=== PATIENT | male | born 1965 | race Caucasian/White ===

== ENCOUNTER 2021-03-17 11:00 | Inpatient (IN) ==
[~2021-03-17 11:00] MED LIST: ETOMIDATE 2 MG/ML 20 ML VIAL IV ONE; ROCURONIUM BROMIDE 10 MG/ML 5 ML VIAL IV ONE
[2021-03-17] MEDS ORDERED: ONDANSETRON INJ 2 MG/ML 2 ML VIAL IV STA (11:14)
[2021-03-17] MEDS ORDERED: SODIUM CHLORIDE 0.9% 1000ML 1,000 ML IV SCH ×3 (11:15→17:16)
--- NOTE | 2021-03-17 11:31 | Emergency Department Note ---
History of Present Illness General Chief complaint: Illness Stated complaint: FLU LIKE SX, WEAKNESS, FEVER Time Seen by Provider: 03/17/21 11:05 History of Present Illness This is a 55-year-old male the presents to the emergency department via ambulance with complaints of "flulike symptoms, weakness, fever". The ambulance was summoned by the patient's . Per report the patient has been ill since this past . He began with a cough, body aches and vomiting. There was some blood noted in the cough/vomit as of yesterday. Patient notes he feels very weak and states that last night he could not get up and laid on the ground throughout the night. Patient's then found him this morning. That was when the ambulance was summoned and he was brought here. Per EMS BSG 302, temp 100.5 on arrival to his house. They note that the patient seemed quite stiff overall. Patient does have history of COVID-19 in Jun 2020. He is not vaccinated against COVID-19. Patient notes he did not have his medications as of this morning. Patient's notes that he does not seem like himself at this time. Home Medications Medication Instructions Recorded Confirmed Type empagliflozin 25 mg tablet 25 mg PO QAM 09/14/19 03/17/21 History (Jardiance) glimepiride 2 mg tablet 2 mg PO QDD 09/14/19 03/17/21 History hydralazine 25 mg tablet 25 mg PO BID 09/14/19 03/17/21 History lisinopril 20 1 tab PO BID 09/14/19 03/17/21 History mg-hydrochlorothiazide 12.5 mg tablet metformin 500 mg tablet,extended 1,000 mg PO BID 09/14/19 03/17/21 History release 24hr atorvastatin 20 mg tablet 20 mg PO DAILY 03/17/21 03/17/21 History glimepiride 2 mg tablet 4 mg PO DAILY 03/17/21 03/17/21 History Allergies Allergy/AdvReac Type Severity Reaction Status Date / Time bee venom protein (honey bee) Allergy . Verified 03/17/21 11:45 BEES Allergy Mild Hives Uncoded 03/17/21 11:45 Past Med/Surg History Medical History Altered mental status Diabetes mellitus, type 2 Diabetic ketoacidosis Hypertension Kidney stones HX OF AND PASSED ON OWN Rhabdomyolysis Transaminitis Surgical History History of open reduction and internal fixation (ORIF) procedure RIGHT ANKLE Family History (Updated 03/17/21 @ 15:49 by ASUNCION Maldonado) Brother Stroke Social History Smoking Status: Never smoker Second Hand Exposure: No; Hx Alcohol Use: No Hx Substance Use: No Preferred Language: Lithuanian Communication Ability: Impaired Communication Ability Comment: currently imparied, not baseline, trouble breathing and communicating Criminal Defense Lawyer Required: No Beliefs That Will Affect Care: None Current Living Situation: Family Current Living Situation Comment: lives home with daughter. Feels Safe at Home: Yes Assistive Devices: Glasses Assistive Devices Comment: left glasses at home Review of Systems A total of 10 systems reviewed and were otherwise negative Physical Exam Vital Signs Vital Signs - 24 hr 03/17/21 11:04 03/17/21 11:18 03/17/21 11:52 Temperature 36.9 C Temperature Source Oral Pulse Rate 108 H 109 H Pulse Rate from SpO2 Sensor 107 H Pulse Rhythm Regular Respiratory Rate 18 18 38 H Respiratory Depth Normal Respiratory Pattern Regular Blood Pressure 119/80 119/80 135/104 H Blood Pressure Mean 93 93 114 Blood Pressure Position Lying Pulse Oximetry 95 96 Oxygen Flow Rate 3 Sepsis Recent Fever Within 48 Hours Yes Sepsis New/Unexplained Change in Mental Status No Sepsis Action Taken by Nursing Physician Notified 03/17/21 12:00 03/17/21 12:30 03/17/21 13:00 Temperature Temperature Source Pulse Rate 103 H 109 H 146 H Pulse Rate from SpO2 Sensor 180 H 108 H 111 H Pulse Rhythm Respiratory Rate Respiratory Depth Respiratory Pattern Blood Pressure 122/92 136/62 129/70 Blood Pressure Mean 102 86 89 Blood Pressure Position Pulse Oximetry 94 Oxygen Flow Rate Sepsis Recent Fever Within 48 Hours Sepsis New/Unexplained Change in Mental Status Sepsis Action Taken by Nursing VITAL SIGNS - Vital signs and nursing notes were reviewed. Mildly tachycardic, overall stable and afebrile. GENERAL - 55-year-old male appearing his stated age but is ill-appearing, has dried blood over his mouth and teeth and seems quite dry. Patient does answer questions. SKIN - Without rashes. No meningeal or petechial rash. Chronic skin change noted to the lower extremity. HEAD - NC/AT. EYES - PERRL with EOMI bilaterally. Sclera anicteric. Palpebral conjunctiva pink and moist with no injection noted. EARS - No deformities of external structures noted on gross examination bilaterally. No pain elicited with palpation of the tragus bilaterally. External auditory canals without discharge or otorrhea. Tympanic membranes pearly jade without retraction or bulging. No fluid or purulent material visualized behind the TM. Handle of malleus, umbo, cone of light, pars tensa/flaccid all easily visualized. NOSE - Midline and without cyanosis. No epistaxis or purulent drainage noted. Septum midline without deviation or septal hematoma noted. MOUTH/OROPHARYNX - Without perioral cyanosis. Buccal mucosa pink and dry and without leukoplakia. Tongue midline with equal elevation of palate bilaterally. No tonsillar hypertrophy, erythema, or exudates noted. Fair dentition noted. Dried blood noted. NECK - Neck with FROM. No nuchal rigidity. LUNGS - Chest wall symmetric without accessory muscle use, intercostals retractions, or central cyanosis. Clear to auscultation. There is no wheezing. No drooling, stridor, trismus. Patient does have a mild increase in respiratory rate but does not seem fatigued with respirations. CARDIAC -mildly tachycardic and regular rate. With S1/S2. No murmur, rubs, or gallops appreciated. ABDOMEN - Abdominal contour normal without pulsations or visible masses. BS normoactive all four quadrants. No tenderness, palpable masses, hepatosplenomegaly, or ascites noted. EXTREMITIES - No clubbing or peripheral cyanosis. +5/5 strength noted in UE/LE bilaterally. NEUROLOGIC - Cranial nerves II through XII grossly intact. PSYCH - A&O, and cooperates fully with examiner. Pt is very pleasant and interacts well with examiner. Course Administered Medications Insulin Human Regular 250 (units/ Sodium Chloride) 250 mls @ 9 mls/hr IV .Q24H [facility]; Protocol Stop: 04/16/21 14:29 Last Titration: 03/17/21 20:50 Dose: 9 units/hr, 9 mls/hr Documented by: [id number] Cosigned by: [id number] Titration: 03/17/21 17:51 Dose: 3.9 units/hr, 3.9 mls/hr Documented by: [id number] Cosigned by: [id number] Titration: 03/17/21 16:24 Dose: 4.9 units/hr, 4.9 mls/hr Documented by: [id number] Cosigned by: [id number] Admin: 03/17/21 15:16 Dose: 3.5 units/hr, 3.5 mls/hr Documented by: [id number] Cosigned by: [id number] Doxycycline Hyclate 100 mg/ (Dextrose) 110 mls @ 50 mls/hr IV Q12H [facility] Stop: 03/31/21 20:59 Last Admin: 03/17/21 21:15 Dose: 50 mls/hr Documented by: [id number] Sodium Chloride (Nss 1000ml) 1,000 mls @ 999 mls/hr IV .Q1H1M [facility] Last Infusion: 03/17/21 21:42 Dose: 0 mls/hr Documented by: [id number] Admin: 03/17/21 17:50 Dose: 999 mls/hr Documented by: [id number] Pantoprazole Sodium 40 mg/ (Dextrose) 100 mls @ 20 mls/hr IV Q5H [facility] Stop: 04/16/21 17:59 Last Admin: 03/17/21 18:27 Dose: 8 mg/hr, 20 mls/hr Documented by: [id number] Parenteral Electrolytes (Normosol-R) 1,000 mls @ 15 mls/hr IV .Q24H [facility] Stop: 04/16/21 17:59 Last Admin: 03/17/21 21:34 Dose: Not Given Documented by: [id number] Dextrose/Sodium Chloride (D5w And 1/2nss) 1,000 mls @ 200 mls/hr IV .Q5H [facility] Stop: 04/16/21 17:59 Last Infusion: 03/17/21 22:05 Dose: 200 mls/hr Documented by: [id number] Infusion: 03/17/21 20:07 Dose: 0 mls/hr Documented by: [id number] Admin: 03/17/21 18:34 Dose: 200 mls/hr Documented by: [id number] Dexamethasone 15 mg/ Dextrose 28.75 mls @ 0.833 mls/min IV Q6H [facility] Stop: 04/16/21 18:59 Last Infusion: 03/17/21 22:36 Dose: 0 mls/min Documented by: [id number] Admin: 03/17/21 21:15 Dose: 0.8 mls/min Documented by: [id number] Acyclovir Sodium 1,000 mg/ (Dextrose) 270 mls @ 250 mls/hr IV Q12H [facility]; Protocol Stop: 03/27/21 18:59 Last Infusion: 03/17/21 20:50 Dose: 0 mls/hr Documented by: [id number] Admin: 03/17/21 18:35 Dose: 250 mls/hr Documented by: [id number] Ampicillin Sodium 2,000 mg/ (Sodium Chloride) 100 mls @ 200 mls/hr IV Q6H [facility]; Protocol Stop: 03/27/21 19:29 Last Infusion: 03/17/21 20:50 Dose: 0 mls/hr Documented by: [id number] Admin: 03/17/21 20:07 Dose: 200 mls/hr Documented by: [id number] Ceftazidime 1,000 mg/ Dextrose 50 mls @ 100 mls/hr IV Q12H [facility]; Protocol Stop: 03/27/21 18:59 Last Infusion: 03/17/21 22:36 Dose: 0 mls/hr Documented by: [id number] Admin: 03/17/21 21:56 Dose: 100 mls/hr Documented by: [id number] Propofol (Diprivan) 1,000 mg in 100 mls @ 11.76 mls/hr IV .Q8H31M [facility]; Protocol Stop: 03/20/21 19:59 Last Admin: 03/17/21 20:07 Dose: 20 mcg/kg/min, 11.8 mls/hr Documented by: [id number] Cosigned by: [id number] Fentanyl Citrate (Fentanyl Drip) 1,250 mcg in 250 mls @ 5 mls/hr IV .Q50H [facility]; Protocol Stop: 03/31/21 19:59 Last Admin: 03/17/21 20:07 Dose: 25 mcg/hr, 5 mls/hr Documented by: [id number] Cosigned by: [id number] Insulin Aspart (Insulin Aspart 100 Units/Ml 3 Ml Pen) 0 units SC ACHS [facility] Stop: 04/16/21 16:29 Last Admin: 03/17/21 22:06 Dose: Not Given Documented by: [id number] Admin: 03/17/21 16:34 Dose: Not Given Documented by: [id number] Discontinued Medications Sodium Chloride (Nss 1000ml) 1,000 mls @ 999 mls/hr IV .Q1H1M [facility] Stop: 03/17/21 12:15 Last Infusion: 03/17/21 12:43 Dose: 0 mls/hr Documented by: [id number] Admin: 03/17/21 11:30 Dose: 999 mls/hr Documented by: [id number] Potassium Chloride 10 meq/ (Sodium Chloride) 1,005 mls @ 1,005 mls/hr IV .Q1H [facility] Stop: 03/17/21 13:44 Last Infusion: 03/17/21 14:53 Dose: 0 mls/hr Documented by: [id number] Admin: 03/17/21 13:29 Dose: 1,005 mls/hr Documented by: [id number] Infusion: 03/17/21 13:28 Dose: 0 mls/hr Documented by: [id number] Admin: 03/17/21 12:13 Dose: 1,005 mls/hr Documented by: [id number] Piperacillin Sod/Tazobactam Sod (Zosyn) 4.5 gm in 120 mls @ 240 mls/hr IV NOW ONE Stop: 03/17/21 13:04 Last Infusion: 03/17/21 13:23 Dose: 0 mls/hr Documented by: [id number] Admin: 03/17/21 12:49 Dose: 240 mls/hr Documented by: [id number] Vancomycin HCl 2,000 mg/ (Sodium Chloride) 540 mls @ 200 mls/hr IV NOW STA Stop: 03/17/21 15:25 Last Infusion: 03/17/21 17:08 Dose: 0 mls/hr Documented by: [id number] Admin: 03/17/21 13:23 Dose: 200 mls/hr Documented by: [id number] Doxycycline Hyclate 100 mg/ (Dextrose) 110 mls @ 55 mls/hr IV NOW STA Stop: 03/17/21 14:43 Last Infusion: 03/17/21 15:26 Dose: 0 mls/hr Documented by: [id number] Admin: 03/17/21 13:30 Dose: 55 mls/hr Documented by: [id number] Potassium Chloride 40 meq/ (Sodium Chloride) 1,020 mls @ 250 mls/hr IV .Q4H5M [facility] Stop: 04/16/21 15:14 Last Infusion: 03/17/21 18:20 Dose: 0 mls/hr Documented by: [id number] Admin: 03/17/21 15:38 Dose: 200 mls/hr Documented by: [id number] Piperacillin Sod/Tazobactam (Sod 3.375 gm/ Dextrose) 115 mls @ 28.75 mls/hr IV Q8H [facility]; Protocol Stop: 03/19/21 17:59 Last Admin: 03/17/21 18:23 Dose: Not Given Documented by: [id number] Potassium Chloride (K Corky / Wtr) 10 meq in 100 mls @ 100 mls/hr IV Q1H [facility] Stop: 03/17/21 18:59 Last Infusion: 03/17/21 22:37 Dose: 0 mls/hr Documented by: [id number] Admin: 03/17/21 20:53 Dose: 100 mls/hr Documented by: [id number] Infusion: 03/17/21 20:01 Dose: 0 mls/hr Documented by: [id number] Admin: 03/17/21 18:13 Dose: 100 mls/hr Documented by: [id number] Insulin Human Regular (Novolin-R Bolus From Bag) 3.5 units IV ONE ONE Stop: 03/17/21 14:31 Last Admin: 03/17/21 15:20 Dose: 3.5 units Documented by: [id number] Cosigned by: [id number] Miscellaneous (Rapid Sequence Induction Bag) Confirm Administered Dose 1 ea .ROUTE .STK-MED ONE Stop: 03/17/21 18:58 Last Admin: 03/17/21 21:34 Dose: Not Given Documented by: [id number] Ondansetron HCl (Ondansetron Inj 2 Mg/Ml 2 Ml Vial) 4 mg IV NOW STA Stop: 03/17/21 11:15 Last Admin: 03/17/21 11:31 Dose: 4 mg Documented by: [id number] Potassium Chloride (Potassium Chloride Crtab 20 Meq Tabcr) 40 meq PO ONE ONE Stop: 03/17/21 14:16 Last Admin: 03/17/21 18:15 Dose: Not Given Documented by: [id number] Potassium Chloride (Potassium Chloride 20 Meq/15 Ml Udc) 40 meq PO ONE ONE Stop: 03/17/21 15:04 Last Admin: 03/17/21 16:17 Dose: Not Given Documented by: [id number] Critical Care Time Critical Care Time: Yes Total Critical Care Time: 40 I have personally spent about 40 minutes of critical care time in the direct management of this patient. This includes bedside care, interpretation of diagnostic studies, and testing, discussion with consultants, patient, and family members, and other required patient management activities. This 40 minutes is in excess of all separately billable procedures. Medical Decision Making Laboratory Data Result diagrams: 03/17/21 18:11 03/17/21 18:52 Lab Results 03/17/21 03/17/21 03/17/21 Range/Units 11:24 11:24 11:24 WBC 6.81 (4.8-10.8) K/uL RBC 5.42 (4.7-6.1) M/uL Hgb 15.9 (14.0-18.0) g/dL POC Hgb (14.0-18.0) g/dl Hct 45.7 (42-52) % POC Hct (42-52) % MCV 84.3 (80-100) fL MCH 29.3 (25-34) pg MCHC 34.8 (32-36) g/dL RDW Std Deviation 39.7 (36.4-46.3) fL RDW Coeff of Js 12.9 (11.5-14.5) % Plt Count 32 L (130-400) K/uL Immature Gran % (Auto) 1.5 % Neut % (Auto) 87.1 % Lymph % (Auto) 3.1 % [place] % (Auto) 8.2 % Eos % (Auto) 0.0 % Baso % (Auto) 0.1 % Neut # (Auto) 5.93 (1.4-6.5) K/uL Lymph # (Auto) 0.21 L (1.2-3.4) K/uL [place] # (Auto) 0.56 (0.11-0.59) K/uL Eos # (Auto) 0.00 (0-0.5) K/uL Baso # (Auto) 0.01 (0-0.2) K/uL Immature Gran # (Auto) 0.10 H (0.00-0.02) K/uL Blood Smear Review Toxic Vacuolation 2+ Dohle Bodies 2+ Platelet Estimate SIGNIFIC DECREASED (Normal) PT (9.0-12.0) Seconds INR (0.9-1.1) APTT (21.0-31.0) Seconds PTT Ratio POC Sodium (135-144) mmol/L Sodium 133 L (136-145) mmol/L POC Potassium (3.3-5.0) mmol/L Potassium 3.1 L (3.5-5.1) mmol/L POC Chloride (101-112) mmol/L Chloride 95 L (98-107) mmol/L Carbon Dioxide 24 (21-32) mmol/L POC Total CO2 (24-31) mmol/L Anion Gap 14.0 H (3-11) POC Anion Gap (16-25) mmol/L POC BUN (7-18) mg/dl BUN 77 H (7-18) mg/dl Creatinine 2.72 H (0.6-1.4) mg/dl POC Creatinine (0.6-1.3) mg/dl Est Cr Clr Drug Dosing 36.1 ml/min Est GFR ( Amer) 29.6 ml/min Est GFR (Non-Af Amer) 25.5 ml/min BUN/Creatinine Ratio 28.4 H (10-20) Glucose 314 H* (70-99) mg/dl POC Glucose (other) (70-99) mg/dl Lactate (0.4-2.0) mmol/L Calcium 8.6 (8.5-10.1) mg/dl POC Ioniz Calcium Ladi (1.12-1.32) mmol/l Magnesium 2.1 (1.8-2.4) mg/dl Total Bilirubin 1.1 H (0.2-1) mg/dl AST 367 H (15-37) U/L ALT 355 H (12-78) U/L Alkaline Phosphatase 89 (45-117) U/L Total Creatine Kinase 1922 H (39-308) U/L CK-MB (CK-2) 18.8 H (0.5-3.6) ng/ml CK/CKMB % Calc 1.0 (0-3.0) Troponin I 1.770 H* (0-0.045) ng/ml Total Protein 6.8 (6.4-8.2) gm/dl Albumin 2.4 L (3.4-5.0) gm/dl Globulin 4.4 H (2.5-4.0) gm/dl Albumin/Globulin Ratio 0.5 L (0.9-2) Lipase 55 L (73-393) U/L Beta-Hydroxybutyric Acd (0.2-2.81) mg/dl Procalcitonin 188.59 H (0-0.5) ng/ml TSH 1.730 (0.300-4.500) uIu/ml Urine Color Urine Appearance (Clear) Urine pH (4.5-7.5) Ur Specific [place] (1.000-1.030) Urine Protein (Negative) Urine Glucose (UA) (Negative) Urine Ketones (Negative) Urine Blood (Negative) Urine Nitrite (Negative) Urine Bilirubin (Negative) Urine Urobilinogen (Negative) Ur Leukocyte Esterase (Negative) Urine WBC (Auto) (0-5) /hpf Urine RBC (Auto) (0-4) /hpf U Hyaline Cast (Auto) (0-5) /lpf U Epithel Cells (Auto) (0-5) /lpf Urine Bacteria (Auto) (Negative) Ur Renal Epithelial Cell Amorphous Sediment (None Prsent) Granular Casts (0) /lpf Urine Yeast Anaplasma Smear See Comment A Lyme Disease IgG Ab Negative (Negative) Lyme Disease IgM Ab Negative (Negative) COVID-19 Eval Order SARS-CoV-2 (PCR) (Negative) Bld Cult Staph aureus PCR (Negative) Blood Culture MRSA PCR (Negative) Blood Type Antibody Screen 03/17/21 03/17/21 03/17/21 Range/Units 11:24 11:24 11:24 WBC (4.8-10.8) K/uL RBC (4.7-6.1) M/uL Hgb (14.0-18.0) g/dL POC Hgb (14.0-18.0) g/dl Hct (42-52) % POC Hct (42-52) % MCV (80-100) fL MCH (25-34) pg MCHC (32-36) g/dL RDW Std Deviation (36.4-46.3) fL RDW Coeff of Js (11.5-14.5) % Plt Count (130-400) K/uL Immature Gran % (Auto) % Neut % (Auto) % Lymph % (Auto) % [place] % (Auto) % Eos % (Auto) % Baso % (Auto) % Neut # (Auto) (1.4-6.5) K/uL Lymph # (Auto) (1.2-3.4) K/uL [place] # (Auto) (0.11-0.59) K/uL Eos # (Auto) (0-0.5) K/uL Baso # (Auto) (0-0.2) K/uL Immature Gran # (Auto) (0.00-0.02) K/uL Blood Smear Review Toxic Vacuolation Dohle Bodies Platelet Estimate (Normal) PT 10.3 (9.0-12.0) Seconds INR 1.0 (0.9-1.1) APTT 28.5 (21.0-31.0) Seconds PTT Ratio 1.1 POC Sodium (135-144) mmol/L Sodium (136-145) mmol/L POC Potassium (3.3-5.0) mmol/L Potassium (3.5-5.1) mmol/L POC Chloride (101-112) mmol/L Chloride (98-107) mmol/L Carbon Dioxide (21-32) mmol/L POC Total CO2 (24-31) mmol/L Anion Gap (3-11) POC Anion Gap (16-25) mmol/L POC BUN (7-18) mg/dl BUN (7-18) mg/dl Creatinine (0.6-1.4) mg/dl POC Creatinine (0.6-1.3) mg/dl Est Cr Clr Drug Dosing ml/min Est GFR ( Amer) ml/min Est GFR (Non-Af Amer) ml/min BUN/Creatinine Ratio (10-20) Glucose (70-99) mg/dl POC Glucose (other) (70-99) mg/dl Lactate 4.7 H* (0.4-2.0) mmol/L Calcium (8.5-10.1) mg/dl POC Ioniz Calcium Ladi (1.12-1.32) mmol/l Magnesium (1.8-2.4) mg/dl Total Bilirubin (0.2-1) mg/dl AST (15-37) U/L ALT (12-78) U/L Alkaline Phosphatase (45-117) U/L Total Creatine Kinase (39-308) U/L CK-MB (CK-2) (0.5-3.6) ng/ml CK/CKMB % Calc (0-3.0) Troponin I (0-0.045) ng/ml Total Protein (6.4-8.2) gm/dl Albumin (3.4-5.0) gm/dl Globulin (2.5-4.0) gm/dl Albumin/Globulin Ratio (0.9-2) Lipase (73-393) U/L Beta-Hydroxybutyric Acd (0.2-2.81) mg/dl Procalcitonin (0-0.5) ng/ml TSH (0.300-4.500) uIu/ml Urine Color Urine Appearance (Clear) Urine pH (4.5-7.5) Ur Specific [place] (1.000-1.030) Urine Protein (Negative) Urine Glucose (UA) (Negative) Urine Ketones (Negative) Urine Blood (Negative) Urine Nitrite (Negative) Urine Bilirubin (Negative) Urine Urobilinogen (Negative) Ur Leukocyte Esterase (Negative) Urine WBC (Auto) (0-5) /hpf Urine RBC (Auto) (0-4) /hpf U Hyaline Cast (Auto) (0-5) /lpf U Epithel Cells (Auto) (0-5) /lpf Urine Bacteria (Auto) (Negative) Ur Renal Epithelial Cell Amorphous Sediment (None Prsent) Granular Casts (0) /lpf Urine Yeast Anaplasma Smear Lyme Disease IgG Ab (Negative) Lyme Disease IgM Ab (Negative) COVID-19 Eval Order SARS-CoV-2 (PCR) (Negative) Bld Cult Staph aureus PCR Positive A (Negative) Blood Culture MRSA PCR Negative (Negative) Blood Type Antibody Screen 03/17/21 03/17/21 03/17/21 Range/Units 11:25 11:57 12:25 WBC (4.8-10.8) K/uL RBC (4.7-6.1) M/uL Hgb (14.0-18.0) g/dL POC Hgb 16.7 (14.0-18.0) g/dl Hct (42-52) % POC Hct 49 (42-52) % MCV (80-100) fL MCH (25-34) pg MCHC (32-36) g/dL RDW Std Deviation (36.4-46.3) fL RDW Coeff of Js (11.5-14.5) % Plt Count (130-400) K/uL Immature Gran % (Auto) % Neut % (Auto) % Lymph % (Auto) % [place] % (Auto) % Eos % (Auto) % Baso % (Auto) % Neut # (Auto) (1.4-6.5) K/uL Lymph # (Auto) (1.2-3.4) K/uL [place] # (Auto) (0.11-0.59) K/uL Eos # (Auto) (0-0.5) K/uL Baso # (Auto) (0-0.2) K/uL Immature Gran # (Auto) (0.00-0.02) K/uL Blood Smear Review Toxic Vacuolation Dohle Bodies Platelet Estimate (Normal) PT (9.0-12.0) Seconds INR (0.9-1.1) APTT (21.0-31.0) Seconds PTT Ratio POC Sodium 134 L (135-144) mmol/L Sodium (136-145) mmol/L POC Potassium 3.1 L (3.3-5.0) mmol/L Potassium (3.5-5.1) mmol/L POC Chloride 95 L (101-112) mmol/L Chloride (98-107) mmol/L Carbon Dioxide (21-32) mmol/L POC Total CO2 19 L (24-31) mmol/L Anion Gap (3-11) POC Anion Gap 23.0 (16-25) mmol/L POC BUN 66 H (7-18) mg/dl BUN (7-18) mg/dl Creatinine (0.6-1.4) mg/dl POC Creatinine 2.8 H (0.6-1.3) mg/dl Est Cr Clr Drug Dosing ml/min Est GFR ( Amer) ml/min Est GFR (Non-Af Amer) ml/min BUN/Creatinine Ratio (10-20) Glucose (70-99) mg/dl POC Glucose (other) 331 H (70-99) mg/dl Lactate (0.4-2.0) mmol/L Calcium (8.5-10.1) mg/dl POC Ioniz Calcium Ladi 1.01 L (1.12-1.32) mmol/l Magnesium (1.8-2.4) mg/dl Total Bilirubin (0.2-1) mg/dl AST (15-37) U/L ALT (12-78) U/L Alkaline Phosphatase (45-117) U/L Total Creatine Kinase (39-308) U/L CK-MB (CK-2) (0.5-3.6) ng/ml CK/CKMB % Calc (0-3.0) Troponin I (0-0.045) ng/ml Total Protein (6.4-8.2) gm/dl Albumin (3.4-5.0) gm/dl Globulin (2.5-4.0) gm/dl Albumin/Globulin Ratio (0.9-2) Lipase (73-393) U/L Beta-Hydroxybutyric Acd (0.2-2.81) mg/dl Procalcitonin (0-0.5) ng/ml TSH (0.300-4.500) uIu/ml Urine Color Dark Yellow Urine Appearance Cloudy A (Clear) Urine pH 5.0 (4.5-7.5) Ur Specific [place] 1.023 (1.000-1.030) Urine Protein 1+ H (Negative) Urine Glucose (UA) 3+ H (Negative) Urine Ketones 1+ H (Negative) Urine Blood 1+ H (Negative) Urine Nitrite Negative (Negative) Urine Bilirubin Negative (Negative) Urine Urobilinogen Negative (Negative) Ur Leukocyte Esterase Negative (Negative) Urine WBC (Auto) 10-30 H (0-5) /hpf Urine RBC (Auto) 0-4 (0-4) /hpf U Hyaline Cast (Auto) 1-5 (0-5) /lpf U Epithel Cells (Auto) >30 H (0-5) /lpf Urine Bacteria (Auto) Negative (Negative) Ur Renal Epithelial Cell Not Reportable Amorphous Sediment Present A (None Prsent) Granular Casts 1-5 H (0) /lpf Urine Yeast Not Reportable Anaplasma Smear Lyme Disease IgG Ab (Negative) Lyme Disease IgM Ab (Negative) COVID-19 Eval Order SARS-CoV-2 (PCR) (Negative) Bld Cult Staph aureus PCR (Negative) Blood Culture MRSA PCR (Negative) Blood Type A Positive Antibody Screen NEGATIVE 03/17/21 03/17/21 Range/Units 12:25 12:25 WBC (4.8-10.8) K/uL RBC (4.7-6.1) M/uL Hgb (14.0-18.0) g/dL POC Hgb (14.0-18.0) g/dl Hct (42-52) % POC Hct (42-52) % MCV (80-100) fL MCH (25-34) pg MCHC (32-36) g/dL RDW Std Deviation (36.4-46.3) fL RDW Coeff of Js (11.5-14.5) % Plt Count (130-400) K/uL Immature Gran % (Auto) % Neut % (Auto) % Lymph % (Auto) % [place] % (Auto) % Eos % (Auto) % Baso % (Auto) % Neut # (Auto) (1.4-6.5) K/uL Lymph # (Auto) (1.2-3.4) K/uL [place] # (Auto) (0.11-0.59) K/uL Eos # (Auto) (0-0.5) K/uL Baso # (Auto) (0-0.2) K/uL Immature Gran # (Auto) (0.00-0.02) K/uL Blood Smear Review Toxic Vacuolation Dohle Bodies Platelet Estimate (Normal) PT (9.0-12.0) Seconds INR (0.9-1.1) APTT (21.0-31.0) Seconds PTT Ratio POC Sodium (135-144) mmol/L Sodium (136-145) mmol/L POC Potassium (3.3-5.0) mmol/L Potassium (3.5-5.1) mmol/L POC Chloride (101-112) mmol/L Chloride (98-107) mmol/L Carbon Dioxide (21-32) mmol/L POC Total CO2 (24-31) mmol/L Anion Gap (3-11) POC Anion Gap (16-25) mmol/L POC BUN (7-18) mg/dl BUN (7-18) mg/dl Creatinine (0.6-1.4) mg/dl POC Creatinine (0.6-1.3) mg/dl Est Cr Clr Drug Dosing ml/min Est GFR ( Amer) ml/min Est GFR (Non-Af Amer) ml/min BUN/Creatinine Ratio (10-20) Glucose (70-99) mg/dl POC Glucose (other) (70-99) mg/dl Lactate (0.4-2.0) mmol/L Calcium (8.5-10.1) mg/dl POC Ioniz Calcium Ladi (1.12-1.32) mmol/l Magnesium (1.8-2.4) mg/dl Total Bilirubin (0.2-1) mg/dl AST (15-37) U/L ALT (12-78) U/L Alkaline Phosphatase (45-117) U/L Total Creatine Kinase (39-308) U/L CK-MB (CK-2) (0.5-3.6) ng/ml CK/CKMB % Calc (0-3.0) Troponin I (0-0.045) ng/ml Total Protein (6.4-8.2) gm/dl Albumin (3.4-5.0) gm/dl Globulin (2.5-4.0) gm/dl Albumin/Globulin Ratio (0.9-2) Lipase (73-393) U/L Beta-Hydroxybutyric Acd (0.2-2.81) mg/dl Procalcitonin (0-0.5) ng/ml TSH (0.300-4.500) uIu/ml Urine Color Urine Appearance (Clear) Urine pH (4.5-7.5) Ur Specific [place] (1.000-1.030) Urine Protein (Negative) Urine Glucose (UA) (Negative) Urine Ketones (Negative) Urine Blood (Negative) Urine Nitrite (Negative) Urine Bilirubin (Negative) Urine Urobilinogen (Negative) Ur Leukocyte Esterase (Negative) Urine WBC (Auto) (0-5) /hpf Urine RBC (Auto) (0-4) /hpf U Hyaline Cast (Auto) (0-5) /lpf U Epithel Cells (Auto) (0-5) /lpf Urine Bacteria (Auto) (Negative) Ur Renal Epithelial Cell Amorphous Sediment (None Prsent) Granular Casts (0) /lpf Urine Yeast Anaplasma Smear Lyme Disease IgG Ab (Negative) Lyme Disease IgM Ab (Negative) COVID-19 Eval Order Covid19 at [facility] SARS-CoV-2 (PCR) NEGATIVE (Negative) Bld Cult Staph aureus PCR (Negative) Blood Culture MRSA PCR (Negative) Blood Type Antibody Screen Imaging Data Radiologist's Impression: Head CT 03/17/21 11:14 CT head/brain wo con CLINICAL HISTORY: illness, fall COMPARISON STUDY: No previous studies for comparison. TECHNIQUE: Axial CT of the brain is performed from the vertex to the skull base. IV contrast was not administered for this examination. A dose lowering technique was utilized adhering to the principles of ALARA. CT DOSE: FINDINGS: No intra or extra-axial mass lesions are visualized. There is no CT evidence of acute cortical infarction. There is no evidence of midline shift. There is no acute hemorrhage. No acute depressed calvarial fractures are visualized. There is no evidence of pathologic ventricular dilatation. There is no evidence of acute sinusitis IMPRESSION: No acute intracranial findings ACT 112: Negative or not required by law. The above report was generated using voice recognition software. It may contain grammatical, syntax or spelling errors. Electronically signed by: Nena Law DO 03/17/2021 12:21 PM Abdomen/Pelvis CT 03/17/21 11:36 CT SCAN OF THE ABDOMEN AND PELVIS WITHOUT CONTRAST CLINICAL HISTORY: bloody emesis, rigidity, Cr. 2.8 COMPARISON STUDY: No previous studies for comparison. TECHNIQUE: CT scan of the abdomen and pelvis was performed from the lung bases to the proximal femurs. Images are reviewed in the axial, sagittal, and coronal planes. IV contrast was not administered for this examination. A dose lowering technique was utilized adhering to the principles of ALARA. CT DOSE: 2670.92 mGy.cm FINDINGS: Lower chest: Atelectasis at dependent portions of bilateral lower lobes and trace right pleural effusion. Liver: The unenhanced liver is normal in size, contour, and attenuation. There is no intrahepatic biliary ductal dilatation. Gallbladder: Unremarkable. Spleen: Normal in size and attenuation. Pancreas: Unremarkable. Adrenal glands: Unremarkable. Kidneys: The unenhanced kidneys are normal in size without hydronephrosis. No renal calculi are identified. Multiple parapelvic cysts are seen within left kidney. There is also 1.8 cm isoattenuating lesion within left renal cortex. Minimal perinephric fat stranding is seen bilaterally and slightly more prominent on the left. 9 mm hypoattenuating lesion is seen within the right renal cortex and might represent cyst. Bowel: Small to moderate hiatal hernia is seen. Bowel loops are nondilated. Appendix shows normal morphology and gas filled. Peritoneum: There is no intraperitoneal free air or abdominal ascites. Vasculature: The abdominal aorta is normal in course and caliber. Prominent calcifications of bilateral iliac arteries are seen. Adenopathy: None. Pelvic viscera: Urinary bladder is overdistended. Prostate gland is not signi ficantly enlarged. Small bilateral fat-containing inguinal hernias are seen. Skeletal structures: Mild multilevel degenerative changes of the spine most prominent at L5-S1 level. Multiple sclerotic lesions within bilateral femoral heads which might represent enostosis. IMPRESSION: 1. Small to moderate hiatal hernia. 2. Overdistended urinary bladder. 3. Minimal perinephric fat stranding which is seen bilaterally and most prominent on the left and might represent inflammatory process/pyelonephritis however evaluation is limited due to lack of IV contrast. Please correlate above-mentioned findings with clinical presentation and laboratory markers of inflammatory process. 4. Cortical lesion within left kidney is incompletely evaluated on this nonenhanced exam. Differential diagnosis include hemorrhagic cyst or neoplasm. Further evaluation with contrast-enhanced CT of the abdomen, renal protocol on nonemergency basis is suggested. 5. Nondilated loops of bowel. 6. The rest of findings as above. ACT 112: Positive. There are findings on this exam that require communication between the performing entity and the patient following Patient Test Result Information Act ([place] Act 112) guidelines. The above report was generated using voice recognition software. It may contain grammatical, syntax or spelling errors. Electronically signed by: Nena Law DO 03/17/2021 12:[address] 03/17/21 11:36 CT chest diagnostic wo con CLINICAL HISTORY: bloody emesis, rigidity, Cr. 2.8 COMPARISON STUDY: No previous studies for comparison. CT DOSE: TECHNIQUE: CT of the thorax was performed from the thoracic inlet to the lung bases. Images are reviewed in the axial, sagittal, and coronal planes. IV contrast was not administered for this examination. A dose lowering technique was utilized adhering to the principles of ALARA. FINDINGS: There is no axillary, supra clavicle or internal mammary lymphadenopathy seen. No definite mediastinal lymphadenopathy is seen however evaluation is limited du e to mild motion artifact as well as beam hardening artifact from patient's arms. Thyroid: Right thyroid lobe is not well seen. Possible hypoattenuating nodule within left thyroid lobe. Small to moderate hiatal hernia. Proximal aspect of esophagus is slightly pr ominent and possible is fluid-filled. Thoracic aorta: Is normal in caliber. Dilatation of the main pulmonary artery which could be seen in pulmonary hypertension. Heart: The heart is normal in size and configuration, without pericardial effusion. Lungs and pleural spaces: Tracheobronchial tree is patent. Evaluation is limited due to motion artifact. This study is performed during partial expiratory phase. There is mild atelectasis and possible infiltrates at dependent portions of bilateral lower lobes. Trace right pleural effusion is seen. Upper abdomen: Please see report of the CT of the abdomen performed at the same time. Skeletal structures: Mild degenerative changes of the spine. IMPRESSION: 1. Small to moderate hiatal hernia. Proximal esophagus is slightly prominent and possibly fluid-filled, differential diagnosis might include esophagitis alberto coleman other etiology. Limited exam due to motion and beam hardening artifact. Please correlate above-mentioned findings with GI evaluation. 2. Opacities at dependent portions of bilateral lower lobes and possible trace right pleural effusion. Pneumonia is possible. Limited exam. 3. The rest of findings as above. ACT 112: Negative or not required by law. The above report was generated using voice recognition software. It may contain grammatical, syntax or spelling errors. Electronically signed by: Nena Law DO 03/17/2021 1:01 PM MDM Narrative Patient was seen and evaluated as above in room B08. Review was performed of nursing notes and vital signs. I did review pertinent previous visits and patient history. After obtaining a thorough history and physical examination the above work up was performed. Patient presents to us today via ambulance over concerns of flulike symptoms, weakness, fever. No fever on arrival here. Per EMS the patient has been ill since about of this past week and on arrival to his house BSG 302, temp 100.5. Patient was reportedly laying on the ground in his home throughout the entire night and then was found by his this morning who summoned EMS. at bedside at this time states that she has been trying to contact him and was not able to reach him today therefore notes went to check on him today. Here in the ED, on arrival the patient does appear quite dry and has dried blood on his mouth and teeth. Patient is able to answer my questions. There is a mild increased respiratory rate however the patient is not exhibiting any labored breathing or evidence of increased work of breathing. Patient's vital signs on arrival are overall stable noting a temp of 37.0 and a pressure of 119/80. He is mildly tachycardic. Respiratory rate not concerning elevated on arrival. After evaluating the patient I did discuss the case with the attending physician and he also evaluated the patient. Options of care were discussed with the patient. IV access was established. Labs were drawn. 2 large-bore IVs were placed. He was given IV fluids. Concern was for sepsis and the patient's lactic returned at 4.7 and a total of 3 L of fluids were ordered. This was 3 L of normal saline however 2 of the liters were to each include 10meq of potassium chloride noting the hypokalemia at 3.1 upon POC potassium result. Care was taken so as to run each 10meq of potassium over 1 hour. He was also given antiemetics. CT scans were ordered of the head, chest, abdomen and pelvis however the chest and abdomen were changed to noncontrast when the POC creatinine came back at 2.8. Results of the scans as above. At this time there is no acute intracranial finding. The CT scan of the abdomen and pelvis without contrast, notes minimal perinephric stranding and a cortical lesion within the left kidney. In addition there are comments on the patient's CT scan of the chest of small to moderate hiatal hernia and the proximal esophagus is slightly prominent and possibly fluid-filled. There are also some opacities at the dependent portion of the bilateral lower lobes and possible trace right pleural effusion. Empiric antibiotics were ordered. This included Zosyn and then when the patient's anaplasma smear returned doxycycline was also added in addition to vancomycin by the attending physician. Consideration was given to potential LP to evaluate for meningitis however at this time noting the patient's afebrile state in the department, normal white bl ood cell count, clinically lacking signs of meningitis, and decreased platelet count it is felt that the risk outweighs the benefit at this current time and clinically is not indicated at the present time. Laboratory studies reveal WBC of 6.1, hemoglobin 15.9, platelet count of 32, sodium of 134, potassium 3.1, creatinine of 2.72 and a BUN of 77. Lactic 4.7. LFTs are elevated with AST at 367 and ALT at 355. Although the risk, and potential pyelonephritis on CT scan the patient's urinalysis does not correlate with this. There are 10-30 WBCs noting greater than 30 epithelial cells with negative bacteria and negative for nitrites. The patient's CK is 1922. Troponin I 0.770. I will note the patient denies any chest pain at this time and denied having any chest pain in the recent past. Do not suspect ACS as the origin of presentation. Pro-Kelvin significantly elevated at 188.59. Anaplasma Smear: Intracytoplasmic neutrophilic inclusions noted, Pathology consult to follow. While here in the emergency department the patient remained stable. Patient was reevaluated several times. Patient was informed of findings throughout his stay here in the emergency department. Patient certainly will require hospitalization noting his illness at this time. Case discussed with the hospitalist. I discussed this with ASUNCION Maldonado. Please refer to further documentation regarding his stay. I will note that the patient clinically appears better than his lab value results at this time. EKG was reviewed by myself and found to be sinus tachycardia at a rate of 108 beats per minute and per my interpretation reveals right bundle branch block with a QTC of 568 QRS 168. No previous for comparison. An order was placed for continuous cardiac monitoring. The monitor shows a rate of 109 with sinus tach rhythm. I attest that I have personally reviewed the patient medication list. I attest that I have reviewed the patient's blood pressure and it was found to be appropriate on arrival. GCS: 15 In the evaluation and treatment of this patient the following differential diagnoses were entertained: HI, PE, pericarditis, costochondritis, dissection, pneumonia, pulmonary hemorrhage, GI bleed, sepsis, UTI, pyelonephritis, septic stone, COVID-19, viral illness, meningitis, encephalitis, DKA, among others Impression & Plan JOSELINE (acute kidney injury), Acute dehydration, Hematemesis, Acute hyperglycemia, Elevated troponin, Severe sepsis, Thrombocytopenia, Transaminitis Discharge Plan Visit Data Chief Complaint: Illness Stated Complaint: FLU LIKE SX, WEAKNESS, FEVER ED Provider: Calin Brown ED Midlevel Provider: Pablo Clinton Discharge Problem: JOSELINE (acute kidney injury), Acute dehydration, Hematemesis, Acute hyperglycemia, Elevated troponin, Severe sepsis, Thrombocytopenia, Transaminitis Patient Disposition: Admitted As Inpatient Condition: Serious Discharge Instructions Interventions: ED Discharge Assessment Last Done: 03/17/21 14:52
[2021-03-17 11:39] LABS: iSTAT Creatinine 2.8 mg/dl (0.6-1.3); iSTAT Hemoglobin 16.7 g/dl (14.0-18.0); iSTAT Ionized Calcium 1.01 mmol/l (1.12-1.32); iSTAT Potassium 3.1 mmol/L (3.3-5.0)
[2021-03-17 11:50] LABS: Partial Thromboplastin Ratio 1.1; Partial Thromboplastin Time 28.5 Seconds (21.0-31.0); Prothrombin Time 10.3 Seconds (9.0-12.0)
[2021-03-17] MEDS: POTASSIUM CHLORIDE 10 MEQ in SODIUM CHLORIDE 0.9% 1000ML 1,000 ML IV SCH ×2 (12:13→13:29)
[2021-03-17 12:18] LABS: Lyme Ab IgG w/WB Rflx Negative (Negative); Lyme Ab IgM w/WB Rflx Negative (Negative)
[2021-03-17 12:19] LABS: Albumin Globulin Ratio 0.5 (0.9-2); Albumin Level 2.4 gm/dl (3.4-5.0); BUN Creatinine Ratio 28.4 (10-20); Bilirubin,Total 1.1 mg/dl (0.2-1); Calcium 8.6 mg/dl (8.5-10.1); Creatine Kinase MB 18.8 ng/ml (0.5-3.6); Creatinine Clr Calc Pharmacy 36.1 ml/min; Est GFR (African American) 29.6 ml/min; Est GFR (Non-African American) 25.5 ml/min; Globulin 4.4 gm/dl (2.5-4.0); Magnesium 2.1 mg/dl (1.8-2.4); Potassium 3.1 mmol/L (3.5-5.1); Thyroid Stimulating Hormone 1.73 uIu/ml (0.300-4.500); Total Protein 6.8 gm/dl (6.4-8.2); Troponin I 1.77 ng/ml (0-0.045)
--- NOTE | 2021-03-17 12:22 | CT Scan Report ---
CT head/brain wo con CLINICAL HISTORY: illness, fall COMPARISON STUDY: No previous studies for comparison. TECHNIQUE: Axial CT of the brain is performed from the vertex to the skull base. IV contrast was not administered for this examination. A dose lowering technique was utilized adhering to the principles of ALARA. CT DOSE: FINDINGS: No intra or extra-axial mass lesions are visualized. There is no CT evidence of acute cortical infarc tion. There is no evidence of midline shift. There is no acute hemorrhage. No acute depressed calvar ial fractures are visualized. There is no evidence of pathologic ventricular dilatation. There is no evidence of acute sinusitis IMPRESSION: No acute intracranial findings ACT 112: Negative or not required by law. The above report was generated using voice recognition software. It may contain grammatical, syntax o r spelling errors. Electronically signed by: Nena Law DO 03/17/2021 12:21 PM
[2021-03-17 12:23] LABS: Procalcitonin 188.59 ng/ml (0-0.5)
[2021-03-17] MEDS ORDERED: PIPERACILLIN/TAZOBACTAM 4.5 GM/120 ML BAG IV ONE (12:35)
[2021-03-17] MEDS ORDERED: PIPERACILL/TAZOBAC CONSULT ACTIVE PRN ×2 (12:35→15:15)
--- NOTE | 2021-03-17 12:38 | CT Scan Report ---
CT SCAN OF THE ABDOMEN AND PELVIS WITHOUT CONTRAST CLINICAL HISTORY: bloody emesis, rigidity, Cr. 2.8 COMPARISON STUDY: No previous studies for comparison. TECHNIQUE: CT scan of the abdomen and pelvis was performed from the lung bases to the proximal femurs . Images are reviewed in the axial, sagittal, and coronal planes. IV contrast was not administered fo r this examination. A dose lowering technique was utilized adhering to the principles of ALARA. CT DOSE: 2670.92 mGy.cm FINDINGS: Lower chest: Atelectasis at dependent portions of bilateral lower lobes and trace right pleural effus ion. Liver: The unenhanced liver is normal in size, contour, and attenuation. There is no intrahepatic antoine iary ductal dilatation. Gallbladder: Unremarkable. Spleen: Normal in size and attenuation. Pancreas: Unremarkable. Adrenal glands: Unremarkable. Kidneys: The unenhanced kidneys are normal in size without hydronephrosis. No renal calculi are mann ntified. Multiple parapelvic cysts are seen within left kidney. There is also 1.8 cm isoattenuating lesion wit hin left renal cortex. Minimal perinephric fat stranding is seen bilaterally and slightly more promin ent on the left. 9 mm hypoattenuating lesion is seen within the right renal cortex and might represent cyst. Bowel: Small to moderate hiatal hernia is seen. Bowel loops are nondilated. Appendix shows normal mor phology and gas filled. Peritoneum: There is no intraperitoneal free air or abdominal ascites. Vasculature: The abdominal aorta is normal in course and caliber. Prominent calcifications of bilater al iliac arteries are seen. Adenopathy: None. Pelvic viscera: Urinary bladder is overdistended. Prostate gland is not significantly enlarged. Small bilateral fat-containing inguinal hernias are seen. Skeletal structures: Mild multilevel degenerative changes of the spine most prominent at L5-S1 level. Multiple sclerotic lesions within bilateral femoral heads which might represent enostosis. IMPRESSION: 1. Small to moderate hiatal hernia. 2. Overdistended urinary bladder. 3. Minimal perinephric fat stranding which is seen bilaterally and most prominent on the left and mi ght represent inflammatory process/pyelonephritis however evaluation is limited due to lack of IV con trast. Please correlate above-mentioned findings with clinical presentation and laboratory markers of inflammatory process. 4. Cortical lesion within left kidney is incompletely evaluated on this nonenhanced exam. Differenti al diagnosis include hemorrhagic cyst or neoplasm. Further evaluation with contrast-enhanced CT of th e abdomen, renal protocol on nonemergency basis is suggested. 5. Nondilated loops of bowel. 6. The rest of findings as above. ACT 112: Positive. There are findings on this exam that require communication between the performing entity and the patient following Patient Test Result Information Act ([place] Act 112) guidelines. The above report was generated using voice recognition software. It may contain grammatical, syntax o r spelling errors. Electronically signed by: Nena Law DO 03/17/2021 12:36 PM
[2021-03-17 12:42] LABS: Appearance Urine Cloudy (Clear); Bacteria Urine Automated Negative (Negative); Bilirubin Urine Negative (Negative); Blood Urine 1+ (Negative); Color Urine Dark Yellow; Epithelial Cell Urine Auto >30 /lpf (0-5); Glucose Urine UA 3+ (Negative); Ketones Urine 1+ (Negative); Leukocyte Esterase Urine Negative (Negative); Nitrite Urine Negative (Negative); Protein Urine 1+ (Negative); RBC Urine Automated 0-4 /hpf (0-4); Specific Gravity Urine 1.023 (1.000-1.030); Urobilinogen Urine Negative (Negative)
[2021-03-17] MEDS ORDERED: VANCOMYCIN HCL 2,000 MG in SODIUM CHLORIDE 0.9% 500 ML IV STA (12:44)
[2021-03-17] MEDS ORDERED: DOXYCYCLINE HYCLATE 100 MG in DEXTROSE 5% 100 ML IV STA (12:44)
[2021-03-17 12:45] LABS: Basophils # (auto) 0.01 K/uL (0-0.2); Basophils % (auto) 0.1 %; Hematocrit (blood only) 45.7 % (42-52); Hemoglobin 15.9 g/dL (14.0-18.0); Immature Granulocytes % (auto) 1.5 %; Lymphocytes # (auto) 0.21 K/uL (1.2-3.4); Lymphocytes % (auto) 3.1 %; Mean Corpuscular Hemoglobin 29.3 pg (25-34); Mean Corpuscular Hgb Conc 34.8 g/dL (32-36); Mean Corpuscular Volume 84.3 fL (80-100); Monocytes # (auto) 0.56 K/uL (0.11-0.59); Monocytes % (auto) 8.2 %; Neutrophils # (auto) 5.93 K/uL (1.4-6.5); Neutrophils % (auto) 87.1 %; Platelet Count 32 K/uL (130-400); RDW Coefficient of Variation 12.9 % (11.5-14.5); RDW Standard Deviation 39.7 fL (36.4-46.3); Red Blood Count 5.42 M/uL (4.7-6.1); White Blood Count 6.81 K/uL (4.8-10.8)
[2021-03-17 12:46] LABS: Dohle Bodies 2+; Platelet Estimate SIGNIFIC DECREASED (Normal); Toxic Vacuolation 2+
[2021-03-17 12:53] LABS: Amorphous Sediment Urine Present (None Prsent)
--- NOTE | 2021-03-17 13:02 | CT Scan Report ---
CT chest diagnostic wo con CLINICAL HISTORY: bloody emesis, rigidity, Cr. 2.8 COMPARISON STUDY: No previous studies for comparison. CT DOSE: TECHNIQUE: CT of the thorax was performed from the thoracic inlet to the lung bases. Images are revi ewed in the axial, sagittal, and coronal planes. IV contrast was not administered for this examinatio n. A dose lowering technique was utilized adhering to the principles of ALARA. FINDINGS: There is no axillary, supra clavicle or internal mammary lymphadenopathy seen. No definite mediastinal lymphadenopathy is seen however evaluation is limited due to mild motion tabitha fact as well as beam hardening artifact from patient's arms. Thyroid: Right thyroid lobe is not well seen. Possible hypoattenuating nodule within left thyroid lob e. Small to moderate hiatal hernia. Proximal aspect of esophagus is slightly prominent and possible is f luid-filled. Thoracic aorta: Is normal in caliber. Dilatation of the main pulmonary artery which could be seen in pulmonary hypertension. Heart: The heart is normal in size and configuration, without pericardial effusion. Lungs and pleural spaces: Tracheobronchial tree is patent. Evaluation is limited due to motion artifact. This study is performe d during partial expiratory phase. There is mild atelectasis and possible infiltrates at dependent portions of bilateral lower lobes. Tr ciera right pleural effusion is seen. Upper abdomen: Please see report of the CT of the abdomen performed at the same time. Skeletal structures: Mild degenerative changes of the spine. IMPRESSION: 1. Small to moderate hiatal hernia. Proximal esophagus is slightly prominent and possibly fluid-fill ed, differential diagnosis might include esophagitis versus other etiology. Limited exam due to motio n and beam hardening artifact. Please correlate above-mentioned findings with GI evaluation. 2. Opacities at dependent portions of bilateral lower lobes and possible trace right pleural effusio n. Pneumonia is possible. Limited exam. 3. The rest of findings as above. ACT 112: Negative or not required by law. The above report was generated using voice recognition software. It may contain grammatical, syntax o r spelling errors. Electronically signed by: Nena Law DO 03/17/2021 1:01 PM
[2021-03-17] MEDS ORDERED: INSULIN PROTOCOL GOAL RANGE ONE (13:55)
[2021-03-17] MEDS ORDERED: STAT IV Infusion **Titration per Protocol STA ×2 (13:55→19:50)
[2021-03-17] MEDS ORDERED: SEVERE STRESS LEVEL ONE (13:55)
[2021-03-17] MEDS ORDERED: GLUCOSE 40% GEL 15 GM TUBE PO PRN (14:15)
[2021-03-17] MEDS ORDERED: GLUCOSE 10 TABS/TUBE PO PRN (14:15)
[2021-03-17] MEDS ORDERED: CARBOHYDRATES FOR HYPOGLYCEMIA PO PRN (14:15)
[2021-03-17] MEDS ORDERED: DEXTROSE 50% 50 ML SYRINGE IV PRN (14:15)
[2021-03-17] MEDS ORDERED: POTASSIUM CHLORIDE CRTAB 20 MEQ TABCR PO ONE (14:15)
[2021-03-17] MEDS ORDERED: GLUCAGON FOR INJ 1 MG VIAL IM PRN (14:15)
[2021-03-17] MEDS ORDERED: NovoLIN-R BOLUS FROM BAG IV ONE (14:30)
[2021-03-17] MEDS ORDERED: INSULIN REGULAR 250 UNITS in SODIUM CHLORIDE 0.9% 247.5 ML IV SCH (14:30)
[2021-03-17] MEDS ORDERED: POTASSIUM CHLORIDE 20 MEQ/15 ML UDC PO ONE (15:03)
[2021-03-17] MEDS ORDERED: VANCOMYCIN CONSULT ACTIVE PRN (15:15)
[2021-03-17] MEDS ORDERED: ACETAMINOPHEN 325 MG TAB PO PRN (15:15)
[2021-03-17] MEDS ORDERED: POTASSIUM CHLORIDE 40 MEQ in SODIUM CHLORIDE 0.9% 1000ML 1,000 ML IV SCH (15:15)
--- NOTE | 2021-03-17 15:43 | History & Physical Report ---
Date of Service March 17, 2021 Assessment & Plan (1) Severe sepsis: (2) Anaplasmosis: Plan: -Admit to telemetry -Patient presenting from home with generalized weakness, vomiting, altered mental status. Found on the floor by his this morning. -In the ED, Anaplasma smear showing inclusion bodies -Afebrile, no leukocytosis. + Tachycardia, lactic acid 4.7 -> 4.5, procalcitonin 188 -CT ABD/pelvis suggesting pyelonephritis however UA does not appear infected -CT chest suggesting pneumonia. ?? Aspiration -S/p IV doxy, Vanco, Zosyn in the ED -continue with all -Await blood and urine culture results (3) JOSELINE (acute kidney injury): Plan: -Creatinine 2.7 (baseline 0.8) -Likely multifactorial due to postobstructive uropathy, sepsis, rhabdomyolysis, home meds (lisinopril, HCTZ, metformin) -Drake placed -IVF, follow renal function -Nephrology consult, input appreciated (4) Elevated troponin: (5) Acute electrocardiogram changes: Plan: -Troponin 1.7 -EKG shows new RBBB -No reports of chest pain -Troponin elevation likely secondary to demand ischemia in the setting of severe sepsis -Trend troponins, resting echo -Cardiology consult, input appreciated (6) Rhabdomyolysis: Plan: -Patient laid on the floor overnight and was unable to get up -CK 1900, continue to trend -Aggressive IVF resuscitation (7) Vomiting: Plan: -?? GI bleeding given dried blood found on mouth and lips -Hgb 15.9 however likely concentrated due to dehydration -Serial H&H -CT ABD/pelvis showing signs of possible esophagitis -IV PPI twice daily -GI consult, input appreciated (8) Elevated LFTs: (9) Thrombocytopenia: Plan: -AST 367, ALT 355 -Platelets 32K -Likely due to anaplasmosis -Trend labs (10) Urinary retention: (11) Diabetes mellitus, type 2: Plan: -Glucose > 300 on presentation -Hgb A1c 8.2 10/2020 -Start IV insulin infusion while acutely ill (12) Kidney lesion: Plan: -CT ABD/pelvis noted Cortical lesion within left kidney is incompletely evaluated on this nonenhanced exam. Differential diagnosis include hemorrhagic cyst or neoplasm. Further evaluation with contrast-enhanced CT of the abdomen, renal protocol on nonemergency basis is suggested. -Obtain contrasted study once renal functions normalize (13) Hypertension: Plan: -BP stable, hold home hydralazine, lisinopril/HCTZ (14) DVT prophylaxis: Plan: -SCDs due to thrombocytopenia Admission and Anticipated Discharge Date Admission Date: March 17, 2021 History of Present Illness Chief Complaint: Weakness, vomiting, altered mental status Primary Care Provider: Pop Solares MD 55-year-old male with PMH DM type II, HTN, and other problems to below who presents the ED for evaluation of generalized weakness, vomiting, altered mental status. Patient reports he has been feeling sick for the past 2 days. Reports cough, congestion, vomiting. Reports he got very weak yesterday. In the evening, he attempted to get up from the couch to go to the bathroom however he was too weak and slid himself to the ground. He remained on the ground until his found him this morning. EMS was called and patient was brought to the ED for further evaluation. Patient is noted to have dried blood on his lips and teeth. Reports that he was vomiting a dark brown substance that he thought was a soy sauce that he ingested a few days ago. Denies bright red bleeding per rectum or dark tarry stools. No abdominal pain or diarrhea. Per EMS, patient had a temp of 100.5. Patient denies chest pain or shortness of breath. Reports feeling lightheaded and dizzy however no loss of consciousness. Reports he has not urinated since yesterday morning. In the ED, patient is found to have several acute issues. Urinary retention with > 1L, Drake catheter placed. Anaplasma smear shows inclusion bodies. Platelet count 32K. Na+ 133, K+ 3.1. Creatinine 2.7 (baseline 0.8). Glucose 314 without signs of DKA. Lactate 4.7 - > 4.5. Elevated LFTs. Total CK 1900. Troponin 1.7. Procalcitonin 188. EKG shows new RBBB. Chest CT showing possible pneumonia. CT ABD/pelvis questioning pyelonephritis. Patient was given IV doxycycline, IV Zofran, IV Zosyn, potassium replacement, IV Vanco, IVF. Patient remained hemodynamically stable while in the ED. Allergies Allergy/AdvReac Type Severity Reaction Status Date / Time bee venom protein (honey bee) Allergy . Verified 03/17/21 11:45 BEES Allergy Mild Hives Uncoded 03/17/21 11:45 Home Medications Medication Instructions Recorded Confirmed Type empagliflozin 25 mg tablet 25 mg PO QAM 09/14/19 03/17/21 History (Jardiance) glimepiride 2 mg tablet 2 mg PO QDD 09/14/19 03/17/21 History hydralazine 25 mg tablet 25 mg PO BID 09/14/19 03/17/21 History lisinopril 20 1 tab PO BID 09/14/19 03/17/21 History mg-hydrochlorothiazide 12.5 mg tablet metformin 500 mg tablet,extended 1,000 mg PO BID 09/14/19 03/17/21 History release 24hr atorvastatin 20 mg tablet 20 mg PO DAILY 03/17/21 03/17/21 History glimepiride 2 mg tablet 4 mg PO DAILY 03/17/21 03/17/21 History Past Med/Surg History Medical History Diabetes mellitus, type 2 Hypertension Kidney stones HX OF AND PASSED ON OWN Surgical History History of open reduction and internal fixation (ORIF) procedure RIGHT ANKLE Family History (Updated 03/17/21 @ 15:49 by ASUNCION Maldonado) Brother Stroke Social History Smoking Status: Never smoker Second Hand Exposure: No; Hx Alcohol Use: No Hx Substance Use: No Preferred Language: Luxembourgish Communication Ability: Impaired Communication Ability Comment: currently imparied, not baseline, trouble breathing and communicating Tax Audit Manager Required: No Beliefs That Will Affect Care: None Current Living Situation: Family Current Living Situation Comment: lives home with daughter. Feels Safe at Home: Yes Assistive Devices: Glasses Assistive Devices Comment: left glasses at home Review of Systems Review of Systems: ROS per HPI, all other systems reviewed and negative Physical Exam Constitutional: WD/WN, vitals as above + ill appearing; no acute distress Eyes: PERRL, conjunctivae normal, anicteric sclerae ENMT: Ears: no external ear abnormality Nose: no external nose abnormality Mouth: + dry oral mucous membranes Dried blood noted on lips and teeth Respiratory: normal respiratory effort; no respiratory distress Auscultation: + diminished lung sounds Cardiovascular: Rate/Rhythm: regular rhythm and + tachycardic Vessels: normal peripheral pulses Extremities: no edema Gastrointestinal (Abdomen): normal bowel sounds, soft, nontender, no hepatosplenomegaly Musculoskeletal: Extremities: no cyanosis and no clubbing Skin: Generally weak throughout Neurologic: Speech / Cognition: + abnormal speech (Slow speech at times) Cranial Nerves: PERRL, normal accommodation, EOM intact bilaterally and normal facial strength Psychiatric: A+Ox3, euthymic affect Results & Data Results & Data ([facility]) Vital Signs (Past 12 Hours) Vital Signs Temp Pulse Resp BP Pulse Ox 03/17/21 14:32 113 H 117/70 93 03/17/21 14:00 111 H 125/75 93 03/17/21 13:31 135 H 110/72 93 03/17/21 13:00 146 H 129/70 03/17/21 12:30 109 H 136/62 94 03/17/21 12:00 103 H 122/92 03/17/21 11:52 38 H 135/104 H 96 03/17/21 11:18 36.9 C 109 H 18 119/80 95 03/17/21 11:04 108 H 18 119/80 Laboratory Results Short CBC 03/17/21 Range/Units 11:24 WBC 6.81 (4.8-10.8) K/uL Hgb 15.9 (14.0-18.0) g/dL Hct 45.7 (42-52) % Plt Count 32 L (130-400) K/uL BMP 03/17/21 11:24 Sodium 133 L Potassium 3.1 L Chloride 95 L Carbon Dioxide 24 BUN 77 H Creatinine 2.72 H Glucose 314 H* Calcium 8.6 Cardiac Enzymes 03/17/21 Range/Units 11:24 Total Creatine Kinase 1922 H (39-308) U/L CK-MB (CK-2) 18.8 H (0.5-3.6) ng/ml Troponin I 1.770 H* (0-0.045) ng/ml Liver Function 03/17/21 Range/Units 11:24 Total Bilirubin 1.1 H (0.2-1) mg/dl AST 367 H (15-37) U/L ALT 355 H (12-78) U/L Alkaline Phosphatase 89 (45-117) U/L Albumin 2.4 L (3.4-5.0) gm/dl Urine 03/17/21 Range/Units 12:25 Urine Color Dark Yellow Urine Appearance Cloudy A (Clear) Urine pH 5.0 (4.5-7.5) Ur Specific [place] 1.023 (1.000-1.030) Urine Protein 1+ H (Negative) Urine Glucose (UA) 3+ H (Negative) Diagnostic Findings Head CT 03/17/21 11:14 CT head/brain wo con CLINICAL HISTORY: illness, fall COMPARISON STUDY: No previous studies for comparison. TECHNIQUE: Axial CT of the brain is performed from the vertex to the skull base. IV contrast was not administered for this examination. A dose lowering technique was utilized adhering to the principles of ALARA. CT DOSE: FINDINGS: No intra or extra-axial mass lesions are visualized. There is no CT evidence of acute cortical infarction. There is no evidence of midline shift. There is no acute hemorrhage. No acute depressed calvarial fractures are visualized. There is no evidence of pathologic ventricular dilatation. There is no evidence of acute sinusitis IMPRESSION: No acute intracranial findings ACT 112: Negative or not required by law. The above report was generated using voice recognition software. It may contain grammatical, syntax or spelling errors. Electronically signed by: Nena Law DO 03/17/2021 12:21 PM Abdomen/Pelvis CT 03/17/21 11:36 CT SCAN OF THE ABDOMEN AND PELVIS WITHOUT CONTRAST CLINICAL HISTORY: bloody emesis, rigidity, Cr. 2.8 COMPARISON STUDY: No previous studies for comparison. TECHNIQUE: CT scan of the abdomen and pelvis was performed from the lung bases to the proximal femurs. Images are reviewed in the axial, sagittal, and coronal planes. IV contrast was not administered for this examination. A dose lowering technique was utilized adhering to the principles of ALARA. CT DOSE: 2670.92 mGy.cm FINDINGS: Lower chest: Atelectasis at dependent portions of bilateral lower lobes and trace right pleural effusion. Liver: The unenhanced liver is normal in size, contour, and attenuation. There is no intrahepatic biliary ductal dilatation. Gallbladder: Unremarkable. Spleen: Normal in size and attenuation. Pancreas: Unremarkable. Adrenal glands: Unremarkable. Kidneys: The unenhanced kidneys are normal in size without hydronephrosis. No renal calculi are identified. Multiple parapelvic cysts are seen within left kidney. There is also 1.8 cm isoattenuating lesion within left renal cortex. Minimal perinephric fat stranding is seen bilaterally and slightly more prominent on the left. 9 mm hypoattenuating lesion is seen within the right renal cortex and might represent cyst. Bowel: Small to moderate hiatal hernia is seen. Bowel loops are nondilated. Appendix shows normal morphology and gas filled. Peritoneum: There is no intraperitoneal free air or abdominal ascites. Vasculature: The abdominal aorta is normal in course and caliber. Prominent calcifications of bilateral iliac arteries are seen. Adenopathy: None. Pelvic viscera: Urinary bladder is overdistended. Prostate gland is not signifi cantly enlarged. Small bilateral fat-containing inguinal hernias are seen. Skeletal structures: Mild multilevel degenerative changes of the spine most prominent at L5-S1 level. Multiple sclerotic lesions within bilateral femoral heads which might represent enostosis. IMPRESSION: 1. Small to moderate hiatal hernia. 2. Overdistended urinary bladder. 3. Minimal perinephric fat stranding which is seen bilaterally and most prominent on the left and might represent inflammatory process/pyelonephritis however evaluation is limited due to lack of IV contrast. Please correlate above-mentioned findings with clinical presentation and laboratory markers of inflammatory process. 4. Cortical lesion within left kidney is incompletely evaluated on this nonenhanced exam. Differential diagnosis include hemorrhagic cyst or neoplasm. Further evaluation with contrast-enhanced CT of the abdomen, renal protocol on nonemergency basis is suggested. 5. Nondilated loops of bowel. 6. The rest of findings as above. ACT 112: Positive. There are findings on this exam that require communication between the performing entity and the patient following Patient Test Result Information Act ([place] Act 112) guidelines. The above report was generated using voice recognition software. It may contain grammatical, syntax or spelling errors. Electronically signed by: Nena Law DO 03/17/2021 12:[address] 03/17/21 11:36 CT chest diagnostic wo con CLINICAL HISTORY: bloody emesis, rigidity, Cr. 2.8 COMPARISON STUDY: No previous studies for comparison. CT DOSE: TECHNIQUE: CT of the thorax was performed from the thoracic inlet to the lung bases. Images are reviewed in the axial, sagittal, and coronal planes. IV contrast was not administered for this examination. A dose lowering technique was utilized adhering to the principles of ALARA. FINDINGS: There is no axillary, supra clavicle or internal mammary lymphadenopathy seen. No definite mediastinal lymphadenopathy is seen however evaluation is limited due to mild motion artifact as well as beam hardening artifact from patient's arms. Thyroid: Right thyroid lobe is not well seen. Possible hypoattenuating nodule within left thyroid lobe. Small to moderate hiatal hernia. Proximal aspect of esophagus is slightly prominent and possible is fluid-filled. Thoracic aorta: Is normal in caliber. Dilatation of the main pulmonary artery which could be seen in pulmonary hypertension. Heart: The heart is normal in size and configuration, without pericardial effusion. Lungs and pleural spaces: Tracheobronchial tree is patent. Evaluation is limited due to motion artifact. This study is performed during partial expiratory phase. There is mild atelectasis and possible infiltrates at dependent portions of bilateral lower lobes. Trace right pleural effusion is seen. Upper abdomen: Please see report of the CT of the abdomen performed at the same time. Skeletal structures: Mild degenerative changes of the spine. IMPRESSION: 1. Small to moderate hiatal hernia. Proximal esophagus is slightly prominent and possibly fluid-filled, differential diagnosis might include esophagitis versus other etiology. Limited exam due to motion and beam hardening artifact. Please correlate above-mentioned findings with GI evaluation. 2. Opacities at dependent portions of bilateral lower lobes and possible trace right pleural effusion. Pneumonia is possible. Limited exam. 3. The rest of findings as above. ACT 112: Negative or not required by law. The above report was generated using voice recognition software. It may contain grammatical, syntax or spelling errors. Electronically signed by: Nena Law DO 03/17/2021 1:01 PM Code Status & VTE Plan VTE Prophylaxis Plan VTE Prophylaxis will be ordered: Yes Supervising Physician Co-Signing Physician Notes Patient seen and examined care co-ordinated with Lucía ROLAND : 55-year-old hx of type 2 DM Found him unresponsive of floor , In the ER patient found to be in acute renal failure rhabdomyolysis with CK of around 2000, elevated LFTs, thrombocytopenia,peripheral smear positive for Anaplasma Was initially admitted to PCU later pt became hypotensive , hypoxic , transferred to ICU seen at bedside : very ill appearing , barely resposive , says " Yes " /: No" to questions dried blood noted on lips resp : tachypnea , breath sounds diminished abdomen: soft . minimally distended ext : chronic venous stasis changes noted bilat , trace pedal edema neuro ; very lethargic , unable to follow command A/S: Severe sepsis : not sure of the source COVID 19 negative wilson culture ordered pt was started on IV Vancomycin , Zosyn . IV Doxy ( for anaplasma ) as became hemodynamically unstable -required transfer to ICU per ICU attending abx coverage extended for possible meningitis as well ( temp 40C ) in ICU appreciate pharmacy input will cont On IV Vancomycin , added Ceftazidime , ampicillin , and acyclovir for meningitis LP can not be done for thrombocytopenia ID consulted anaplasmosis : inclusion body noted in peripheral smear IV Doxy anaplasma DNA and lyme titer ordered DKA /type 2 DM : due to severe sepsis IV insulin , pharmacy for glycemic management acute renal failure due to severe sepsis rhabdomyolysis IV fluid 30ml/kg per sepsis protocol BMP q4 hrs Nephrology following IV fluid bolus to correct hypotension /pressors if indicated nephrology consulted , 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 ordered for troponin trend ist troponin 1.7 , repeat 3.4 no anticoagulation for thrombocytopenia ECHO and cardiology consult requested Lactic acidosis : due to severe sepsis , ATN, hypotension cont IV fluid , trend lactic acid level per sepsis protocol Altered mental status : due to metabolic encephalopathy transferred to ICU may need intubation /mechanical ventilation of pt develops worsening of sensorium , comatose -not able to protect airway FULL CODE
--- NOTE | 2021-03-17 16:06 | Pharmacy Report ---
Pharmacy Abx Initial Consult - Date of Service March 17, 2021 - Pharmacy Dosing Scope Date of Consult: 03/17/21 Consultation requested by: ASUNCION Maldonado Pharmacy is consulted to initiate vancomycin and Zosyn IV dosing therapy, order appropriate labs and adjust drug dose/frequency. - Subjective The patient is a 55 year old M admitted on 03/17/21 13:05. - Objective Height: 5 ft 10 in Weight: 93.4 kg Vital Signs (Past 12hrs): Vital Signs Temp Pulse Resp BP Pulse Ox 03/17/21 14:32 113 H 117/70 93 03/17/21 14:00 111 H 125/75 93 03/17/21 13:31 135 H 110/72 93 03/17/21 13:00 146 H 129/70 03/17/21 12:30 109 H 136/62 94 03/17/21 12:00 103 H 122/92 03/17/21 11:52 38 H 135/104 H 96 03/17/21 11:18 36.9 C 109 H 18 119/80 95 03/17/21 11:04 108 H 18 119/80 Lab Results (24hrs): Laboratory Tests (24 Hours) 03/17/21 03/17/21 03/17/21 11:24 11:24 11:24 WBC 6.81 Neut # (Auto) 5.93 Creatinine 2.72 H Est Cr Clr Drug Dosing 36.1 Total Creatine Kinase 1922 H Procalcitonin 188.59 H Micro Results: 03/17/21 12:25 Urine Culture - Pending Urine,Straight Cath 03/17/21 11:57 Aerobic Blood Culture - Pending Blood Anaerobic Blood Culture - Pending 03/17/21 11:24 Aerobic Blood Culture - Pending Blood Anaerobic Blood Culture - Pending - Assessment & Plan Assessment * 55 year old M who presented to [facility] ED via ambulance for generalized weakness * SCr 2.72 upon admission, baseline noted to be ~0.8 * Lactate 4.7. Elevated LFTs. Procalcitonin 188. * Chest CT showing possible pneumonia. CT ABD/pelvis questioning pyelonephritis. * Urine and blood cultures obtained * Started on empiric vanc + Zosyn + doxy Plan Vancomycin IV * Estimated PK Parameters: Joseph 0.03 hr-1, t1/2 ~24 hr * Loading dose: 2000 mg (21.5 mg/kg) * Will obtain a random level with AM labs since renal function is so poor at this time * Maintenance dosing will be determined once random level is obtained and renal function stabilizes Piperacillin/tazobactam * 4.5 g bolus administered over 30 minutes, then 3.375 g IV extended infusion every 8 hours for CrCl greater than 20 mL/min * Aggressive dosing selected due to critically ill status/BMI 35 or more/history of cystic fibrosis. Doxycycline * 100mg IV q12h appropriate for indication Pharmacy will continue to follow and will adjust dose/frequency as necessary. Thank you.
[2021-03-17 16:25] LABS: BUN Creatinine Ratio 28.2 (10-20); Calcium 7.6 mg/dl (8.5-10.1); Creatinine Clr Calc Pharmacy 34.5 ml/min; Est GFR (African American) 27.3 ml/min; Est GFR (Non-African American) 23.5 ml/min; Potassium 3.1 mmol/L (3.5-5.1)
[2021-03-17] MEDS: INSULIN ASPART 100 UNITS/ML 3 ML PEN SC SCH ×2 (16:34→22:06)
[2021-03-17 17:22] LABS: Hemoglobin 14.9 g/dL (14.0-18.0)
[2021-03-17 17:25] LABS: Base Excess ABG -3.6 mEq/L (-9-1.8); HCO3 ABG 18 mmol/L (19-24); Oxygen Saturation ABG 96.6 % (90-95); PCO2 ABG 25 mmHg (35-46); PO2 ABG 79 mmHg (80-95); pH ABG 7.48 (7.35-7.45)
[2021-03-17 17:26] LABS: Allen Test Pos (Pos)
[2021-03-17] MEDS ORDERED: AMPICILLIN/SULBACTAM SOD 3,000 MG in 0.9 % SODIUM CHLORIDE 100 ML IV SCH (17:45)
[2021-03-17 17:58] LABS: Troponin I 3.47 ng/ml (0-0.045)
[2021-03-17] MEDS ORDERED: ICU PROTOCOL FOR HYPERGLYCEMIA PRN (17:58)
[2021-03-17] MEDS ORDERED: NORMOSOL-R 1,000 ML IV SCH (18:00)
[2021-03-17] MEDS: PIPERACILLIN/TAZOBACTAM 3.375 GM in DEXTROSE 5% 100 ML IV SCH ×2 (18:13→18:23)
[2021-03-17] MEDS: POTASSIUM CHLORIDE / WTR 10 MEQ/100 ML PLCT IV SCH ×2 (18:13→20:53)
[2021-03-17] MEDS ORDERED: PHARMACY GLYCEMIC MGMT CONSULT PRN (18:15)
[2021-03-17] MEDS: PANTOprazole 40 MG in DEXTROSE 5% 100 ML IV SCH ×2 (18:27→22:53)
--- NOTE | 2021-03-17 18:33 | Critical Care Consultation ---
Date of Consultation March 17, 2021 Assessment & Plan (1) Severe sepsis: 55-year-old male with history of diabetes mellitus type 2 and obesity who presented to the hospital due to altered mental status and nausea. There is concern of DKA likely due to sepsis. There is also concern of possible tickborne illness given his transaminitis and thrombocytopenia. The patient's brothers have raised the concern of possible poisoning. Neurologic: Altered mental status likely secondary to severe sepsis. Bacterial meningitis remains a possibility. Platelet count ideally should be greater than 50,000 in order to perform a lumbar puncture. Will empirically treat with vancomycin, amp icillin, acyclovir and, ceftazidime. CT head negative for acute findings. Patient is currently protecting his airway, may need intubation if mentation worsens. Will need to consider EEG. If signs of worsening seizure activity, will treat with benzodiazepines. Will initiate Decadron at 0.15 mg/kg due to concern of bacterial meningitis. This may also help with his fever curve. And Pulmonary: No significant oxygen demands this time. Does have atelectasis and small effusions noted bilaterally. Cardiovascular: Tachycardia likely secondary to sepsis. Maintain mean arterial blood pressures above 65 mmHg. Gastrointestinal: Transaminitis is present. Check HIV, hepatitis B and C studies. Transaminitis may be related to toxins, ischemia and/or atypical infection. Renal: Monitor urine output closely. Replacing potassium. Patient currently has evidence of diabetic ketoacidosis and lactic acidosis. He also has rhabdomyolysis. Trend CK levels. Check BMPs every 4 hours. Continue D5 half- normal saline. Treating sepsis with crystalloids 30 cc/kg Infectious disease: Concern for possible atypical infection such as tickborne illness. Peripheral smear pending. Inclusion bodies noted. There is also concern for bacterial viral meningitis. Treatment as noted per neuro section. Lumbar puncture will need to be considered. No obvious infectious etiology noted on CT chest and ab domen. Perinephric stranding was described. Flagyl was added to the antibiotics noted above. Blood cultures pending. Procalcitonin severely elevated. Hematologic: Monitor for signs of bleeding. Will check fibrinogen level to evaluate for DIC. Platelet count is low and may be related to consumptive coagulopathy given sepsis state. This could also be related to tickborne illness. Marroquin 13 level need to be considered to evaluate for TTP/atypical HUS. We will need to consider transfer to tertiary center for possible plasmapheresis. Endocrine: DKA admitting. Continue IV fluids as noted above. Lines and tubes: [address] VTE prophylaxis: SCDs CODE STATUS: Full code Family at bedside: Brothers and mother updated at bedside Disposition: Remain in the ICU I have personally spent 50 minutes of critical care time in the direct management of this patient. This is a life/limb threatening event. This includes time spent evaluating patient, direct bedside care, chart review, placing orders, interpretation of diagnostic studies, discussion with consultants, patient, and family members, as well as other required patient management activities. This time is exclusive of all separately billable procedures, and teaching time and separate from and in addition to any other critical care service time. Thank you for allowing us to participate in the care of this patient. (2) Altered mental status: (3) Transaminitis: (4) Thrombocytopenia: (5) Elevated troponin: (6) Rhabdomyolysis: (7) Hematemesis: (8) Diabetic ketoacidosis: History of Present Illness Reason for Consultation: Severe sepsis and altered mental status Attending Physician: Tamia Centeno MD History of Present Illness 55-year-old male with a history of obesity and diabetes mellitus type 2 presenting to the hospital today due to weakness and vomiting. Patient has reportedly been sick for 2 days. I am unable to get any history from the patient. His brothers are at bedside are able to give collateral history. Normally he is a very healthy individual per their account aside for diabetes. One of his brothers noted that he saw him in person last time approximately 1 week ago. He was complaining of some fatigue but otherwise was in his usual self. He was apparently found by his estranged in his house. There is report of dried blood around his lips and teeth. He was noted that he was vomi ting of brown substance. Peripheral smear was completed today which demonstrated inclusion bodies. Tickborne illness work-up is pending. He was also found to be in DKA and is currently on insulin drip. His lactate was elevated. He appears to be in mild rhabdomyolysis level. His troponin is also elevated. The patient's sons noted that there was a concern of possible poisoning and Munchhausen syndrome by proxy. They feel that the patient's is mentally unstable. They have been for several years. She currently lives with her boyfriend in [place]. The patient's is not physically present at the moment for interview. He underwent a CT head, chest and abdomen/pelvis. A fluid-filled esophagus was noted. Dependent opacities noted in the lower lobes bilaterally with small pleural effusions. CT abdomen pelvis demonstrated over distended urinary bladder and perinephric fat stranding bilaterally. Cortical lesion within the left kidney was also incompletely assessed. There was mention of a hemorrhagic cyst or neoplasm. CT head was negative for acute intracranial findings. Allergies Allergy/AdvReac Type Severity Reaction Status Date / Time bee venom protein (honey bee) Allergy . Verified 03/17/21 11:45 BEES Allergy Mild Hives Uncoded 03/17/21 11:45 Home Medications Medication Instructions Recorded Confirmed Type empagliflozin 25 mg tablet 25 mg PO QAM 09/14/19 03/17/21 History (Jardiance) glimepiride 2 mg tablet 2 mg PO QDD 09/14/19 03/17/21 History hydralazine 25 mg tablet 25 mg PO BID 09/14/19 03/17/21 History lisinopril 20 1 tab PO BID 09/14/19 03/17/21 History mg-hydrochlorothiazide 12.5 mg tablet metformin 500 mg tablet,extended 1,000 mg PO BID 09/14/19 03/17/21 History release 24hr atorvastatin 20 mg tablet 20 mg PO DAILY 03/17/21 03/17/21 History glimepiride 2 mg tablet 4 mg PO DAILY 03/17/21 03/17/21 History Patient History Medical History (Updated 03/17/21 @ 18:25 by Brendon Ryan MD) Altered mental status Diabetes mellitus, type 2 Diabetic ketoacidosis Hypertension Kidney stones HX OF AND PASSED ON OWN Rhabdomyolysis Transaminitis Surgical History History of open reduction and internal fixation (ORIF) procedure RIGHT ANKLE Family History (Updated 03/17/21 @ 15:49 by ASUNCION Maldonado) Brother Stroke Social History Smoking Status: Never smoker Second Hand Exposure: No; Hx Alcohol Use: No Hx Substance Use: No Preferred Language: Yakut Communication Ability: Impaired Communication Ability Comment: currently imparied, not baseline, trouble breathing and communicating Glass Cleaner Required: No Beliefs That Will Affect Care: None Current Living Situation: Family Current Living Situation Comment: lives home with daughter. Feels Safe at Home: Yes Assistive Devices: Glasses Assistive Devices Comment: left glasses at home Review of Systems Review of Systems: Unobtainable due to patient's altered mental status. He does mumble words. He denies chest pain. Physical Exam Physical Exam: Constitutional: Patient appears to be in severe distress. He appears erythematous diffusely. He has roving eye movements. Eyes: Pupils are equal round and reactive to light. Conjunctivae are normal. Anicteric sclera. Ears nose, mouth and throat: Mallampati class []. Normal posterior oropharynx. Uvula is midline. Neck: Trachea is midline. Visual inspection is normal. Respiratory: Mild rhonchi noted bilaterally. Significant tachypnea present. Cardiovascular: Regular rate and rhythm. No murmurs. No edema. Gastrointestinal: Normal bowel sounds, soft, nontender and nondistended. No hepatosplenomegaly noted. Musculoskeletal: No cyanosis. Patient is able to move all extremities. Strength is 5 out of 5 in the upper and lower extremities. Skin: No rashes, warm dry and intact. Neurologic: Roving eye movements. Mild rigidity. Psychiatric: Alert and oriented x3 with a euthymic affect. Results & Data Results & Data ([facility]) Vital Signs (Past 12 Hours) Vital Signs Temp Pulse Pulse Resp BP BP Pulse Ox 03/17/21 18:03 110 H 03/17/21 17:26 112 H 42 H 98/51 L 94 03/17/21 15:42 99.3 F 110 H 40 H 125/53 L 94 03/17/21 14:32 113 H 117/70 93 03/17/21 14:00 111 H 125/75 93 03/17/21 13:31 135 H 110/72 93 03/17/21 13:00 146 H 129/70 03/17/21 12:30 109 H 136/62 94 03/17/21 12:00 103 H 122/92 03/17/21 11:52 38 H 135/104 H 96 03/17/21 11:18 98.4 F 109 H 18 119/80 95 03/17/21 11:04 108 H 18 119/80 vital signs, labs and imaging personally reviewed Coding Level of Care Code Critical Care 1st 30-74 mins Diagnoses Severe sepsis A41.9; R65.20 Altered mental status R41.82 Transaminitis R74.01 Thrombocytopenia D69.6 Elevated troponin R77.8 Rhabdomyolysis M62.82 Hematemesis K92.0 Diabetic ketoacidosis E11.10 Time Spent (min) 50
[2021-03-17] MEDS: D5W AND 1/2NSS 1,000 ML IV SCH ×2 (18:34→23:47)
[2021-03-17] MEDS ORDERED: RAPID SEQUENCE INDUCTION BAG ONE (18:57)
[2021-03-17] MEDS ORDERED: ACYCLOVIR SOD 1,000 MG in DEXTROSE 5% 250 ML IV SCH (19:00)
[2021-03-17 19:26] LABS: Albumin Level 1.8 gm/dl (3.4-5.0); BUN Creatinine Ratio 26.6 (10-20); Calcium 7.6 mg/dl (8.5-10.1); Est GFR (African American) 23.9 ml/min; Est GFR (Non-African American) 20.7 ml/min; Potassium 3.4 mmol/L (3.5-5.1)
[2021-03-17 19:33] LABS: ALC (manual) 0.11 K/uL (1.2-3.4); Dohle Bodies 1+; Echinocytes 3+; Giant Platelets 1+; Hematocrit (blood only) 42.1 % (42-52); Hemoglobin 14.6 g/dL (14.0-18.0); Lymphocytes # (manual) 0.11 K/uL (1.2-3.4); Lymphocytes % (manual) 1.8 %; Mean Corpuscular Hemoglobin 29.1 pg (25-34); Mean Corpuscular Hgb Conc 34.7 g/dL (32-36); Metamyelocytes # (manual) 0.33 K/uL (0-0); Metamyelocytes % (manual) 5.3 %; Monocytes % (manual) 9.6 %; Neutrophils % (manual) 83.3 %; Platelet Count 23 K/uL (130-400); Platelet Estimate SIGNIFIC DECREASED (Normal); RDW Standard Deviation 39.2 fL (36.4-46.3); Red Blood Count 5.01 M/uL (4.7-6.1); Toxic Vacuolation 1+; White Blood Count 6.24 K/uL (4.8-10.8)
--- NOTE | 2021-03-17 19:39 | Procedure Note ---
Procedure Note Date of Service March 17, 2021 Note INTUBATION PROCEDURE NOTE: Dr. Brendon Ryan A time-out was completed verifying correct patient, procedure, site, positioning. Patient was evaluated and required intubation for airway protection. Sedative agent used: 20 mg etomidate Paralysis agent used: 50 mg rocuronium Emergent consent was implied given patients rapidly declining clinical status and need for airway protection. Number of attempts: 1 The patient was prepared in the appropriate fashion. Sedation was achieved utilizing 20 mg etomidate and 50 mg rocuronium. The patient was easily ventilated using [id number] to achieve adequate oxygenation. A 8 Latvian endotracheal tube was placed under video laryngoscope guidance to 22 cm at the lip. The stylette was removed and balloon was inflated with 10mL of air. Appropriate Colorimetric change was appreciated. Bilateral breath sounds were heard without air sounds in the abdomen. Post Intubation Chest X-ray ordered Patient tolerated the procedure well and there were no immediate complications. Coding CPT Codes Resuscitation - Resuscitation: 93645 Endotracheal Intubation, emergency ([id number]) [facility] Procedure Codes (Charges) Resuscitation Resuscitation: 29920 Endotracheal Intubation, emergency
[2021-03-17 19:41] LABS: Albumin Globulin Ratio 0.5 (0.9-2); Bilirubin,Total 0.8 mg/dl (0.2-1); Globulin 3.5 gm/dl (2.5-4.0); Total Protein 5.3 gm/dl (6.4-8.2)
[2021-03-17 19:50] LABS: Lyme Ab IgG w/WB Rflx Negative (Negative); Lyme Ab IgM w/WB Rflx Negative (Negative)
[2021-03-17] MEDS ORDERED: PROPOFOL BOLUS FROM BAG IV PRN (19:50)
[2021-03-17] MEDS ORDERED: fentaNYL DRIP 1,250 MCG/250 ML BAG IV SCH (20:00)
[2021-03-17] MEDS: propofoL 1,000 MG/100 ML VIAL IV SCH ×2 (20:07→22:54)
[2021-03-17] MEDS: AMPICILLIN 2,000 MG in SODIUM CHLOR 0.9% AD-VAN 100 ML IV SCH (20:07)
[2021-03-17 20:25] LABS: Procalcitonin 198.19 ng/ml (0-0.5)
[2021-03-17] MEDS ORDERED: DOXYCYCLINE HYCLATE 100 MG in DEXTROSE 5% 100 ML IV SCH (21:00)
[2021-03-17] MEDS ORDERED: PANTOprazole 40 MG in SYRINGE 0 ML IV SCH (21:00)
[2021-03-17] MEDS: dexAMETHasone 15 MG in DEXTROSE 5% 25 ML IV SCH (21:15)
--- NOTE | 2021-03-17 21:26 | XRay Report ---
XR chest 1V portable CLINICAL HISTORY: s/p intubation COMPARISON STUDY: No previous studies for comparison. FINDINGS: No definite pneumothorax seen however right lung is partially obscured by overlying wires which limit s evaluation.. No pleural effusion. No large infiltrates or consolidative lesions are seen. Lung volumes are decreased with crowded lung markings. Cardiomediastinal silhouette is within normal limits in size. Pulmonary vasculature is obscured. Osseous structures: unremarkable Tip of endotracheal tube is seen projecting 4.0 cm above gregory. Gastric tube is seen with fenestrated side-port below level of hemidiaphragm and tip outside of field -of-view. IMPRESSION: 1. Tip of endotracheal tube are seen 4.0 cm above gregory. 2. Low lung volumes with crowded lung markings. 3. The rest of findings as above. ACT 112: Negative or not required by law. The above report was generated using voice recognition software. It may contain grammatical, syntax o r spelling errors. Electronically signed by: Nena Law DO 03/17/2021 9:25 PM
[2021-03-17 21:55] LABS: Amphetamines+Metham, Urine Neg (Neg); Barbiturates, Urine Neg (Neg); Benzodiazepine, Urine Neg (Neg); Cocaine, Urine Neg (Neg); MDMA (Ecstacy), Urine Neg (Neg); Methadone, Urine Neg (Neg); Opiate, Urine Neg (Neg); Phencyclidine, Urine Neg (Neg)
[2021-03-17 22:47] LABS: Hematocrit (blood only) 39.4 % (42-52); Hemoglobin 13.5 g/dL (14.0-18.0)
[2021-03-17 22:49] LABS: Base Excess VBG -5.4 mEq/L; HCO3 VBG 22 mmol/L; PCO2 VBG 47 mmHg (38-50); PO2 VBG 51 mmHg; pH VBG 7.28 (7.36-7.41)
[2021-03-17 23:01] LABS: Platelet Count 32 K/uL (130-400)
[2021-03-17 23:04] LABS: BUN Creatinine Ratio 23.2 (10-20); Calcium 7.5 mg/dl (8.5-10.1); Creatinine Clr Calc Pharmacy 26.3 ml/min; Est GFR (African American) 19.6 ml/min; Est GFR (Non-African American) 16.9 ml/min; Potassium 3.5 mmol/L (3.5-5.1)
[2021-03-17 23:33] LABS: Phosphorus 2.4 mg/dl (2.5-4.9); Troponin I 4.51 ng/ml (0-0.045)
[2021-03-18] MEDS: AMPICILLIN 2,000 MG in SODIUM CHLOR 0.9% AD-VAN 100 ML IV SCH (00:53)
[2021-03-18 01:07] LABS: Prothrombin Time 10.3 Seconds (9.0-12.0)
[2021-03-18 01:10] LABS: Albumin Level 1.7 gm/dl (3.4-5.0); BUN Creatinine Ratio 22.1 (10-20); Bilirubin Direct 0.6 mg/dl (0-0.2); Calcium 7.1 mg/dl (8.5-10.1); Creatinine Clr Calc Pharmacy 24.3 ml/min; Est GFR (African American) 17.9 ml/min; Est GFR (Non-African American) 15.4 ml/min; Potassium 3.6 mmol/L (3.5-5.1)
[2021-03-18] MEDS ORDERED: SODIUM CHLORIDE 0.9% 1000ML 500 ML IV ONE ×2 (01:15→01:30)
[2021-03-18] MEDS: dexAMETHasone 15 MG in DEXTROSE 5% 25 ML IV SCH (01:16)
[2021-03-18 01:17] LABS: Hematocrit (blood only) 39.2 % (42-52); Hemoglobin 13.2 g/dL (14.0-18.0); Mean Corpuscular Hemoglobin 29.3 pg (25-34); Mean Corpuscular Hgb Conc 33.7 g/dL (32-36); Mean Corpuscular Volume 86.9 fL (80-100); Mean Platelet Volume 12.2 fL (7.4-10.4); Platelet Count 30 K/uL (130-400); RDW Coefficient of Variation 13.3 % (11.5-14.5); RDW Standard Deviation 42.6 fL (36.4-46.3); Red Blood Count 4.51 M/uL (4.7-6.1); White Blood Count 7.13 K/uL (4.8-10.8)
[2021-03-18 01:18] LABS: ALC (manual) 0.73 K/uL (1.2-3.4); ANC (manual) 5.35 K/uL (1.4-6.5); Lymphocytes # (manual) 0.73 K/uL (1.2-3.4); Lymphocytes % (manual) 10.3 %; Metamyelocytes # (manual) 0.61 K/uL (0-0); Metamyelocytes % (manual) 8.6 %; Monocytes # (manual) 0.12 K/uL (0.11-0.59); Monocytes % (manual) 1.7 %; Myelocytes # (manual) 0.31 K/uL (0-0); Myelocytes % (manual) 4.3 %; Neutrophils # (manual) 5.35 K/uL (1.4-6.5); Neutrophils % (manual) 75.1 %; Platelet Estimate SIGNIFIC DECREASED (Normal)
[2021-03-18] MEDS ORDERED: STAT IV Infusion **Titration per Protocol STA ×2 (01:26→04:13)
[2021-03-18] MEDS ORDERED: NOREPINEPHRINE/D5W 8 MG/508 ML BAG IV SCH (01:30)
[2021-03-18 01:39] LABS: Bilirubin,Total 0.9 mg/dl (0.2-1); Phosphorus 3.2 mg/dl (2.5-4.9); Total Protein 5.3 gm/dl (6.4-8.2); Troponin I 4.59 ng/ml (0-0.045)
[2021-03-18] MEDS ORDERED: SODIUM BICARB 8.4% INJ 50 MEQ/50 ML SYR IV STA (01:42)
[2021-03-18] MEDS ORDERED: SODIUM BICARB 8.4% INJ 50 MEQ/50 ML SYR IV ONE (01:43)
--- NOTE | 2021-03-18 01:47 | Communication Note ---
Date of Service: March 18, 2021 0130: I did present at bedside as it was noted that patient was having declining blood pressures. Recent repeat labs were obtained. Patient had a stable H&H. Unfortunately, renal function continues to decline and the patient was noted to be essentially an uric from 10:30 PM until 2 AM. Orders placed for ABG to assess status given rapid decline in blood pressure. Patient was noted to be significantly acidotic. At that point, orders placed for 2 A of bicarb. This provided brief improvement in blood pressure. Orders placed for Levophed as well as NSS bolus x2. 0146: I did speak with Dr. Garrett, [facility] nephrology. In discussion with the patient, concerns are progressive metabolic acidosis in a patient who is now vasopressor dependent and with rhabdomyolysis likely requiring hemodialysis. He agrees that the patient would likely benefit from CRRT versus spot hemodialysis provided at this institution. He agrees with transfer to higher level care for further evaluation. 0153: Spoke with [facility]. Specifically, communicated with Dr. Alberts of the critical care unit. I expressed my concerns in this patient as he is showing worsening signs/symptoms of sepsis despite aggressive management at this time. Of concern, the patient is having progressively worsening metabolic acidosis and is now an uric. His creatinine continues to rise. In addition, the patient has significant rhabdomyolysis which is likely contributing to this as well. Unfortunately, as the patient is now vasopressor dependent, he is not a candidate for spot hemodialysis this institution. Additionally, the patient has required platelets given his significant thrombocytopenia. Concern at this institution is that the patient has received 1 unit of platelets at this point and second unit of platelets has been ordered as he continues to ooze and required additional volumes. Dr. Alberts agrees with need for transfer and will await bed placement. After acceptance, a repeat ABG was performed after the initial 2 A of sodium bicarbonate. Repeat ABG initially demonstrated improvement in blood gas, however we are now trending back into a metabolic acidosis. Patient remains hypotensive on Levophed. Unfortunately, computer downtime was not effective. Written orders were given for vasopressin. Orders written for 3 g of calcium gluconate. Additionally, patient placed on D5W with 3 A of sodium bicarbonate at 150 mL's per hour. Eventually, the combination of medications as well as the infusion of platelets did improve the patient's blood pressure. We are able to wean back the vasopressors just prior to transfer to [facility]. 0442: Mother (Sierra) [phone]. Provided update on son's condition and transport to [facility] for ongoing care. She acknowledged her understanding and appreciated the update. She requests that I reach out to her son, Rishabh ([phone]). 0449: Ex (Sharon) [phone]. Attempted to contact. No answer and no answering machine. 0451: Brother (Rishabh) [phone]. Provided Rishabh with update and change in status. All questions answered. He was provided room number and contact for [facility]. I have personally spent 75 minutes of critical care time in the direct management of this patient. This is a life/limb threatening event. This includes time spent evaluating patient, direct bedside care, chart review, placing orders, interpretation of diagnostic studies, discussion with consultants, patient, and family members, as well as other required patient management act ivities. This time is exclusive of all separately billable procedures, and teaching time and separate from and in addition to any other critical care service time. Coding Level of Care Code Critical Care 1st 30-74 mins Time Spent (min) 75
[2021-03-18] MEDS ORDERED: VASOPRESSIN 20 UNITS in 0.9 % SODIUM CHLORIDE 100 ML IV SCH (02:20)
[2021-03-18] MEDS ORDERED: SODIUM CHLORIDE 0.9% IV ONE (03:10)
[2021-03-18] MEDS ORDERED: SODIUM BICARBONATE 8.4% 150 MEQ in DEXTROSE 5% 1,000 ML IV SCH (03:10)
[2021-03-18] MEDS ORDERED: CALCIUM GLUCONATE IV ONE (03:10)
[2021-03-18 03:19] LABS: iSTAT Art Bld Gas pCO2 Correct 38 mmHg (35-46); iSTAT Arterial Blood Gas HCO3 18 meg/L (19-24); iSTAT Arterial Blood Gas pCO2 36 mmHg (35-46); iSTAT Arterial Blood Gas pH 7.31 (7.35-7.45); iSTAT Arterial Blood Gas pO2 105 mmHg (80-95); iSTAT Arterial Blood Gas pO2 C 116; iSTAT Carbon Dioxide 19 mmol/L (24-31); iSTAT FiO2 50 %; iSTAT Hematocrit 35 % (42-52); iSTAT Hemoglobin 11.9 g/dl (14.0-18.0); iSTAT Potassium 4.1 mmol/L (3.3-5.0); iSTAT Site Art Line; iSTAT Sodium 136 mmol/L (135-144)
[2021-03-18] MEDS ORDERED: STAT IV STA (04:15)
[2021-03-18 04:24] VITALS: TEMP 101.5; O2SAT 100
[2021-03-18 05:00] VITALS: BP 98/51; PULSE 112
--- NOTE | 2021-03-18 05:10 | Procedure Note ---
Procedure Note Date of Service March 18, 2021 Note Procedure: Arterial Line Placement Attending: Dr. Ryan APC: Kike Brown PA-C Indication: Monitoring on Pressors Anesthesia: None Emergent consent implied in the setting of patient in active extremitas requiring close hemodynamic monitoring and frequent ABGs and labs. A time-out was completed verifying correct patient, procedure, site, positioning, and implant(s) or special equipment if applicable. Allens test was performed to ensure adequate perfusion. Patients RIGHT wrist was prepped and draped in the usual sterile fashion. Ultrasound guidance was used to aid needle placement. A 20g Arrow arterial line was introduced into the RIGHT Radial artery. Catheter was threaded, and the needle was removed with appropriate blood return. Good waveform was observed. The patient tolerated the procedure well. Confirmation of placement with ultrasound. Blood Loss: Minimal Complications: None Procedural Ultrasound Guidance: Procedure Date: 03/18/2021 Indication: Pressors, ABGs, Frequent labs Attending: Dr. Ryan APC: Kike Brown PA-C Artery Identified: YES Line confirmed in Artery with ultrasound: YES Complications: NONE Patient tolerated procedure: WELL Coding CPT Codes Tubes, Drains, and Vasc Access - Tubes, Drains, and Vasc Access: [id number] Place Catheter In Artery ([id number]) [facility] [place] Codes (Charges) Tubes, Drains, and Vasc Access Procedure 1: Tubes, Drains, and Vasc Access: [id number] Place Catheter In Artery
--- NOTE | 2021-03-18 07:31 | Discharge Summary ---
Date of Service March 18, 2021 Admission HPI Per Admitting Provider 55-year-old male with PMH DM type II, HTN, and other problems to below who presents the ED for evaluation of generalized weakness, vomiting, altered mental status. Patient reports he has been feeling sick for the past 2 days. Reports cough, congestion, vomiting. Reports he got very weak yesterday. In the evening, he attempted to get up from the couch to go to the bathroom however he was too weak and slid himself to the ground. He remained on the ground until his found him this morning. EMS was called and patient was brought to the ED for further evaluation. Patient is noted to have dried blood on his lips and teeth. Reports that he was vomiting a dark brown substance that he thought was a soy sauce that he ingested a few days ago. Denies bright red bleeding per rectum or dark tarry stools. No abdominal pain or diarrhea. Per EMS, patient had a temp of 100.5. Patient denies chest pain or shortness of breath. Reports feeling lightheaded and dizzy however no loss of consciousness. Reports he has not urinated since yesterday morning. In the ED, patient is found to have several acute issues. Urinary retention with > 1L, Drake catheter placed. Anaplasma smear shows inclusion bodies. Platelet count 32K. Na+ 133, K+ 3.1. Creatinine 2.7 (baseline 0.8). Glucose 314 without signs of DKA. Lactate 4.7 - > 4.5. Elevated LFTs. Total CK 1900. Troponin 1.7. Procalcitonin 188. EKG shows new RBBB. Chest CT showing possible pneumonia. CT ABD/pelvis questioning pyelonephritis. Patient was given IV doxycycline, IV Zofran, IV Zosyn, potassium replacement, IV Vanco, IVF. Patient remained hemodynamically stable while in the ED. Admission Exam Per Admitting Provider Physical Exam Constitutional: WD/WN, vitals as above + ill appearing; no acute distress Eyes: PERRL, conjunctivae normal, anicteric sclerae ENMT: Ears: no external ear abnormality Nose: no external nose abnormality Mouth: + dry oral mucous membranes Dried blood noted on lips and teeth Respiratory: normal respiratory effort; no respiratory distress Auscultation: + diminished lung sounds Cardiovascular: Rate/Rhythm: regular rhythm and + tachycardic Vessels: normal peripheral pulses Extremities: no edema Gastrointestinal (Abdomen): normal bowel sounds, soft, nontender, no hepatosplenomegaly Musculoskeletal: Extremities: no cyanosis and no clubbing Skin: Generally weak throughout Neurologic: Speech / Cognition: + abnormal speech (Slow speech at times) Cranial Nerves: PERRL, normal accommodation, EOM intact bilaterally and normal facial strength Psychiatric: A+Ox3, euthymic affect Principal Diagnosis Severe sepsis with septic shock possible Anaplasmosis Acute renal failure with metabolic acidosis patient is transferred to [facility] Discharge Exam pt was transferred to [facility] after midnight , please see ICU note admission physical exam as per H&P Discharge Data Allergies Allergy/AdvReac Type Severity Reaction Status Date / Time bee venom protein (honey bee) Allergy . Verified 03/17/21 11:45 BEES Allergy Mild Hives Uncoded 03/17/21 11:45 Consultations 03/17/21 12:51 ED Decision to Admit Stat 03/17/21 15:15 Consult Cardiology Routine Consult Gastroenterology Routine Consult Nephrology Routine 03/17/21 16:53 Consult Infectious Diseases Routine 03/17/21 17:20 Consult Slide Attendant Routine Procedures Performed intubation /mechanical ventilation -by ICU team Arterial line placement -by ICU team Ordered Studies 03/17/21 11:14 CT head/brain wo con Stat 03/17/21 11:36 CT abd pelvis wo con Stat CT chest diagnostic wo con Stat 03/17/21 19:17 US point of care ultrasound Urgent Hospital Course (1) Severe sepsis: 55-year-old hx of type 2 DM Found him unresponsive of floor , In the ER patient found to be in acute renal failure rhabdomyolysis with CK of around 2000, elevated LFTs, thrombocytopenia,peripheral smear positive for Anaplasma Was initially admitted to PCU later pt became hypotensive , hypoxic , transferred to ICU seen at bedside : very ill appearing , barely resposive , says " Yes " /: No" to questions dried blood noted on lips resp : tachypnea , breath sounds diminished abdomen: soft . minimally distended ext : chronic venous stasis changes noted bilat , trace pedal edema neuro ; very lethargic , unable to follow command A/S: Severe sepsis : not sure of the source COVID 19 negative wilson culture ordered pt was started on IV Vancomycin , Zosyn . IV Doxy ( for anaplasma ) as became hemodynamically unstable -required transfer to ICU per ICU attending abx coverage extended for possible meningitis as well ( temp 40C ) in ICU appreciate pharmacy input will cont On IV Vancomycin , added Ceftazidime , ampicillin , and acyclovir for meningitis LP can not be done for thrombocytopenia ID consulted anaplasmosis : inclusion body noted in peripheral smear IV Doxy anaplasma DNA and lyme titer ordered DKA /type 2 DM : due to severe sepsis IV insulin , pharmacy for glycemic management acute renal failure due to severe sepsis rhabdomyolysis IV fluid 30ml/kg per sepsis protocol BMP q4 hrs Nephrology following IV fluid bolus to correct hypotension /pressors if indicated nephrology consulted , case D/w director of content marketing social human services assistants Rhabdomyolysis : due to fall ?vs severe sepsis was on floor overnight IV fluid , follow labs urine tox screen ordered per family : pt does not drink alcohol , non smoker no hx of substance abuse Elevated troponin ; possible due to severe sepsis /rhabdomyolysis//Acute renal failure possibly ATN? ordered for troponin trend ist troponin 1.7 , repeat 3.4 no anticoagulation for thrombocytopenia ECHO and cardiology consult requested Lactic acidosis : due to severe sepsis , ATN, hypotension cont IV fluid , trend lactic acid level per sepsis protocol Altered mental status : due to metabolic encephalopathy transferred to ICU may need intubation /mechanical ventilation of pt develops worsening of sensorium , comatose -not able to protect airway ICU documentation on 03/18/21: Date of Service: March 18, 2021 0130: I did present at bedside as it was noted that patient was having declining blood pressures. Recent repeat labs were obtained. Patient had a stable H&H. Unfortunately, renal function continues to decline and the patient was noted to be essentially an uric from 10:30 PM until 2 AM. Orders placed for ABG to assess status given rapid decline in blood pressure. Patient was noted to be significantly acidotic. At that point, orders placed for 2 A of bicarb. This provided brief improvement in blood pressure. Orders placed for Levophed as well as NSS bolus x2. 0146: I did speak with Dr. Garrett, [facility] nephrology. In discussion with the patient, concerns are progressive metabolic acidosis in a patient who is now vasopressor dependent and with rhabdomyolysis likely requiring hemodialysis. He agrees that the patient would likely benefit from CRRT versus spot hemodialysis provided at this institution. He agrees with transfer to higher level care for further evaluation. 0153: Spoke with [facility]. Specifically, communicated with Dr. Alberts of the critical care unit. I expressed my concerns in this patient as he is showing worsening signs/symptoms of sepsis despite aggressive management at this time. Of concern, the patient is having progressively worsening metabolic acidosis and is now an uric. His creatinine continues to rise. In addition, the patient has significant rhabdomyolysis which is likely contributing to this as well. Unfortunately, as the patient is now vasopressor dependent, he is not a candidate for spot hemodialysis this institution. Additionally, the patient has required platelets given his significant thrombocytopenia. Concern at this institution is that the patient has received 1 unit of platelets at this point and second unit of platelets has been ordered as he continues to ooze and required additional volumes. Dr. Alberts agrees with need for transfer and will await bed placement. After acceptance, a repeat ABG was performed after the initial 2 A of sodium bicarbonate. Repeat ABG initially demonstrated improvement in blood gas, however we are now trending back into a metabolic acidosis. Patient remains hypotensive on Levophed. Unfortunately, computer downtime was not effective. Written orders were given for vasopressin. Orders written for 3 g of calcium gluconate. Additionally, patient placed on D5W with 3 A of sodium bicarbonate at 150 mL's per hour. Eventually, the combination of medications as well as the infusion of platelets did improve the patient's blood pressure. We are able to wean back the vasopressors just prior to transfer to [facility]. 0442: Mother (Sierra) [phone]. Provided update on son's condition and transport to [facility] for ongoing care. She acknowledged her understanding and appreciated the update. She requests that I reach out to her son, Rishabh ([phone]). 0449: Ex (Sharon) [phone]. Attempted to contact. No answer and no answering machine. 0451: Brother (Rishabh) [phone]. Provided Rishabh with update and change in status. All questions answered. He was provided room number and contact for [facility]. Kike Brown PA-C ( ICU ) (2) Anaplasmosis: (3) JOSELINE (acute kidney injury): (4) Elevated troponin: (5) Acute electrocardiogram changes: (6) Rhabdomyolysis: (7) Vomiting: - (8) Elevated LFTs: (9) Thrombocytopenia: (10) Urinary retention: (11) Diabetes mellitus, type 2: (12) Kidney lesion: (13) Hypertension: (14) DVT prophylaxis: Total Time Total Time Spent Total Time Spent (In Minutes): 15 mins Total Time Includes: Other (patient transferred to [place] by ICU team overnight , Dc summary done based on ICU documentation ) Discharge Plan Discharge Items Patient Disposition: Transfer Acute Care Hospital Reason For Visit: SEPSIS Discharge Diagnosis: Severe sepsis with septic shock possible Anaplasmosis Acute renal failure with metabolic acidosis patient is transferred to [facility] for futher care Condition on Discharge: Serious Activity: As commented below Non-emergency contact: Primary Care Provider and Specialist Call non-emergency contact if: your symptoms worsen Follow-up/Referrals: Pop Solares MD [Primary Care Provider] - Diet: Nothing by Mouth Addtl Attending Provider Instructions: Patient is transferred to [facility] Pending Studies at Discharge: No Stand-Alone Forms: [facility] Skilled Items Patient informed of condition?: Yes DNR: No Discharge Level of Care: Other Communicable Disease: No Discharge Prognosis: Other Lines: Peripheral IV Urinary Catheter: Yes Medications and DC Order Prescriptions: Discontinued lisinopril-hydrochlorothiazide 20-12.5 mg Tablet 1 tab PO BID RF: 0 hydralazine 25 mg Tablet 25 mg PO BID RF: 0 glimepiride 2 mg Tablet 2 mg PO QDD RF: 0 metformin 500 mg Tablet Extended Release 24hr 1,000 mg PO BID RF: 0 Jardiance 25 mg Tablet 25 mg PO QAM RF: 0 atorvastatin 20 mg tablet 20 mg PO DAILY RF: 0 glimepiride 2 mg tablet 4 mg PO DAILY RF: 0 Discharge Orders: Discharge Order (Routine); Ordered 03/18/21 Ordered By: Kike Brown Admission Data Admit Date/Time: 03/17/21 13:05 Attending Provider: Tamia Centeno Admit Provider: Tamia Centeno Primary Care Provider: Pop Solares Other Providers: Tamia Centeno ; Collins Burk Marten ; Puma Garrett ; Eddie Flowers ; Melani Maya ; Sebastián Rosales I. ; Jack Luu II ; Sindhu Stevenson ; Cholo Howard ; Brendon Ryan Other Interventions: Discharge Summary Assessment (RN) Last Done: 03/18/21 04:57 Supervising Physician Co-Signing Physician Notes Patient seen and examined care co-ordinated with Lucía ROLAND : FULL CODE
--- NOTE | 2021-03-18 08:18 | Electrocardiogram Report ---
Test Reason : Blood Pressure : / mmHG Vent. Rate : 108 BPM Atrial Rate : 108 BPM P-R Int : 136 ms QRS Dur : 168 ms QT Int : 418 ms P-R-T Axes : 037 099 020 degrees QTc Int : 560 ms Sinus tachycardia Left atrial enlargement Right bundle branch block ST depression in Anterior , consider ischemia Abnormal ECG No previous ECGs available Confirmed by Ok Marsh ([id number]) on 03/18/2021 8:18:17 AM Referred By: REFERRED SELF Confirmed By:Ok Marsh
--- NOTE | 2021-03-18 08:31 | Electrocardiogram Report ---
Test Reason : Blood Pressure : / mmHG Vent. Rate : 108 BPM Atrial Rate : 108 BPM P-R Int : 150 ms QRS Dur : 162 ms QT Int : 412 ms P-R-T Axes : 042 092 019 degrees QTc Int : 552 ms Sinus tachycardia Right bundle branch block ST depression in Anterior leads , consider ischemia Abnormal ECG When compared with ECG of 17-MAR-2021 11:08, No significant change was found Confirmed by Ok Marsh ([id number]) on 03/18/2021 8:30:27 AM Referred By: REFERRED SELF Confirmed By:Ok Marsh
--- NOTE | 2021-03-18 08:50 | Electrocardiogram Report ---
Test Reason : Blood Pressure : / mmHG Vent. Rate : 112 BPM Atrial Rate : 112 BPM P-R Int : 144 ms QRS Dur : 166 ms QT Int : 384 ms P-R-T Axes : 043 101 015 degrees QTc Int : 524 ms Sinus tachycardia Right bundle branch block ST depression in Indeterminate axis , consider ischemia Abnormal ECG When compared with ECG of 17-MAR-2021 12:34, No significant change was found Confirmed by Ok Marsh ([id number]) on 03/18/2021 8:49:54 AM Referred By: REFERRED SELF Confirmed By:Ok Marsh
--- NOTE | 2021-03-18 09:05 | Electrocardiogram Report ---
Test Reason : Blood Pressure : / mmHG Vent. Rate : 109 BPM Atrial Rate : 110 BPM P-R Int : 152 ms QRS Dur : 160 ms QT Int : 380 ms P-R-T Axes : 057 109 030 degrees QTc Int : 511 ms Sinus tachycardia Right bundle branch block ST depression in Anteroseptal leads Abnormal ECG When compared with ECG of 17-MAR-2021 14:32, ST depression in Anteroseptal leads less pronounced Confirmed by Ok Marsh ([id number]) on 03/18/2021 9:05:15 AM Referred By: REFERRED SELF Confirmed By:Ok Marsh
--- NOTE | 2021-03-18 09:22 | Electrocardiogram Report ---
Test Reason : Blood Pressure : / mmHG Vent. Rate : 099 BPM Atrial Rate : 099 BPM P-R Int : 170 ms QRS Dur : 172 ms QT Int : 412 ms P-R-T Axes : 052 089 031 degrees QTc Int : 528 ms Normal sinus rhythm Right bundle branch block Abnormal ECG When compared with ECG of 17-MAR-2021 18:21, ST depression in Anteroseptal leads no longer present Confirmed by Ok Marsh ([id number]) on 03/18/2021 9:22:35 AM Referred By: REFERRED SELF Confirmed By:Ok Marsh
[2021-03-18 09:50] LABS: Hepatitis B Surf Ag Rflx Conf Neg (Neg)
[2021-03-18 10:19] LABS: Hepatitis C IgG 13Yrs+Old_Rflx Neg (Neg)
[2021-03-18 14:06] LABS: iSTAT Art Bld Gas pCO2 Correct 40 mmHg (35-46); iSTAT Art Bld Gas pH Corrected 7.315 (7.35-7.45); iSTAT Arterial Blood Gas HCO3 20 meg/L (19-24); iSTAT Arterial Blood Gas pCO2 37 mmHg (35-46); iSTAT Arterial Blood Gas pH 7.34 (7.35-7.45); iSTAT Arterial Blood Gas pO2 115 mmHg (80-95); iSTAT Arterial Blood Gas pO2 C 126; iSTAT Carbon Dioxide 21 mmol/L (24-31); iSTAT FiO2 50 %; iSTAT Hematocrit 34 % (42-52); iSTAT Hemoglobin 11.6 g/dl (14.0-18.0); iSTAT Potassium 3.7 mmol/L (3.3-5.0); iSTAT Site Art Line; iSTAT Sodium 137 mmol/L (135-144)
[2021-03-19 10:06] LABS: HIV 1 RNA PCR Copies/ML <20 NOT DETECTED copies/mL (NOT DETECTED); HIV-1 RNA Log Copies/mL <1.30 NOT DETECTED (NOT DETECTED); Hepatitis A Antibody IgM NON-REACTIVE (NON-REACTIVE); Hepatitis B Core Antibody IgM NON-REACTIVE (NON-REACTIVE)
== END 2021-03-18 04:15 | disposition short-term general hospital (02) | DRG 871 ==
LOC: ED 11:00 → 2S 13:05 → 1E 17:18

== ENCOUNTER 2021-10-31 09:44 | Inpatient (IN) ==
--- NOTE | 2021-10-31 10:41 | Emergency Department Note ---
History of Present Illness General Chief complaint: Wound Stated complaint: WOUND Time Seen by Provider: 10/31/21 10:12 Source: patient Mode of arrival: ambulatory Limitations: no limitations History of Present Illness Provider complaint: sacral wound This is a 56-year-old male brought in by EMS from a local facility due to concern for possible worsening sacral decubitus ulcer and evolving osteomyelitis. Patient with a complicated past medical history over the last year. Patient admitted last summer with severe sepsis. Patient relays he has had evolving issues with skin breakdown and ulcerative wounds since that time. Patient does still have an indwelling feeding tube, his trach site has been decannulated and he feels he is improving with swallowing and has an improving voice. She denies any recent fevers, chills, trouble breathing, abdominal pain. Patient does have ongoing weakness and is still actively participating in physical therapy. He does have an indwelling Drake catheter. Patient states he has had worsening pain over the last several weeks in the area of the sacral decubitus, and staff at the facility has been cleaning and applying a dressing. He states he was not yet referred to wound care. He states he does not have a significant amount of drainage from the wound. Paperwork accompanying the patient show he had an outpatient x-ray of his sacrum which was suggestive of osteomyelitis. Pt seen during a time of high acuity and national emergency pandemic while wearing PPE. Home Medications Medication Instructions Recorded Confirmed Type Saccharomyces boulardii 250 mg 250 mg PO BID 10/31/21 10/31/21 History capsule (Florastor) acetaminophen 325 mg tablet 650 mg PO QID PRN 10/31/21 10/31/21 History albuterol sulfate 2.5 mg INHALATION Q4H PRN 10/31/21 10/31/21 History arginine 7 gram-glutamine 7 1 ea PO BID 10/31/21 10/31/21 History gram-calcium HMB 1.5 gram oral powder pack (Peter) ascorbic acid (vitamin C) 500 mg 500 mg PO Q2D 10/31/21 10/31/21 History tablet aspirin 81 mg tablet,delayed 81 mg PO DAILY 10/31/21 10/31/21 History release atorvastatin 40 mg tablet 40 mg PO DAILY 10/31/21 10/31/21 History baclofen 5 mg tablet 5 mg PO Q12H 10/31/21 10/31/21 History cholecalciferol (vitamin D3) 125 125 mcg PO DAILY 10/31/21 10/31/21 History mcg (5,000 unit) tablet (Vitamin D3) doxazosin 1 mg tablet 1 mg PO DAILY 10/31/21 10/31/21 History ferrous sulfate 325 mg (65 mg 325 mg PO DAILY 10/31/21 10/31/21 History iron) tablet glycopyrrolate 1 mg tablet 1 mg PO BID 10/31/21 10/31/21 History guaifenesin 100 mg/5 mL oral liquid 200 mg FEEDING TUBE Q6H PRN 10/31/21 10/31/21 History insulin glargine 100 unit/mL (3 8 unit SUBCUT HS 10/31/21 10/31/21 History mL) subcutaneous pen (Basaglar KwikPen U-100 Insulin) insulin lispro 100 unit/mL 1 sliding scale dose SUBCUT 10/31/21 10/31/21 History subcutaneous pen (Humalog KwikPen USEASDIRECTD (U-100) Insulin) melatonin 3 mg tablet 6 mg PO HS PRN 10/31/21 10/31/21 History omeprazole 40 mg capsule,delayed 40 mg PO BID 10/31/21 10/31/21 History release ondansetron 4 mg disintegrating 4 mg PO Q6H PRN 10/31/21 10/31/21 History tablet polyethylene glycol 3350 17 17 g PO DAILY PRN 10/31/21 10/31/21 History gram/dose oral powder vits no.28-ferrous 1 tab PO DAILY 10/31/21 10/31/21 History fumarate 27 mg iron-folic acid 1 mg tablet sennosides 8.6 mg tablet (Senna 8.6 mg PO DAILY PRN 10/31/21 10/31/21 History Lax) Allergies Allergy/AdvReac Type Severity Reaction Status Date / Time bee venom protein (honey bee) Allergy Hives Verified 10/31/21 12:47 Past Med/Surg History Medical History Anaplasmosis BPH (benign prostatic hyperplasia) Carotid artery stenosis CVA (cerebral vascular accident) Diabetes mellitus, type 2 Diabetic ketoacidosis Gastrostomy tube in place History of endocarditis History of pneumonia Hypertension Insomnia Kidney stones HX OF AND PASSED ON OWN Paroxysmal atrial fibrillation Peripheral vascular disease Rhabdomyolysis Severe sepsis Tracheocutaneous fistula following tracheostomy Transaminitis Surgical History History of aortic valve replacement History of open reduction and internal fixation (ORIF) procedure RIGHT ANKLE History of tracheostomy Family History Brother Stroke Social History Smoking Status: Never smoker Second Hand Exposure: No; Hx Alcohol Use: No Hx Substance Use: No Preferred Language: Australian Communication Ability: Effective Timber Buyer Required: No Beliefs That Will Affect Care: None Current Living Situation: Retirement Current Living Situation Comment: lives home with daughter. Feels Safe at Home: Yes Assistive Devices: None Assistive Devices Comment: mami justice Review of Systems A total of 10 systems reviewed and were otherwise negative All systems reviewed & are unremarkable except as noted in HPI & below Physical Exam Vital Signs Vital Signs - 24 hr 10/31/21 09:47 10/31/21 11:25 10/31/21 11:34 Temperature 36.4 C L Temperature Source Temporal Artery Scan Pulse Rate 67 56 L Pulse Rate [Apical] 65 Pulse Rate from SpO2 Sensor 57 L Respiratory Rate 18 18 13 Respiratory Effort / Characteristics Non-Labored Respiratory Depth Normal Blood Pressure 129/71 Blood Pressure [Right Arm] 136/71 Blood Pressure Mean 90 Blood Pressure Mean [Right Arm] 92 Pulse Oximetry 97 97 97 Oxygen Delivery Method Room Air Room Air Sepsis Recent Fever Within 48 Hours No Sepsis New/Unexplained Change in Mental Status No Sepsis Action Taken by Nursing No Action Required 10/31/21 11:40 10/31/21 11:50 10/31/21 12:11 Temperature Temperature Source Pulse Rate 66 60 62 Pulse Rate [Apical] Pulse Rate from SpO2 Sensor 61 59 L Respiratory Rate 17 14 15 Respiratory Effort / Characteristics Respiratory Depth Blood Pressure 140/72 Blood Pressure [Right Arm] Blood Pressure Mean 94 Blood Pressure Mean [Right Arm] Pulse Oximetry 98 93 Oxygen Delivery Method Sepsis Recent Fever Within 48 Hours Sepsis New/Unexplained Change in Mental Status Sepsis Action Taken by Nursing 10/31/21 12:20 10/31/21 12:30 10/31/21 12:40 Temperature Temperature Source Pulse Rate 51 L 59 L 64 Pulse Rate [Apical] Pulse Rate from SpO2 Sensor 51 L 56 L 58 L Respiratory Rate 8 L 12 20 Respiratory Effort / Characteristics Respiratory Depth Blood Pressure 142/74 H Blood Pressure [Right Arm] Blood Pressure Mean 96 Blood Pressure Mean [Right Arm] Pulse Oximetry 99 93 100 Oxygen Delivery Method Sepsis Recent Fever Within 48 Hours Sepsis New/Unexplained Change in Mental Status Sepsis Action Taken by Nursing 10/31/21 12:50 10/31/21 13:00 10/31/21 13:10 Temperature Temperature Source Pulse Rate 58 L 62 61 Pulse Rate [Apical] Pulse Rate from SpO2 Sensor 57 L 62 59 L Respiratory Rate 13 10 L 11 L Respiratory Effort / Characteristics Respiratory Depth Blood Pressure 141/78 H Blood Pressure [Right Arm] Blood Pressure Mean 99 Blood Pressure Mean [Right Arm] Pulse Oximetry 98 99 96 Oxygen Delivery Method Sepsis Recent Fever Within 48 Hours Sepsis New/Unexplained Change in Mental Status Sepsis Action Taken by Nursing 10/31/21 13:20 10/31/21 13:30 Temperature Temperature Source Pulse Rate 69 67 Pulse Rate [Apical] Pulse Rate from SpO2 Sensor 68 66 Respiratory Rate 14 19 Respiratory Effort / Characteristics Respiratory Depth Blood Pressure 142/80 H Blood Pressure [Right Arm] Blood Pressure Mean 100 Blood Pressure Mean [Right Arm] Pulse Oximetry 99 98 Oxygen Delivery Method Sepsis Recent Fever Within 48 Hours Sepsis New/Unexplained Change in Mental Status Sepsis Action Taken by Nursing GENERAL: alert, unwell appearing, cachetic, no distress, non-toxic EYE EXAM: normal conjunctiva, PERRL and EOM's grossly intact OROPHARYNX: no exudate, no erythema, lips, buccal mucosa, and tongue normal and mucous membranes are moist NECK: supple, no nuchal rigidity, no adenopathy, non-tender, stoma site covered with a Band-Aid, no active bleeding or drainage LUNGS: Clear to auscultation. Normal chest wall mechanics, no w/r/r HEART: no murmurs, S1 normal and S2 normal ABDOMEN: abdomen soft, non-tender, normo-active bowel sounds, no masses, no rebound or guarding. BACK: Back is symmetrical on inspection and there is no deformity, no midline tenderness, no CVA tenderness. SACRUM: Large sacral decubitus ulcer, no active drainage or bleeding, sacrum visualized, attempted wound culture performed with assistance from nursing staff SKIN: no rashes and no bruising UPPER EXTREMITIES: upper extremities are grossly normal. FROM, nml pulses b/l. Significant muscular atrophy and deconditioning noted. LOWER EXTREMITIES: No pitting edema. FROM, nml pulses b/l. Significant mu scular atrophy and deconditioning noted, cushioned boots on bilateral lower extremities to prevent additional wound evolution NEURO EXAM: Normal sensorium, cranial nerves II-XII grossly intact, normal speech, patient does move arms and legs although is globally weak, no focal deficits. Gross sensation intact. Course Administered Medications Ascorbic Acid (Ascorbic Acid 500 Mg Tab) 500 mg PO Q2D@0900 BRIDGET Stop: 12/01/21 08:59 Last Admin: 11/01/21 07:10 Dose: 500 mg Documented by: [id number] Aspirin (Aspirin 81 Mg Ectab) 81 mg PO DAILY BRIDGET Stop: 12/01/21 08:59 Last Admin: 11/01/21 07:10 Dose: 81 mg Documented by: [id number] Baclofen (Baclofen 10 Mg Tab) 5 mg PO Q12H BRIDGET Stop: 11/30/21 18:59 Last Admin: 11/01/21 19:25 Dose: 5 mg Documented by: [id number] Admin: 11/01/21 07:10 Dose: 5 mg Documented by: [id number] Admin: 10/31/21 20:21 Dose: 5 mg Documented by: [id number] Doxazosin Mesylate (Doxazosin Mesylate 1 Mg Tab) 1 mg PO DAILY BRIDGET Stop: 12/01/21 08:59 Last Admin: 11/01/21 07:10 Dose: 1 mg Documented by: [id number] Enoxaparin Sodium (Enoxaparin Inj 40 Mg/0.4 Ml Syr) 40 mg SQ QAM BRIDGET Stop: 12/01/21 08:59 Last Admin: 11/01/21 07:09 Dose: 40 mg Documented by: [id number] Ferrous Sulfate (Ferrous Sulfate 325 Mg Tab) 325 mg PO DAILY BRIDGET Stop: 12/01/21 08:59 Last Admin: 11/01/21 07:10 Dose: 325 mg Documented by: [id number] Glycopyrrolate (Glycopyrrolate 1 Mg Tab) 1 mg PO BID BRIDGET Stop: 11/30/21 20:59 Last Admin: 11/01/21 19:26 Dose: 1 mg Documented by: [id number] Admin: 11/01/21 07:10 Dose: 1 mg Documented by: [id number] Admin: 03/10/22 20:22 Dose: 1 mg Documented by: [id number] Sodium Chloride (Nss 1000ml) 1,000 mls @ 125 mls/hr IV .Q8H BRIDGET Stop: 11/30/21 10:44 Last Admin: 11/01/21 19:25 Dose: 125 mls/hr Documented by: [id number] Infusion: 11/01/21 19:03 Dose: 125 mls/hr Documented by: [id number] Admin: 11/01/21 11:03 Dose: 125 mls/hr Documented by: [id number] Infusion: 11/01/21 11:03 Dose: 0 mls/hr Documented by: [id number] Infusion: 11/01/21 05:07 Dose: 125 mls/hr Documented by: [id number] Admin: 11/01/21 02:58 Dose: 125 mls/hr Documented by: [id number] Infusion: 11/01/21 02:45 Dose: 125 mls/hr Documented by: [id number] Admin: 10/31/21 18:45 Dose: 125 mls/hr Documented by: [id number] Infusion: 10/31/21 18:07 Dose: 0 mls/hr Documented by: [id number] Admin: 10/31/21 11:15 Dose: 125 mls/hr Documented by: [id number] Piperacillin Sod/Tazobactam (Sod 3.375 gm/ Dextrose) 115 mls @ 28.75 mls/hr IV Q8H BRIDGET; Protocol Stop: 11/03/21 00:00 Last Admin: 11/01/21 16:08 Dose: 28.8 mls/hr Documented by: [id number] Infusion: 11/01/21 11:12 Dose: 0 mls/hr Documented by: [id number] Admin: 11/01/21 07:12 Dose: 28.8 mls/hr Documented by: [id number] Infusion: 11/01/21 04:50 Dose: 0 mls/hr Documented by: [id number] Admin: 11/01/21 00:45 Dose: 28.8 mls/hr Documented by: [id number] Daptomycin 450 mg/ Syringe 9 mls @ 4.5 mls/min IV Q24H BRIDGET; Protocol Stop: 12/13/21 10:59 Last Admin: 11/01/21 11:21 Dose: 4.5 mls/min Documented by: [id number] Insulin Aspart (Insulin Aspart Per Unit) 0 units SC ACHS BRIDGET Stop: 11/30/21 18:59 Last Admin: 11/01/21 17:55 Dose: Not Given Documented by: [id number] Admin: 11/01/21 12:55 Dose: 4 units Documented by: [id number] Cosigned by: [id number] Admin: 11/01/21 08:24 Dose: Not Given Documented by: [id number] Admin: 10/31/21 20:43 Dose: Not Given Documented by: [id number] Cosigned by: [id number] Admin: 10/31/21 20:43 Dose: Not Given Documented by: [id number] Cosigned by: [id number] Melatonin (Melatonin 3 Mg Tab) 6 mg PO HS PRN PRN Reason: Insomnia Stop: 11/30/21 18:33 Last Admin: 11/01/21 19:30 Dose: 6 mg Documented by: [id number] Pantoprazole Sodium (Pantoprazole 40 Mg Tab) 40 mg PO BID BRIDGET Stop: 11/30/21 20:59 Last Admin: 11/01/21 19:26 Dose: 40 mg Documented by: [id number] Admin: 11/01/21 07:10 Dose: 40 mg Documented by: [id number] Admin: 10/31/21 20:22 Dose: 40 mg Documented by: [id number] Saccharomyces Boulardii (Saccharomyces Boulardii 250 Mg Cap) 250 mg PO BID BRIDGET Stop: 11/30/21 20:59 Last Admin: 11/01/21 19:26 Dose: 250 mg Documented by: [id number] Admin: 11/01/21 07:10 Dose: 250 mg Documented by: [id number] Admin: 10/31/21 20:22 Dose: 250 mg Documented by: [id number] Vitamin D (Cholecalciferol 5,000 Units 125 Mcg Tab) 5,000 units PO DAILY BRIDGET Stop: 12/01/21 08:59 Last Admin: 11/01/21 07:10 Dose: 5,000 units Documented by: [id number] Discontinued Medications Piperacillin Sod/Tazobactam Sod (Zosyn) 4.5 gm in 120 mls @ 240 mls/hr IV NOW ONE Stop: 10/31/21 11:14 Last Infusion: 10/31/21 11:35 Dose: 0 mls/hr Documented by: [id number] Admin: 10/31/21 11:15 Dose: 240 mls/hr Documented by: [id number] Daptomycin 450 mg/ Syringe 9 mls @ 4.5 mls/min IV NOW ONE; Protocol Stop: 10/31/21 10:46 Last Admin: 10/31/21 11:35 Dose: 4.5 mls/min Documented by: [id number] Magnesium Sulfate/Dextrose (Magnesium Sulfate / D5w) 1 gm in 100 mls @ 100 mls/hr IV NOW STA Stop: 10/31/21 13:20 Last Infusion: 10/31/21 13:22 Dose: 0 mls/hr Documented by: [id number] Admin: 10/31/21 12:29 Dose: 200 mls/hr Documented by: [id number] Piperacillin Sod/Tazobactam (Sod 3.375 gm/ Dextrose) 115 mls @ 230 mls/hr IV 1 900 ONE; Protocol Stop: 10/31/21 19:29 Last Infusion: 10/31/21 19:32 Dose: 0 mls/hr Documented by: [id number] Admin: 10/31/21 19:00 Dose: 230 mls/hr Documented by: [id number] Ioversol (Optiray 320 100ml) 94 ml IV ONCE ONE Stop: 10/31/21 12:12 Last Admin: 10/31/21 12:03 Dose: 94 ml Documented by: [id number] Miscellaneous Information (Consult Pharmacy) 1 ea N/A NOW STA Stop: 10/31/21 16:04 Last Admin: 10/31/21 17:06 Dose: 1 ea Documented by: [id number] Medical Decision Making Differential Diagnosis Foreign body, fracture, dislocation, joint compromise, infection, soft tissue injury, tendon injury, vascular compromise, compartment syndrome, as well as other pathologies. Medical Records Attestation: I reviewed the patient's medical records. Home Medications Current Medication List: was personally reviewed by me Laboratory Data Attestation: I reviewed the patient's lab results. Result diagrams: 11/01/21 05:19 11/01/21 05:19 Lab Results 10/31/21 10/31/21 10/31/21 Range/Units 10:52 10:52 10:52 WBC 8.42 (4.8-10.8) K/uL RBC 3.66 L (4.7-6.1) M/uL Hgb 9.1 L (14.0-18.0) g/dL Hct 31.1 L (42-52) % MCV 85.0 (80-100) fL MCH 24.9 L (25-34) pg MCHC 29.3 L (32-36) g/dL RDW Std Deviation 54.1 H (36.4-46.3) fL RDW Coeff of Js 17.2 H (11.5-14.5) % Plt Count 532 H (130-400) K/uL MPV 8.3 (7.4-10.4) fL Immature Gran % (Auto) 0.2 % Neut % (Auto) 76.3 % Lymph % (Auto) 11.0 % [place] % (Auto) 7.8 % Eos % (Auto) 4.3 % Baso % (Auto) 0.4 % Neut # (Auto) 6.42 (1.4-6.5) K/uL Lymph # (Auto) 0.93 L (1.2-3.4) K/uL [place] # (Auto) 0.66 H (0.11-0.59) K/uL Eos # (Auto) 0.36 (0-0.5) K/uL Baso # (Auto) 0.03 (0-0.2) K/uL Immature Gran # (Auto) 0.02 (0.00-0.02) K/uL Sodium 140 (136-145) mmol/L Potassium 4.0 (3.5-5.1) mmol/L Chloride 104 (98-107) mmol/L Carbon Dioxide 31 (21-32) mmol/L Anion Gap 5 (3-11) BUN 16 (6-23) mg/dl Creatinine 0.60 (0.6-1.4) mg/dl Est Cr Clr Drug Dosing 149.9 ml/min Est GFR ( Amer) 132.1 ml/min Est GFR (Non-Af Amer) 114.0 ml/min BUN/Creatinine Ratio 26.7 H (10-20) Glucose 98 (70-99(Fasting)) mg/dl Lactate (0.4-2.0) mmol/L Calcium 9.4 (8.5-10.1) mg/dl Magnesium 1.6 L (1.7-2.4) mg/dl Total Bilirubin 0.3 (0.2-1.0) mg/dl AST 9 L (13-39) U/L ALT 5 L (7-52) U/L Alkaline Phosphatase 90 (34-104) U/L Total Creatine Kinase 18 L (30-223) U/L Total Protein 6.9 (6.0-8.3) gm/dl Albumin 3.0 L (3.4-5.0) gm/dl Globulin 3.9 (2.5-4.0) gm/dl Albumin/Globulin Ratio 0.8 L (0.9-2) Procalcitonin < 0.05 (0-0.5) ng/ml SARS-CoV-2, RNA, NAAT (NEGATIVE) 10/31/21 10/31/21 Range/Units 11:19 14:15 WBC (4.8-10.8) K/uL RBC (4.7-6.1) M/uL Hgb (14.0-18.0) g/dL Hct (42-52) % MCV (80-100) fL MCH (25-34) pg MCHC (32-36) g/dL RDW Std Deviation (36.4-46.3) fL RDW Coeff of Js (11.5-14.5) % Plt Count (130-400) K/uL MPV (7.4-10.4) fL Immature Gran % (Auto) % Neut % (Auto) % Lymph % (Auto) % [place] % (Auto) % Eos % (Auto) % Baso % (Auto) % Neut # (Auto) (1.4-6.5) K/uL Lymph # (Auto) (1.2-3.4) K/uL [place] # (Auto) (0.11-0.59) K/uL Eos # (Auto) (0-0.5) K/uL Baso # (Auto) (0-0.2) K/uL Immature Gran # (Auto) (0.00-0.02) K/uL Sodium (136-145) mmol/L Potassium (3.5-5.1) mmol/L Chloride (98-107) mmol/L Carbon Dioxide (21-32) mmol/L Anion Gap (3-11) BUN (6-23) mg/dl Creatinine (0.6-1.4) mg/dl Est Cr Clr Drug Dosing ml/min Est GFR ( Amer) ml/min Est GFR (Non-Af Amer) ml/min BUN/Creatinine Ratio (10-20) Glucose (70-99(Fasting)) mg/dl Lactate 0.5 (0.4-2.0) mmol/L Calcium (8.5-10.1) mg/dl Magnesium (1.7-2.4) mg/dl Total Bilirubin (0.2-1.0) mg/dl AST (13-39) U/L ALT (7-52) U/L Alkaline Phosphatase (34-104) U/L Total Creatine Kinase (30-223) U/L Total Protein (6.0-8.3) gm/dl Albumin (3.4-5.0) gm/dl Globulin (2.5-4.0) gm/dl Albumin/Globulin Ratio (0.9-2) Procalcitonin (0-0.5) ng/ml SARS-CoV-2, RNA, NAAT NEGATIVE (NEGATIVE) Imaging Data Radiologist's Impression: Pelvis CT 10/31/21 10:33 CT pelvis w/IV con only HISTORY: 56 years-old Male abn outpt xray, ?sacral osteo acute pelvic pain with sacral decubitus ulcer COMPARISON: CT abdomen pelvis 03/17/2021 TECHNIQUE: Multiple axial CT images of the pelvis were obtained following the intravenous administration of Optiray. A dose lowering technique was used consistent with the principals of MARY. FINDINGS: Atherosclerosis of the abdominal aorta without aneurysm. Mild fusiform dilation of the bilateral common iliac arteries measuring 1.9 cm on the left and 1.8 cm on the right. 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 Suggested mural thrombus results in 50% luminal narrowing as seen on image 129. Dilation of the right internal iliac artery measures up to 1.9 cm. There are a few scattered subcentimeter perirectal and iliac chain lymph nodes. Circumferential wall thickening of the urinary bladder with mucosal hyperemia and perivesicular stranding. Prostamegaly. A Drake catheter is in place. There is moderate fecal retention. Circumferential wall thickening of the rectum with perirectal inflammation. Trace free fluid within the pelvis. Noninflamed appendix. Large sacral decubitus ulcer is new from prior measuring approximately 4.6 x 7.3 cm. There is associated cellulitis with subcutaneous emphysema tracking along the right gluteal tissues and into the superior gluteal cleft. There is acute osteomyelitis involving the distal sacrum, sacrococcygeal junction and coccyx measuring up to approximately 5 cm in cranial caudal dimension. There are suggested myositis changes of the right piriform sinus and gluteal musculature and also possibly within the lower right paraspinal musculature. Heterogeneity of the pelvic bony structures, notably the left hemipelvis are new from prior. IMPRESSION: 1. Large sacral decubitus ulcer results in a large area of osteomyelitis involving the sacrum, sacrococcygeal junction and coccyx. 2. Cellulitis with myositis of the soft tissues surrounding the sacral ulcer. 3. Disuse osteopenia. 4. Circumferential wall thickening of the rectum with perirectal inflammation may be reactive secondary to the aforementioned sacral findings. Correlate clinically to exclude concomitant proctitis. 5. Suggested cystitis. 6. Additional findings as above. ACT 112: Negative or not required by law. The above report was generated using voice recognition software. It may contain grammatical, syntax or spelling errors. Electronically signed by: Miguel Sue M.D. 10/31/2021 12:38 PM MDM Narrative This is a 56-year-old male with a complicated recent course of hospitalization and intubation and now patient in rehab. Patient presents due to facilities concern for worsening sacral ulcer and outpatient x-ray suggestive of osteomyelitis. Labs drawn and sent were reassuring, cultures taken as a precaution. Patient sent for CT imaging which did confirm sacral osteomyelitis. Patient was started on IV antibiotics and case discussed with hospitalist team for additional evaluation and management. Patient remained afebrile and hemodynamically stable. He and mother who came to bedside were made aware of all results and plan, verbalized understanding and were in agreement. An order was placed for continuous cardiac monitoring. The monitor shows a rate of _52_ with _sinus bradycardia_ rhythm. Impression & Plan Decubitus ulcer of sacral area, Osteomyelitis Discharge Plan Visit Data Chief Complaint: Wound Stated Complaint: WOUND ED Provider: Haley Gerard Discharge Problem: Decubitus ulcer of sacral area, Osteomyelitis Patient Disposition: Admitted As Inpatient Condition: Good Discharge Instructions Interventions: ED Discharge Assessment Last Done: 10/31/21 17:53 Discharge Problem: Decubitus ulcer of sacral area Qualifiers: Pressure injury stage: pressure injury of deep tissue Qualified Code(s): L89.156 - Pressure-induced deep tissue damage of sacral region Osteomyelitis Qualifiers: Osteomyelitis type: unspecified type Osteomyelitis location: other site Qualified Code(s): M86.9 - Osteomyelitis, unspecified
[2021-10-31] MEDS ORDERED: DAPTOmycin 450 MG in SYRINGE 0 ML IV ONE (10:45)
[2021-10-31] MEDS ORDERED: PIPERACILLIN/TAZOBACTAM 4.5 GM/120 ML BAG IV ONE (10:45)
[2021-10-31 11:02] LABS: Basophils # (auto) 0.03 K/uL (0-0.2); Basophils % (auto) 0.4 %; Eosinophils # (auto) 0.36 K/uL (0-0.5); Eosinophils % (auto) 4.3 %; Hematocrit (blood only) 31.1 % (42-52); Hemoglobin 9.1 g/dL (14.0-18.0); Immature Granulocytes # (auto) 0.02 K/uL (0.00-0.02); Immature Granulocytes % (auto) 0.2 %; Lymphocytes # (auto) 0.93 K/uL (1.2-3.4); Mean Corpuscular Hemoglobin 24.9 pg (25-34); Mean Corpuscular Hgb Conc 29.3 g/dL (32-36); Mean Platelet Volume 8.3 fL (7.4-10.4); Monocytes # (auto) 0.66 K/uL (0.11-0.59); Monocytes % (auto) 7.8 %; Neutrophils # (auto) 6.42 K/uL (1.4-6.5); Neutrophils % (auto) 76.3 %; Platelet Count 532 K/uL (130-400); RDW Coefficient of Variation 17.2 % (11.5-14.5); RDW Standard Deviation 54.1 fL (36.4-46.3); Red Blood Count 3.66 M/uL (4.7-6.1); White Blood Count 8.42 K/uL (4.8-10.8)
[2021-10-31] MEDS: SODIUM CHLORIDE 0.9% 1000ML 1,000 ML IV SCH ×2 (11:15→18:45)
[2021-10-31 11:27] LABS: Albumin Globulin Ratio 0.8 (0.9-2); BUN Creatinine Ratio 26.7 (10-20); Bilirubin,Total 0.3 mg/dl (0.2-1.0); Calcium 9.4 mg/dl (8.5-10.1); Creatinine Clr Calc Pharmacy 149.9 ml/min; Est GFR (African American) 132.1 ml/min; Globulin 3.9 gm/dl (2.5-4.0); Magnesium 1.6 mg/dl (1.7-2.4); Total Protein 6.9 gm/dl (6.0-8.3)
[2021-10-31] MEDS ORDERED: OPTIRAY 320 100ml IV ONE (12:11)
[2021-10-31] MEDS ORDERED: MAGNESIUM SULFATE / D5W 1 GM/100 ML BAG IV STA (12:21)
--- NOTE | 2021-10-31 12:39 | CT Scan Report ---
CT pelvis w/IV con only HISTORY: 56 years-old Male abn outpt xray, ?sacral osteo acute pelvic pain with sacral decubitus [facility] er COMPARISON: CT abdomen pelvis 03/17/2021 TECHNIQUE: Multiple axial CT images of the pelvis were obtained following the intravenous administrat ion of Optiray. A dose lowering technique was used consistent with the principals of MARY. FINDINGS: Atherosclerosis of the abdominal aorta without aneurysm. Mild fusiform dilation of the bilateral comm on iliac arteries measuring 1.9 cm on the left and 1.8 cm on the right. 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 Suggested mural thrombus results in 50% luminal narrowing as seen on image 129. Dilation of the right internal iliac artery measures up t o 1.9 cm. There are a few scattered subcentimeter perirectal and iliac chain lymph nodes. Circumferential wall thickening of the urinary bladder with mucosal hyperemia and perivesicular stran ding. Prostamegaly. A Drake catheter is in place. There is moderate fecal retention. Circumferential wall thickening of the rectum with perirectal inflammation. Trace free fluid within the pelvis. Nonin flamed appendix. Large sacral decubitus ulcer is new from prior measuring approximately 4.6 x 7.3 cm. There is associa ryan cellulitis with subcutaneous emphysema tracking along the right gluteal tissues and into the supe rior gluteal cleft. There is acute osteomyelitis involving the distal sacrum, sacrococcygeal junction and coccyx measuring up to approximately 5 cm in cranial caudal dimension. There are suggested myosi tis changes of the right piriform sinus and gluteal musculature and also possibly within the lower ri ght paraspinal musculature. Heterogeneity of the pelvic bony structures, notably the left hemipelvis are new from prior. IMPRESSION: 1. Large sacral decubitus ulcer results in a large area of osteomyelitis involving the sacrum, sacroc occygeal junction and coccyx. 2. Cellulitis with myositis of the soft tissues surrounding the sacral ulcer. 3. Disuse osteopenia. 4. Circumferential wall thickening of the rectum with perirectal inflammation may be reactive seconda ry to the aforementioned sacral findings. Correlate clinically to exclude concomitant proctitis. 5. Suggested cystitis. 6. Additional findings as above. ACT 112: Negative or not required by law. The above report was generated using voice recognition software. It may contain grammatical, syntax o r spelling errors. Electronically signed by: Miguel Sue M.D. 10/31/2021 12:38 PM
--- NOTE | 2021-10-31 14:32 | History & Physical Report ---
Date of Service October 31, 2021 Assessment & Plan (1) Sacral osteomyelitis: (2) Sacral ulcer: (3) Hypertension: (4) Diabetes mellitus, type 2: (5) Tracheocutaneous fistula following tracheostomy: (6) Gastrostomy tube in place: (7) Protein-calorie malnutrition: (8) Peripheral vascular disease: (9) BPH (benign prostatic hyperplasia): Plan: Pt with large sacral ulcer and underlying osteomyelitis. Currently, it is not clear if there is a need for debridement so will hold off on consulting surgery until pt is evaluated by wound care. Consult wound care for additional recommendations. Will continue empiric Zosyn and daptomycin as started in the ED. Consult infectious disease for antibiotic recommendations as pt will need longer course of antibiotic therapy due to the osteomyelitis. Wound culture collected by ED provider. Blood and urine cultures pending. - Insulin sliding scale, diabetic diet, A1c for DM - Continue other home medications as appropriate - Follow labs - Consult ski edge painter for recommendations due to PCM Pt seen and reviewed with collaborating physician, Dr. Morgan. Plan of care discussed and as outlined above. DVT Prophylaxis: Lovenox Code Status: Full code Michela Valencia PA-C History of Present Illness Chief Complaint: Sacral pain and wound Primary Care Provider: Pop Solares MD This is a 56 y/o male with a complicated PMH including DM2, anaplasmosis w/ severe septic shock, endocarditis with subsequent septic emboli and right MCA CVA, tracheostomy tube, PAF, HTN, and GJ tube placement. In February of 2021, pt presented to [facility] with flu-like symptoms and subsequently went into severe septic shock with multisystem organ failure. He was transferred to [facility] and ultimately tested positive for anaplamosis. On TTE, he was noted to have severe AI with flail right coronary cusp. RUSSELL confirmed vegetation on the AV. MRI brain showed septic emboli that resulted in multifocal strokes and right-sided PICA mycotic aneurysm. CTA confirmed aneurysm and showed a new right-sided MCA infarct. Underwent AVR on 03/27 but chest closure had to be delayed until 03/28. Developed transient SA brent dysfunction post-operatively and required temporary pacing. Also developed worsening renal function with oliguria that required CRRT 03/29-04/03. HD was started on 04/06. He was able to be taken on HD by the end of March. 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 He underwent PEG placement on 04/08 but had recurrent issues with aspiration so PEG was converted to a GJ tube on 04/22. He subsequently developed Alyse esophagitis and was treated with micafungin. Hospitalization was also complicated by hypernatremia that responded to aggressive hydration with NSS, D5 water, and tube feeds. He was discharged to [facility] on 05/31/22. Subsequently admitted to [facility] on 07/05/21, where has been since. The tracheostomy was decannulated on 09/16/21 but pt has a small persistent tracheocutaneous fistula for which he continues to follow with ENT. If this persists, he may require a procedure to close the trach site. Today, he was sent to the ED from [facility] due to worsening sacral pain related to a known sacral ulcer. Pt reports this has been present since his [place] [facility] and has been slowly worsening. He denies having seen wound care for this to his knowledge. The facility has been applying a dressing, but the dressing changes have become progressively more painful. Yesterday, he had an X-ray of his sacrum/coccyx that showed early osteomyelitis with hyperlucency of the ischial tuberosity on left side and cortical erosion along the posterior margin of the sacrococcygeal segments on the lateral view. He was referred to for additional evaluation. His main complaint is pain at the area. He denies fevers, chills, loss of appetite. He does not use the GJ tube but takes food and medications by mouth as his swallowing has gradually improved. Allergies Allergy/AdvReac Type Severity Reaction Status Date / Time bee venom protein (honey bee) Allergy Hives Verified 10/31/21 12:47 Home Medications Medication Instructions Recorded Confirmed Type Saccharomyces boulardii 250 mg 250 mg PO BID 10/31/21 10/31/21 History capsule (Florastor) acetaminophen 325 mg tablet 650 mg PO QID PRN 10/31/21 10/31/21 History albuterol sulfate 2.5 mg INHALATION Q4H PRN 10/31/21 10/31/21 History arginine 7 gram-glutamine 7 1 ea PO BID 10/31/21 10/31/21 History gram-calcium HMB 1.5 gram oral powder pack (Peter) ascorbic acid (vitamin C) 500 mg 500 mg PO Q2D 10/31/21 10/31/21 History tablet aspirin 81 mg tablet,delayed 81 mg PO DAILY 10/31/21 10/31/21 History release atorvastatin 40 mg tablet 40 mg PO DAILY 10/31/21 10/31/21 History baclofen 5 mg tablet 5 mg PO Q12H 10/31/21 10/31/21 History cholecalciferol (vitamin D3) 125 125 mcg PO DAILY 10/31/21 10/31/21 History mcg (5,000 unit) tablet (Vitamin D3) doxazosin 1 mg tablet 1 mg PO DAILY 10/31/21 10/31/21 History ferrous sulfate 325 mg (65 mg 325 mg PO DAILY 10/31/21 10/31/21 History iron) tablet glycopyrrolate 1 mg tablet 1 mg PO BID 10/31/21 10/31/21 History guaifenesin 100 mg/5 mL oral liquid 200 mg FEEDING TUBE Q6H PRN 10/31/21 10/31/21 History insulin glargine 100 unit/mL (3 8 unit SUBCUT HS 10/31/21 10/31/21 History mL) subcutaneous pen (Basaglar KwikPen U-100 Insulin) insulin lispro 100 unit/mL 1 sliding scale dose SUBCUT 10/31/21 10/31/21 History subcutaneous pen (Humalog KwikPen USEASDIRECTD (U-100) Insulin) melatonin 3 mg tablet 6 mg PO HS PRN 10/31/21 10/31/21 History omeprazole 40 mg capsule,delayed 40 mg PO BID 10/31/21 10/31/21 History release ondansetron 4 mg disintegrating 4 mg PO Q6H PRN 10/31/21 10/31/21 History tablet polyethylene glycol 3350 17 17 g PO DAILY PRN 10/31/21 10/31/21 History gram/dose oral powder vits no.28-ferrous 1 tab PO DAILY 10/31/21 10/31/21 History fumarate 27 mg iron-folic acid 1 mg tablet sennosides 8.6 mg tablet (Senna 8.6 mg PO DAILY PRN 10/31/21 10/31/21 History Lax) Past Med/Surg History Medical History (Updated 10/31/21 @ 16:32 by Siomara Valencia PA-C) Anaplasmosis BPH (benign prostatic hyperplasia) Carotid artery stenosis CVA (cerebral vascular accident) Diabetes mellitus, type 2 Diabetic ketoacidosis Gastrostomy tube in place History of endocarditis History of pneumonia Hypertension Insomnia Kidney stones HX OF AND PASSED ON OWN Paroxysmal atrial fibrillation Peripheral vascular disease Rhabdomyolysis Severe sepsis Tracheocutaneous fistula following tracheostomy Transaminitis Surgical History (Updated 10/31/21 @ 16:32 by Siomara Valencia PA-C) History of aortic valve replacement History of open reduction and internal fixation (ORIF) procedure RIGHT ANKLE History of tracheostomy Family History Brother Stroke Social History Smoking Status: Never smoker Second Hand Exposure: No; Hx Alcohol Use: No Hx Substance Use: No Preferred Language: Wolof Communication Ability: Impaired Human Resource Consultant Required: No Beliefs That Will Affect Care: None Current Living Situation: Family Current Living Situation Comment: lives home with daughter. Feels Safe at Home: Yes Assistive Devices: Glasses Review of Systems Review of Systems: All systems reviewed & are unremarkable except as noted in HPI & below Physical Exam Constitutional: + thin and + frail appearing; no acute distress Eyes: + anicteric sclerae Neck: Band-aid over tracheocutaneous fistula Respiratory: no respiratory distress and no labored breathing Auscultation: lungs clear to auscultation bilaterally; no rales, no rhonchi and no wheezes Cardiovascular: Rate/Rhythm: regular rate and regular rhythm Vessels: radial pulses present Extremities: no pedal edema Gastrointestinal (Abdomen): Inspection/Auscultation: normal bowel sounds; abdomen not distended Percussion/Palpation: abdomen soft; abdomen nontender GJ tube in place in upper abdomen - area clean, dry, intact with no surrounding erythema Musculoskeletal: significant muscular atrophy, cushioned boots bilateral LE Skin: large sacral ulcer with scant drainage but overall dry appearing Neurologic: moves all extremities Results & Data Results & Data ([facility]) Vital Signs (Past 12 Hours) Vital Signs Temp Pulse Pulse Resp BP BP Pulse Ox 10/31/21 13:30 67 19 142/80 H 98 10/31/21 13:20 69 14 99 10/31/21 13:10 61 11 L 96 10/31/21 13:00 62 10 L 141/78 H 99 10/31/21 12:50 58 L 13 98 10/31/21 12:40 64 20 100 10/31/21 12:30 59 L 12 142/74 H 93 10/31/21 12:20 51 L 8 L 99 10/31/21 12:11 62 15 140/72 10/31/21 11:50 60 14 93 10/31/21 11:40 66 17 98 10/31/21 11:34 56 L 13 97 10/31/21 11:25 65 18 136/71 97 10/31/21 09:47 36.4 C L 67 18 129/71 97 Laboratory Results Laboratory Results - last 24 hr 10/31/21 10/31/21 10/31/21 10:52 10:52 10:52 WBC 8.42 RBC 3.66 L Hgb 9.1 L Hct 31.1 L MCV 85.0 MCH 24.9 L MCHC 29.3 L RDW Std Deviation 54.1 H RDW Coeff of Js 17.2 H Plt Count 532 H MPV 8.3 Immature Gran % (Auto) 0.2 Neut % (Auto) 76.3 Lymph % (Auto) 11.0 [place] % (Auto) 7.8 Eos % (Auto) 4.3 Baso % (Auto) 0.4 Neut # (Auto) 6.42 Lymph # (Auto) 0.93 L [place] # (Auto) 0.66 H Eos # (Auto) 0.36 Baso # (Auto) 0.03 Immature Gran # (Auto) 0.02 Sodium 140 Potassium 4.0 Chloride 104 Carbon Dioxide 31 Anion Gap 5 BUN 16 Creatinine 0.60 Est Cr Clr Drug Dosing 149.9 Est GFR ( Amer) 132.1 Est GFR (Non-Af Amer) 114.0 BUN/Creatinine Ratio 26.7 H Glucose 98 Lactate Calcium 9.4 Magnesium 1.6 L Total Bilirubin 0.3 AST 9 L ALT 5 L Alkaline Phosphatase 90 Total Creatine Kinase 18 L Total Protein 6.9 Albumin 3.0 L Globulin 3.9 Albumin/Globulin Ratio 0.8 L Procalcitonin < 0.05 SARS-CoV-2, RNA, NAAT 10/31/21 10/31/21 11:19 14:15 WBC RBC Hgb Hct MCV MCH MCHC RDW Std Deviation RDW Coeff of Js Plt Count MPV Immature Gran % (Auto) Neut % (Auto) Lymph % (Auto) [place] % (Auto) Eos % (Auto) Baso % (Auto) Neut # (Auto) Lymph # (Auto) [place] # (Auto) Eos # (Auto) Baso # (Auto) Immature Gran # (Auto) Sodium Potassium Chloride Carbon Dioxide Anion Gap BUN Creatinine Est Cr Clr Drug Dosing Est GFR ( Amer) Est GFR (Non-Af Amer) BUN/Creatinine Ratio Glucose Lactate 0.5 Calcium Magnesium Total Bilirubin AST ALT Alkaline Phosphatase Total Creatine Kinase Total Protein Albumin Globulin Albumin/Globulin Ratio Procalcitonin SARS-CoV-2, RNA, NAAT Pending Diagnostic Findings CT Pelvis 10/31/21 - IMPRESSION: 1. Large sacral decubitus ulcer results in a large area of osteomyelitis involving the sacrum, sacrococcygeal junction and coccyx. 2. Cellulitis with myositis of the soft tissues surrounding the sacral ulcer. 3. Disuse osteopenia. 4. Circumferential wall thickening of the rectum with perirectal inflammation may be reactive secondary to the aforementioned sacral findings. Correlate clinically to exclude concomitant proctitis. 5. Suggested cystitis. 6. Additional findings as above. Medications Administered Sodium Chloride (Nss 1000ml) 1,000 mls @ 125 mls/hr IV .Q8H BRIDGET Stop: 11/30/21 10:44 Last Admin: 10/31/21 11:15 Dose: 125 mls/hr Documented by: [id number] Discontinued Medications Piperacillin Sod/Tazobactam Sod (Zosyn) 4.5 gm in 120 mls @ 240 mls/hr IV NOW ONE Stop: 10/31/21 11:14 Last Infusion: 10/31/21 11:35 Dose: 0 mls/hr Documented by: [id number] Admin: 10/31/21 11:15 Dose: 240 mls/hr Documented by: [id number] Daptomycin 450 mg/ Syringe 9 mls @ 4.5 mls/min IV NOW ONE; Protocol Stop: 10/31/21 10:46 Last Admin: 10/31/21 11:35 Dose: 4.5 mls/min Documented by: [id number] Magnesium Sulfate/Dextrose (Magnesium Sulfate / D5w) 1 gm in 100 mls @ 100 mls/hr IV NOW STA Stop: 10/31/21 13:20 Last Infusion: 10/31/21 13:22 Dose: 0 mls/hr Documented by: [id number] Admin: 10/31/21 12:29 Dose: 200 mls/hr Documented by: [id number] Ioversol (Optiray 320 100ml) 94 ml IV ONCE ONE Stop: 10/31/21 12:12 Last Admin: 10/31/21 12:03 Dose: 94 ml Documented by: [id number] Code Status & VTE Plan VTE Prophylaxis Plan VTE Prophylaxis will be ordered: Yes Supervising Physician Co-Signing Physician Notes Attending addendum: The patient was seen and examined in the emergency room in presence of the mother He is a 56-year-old male with significant past medical history including severe anaplasmosis and subsequent stroke and cardiac surgery with aortic valve replacement apparently has been more or less bedbound in a rehab facility. He was noted to have a sacral decubiti since around April of last year and he has been complaining of more pain during dressing of the wounds and thus the reason he was sent to emergency room for further evaluation. Denies any fever and no chills, no abdominal pain nausea no vomiting and no history of increasing symptoms secondary to stroke with left-sided hemiplegia. CAT scan of the septum did show sacral osteomyelitis with surrounding cellulitis. On examination Lying in bed comfortably Thin built without any acute distress Hemodynamically stable with blood pressure at 142/80 Chestdecreased breath sounds bilaterally without any crackles HeartS1, S2 with a 2/6 ESM over precordium Abdomenbenign and has a J-tube in place Extremities1+ edema on the left side CNSalert, awake and oriented x3. He has dense left hemiplegia from prior stroke Examination of the sacral area did show a deep wound over sacrum that has been bandaged without any evidence of surrounding cellulitis. His admission labs, EKG and imaging studies reviewed Has sacral decubiti with cellulitis and sacral osteomyelitis Cultures were taken and he was started with intravenous Zosyn and daptomycin ID will be consulted We will continue with PT and OT evaluation Agree with assessment and plan as outlined above by SHERRY Thacker Dr
[2021-10-31] MEDS ORDERED: CONSULT PHARMACY STA (16:03)
--- NOTE | 2021-10-31 16:25 | History & Physical Report ---
Date of Service October 31, 2021 History of Present Illness Primary Care Provider: Pop Solares MD This is a 56 y/o male with a complicated PMH including DM2, anaplasmosis w/ severe septic shock, endocarditis with subsequent septic emboli and right MCA CVA, tracheostomy tube, PAF, HTN, and GJ tube placement. In February of 2021, pt presented to [facility] with flu-like symptoms and subsequently went into severe septic shock with multisystem organ failure. He was transferred to [place] and ultimately tested positive for anaplamosis. On TTE, he was noted to have severe AI with flail right coronary cusp. RUSSELL confirmed vegetation on the AV. MRI brain showed septic emboli that resulted in multifocal strokes and right-sided PICA mycotic aneurysm. CTA confirmed aneurysm and showed a new right-sided MCA infarct. Underwent AVR on 03/27 but chest closure had to be delayed until 03/28. Developed transient SA brent dysfunction post-operatively and required temporary pacing. Also developed worsening renal function with oliguria that required CRRT 03/29-04/03. HD was started on 04/06. He was able to be taken on HD by the end of March. 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 He underwent PEG placement on 04/08 but had recurrent issues with aspiration so PEG was converted to a GJ tube on 04/22. He subsequently developed Alyse esophagitis and was treated with micafungin. Hospitalization was also complicated by hypernatremia that responded to aggressive hydration with NSS, D5 water, and tube feeds. He was discharged to [facility] on 05/31/22. Subsequently admitted to [facility] on 07/05/21, where has been since. The tracheostomy was decannulated on 09/16/21 but pt has a small persistent tracheocutaneous fistula for which he continues to follow with ENT. If this persists, he may require a procedure to close the trach site. Today, he was sent to the ED from [facility] due to worsening sacral pain related to a known sacral ulcer. Pt reports this has been present since his discharge from [facility] and has been slowly worsening. He denies having seen wound care for this to his knowledge. The facility has been applying a dressing, but the dressing changes have become progressively more painful. Yesterday, he had an X-ray of his sacrum/coccyx that showed early osteomyelitis with hyperlucency of the ischial tuberosity on left side and cortical erosion along the posterior margin of the sacrococcygeal segments on the lateral view. He was referred to for additional evaluation. His main complaint is pain at the area. He denies fevers, chills, loss of appetite. He does not use the GJ tube but takes food and medications by mouth as his swallowing has gradually improved. Allergies Allergy/AdvReac Type Severity Reaction Status Date / Time bee venom protein (honey bee) Allergy Hives Verified 10/31/21 12:47 Home Medications Medication Instructions Recorded Confirmed Type Saccharomyces boulardii 250 mg 250 mg PO BID 10/31/21 10/31/21 History capsule (Florastor) acetaminophen 325 mg tablet 650 mg PO QID PRN 10/31/21 10/31/21 History albuterol sulfate 2.5 mg INHALATION Q4H PRN 10/31/21 10/31/21 History arginine 7 gram-glutamine 7 1 ea PO BID 10/31/21 10/31/21 History gram-calcium HMB 1.5 gram oral powder pack (Peter) ascorbic acid (vitamin C) 500 mg 500 mg PO Q2D 10/31/21 10/31/21 History tablet aspirin 81 mg tablet,delayed 81 mg PO DAILY 10/31/21 10/31/21 History release atorvastatin 40 mg tablet 40 mg PO DAILY 10/31/21 10/31/21 History baclofen 5 mg tablet 5 mg PO Q12H 10/31/21 10/31/21 History cholecalciferol (vitamin D3) 125 125 mcg PO DAILY 10/31/21 10/31/21 History mcg (5,000 unit) tablet (Vitamin D3) doxazosin 1 mg tablet 1 mg PO DAILY 10/31/21 10/31/21 History ferrous sulfate 325 mg (65 mg 325 mg PO DAILY 10/31/21 10/31/21 History iron) tablet glycopyrrolate 1 mg tablet 1 mg PO BID 10/31/21 10/31/21 History guaifenesin 100 mg/5 mL oral liquid 200 mg FEEDING TUBE Q6H PRN 10/31/2106/14 History insulin glargine 100 unit/mL (3 8 unit SUBCUT HS 10/31/21 10/31/21 History mL) subcutaneous pen (Basaglar KwikPen U-100 Insulin) insulin lispro 100 unit/mL 1 sliding scale dose SUBCUT 10/31/21 10/31/21 History subcutaneous pen (Humalog KwikPen USEASDIRECTD (U-100) Insulin) melatonin 3 mg tablet 6 mg PO HS PRN 10/31/21 10/31/21 History omeprazole 40 mg capsule,delayed 40 mg PO BID 10/31/21 10/31/21 History release ondansetron 4 mg disintegrating 4 mg PO Q6H PRN 10/31/21 10/31/21 History tablet polyethylene glycol 3350 17 17 g PO DAILY PRN 10/31/21 10/31/21 History gram/dose oral powder vits no.28-ferrous 1 tab PO DAILY 10/31/21 10/31/21 History fumarate 27 mg iron-folic acid 1 mg tablet sennosides 8.6 mg tablet (Senna 8.6 mg PO DAILY PRN 10/31/21 10/31/21 History Lax) Past Med/Surg History Medical History Altered mental status Diabetes mellitus, type 2 Diabetic ketoacidosis Hypertension Kidney stones HX OF AND PASSED ON OWN Rhabdomyolysis Transaminitis Surgical History History of open reduction and internal fixation (ORIF) procedure RIGHT ANKLE Family History Brother Stroke Social History Smoking Status: Never smoker Second Hand Exposure: No; Hx Alcohol Use: No Hx Substance Use: No Preferred Language: Belarusian Communication Ability: Impaired [id number] Operator Required: No Beliefs That Will Affect Care: None Current Living Situation: Family Current Living Situation Comment: lives home with daughter. Feels Safe at Home: Yes Assistive Devices: Glasses Physical Exam Constitutional: + thin and + frail appearing; no acute distress Eyes: + anicteric sclerae Respiratory: no respiratory distress and no labored breathing Auscultation: lungs clear to auscultation bilaterally; no rales, no rhonchi and no wheezes Cardiovascular: Rate/Rhythm: regular rate and regular rhythm Vessels: radial pulses present Extremities: no pedal edema Gastrointestinal (Abdomen): Inspection/Auscultation: normal bowel sounds; abdomen not distended Percussion/Palpation: abdomen soft; abdomen nontender Neurologic: moves all extremities Results & Data Results & Data ([facility]) Vital Signs (Past 12 Hours) Vital Signs Temp Pulse Pulse Resp BP BP Pulse Ox 10/31/21 13:30 67 19 142/80 H 98 10/31/21 13:20 69 14 99 10/31/21 13:10 61 11 L 96 10/31/21 13:00 62 10 L 141/78 H 99 10/31/21 12:50 58 L 13 98 10/31/21 12:40 64 20 100 10/31/21 12:30 59 L 12 142/74 H 93 10/31/21 12:20 51 L 8 L 99 10/31/21 12:11 62 15 140/72 10/31/21 11:50 60 14 93 10/31/21 11:40 66 17 98 10/31/21 11:34 56 L 13 97 10/31/21 11:25 65 18 136/71 97 10/31/21 09:47 36.4 C L 67 18 129/71 97 Code Status & VTE Plan VTE Prophylaxis Plan VTE Prophylaxis will be ordered: Yes
[2021-10-31] MEDS ORDERED: GLUCOSE 10 TABS/TUBE PO PRN (18:34)
[2021-10-31] MEDS ORDERED: DEXTROSE 50% 50 ML SYRINGE IV PRN (18:34)
[2021-10-31] MEDS ORDERED: ONDANSETRON 4 MG OD TAB PO PRN (18:34)
[2021-10-31] MEDS ORDERED: MELATONIN 3 MG TAB PO PRN (18:34)
[2021-10-31] MEDS ORDERED: GLUCAGON FOR INJ 1 MG VIAL SQ PRN (18:34)
[2021-10-31] MEDS ORDERED: CARBOHYDRATES FOR HYPOGLYCEMIA PO PRN (18:34)
[2021-10-31] MEDS ORDERED: SENNA 8.6 MG TAB PO PRN (18:34)
[2021-10-31] MEDS ORDERED: POLYETHYLENE (MIRALAX) 17 GM PACK PO PRN (18:34)
[2021-10-31] MEDS ORDERED: GLUCOSE 40% GEL 15 GM TUBE PO PRN (18:34)
[2021-10-31] MEDS ORDERED: PIPERACILL/TAZOBAC CONSULT ACTIVE PRN (18:39)
[2021-10-31] MEDS ORDERED: PIPERACILLIN/TAZOBACTAM 3.375 GM in DEXTROSE 5% 100 ML IV ONE (19:00)
[2021-10-31] MEDS: INSULIN ASPART PER UNIT SC SCH ×2 (20:20→20:43)
[2021-10-31] MEDS: BACLOFEN 10 MG TAB PO SCH (20:21)
[2021-10-31] MEDS: PANTOprazole 40 MG TAB PO SCH (20:22)
[2021-10-31] MEDS: SACCHAROMYCES BOULARDII 250 MG CAP PO SCH (20:22)
[2021-10-31] MEDS: GLYCOPYRROLATE 1 MG TAB PO SCH (20:22)
[2021-11-01] MEDS: PIPERACILLIN/TAZOBACTAM 3.375 GM in DEXTROSE 5% 100 ML IV SCH ×3 (00:45→16:08)
[2021-11-01] MEDS: SODIUM CHLORIDE 0.9% 1000ML 1,000 ML IV SCH ×3 (02:58→19:25)
[2021-11-01 06:12] LABS: Basophils # (auto) 0.03 K/uL (0-0.2); Basophils % (auto) 0.4 %; Eosinophils # (auto) 0.47 K/uL (0-0.5); Eosinophils % (auto) 6.7 %; Hematocrit (blood only) 31.7 % (42-52); Hemoglobin 9.3 g/dL (14.0-18.0); Immature Granulocytes # (auto) 0.03 K/uL (0.00-0.02); Immature Granulocytes % (auto) 0.4 %; Lymphocytes # (auto) 0.87 K/uL (1.2-3.4); Lymphocytes % (auto) 12.4 %; Mean Corpuscular Hemoglobin 25.1 pg (25-34); Mean Corpuscular Hgb Conc 29.3 g/dL (32-36); Mean Corpuscular Volume 85.4 fL (80-100); Mean Platelet Volume 8.5 fL (7.4-10.4); Monocytes # (auto) 0.74 K/uL (0.11-0.59); Monocytes % (auto) 10.5 %; Neutrophils % (auto) 69.6 %; Platelet Count 510 K/uL (130-400); RDW Coefficient of Variation 17.3 % (11.5-14.5); RDW Standard Deviation 54.6 fL (36.4-46.3); Red Blood Count 3.71 M/uL (4.7-6.1); White Blood Count 7.04 K/uL (4.8-10.8)
[2021-11-01] MEDS: ENOXAPARIN INJ 40 MG/0.4 ML SYR SQ SCH (07:09)
[2021-11-01] MEDS: BACLOFEN 10 MG TAB PO SCH ×2 (07:10→19:25)
[2021-11-01] MEDS: DOXAZOSIN MESYLATE 1 MG TAB PO SCH (07:10)
[2021-11-01] MEDS: ASPIRIN 81 MG ECTAB PO SCH (07:10)
[2021-11-01] MEDS: ASCORBIC ACID 500 MG TAB PO SCH (07:10)
[2021-11-01] MEDS: GLYCOPYRROLATE 1 MG TAB PO SCH ×2 (07:10→19:26)
[2021-11-01] MEDS: CHOLECALCIFEROL 5,000 UNITS 125 MCG TAB PO SCH (07:10)
[2021-11-01] MEDS: FERROUS SULFATE 325 MG TAB PO SCH (07:10)
[2021-11-01] MEDS: SACCHAROMYCES BOULARDII 250 MG CAP PO SCH ×2 (07:10→19:26)
[2021-11-01] MEDS: PANTOprazole 40 MG TAB PO SCH ×2 (07:10→19:26)
[2021-11-01 07:16] LABS: Calcium 8.9 mg/dl (8.5-10.1); Creatinine Clr Calc Pharmacy 132.9 ml/min; Est GFR (African American) 130.3 ml/min; Est GFR (Non-African American) 112.5 ml/min; Potassium 3.5 mmol/L (3.5-5.1)
[2021-11-01 07:34] LABS: BUN Creatinine Ratio 24.2 (10-20)
[2021-11-01 07:36] LABS: Estimated Average Glucose 114 mg/dl; Hemoglobin A1C 5.6 % (4.5-5.6)
[2021-11-01] MEDS: INSULIN ASPART PER UNIT SC SCH ×4 (08:24→21:14)
[2021-11-01] MEDS: DAPTOmycin 450 MG in SYRINGE 0 ML IV SCH (11:21)
--- NOTE | 2021-11-01 14:49 | Hospitalist Progress Note ---
Date of Service November 01, 2021 Assessment & Plan (1) Sacral osteomyelitis: Plan: 56 y/o male with a complicated PMH including DM2, anaplasmosis w/ severe septic shock, endocarditis with subsequent septic emboli and right MCA CVA, status post aortic valve replacement, tracheostomy tube [removed few months ago w/ persistent small tracheocutaneous fistula], Alyse esophagitis, PAF, HTN, and GJ tube placement. He presents from [facility] 10/31 to our ED with complaint of worsening sacral pain related to known sacral ulcer. He is being managed for the following: #. Sacral osteomyelitis #. Sacral ulcer, stage IV Known history of sacral ulcer after protracted events leading up to MCA CVA [see above] Admitting CT pelvis: Large sacral decubitus ulcer with osteomyelitis involving the sacrum, sacrococcygeal junction and coccyx. Cellulitis with myositis of the soft tissue surrounding the sacral ulcer. On exam reveals no necrosis, stage IV for ulcer present POA. Wound care on board, discussed with wound care, wound VAC with irrigation to help clean the wound. Follow-up with admitting wound culture and blood culture. Continue with daptomycin 10/31 and Zosyn 10/31 #. Severe protein calorie malnutrition: Significant weight loss since the last 8 months on the background of disabling medical conditions [see above] including chronic inflammation secondary to decubitus ulcer/osteomyelitis, and left-sided paralysis. Nutrition consult, appreciate recommendation. #. Other chronic medical conditions: HTN, DM type II, tracheocutaneous fistula following tracheostomy, GJ tube in place, peripheral vascular disease, BPH Continue with/resume home medication as and when appropriate. DVT Px: Enoxaparin Full code Admission and Anticipated Discharge Date Admission Date: October 31, 2021 Subjective Patient seen and examined at bedside as a follow-up of sacral ulcer, stage IV present on admission and sacral osteomyelitis. Left side of the body is paralyzed. Patient lying in bed, on room air, NAD, no new acute events overnight. Patient denies any fever/headache/chills/chest pain/palpitations/belly pain/any pain anywhere in the body/other review of symptoms. Patient reports eating okay. Physical Exam Physical Exam: GENERAL: Alert and oriented x3. NAD, on RA. HEENT: No pallor, no icterus. Pupils equal, round and reactive to light. Oral mucosa moist. NECK: No JVD, no neck masses. HEART: S1 and S2 heard. Regular rate and rhythm. No murmur, no gallop. RESPIRATORY SYSTEM: Normal AP diameter. No accessory muscle use. No wheezing, no crackles. ABDOMEN: Soft, bowel sounds present, nontender, no distention. CENTRAL NERVOUS SYSTEM: No facial droop. Speech is clear. Obeys simple commands. Left-sided paralysis. EXTREMITIES: No edema, no erythema seen. Left-sided extremity paralysis noted. Lower back: Left buttock with 5 x 5 cm stage IV decubitus ulcer. Results & Data Results & Data ([facility]) Vital Signs (Past 12 Hours) Vital Signs Temp Pulse Resp BP Pulse Ox 11/01/21 07:06 36.6 C 61 16 158/76 H 99
--- NOTE | 2021-11-01 16:44 | Surgery Consultation ---
Date of Consultation November 01, 2021 Assessment & Plan (1) Sacral osteomyelitis: no indication for soft tissue debridement at this time the most we could offer would be bone culture, but would recommend tertiary referral for additional debridement or plastic services (2) Sacral ulcer: History of Present Illness Attending Physician: Daja Romero MD History of Present Illness 56 y/o male hospital/rehab confined since February 2021 following septic event with endocarditis, CVA and left hemiparesis now admitted for further eval of sacral ulcer and new radiographic findings of osteomyelitis. He had some discomfort during probing of the wound recently but no other complaints as was planning to return home soon from [facility] with the help of his brother. Allergies Allergy/AdvReac Type Severity Reaction Status Date / Time bee venom protein (honey bee) Allergy Hives Verified 10/31/21 12:47 Home Medications Medication Instructions Recorded Confirmed Type Saccharomyces boulardii 250 mg 250 mg PO BID 10/31/21 10/31/21 History capsule (Florastor) acetaminophen 325 mg tablet 650 mg PO QID PRN 10/31/21 10/31/21 History albuterol sulfate 2.5 mg INHALATION Q4H PRN 10/31/21 10/31/21 History arginine 7 gram-glutamine 7 1 ea PO BID 10/31/21 10/31/21 History gram-calcium HMB 1.5 gram oral powder pack (Peter) ascorbic acid (vitamin C) 500 mg 500 mg PO Q2D 10/31/21 10/31/21 History tablet aspirin 81 mg tablet,delayed 81 mg PO DAILY 10/31/21 10/31/21 History release atorvastatin 40 mg tablet 40 mg PO DAILY 10/31/21 10/31/21 History baclofen 5 mg tablet 5 mg PO Q12H 10/31/21 10/31/21 History cholecalciferol (vitamin D3) 125 125 mcg PO DAILY 10/31/21 10/31/21 History mcg (5,000 unit) tablet (Vitamin D3) doxazosin 1 mg tablet 1 mg PO DAILY 10/31/21 10/31/21 History ferrous sulfate 325 mg (65 mg 325 mg PO DAILY 10/31/21 10/31/21 History iron) tablet glycopyrrolate 1 mg tablet 1 mg PO BID 10/31/21 10/31/21 History guaifenesin 100 mg/5 mL oral liquid 200 mg FEEDING TUBE Q6H PRN 10/31/21 10/31/21 History insulin glargine 100 unit/mL (3 8 unit SUBCUT HS 10/31/21 10/31/21 History mL) subcutaneous pen (Basaglar KwikPen U-100 Insulin) insulin lispro 100 unit/mL 1 sliding scale dose SUBCUT 10/31/21 10/31/21 History subcutaneous pen (Humalog KwikPen USEASDIRECTD (U-100) Insulin) melatonin 3 mg tablet 6 mg PO HS PRN 10/31/21 10/31/21 History omeprazole 40 mg capsule,delayed 40 mg PO BID 10/31/21 10/31/21 History release ondansetron 4 mg disintegrating 4 mg PO Q6H PRN 10/31/21 10/31/21 History tablet polyethylene glycol 3350 17 17 g PO DAILY PRN 10/31/21 10/31/21 History gram/dose oral powder vits no.28-ferrous 1 tab PO DAILY 10/31/21 10/31/21 History fumarate 27 mg iron-folic acid 1 mg tablet sennosides 8.6 mg tablet (Senna 8.6 mg PO DAILY PRN 10/31/21 10/31/21 History Lax) Patient History Medical History Anaplasmosis BPH (benign prostatic hyperplasia) Carotid artery stenosis CVA (cerebral vascular accident) Diabetes mellitus, type 2 Diabetic ketoacidosis Gastrostomy tube in place History of endocarditis History of pneumonia Hypertension Insomnia Kidney stones HX OF AND PASSED ON OWN Paroxysmal atrial fibrillation Peripheral vascular disease Rhabdomyolysis Severe sepsis Tracheocutaneous fistula following tracheostomy Transaminitis Surgical History History of aortic valve replacement History of open reduction and internal fixation (ORIF) procedure RIGHT ANKLE History of tracheostomy Family History Brother Stroke Social History Smoking Status: Never smoker Second Hand Exposure: No; Hx Alcohol Use: No Hx Substance Use: No Preferred Language: Canadian Communication Ability: Effective Outplacement Consultant Required: No Beliefs That Will Affect Care: None Current Living Situation: Long Term Current Living Situation Comment: lives home with daughter. Feels Safe at Home: Yes Assistive Devices: None Assistive Devices Comment: mami justice Review of Systems Constitutional: no fever, no chills and no anorexia Gastrointestinal: no abdominal pain Physical Exam Constitutional: comfortable and + underweight Skin: wound vac in place wound image from today reviewed Results & Data ([facility]) Vital Signs (Past 12 Hours) Vital Signs Temp Pulse Resp BP Pulse Ox 11/01/21 15:58 36.5 C 44 L 16 136/68 99 11/01/21 07:06 36.6 C 61 16 158/76 H 99 PG Care Time/CCT Total # of Minutes Spent Total Time Spent with Patient: Total time spent is greater than 50% in coordination of care (as documented) at patient's floor/unit and/or counseling patient: Coding Level of Care Code 08556 Inpt Consult Level 2 Diagnoses Sacral osteomyelitis M46.28 Sacral ulcer L98.429
[2021-11-01] MEDS ORDERED: POTASSIUM CHLORIDE CRTAB 20 MEQ TABCR PO STA (23:03)
[2021-11-01] MEDS ORDERED: MAGNESIUM SULFATE / D5W 1 GM/100 ML BAG IV ONE (23:15)
[2021-11-02] MEDS: PIPERACILLIN/TAZOBACTAM 3.375 GM in DEXTROSE 5% 100 ML IV SCH ×3 (00:18→15:41)
[2021-11-02] MEDS: POTASSIUM CHLORIDE / WTR 10 MEQ/100 ML PLCT IV SCH ×4 (02:15→05:16)
[2021-11-02] MEDS: SODIUM CHLORIDE 0.9% 1000ML 1,000 ML IV SCH (03:37)
[2021-11-02 06:08] LABS: Basophils # (auto) 0.04 K/uL (0-0.2); Basophils % (auto) 0.5 %; Hematocrit (blood only) 28.4 % (42-52); Hemoglobin 8.3 g/dL (14.0-18.0); Immature Granulocytes # (auto) 0.01 K/uL (0.00-0.02); Immature Granulocytes % (auto) 0.1 %; Lymphocytes # (auto) 0.89 K/uL (1.2-3.4); Mean Corpuscular Hemoglobin 24.8 pg (25-34); Mean Corpuscular Hgb Conc 29.2 g/dL (32-36); Mean Corpuscular Volume 84.8 fL (80-100); Mean Platelet Volume 8.5 fL (7.4-10.4); Monocytes # (auto) 0.63 K/uL (0.11-0.59); Monocytes % (auto) 8.5 %; Neutrophils # (auto) 5.56 K/uL (1.4-6.5); Neutrophils % (auto) 74.9 %; Platelet Count 466 K/uL (130-400); RDW Coefficient of Variation 17.2 % (11.5-14.5); RDW Standard Deviation 53.7 fL (36.4-46.3); Red Blood Count 3.35 M/uL (4.7-6.1); White Blood Count 7.43 K/uL (4.8-10.8)
[2021-11-02 06:25] LABS: BUN Creatinine Ratio 19.6 (10-20); Calcium 8.5 mg/dl (8.5-10.1); Creatinine Clr Calc Pharmacy 147.2 ml/min; Est GFR (African American) 135.9 ml/min; Est GFR (Non-African American) 117.3 ml/min; Magnesium 1.8 mg/dl (1.7-2.4); Phosphorus 2.6 mg/dl (2.5-4.9); Potassium 3.5 mmol/L (3.5-5.1)
[2021-11-02] MEDS: CHOLECALCIFEROL 5,000 UNITS 125 MCG TAB PO SCH (08:12)
[2021-11-02] MEDS: BACLOFEN 10 MG TAB PO SCH ×2 (08:12→18:39)
[2021-11-02] MEDS: PANTOprazole 40 MG TAB PO SCH (08:12)
[2021-11-02] MEDS: GLYCOPYRROLATE 1 MG TAB PO SCH ×2 (08:12→20:37)
[2021-11-02] MEDS: SACCHAROMYCES BOULARDII 250 MG CAP PO SCH ×2 (08:12→20:38)
[2021-11-02] MEDS: FERROUS SULFATE 325 MG TAB PO SCH (08:12)
[2021-11-02] MEDS: DOXAZOSIN MESYLATE 1 MG TAB PO SCH (08:13)
[2021-11-02] MEDS: ENOXAPARIN INJ 40 MG/0.4 ML SYR SQ SCH (08:13)
[2021-11-02] MEDS: ASPIRIN 81 MG ECTAB PO SCH (08:13)
[2021-11-02] MEDS: INSULIN ASPART PER UNIT SC SCH ×4 (08:45→20:39)
--- NOTE | 2021-11-02 10:31 | Cardiology Consultation ---
Date of Consultation November 02, 2021 Assessment & Plan (1) Decubitus ulcer of sacral area: (2) Tracheocutaneous fistula following tracheostomy: (3) S/P AVR (aortic valve replacement): (4) Sinus bradycardia: (5) RBBB: The patient has sinus bradycardia which is currently asymptomatic. The right bundle branch block is old. There was consideration for a pacemaker following his events and surgery 8 months ago however, the patient eventually recovered and the EP physicians at the time felt he did not require pacemaker. I think it would be reasonable to transfer him to the telemetry unit and monitor his heart rate and vital signs. The patient is currently clinically stable. History of Present Illness Attending Physician: Daja Romero MD History of Present Illness This is a 56-year-old male patient with an extensive past cardiac history as outlined below from the H&P. I would also recommend reviewing the discharge summary from [facility] March 2021. He was admitted with a sacral ulcer from [facility]. No current symptoms or cardiac complaints. He was noted to have bradycardia with heart rates in the 40s after admission. He has sinus bradycardia with a right bundle branch block on his EKG. The right bundle branch block is old. This is a 56 y/o male with a complicated PMH including DM2, anaplasmosis w/ severe septic shock, endocarditis with subsequent septic emboli and right MCA CVA, tracheostomy tube, PAF, HTN, and GJ tube placement. In February of 2021, pt presented to [facility] with flu-like symptoms and subsequently went into severe septic shock with multisystem organ failure. He was transferred to [place] and ultimately tested positive for anaplamosis. On TTE, he was noted to have severe AI with flail right coronary cusp. RUSSELL confirmed vegetation on the AV. MRI brain showed septic emboli that resulted in multifocal strokes and right-sided PICA mycotic aneurysm. CTA confirmed aneurysm and showed a new right-sided MCA infarct. Underwent AVR on 03/27 but chest closure had to be delayed until 03/28. Developed transient SA brent dysfunction post-operatively and required temporary pacing. Also developed worsening renal function with oliguria that required CRRT 03/29-04/03. HD was started on 04/06. He was able to be taken on HD by the end of March. 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 He underwent PEG placement on 04/08 but had recurrent issues with aspiration so PEG was converted to a GJ tube on 04/22. He subsequently developed Alyse esophagitis and was treated with micafungin. Hospitalization was also complicated by hypernatremia that responded to aggressive hydration with NSS, D5 water, and tube feeds. He was discharged to [facility] on 05/31/22. Subsequently admitted to [facility] on 07/05/21, where has been since. The tracheostomy was decannulated on 09/16/21 but pt has a small persistent tracheocu taneous fistula for which he continues to follow with ENT. If this persists, he may require a procedure to close the trach site. Allergies Allergy/AdvReac Type Severity Reaction Status Date / Time bee venom protein (honey bee) Allergy Hives Verified 10/31/21 12:47 Home Medications Medication Instructions Recorded Confirmed Type Saccharomyces boulardii 250 mg 250 mg PO BID 10/31/21 10/31/21 History capsule (Florastor) acetaminophen 325 mg tablet 650 mg PO QID PRN 10/31/21 10/31/21 History albuterol sulfate 2.5 mg INHALATION Q4H PRN 10/31/21 10/31/21 History arginine 7 gram-glutamine 7 1 ea PO BID 10/31/21 10/31/21 History gram-calcium HMB 1.5 gram oral powder pack (Peter) ascorbic acid (vitamin C) 500 mg 500 mg PO Q2D 10/31/21 10/31/21 History tablet aspirin 81 mg tablet,delayed 81 mg PO DAILY 10/31/21 10/31/21 History release atorvastatin 40 mg tablet 40 mg PO DAILY 10/31/21 10/31/21 History baclofen 5 mg tablet 5 mg PO Q12H 10/31/21 10/31/21 History cholecalciferol (vitamin D3) 125 125 mcg PO DAILY 10/31/21 10/31/21 History mcg (5,000 unit) tablet (Vitamin D3) doxazosin 1 mg tablet 1 mg PO DAILY 10/31/21 10/31/21 History ferrous sulfate 325 mg (65 mg 325 mg PO DAILY 10/31/21 10/31/21 History iron) tablet glycopyrrolate 1 mg tablet 1 mg PO BID 10/31/21 10/31/21 History guaifenesin 100 mg/5 mL oral liquid 200 mg FEEDING TUBE Q6H PRN 10/31/21 10/31/21 History insulin glargine 100 unit/mL (3 8 unit SUBCUT HS 10/31/21 10/31/21 History mL) subcutaneous pen (Basaglar KwikPen U-100 Insulin) insulin lispro 100 unit/mL 1 sliding scale dose SUBCUT 10/31/21 10/31/21 History subcutaneous pen (Humalog KwikPen USEASDIRECTD (U-100) Insulin) melatonin 3 mg tablet 6 mg PO HS PRN 10/31/21 10/31/21 History omeprazole 40 mg capsule,delayed 40 mg PO BID 10/31/21 10/31/21 History release ondansetron 4 mg disintegrating 4 mg PO Q6H PRN 10/31/21 10/31/21 History tablet polyethylene glycol 3350 17 17 g PO DAILY PRN 10/31/21 10/31/21 History gram/dose oral powder vits no.28-ferrous 1 tab PO DAILY 10/31/21 10/31/21 History fumarate 27 mg iron-folic acid 1 mg tablet sennosides 8.6 mg tablet (Senna 8.6 mg PO DAILY PRN 10/31/21 10/31/21 History Lax) Patient History Medical History Anaplasmosis BPH (benign prostatic hyperplasia) Carotid artery stenosis CVA (cerebral vascular accident) Diabetes mellitus, type 2 Diabetic ketoacidosis Gastrostomy tube in place History of endocarditis History of pneumonia Hypertension Insomnia Kidney stones HX OF AND PASSED ON OWN Paroxysmal atrial fibrillation Peripheral vascular disease Rhabdomyolysis Severe sepsis Tracheocutaneous fistula following tracheostomy Transaminitis Surgical History History of aortic valve replacement History of open reduction and internal fixation (ORIF) procedure RIGHT ANKLE History of tracheostomy Family History Brother Stroke Social History Smoking Status: Never smoker Second Hand Exposure: No; Hx Alcohol Use: No Hx Substance Use: No Preferred Language: Upper Sorbian Communication Ability: Effective Steam And Power Supervisor Required: No Beliefs That Will Affect Care: None Current Living Situation: [facility] Current Living Situation Comment: lives home with daughter. Feels Safe at Home: Yes Assistive Devices: None Review of Systems Review of Systems: Review of Systems: See HPI for pertinent positives. All other 10 point review of systems are negative. Physical Exam Physical Exam: Current Inpatient Medications General: no acute distress and stated age Head: normocephalic, no masses, lesions, tenderness or abnormalities Eyes: conjunctiva are pink and non-injected, sclera clear Neck: Patient is status post tracheostomy Chest: normal shape and normal respiratory effort Lungs: clear to auscultation and percussion Cardiac Exam: - regular rate & rhythm, no murmurs gallops or rubs - normal S1, normal S2 Pulses: 2(+) throughout Abdomen: abdomen soft, non-tender, no abnormal masses and no hepatosplenomegaly Musculoskeletal: no gait disturbance, no joint inflammation, no deforming arthritis Extremities: no edema and no cyanosis Neuro: grossly normal exam Results & Data ([facility]) Vital Signs (Past 12 Hours) Vital Signs Temp Pulse Resp BP Pulse Ox 11/02/21 08:05 36.5 C 41 L 18 153/60 H 98 Laboratory Results Laboratory Results - last 24 hr 11/01/21 11/01/21 11/01/21 05:19 05:19 11:42 WBC RBC Hgb Hct MCV MCH MCHC RDW Std Deviation RDW Coeff of Js Plt Count MPV Immature Gran % (Auto) Neut % (Auto) Lymph % (Auto) [place] % (Auto) Eos % (Auto) Baso % (Auto) Neut # (Auto) Lymph # (Auto) [place] # (Auto) Eos # (Auto) Baso # (Auto) Immature Gran # (Auto) Sodium Potassium Chloride Carbon Dioxide Anion Gap BUN Creatinine Est Cr Clr Drug Dosing Est GFR ( Amer) Est GFR (Non-Af Amer) BUN/Creatinine Ratio Glucose POC Glucose 132 H Calcium Phosphorus Magnesium 1.8 TSH 2.039 Lyme Disease IgG Ab Lyme Disease IgM Ab 11/01/21 11/01/21 11/02/21 16:27 20:38 05:33 WBC 7.43 RBC 3.35 L Hgb 8.3 L Hct 28.4 L MCV 84.8 MCH 24.8 L MCHC 29.2 L RDW Std Deviation 53.7 H RDW Coeff of Js 17.2 H Plt Count 466 H MPV 8.5 Immature Gran % (Auto) 0.1 Neut % (Auto) 74.9 Lymph % (Auto) 12.0 [place] % (Auto) 8.5 Eos % (Auto) 4.0 Baso % (Auto) 0.5 Neut # (Auto) 5.56 Lymph # (Auto) 0.89 L [place] # (Auto) 0.63 H Eos # (Auto) 0.30 Baso # (Auto) 0.04 Immature Gran # (Auto) 0.01 Sodium Potassium Chloride Carbon Dioxide Anion Gap BUN Creatinine Est Cr Clr Drug Dosing Est GFR ( Amer) Est GFR (Non-Af Amer) BUN/Creatinine Ratio Glucose POC Glucose 99 109 H Calcium Phosphorus Magnesium TSH Lyme Disease IgG Ab Lyme Disease IgM Ab 11/02/21 11/02/21 11/02/21 05:33 08:15 09:56 WBC RBC Hgb Hct MCV MCH MCHC RDW Std Deviation RDW Coeff of Js Plt Count MPV Immature Gran % (Auto) Neut % (Auto) Lymph % (Auto) Fre[place] % (Auto) Eos % (Auto) Baso % (Auto) Neut # (Auto) Lymph # (Auto) [place] # (Auto) Eos # (Auto) Baso # (Auto) Immature Gran # (Auto) Sodium 139 Potassium 3.5 Chloride 110 H Carbon Dioxide 25 Anion Gap 4 BUN 11 Creatinine 0.56 L Est Cr Clr Drug Dosing 147.2 Est GFR ( Amer) 135.9 Est GFR (Non-Af Amer) 117.3 BUN/Creatinine Ratio 19.6 Glucose 80 POC Glucose 81 Calcium 8.5 Phosphorus 2.6 Magnesium 1.8 TSH Lyme Disease IgG Ab Negative Lyme Disease IgM Ab Negative Medications Administered Current Inpatient Medications Acetaminophen (Acetaminophen 325 Mg Tab) 650 mg PO Q4H PRN PRN Reason: pain/fever Stop: 11/30/21 18:33 Ascorbic Acid (Ascorbic Acid 500 Mg Tab) 500 mg PO Q2D@0900 [facility] Stop: 12/01/21 08:59 Last Admin: 11/01/21 07:10 Dose: 500 mg Documented by: Aspirin (Aspirin 81 Mg Ectab) 81 mg PO DAILY [facility] Stop: 12/01/21 08:59 Last Admin: 11/02/21 08:13 Dose: 81 mg Documented by: Atorvastatin Calcium (Atorvastatin 40 Mg Tab) 40 mg PO DAILY [facility] Stop: 12/01/21 08:59 Baclofen (Baclofen 10 Mg Tab) 5 mg PO Q12H [facility] Stop: 11/30/21 18:59 Last Admin: 11/02/21 08:12 Dose: 5 mg Documented by: Dextrose (Dextrose 50% 50 Ml Syringe) 25 - 50 ml IV UD PRN; Protocol PRN Reason: Hypoglycemia Protocol Stop: 11/30/21 18:33 Doxazosin Mesylate (Doxazosin Mesylate 1 Mg Tab) 1 mg PO DAILY [facility] Stop: 12/01/21 08:59 Last Admin: 11/02/21 08:13 Dose: 1 mg Documented by: Enoxaparin Sodium (Enoxaparin Inj 40 Mg/0.4 Ml Syr) 40 mg SQ QAM [facility] Stop: 12/01/21 08:59 Last Admin: 11/02/21 08:13 Dose: 40 mg Documented by: Ferrous Sulfate (Ferrous Sulfate 325 Mg Tab) 325 mg PO DAILY [facility] Stop: 12/01/21 08:59 Last Admin: 11/02/21 08:12 Dose: 325 mg Documented by: Glucagon (Glucagon For Inj 1 Mg Vial) 1 mg SQ UD PRN; Protocol PRN Reason: Hypoglycemia Protocol Stop: 11/30/21 18:33 Glucose (Glucose 10 Tabs/Tube) 4 - 8 tabs PO UD PRN; Protocol PRN Reason: Hypoglycemia Protocol Stop: 11/30/21 18:33 Glucose (Glucose 40% Gel 15 Gm Tube) 15 - 30 gm PO UD PRN; Protocol PRN Reason: Hypoglycemia Protocol Stop: 11/30/21 18:33 Glycopyrrolate (Glycopyrrolate 1 Mg Tab) 1 mg PO BID [facility] Stop: 11/30/21 20:59 Last Admin: 11/02/21 08:12 Dose: 1 mg Documented by: Piperacillin Sod/Tazobactam (Sod 3.375 gm/ Dextrose) 115 mls @ 28.75 mls/hr IV Q8H [facility]; Protocol Stop: 11/03/21 00:00 Last Admin: 11/02/21 08:11 Dose: 28.8 mls/hr Documented by: Daptomycin 450 mg/ Syringe 9 mls @ 4.5 mls/min IV Q24H [facility]; Protocol Stop: 12/13/21 10:59 Last Admin: 11/02/21 10:48 Dose: 4.5 mls/min Documented by: Insulin Aspart (Insulin Aspart Per Unit) 0 units SC ACHS [facility] Stop: 11/30/21 18:59 Last Admin: 11/02/21 08:45 Dose: Not Given Documented by: Melatonin (Melatonin 3 Mg Tab) 6 mg PO HS PRN PRN Reason: Insomnia Stop: 11/30/21 18:33 Last Admin: 11/01/21 19:30 Dose: 6 mg Documented by: Miscellaneous (Carbohydrates For Hypoglycemia ) 15 - 30 gm PO UD PRN PRN Reason: Hypoglycemia Protocol Stop: 11/30/21 18:33 Miscellaneous Information (Piperacill/Tazobac Consult Active) 1 ea N/A UD PRN PRN Reason: Consult Stop: 11/30/21 18:38 Miscellaneous Information (Daptomycin Consult Active) 1 ea N/A UD PRN PRN Reason: Consult Stop: 11/30/21 18:44 Ondansetron HCl (Ondansetron 4 Mg Od Tab) 4 mg PO Q6H PRN PRN Reason: Nausea Stop: 11/30/21 18:33 Pantoprazole Sodium (Pantoprazole 40 Mg Tab) 40 mg PO BID [facility] Stop: 11/30/21 20:59 Last Admin: 11/02/21 08:12 Dose: 40 mg Documented by: Polyethylene Glycol (Polyethylene (Miralax) 17 Gm Pack) 17 gm PO DAILY PRN PRN Reason: Constipation Stop: 11/30/21 18:33 Saccharomyces Boulardii (Saccharomyces Boulardii 250 Mg Cap) 250 mg PO BID [facility] Stop: 11/30/21 20:59 Last Admin: 11/02/21 08:12 Dose: 250 mg Documented by: Sennosides (Senna 8.6 Mg Tab) 8.6 mg PO DAILY PRN PRN Reason: Constipation Stop: 11/30/21 18:33 Vitamin D (Cholecalciferol 5,000 Units 125 Mcg Tab) 5,000 units PO DAILY [facility] Stop: 12/01/21 08:59 Last Admin: 11/02/21 08:12 Dose: 5,000 units Documented by: (1) Decubitus ulcer of sacral area Pressure injury stage: pressure injury of deep tissue Qualified Code(s): L89.156 - Pressure-induced deep tissue damage of sacral region
[2021-11-02] MEDS: DAPTOmycin 450 MG in SYRINGE 0 ML IV SCH (10:48)
[2021-11-02 10:52] LABS: Lyme Ab IgG w/WB Rflx Negative (Negative); Lyme Ab IgM w/WB Rflx Negative (Negative)
--- NOTE | 2021-11-02 11:11 | Electrocardiogram Report ---
Test Reason : Blood Pressure : / mmHG Vent. Rate : 038 BPM Atrial Rate : 038 BPM P-R Int : 150 ms QRS Dur : 184 ms QT Int : 580 ms P-R-T Axes : 069 068 053 degrees QTc Int : 461 ms Marked sinus bradycardia Right bundle branch block Abnormal ECG When compared with ECG of 18-MAR-2021 00:23, Vent. rate has decreased BY 61 BPM Confirmed by Ok Marsh ([id number]) on 11/02/2021 11:11:23 AM Referred By: REFERRED SELF Confirmed By:Ok Marsh
--- NOTE | 2021-11-02 11:12 | Electrocardiogram Report ---
Test Reason : Blood Pressure : / mmHG Vent. Rate : 044 BPM Atrial Rate : 044 BPM P-R Int : 150 ms QRS Dur : 172 ms QT Int : 556 ms P-R-T Axes : 065 059 042 degrees QTc Int : 475 ms Marked sinus bradycardia Right bundle branch block Abnormal ECG When compared with ECG of 01-NOV-2021 23:20, HR has increased by 6 bpm Otherwise no significant change Confirmed by Ok Marsh ([id number]) on 11/02/2021 11:12:35 AM Referred By: REFERRED SELF Confirmed By:Ok Marsh
[2021-11-02] MEDS ORDERED: VANCOMYCIN CONSULT ACTIVE PRN (17:56)
--- NOTE | 2021-11-02 17:56 | Hospitalist Progress Note ---
Date of Service November 02, 2021 Assessment & Plan (1) Sacral osteomyelitis: Plan: 56 y/o male with a complicated PMH including DM2, anaplasmosis w/ severe septic shock, endocarditis with subsequent septic emboli and right MCA CVA, status post aortic valve replacement, tracheostomy tube [removed few months ago w/ persistent small tracheocutaneous fistula], Alyse esophagitis, PAF, HTN, and GJ tube placement. He presents from [facility] 10/31 to our ED with complaint of worsening sacral pain related to known sacral ulcer. He is being managed for the following: #. Sacral osteomyelitis #. Sacral ulcer, stage IV Known history of sacral ulcer after protracted events leading up to MCA CVA [see above] Admitting CT pelvis: Large sacral decubitus ulcer with osteomyelitis involving the sacrum, sacrococcygeal junction and coccyx. Cellulitis with myositis of the soft tissue surrounding the sacral ulcer. On exam reveals no necrosis, stage IV for ulcer present POA. Wound care on board, discussed with wound care, wound VAC with irrigation to help clean the wound. Follow-up with admitting wound culture and blood culture. Surgery consulted for assessment and deep wound/bone culture, appreciate recs. Continue with daptomycin 10/31 and Zosyn 10/31 --> 11/02 vanco, cefepime and metron ID evaluated 11/01: recommends bone culture/deep tissue culture, Change dapto to vanco, change zosyn to cefepime and metron #. Acute anemia Baseline Hb around 13 Admitting Hb 9.1, dropped to 8.3 today 11/02 FOBT positive c/w iron supplement NPO, IV PPI, GI consult Hold lovenox Monitor Hb daily and as needed, transfuse for Hb <7 #. Bradycardia HR went to high 30s to low 40s on 11/01 and 11/02 H/o anaplasmosis (see above). 11/01 TSH WNL lyme screen negative Pt doesn't have any chest symptoms Tele monitoring, cardio consult, appreciate recs. #. Severe protein calorie malnutrition: Significant weight loss since the last 8 months on the background of disabling medical conditions [see above] including chronic inflammation secondary to decubitus ulcer/osteomyelitis, and left-sided paralysis. Nutrition consult, appreciate recommendation. #. Other chronic medical conditions: HTN, DM type II, tracheocutaneous fistula following tracheostomy, GJ tube in place, peripheral vascular disease, BPH Continue with/resume home medication as and when appropriate. DVT Px: Enoxaparin held, re - gi bleed. Full code Admission and Anticipated Discharge Date Admission Date: October 31, 2021 Subjective Patient seen and examined at bedside as a follow-up of sacral ulcer, stage IV present on admission and sacral osteomyelitis. Left side of the body is paralyzed. Patient lying in bed, on room air, NAD, no new acute events overnight. Patient denies any fever/headache/chills/chest pain/palpitations/belly pain/any pain anywhere in the body/other review of symptoms. Patient reports eating okay. Physical Exam Physical Exam: GENERAL: Alert and oriented x3. NAD, on RA. HEENT: No pallor, no icterus. Pupils equal, round and reactive to light. Oral mucosa moist. NECK: No JVD, no neck masses. HEART: S1 and S2 heard. Regular rate and rhythm. No murmur, no gallop. RESPIRATORY SYSTEM: Normal AP diameter. No accessory muscle use. No wheezing, no crackles. ABDOMEN: Soft, bowel sounds present, nontender, no distention. CENTRAL NERVOUS SYSTEM: No facial droop. Speech is clear. Obeys simple commands. Left-sided paralysis. EXTREMITIES: No edema, no erythema seen. Left-sided extremity paralysis noted. Lower back: Left buttock with 5 x 5 cm stage IV decubitus ulcer. Results & Data Results & Data ([facility]) Vital Signs (Past 12 Hours) Vital Signs Temp Pulse Pulse Resp BP Pulse Ox 11/02/21 16:06 37.1 C 53 L 18 127/58 L 96 11/02/21 15:33 61 11/02/21 13:20 43 L 11/02/21 11:51 36.7 C 42 L 18 131/62 97 11/02/21 08:05 36.5 C 41 L 18 153/60 H 98
[2021-11-02] MEDS ORDERED: VANCOMYCIN HCL 1,000 MG in SODIUM CHLORIDE 0.9% 500 ML IV SCH (18:00)
[2021-11-02] MEDS ORDERED: VANCOMYCIN HCL 1,750 MG in SODIUM CHLORIDE 0.9% 500 ML IV STA (18:25)
[2021-11-02] MEDS: CEFEPIME 2,000 MG in SYRINGE 0 ML IV SCH (18:57)
[2021-11-02 20:02] LABS: Hematocrit (blood only) 27.6 % (42-52); Hemoglobin 8.3 g/dL (14.0-18.0)
[2021-11-02] MEDS: metroNIDAZOLE 500 MG TAB PO SCH (20:36)
[2021-11-02] MEDS: PANTOprazole 40 MG in SYRINGE 0 ML IV SCH (20:38)
[2021-11-03] MEDS: VANCOMYCIN HCL 1,000 MG in SODIUM CHLORIDE 0.9% 250 ML IV SCH ×3 (04:06→18:08)
[2021-11-03] MEDS: CEFEPIME 2,000 MG in SYRINGE 0 ML IV SCH ×3 (04:06→18:08)
[2021-11-03 06:44] LABS: Basophils # (auto) 0.04 K/uL (0-0.2); Basophils % (auto) 0.3 %; Eosinophils # (auto) 0.27 K/uL (0-0.5); Eosinophils % (auto) 2.2 %; Hematocrit (blood only) 30.2 % (42-52); Hemoglobin 8.9 g/dL (14.0-18.0); Immature Granulocytes # (auto) 0.02 K/uL (0.00-0.02); Immature Granulocytes % (auto) 0.2 %; Lymphocytes # (auto) 0.92 K/uL (1.2-3.4); Lymphocytes % (auto) 7.5 %; Mean Corpuscular Hemoglobin 24.9 pg (25-34); Mean Corpuscular Hgb Conc 29.5 g/dL (32-36); Mean Corpuscular Volume 84.4 fL (80-100); Mean Platelet Volume 8.4 fL (7.4-10.4); Monocytes # (auto) 0.71 K/uL (0.11-0.59); Monocytes % (auto) 5.8 %; Neutrophils # (auto) 10.23 K/uL (1.4-6.5); Platelet Count 493 K/uL (130-400); RDW Coefficient of Variation 17.2 % (11.5-14.5); RDW Standard Deviation 52.9 fL (36.4-46.3); Red Blood Count 3.58 M/uL (4.7-6.1); White Blood Count 12.19 K/uL (4.8-10.8)
[2021-11-03 06:46] LABS: BUN Creatinine Ratio 22.9 (10-20); Calcium 8.6 mg/dl (8.5-10.1); Creatinine Clr Calc Pharmacy 171.7 ml/min; Est GFR (African American) 144.8 ml/min; Est GFR (Non-African American) 124.9 ml/min; Magnesium 1.6 mg/dl (1.7-2.4); Phosphorus 2.2 mg/dl (2.5-4.9); Potassium 3.1 mmol/L (3.5-5.1)
[2021-11-03 08:06] LABS: Folate (Folic Acid) > 22.30 ng/ml (>5.38)
[2021-11-03 08:07] LABS: Vitamin B12 609 pg/ml (180-914)
[2021-11-03] MEDS: INSULIN ASPART PER UNIT SC SCH ×4 (08:15→20:37)
[2021-11-03] MEDS: BACLOFEN 10 MG TAB PO SCH ×2 (08:38→19:36)
[2021-11-03] MEDS: DOXAZOSIN MESYLATE 1 MG TAB PO SCH (08:47)
[2021-11-03] MEDS: GLYCOPYRROLATE 1 MG TAB PO SCH ×2 (08:49→20:40)
[2021-11-03] MEDS: PANTOprazole 40 MG in SYRINGE 0 ML IV SCH (09:24)
[2021-11-03] MEDS: SACCHAROMYCES BOULARDII 250 MG CAP PO SCH ×2 (12:20→20:40)
[2021-11-03] MEDS: metroNIDAZOLE 500 MG TAB PO SCH ×3 (12:20→20:40)
[2021-11-03] MEDS: FERROUS SULFATE 325 MG TAB PO SCH (12:20)
[2021-11-03] MEDS: CHOLECALCIFEROL 5,000 UNITS 125 MCG TAB PO SCH (12:20)
[2021-11-03] MEDS: ASCORBIC ACID 500 MG TAB PO SCH (12:21)
--- NOTE | 2021-11-03 12:28 | Cardiology Progress Note ---
Date of Service November 03, 2021 Assessment & Plan (1) Decubitus ulcer of sacral area: (2) Tracheocutaneous fistula following tracheostomy: (3) S/P AVR (aortic valve replacement): (4) Sinus bradycardia: (5) RBBB: Plan: The patient's heart rate has been stable. He normally runs a heart rate in the 50s and 60s. He is on a telemetry unit and should be on telemetry. Admission and Anticipated Discharge Date Admission Date: October 31, 2021 Subjective The patient is status quo. No new cardiac complaints Review of Systems Review of Systems: Review of Systems: See HPI for pertinent positives. All other 10 point review of systems are negative. Physical Exam Physical Exam: Current Inpatient Medications General: no acute distress and stated age Head: normocephalic, no masses, lesions, tenderness or abnormalities Eyes: conjunctiva are pink and non-injected, sclera clear Neck: Patient is status post tracheostomy Chest: normal shape and normal respiratory effort Lungs: clear to auscultation and percussion Cardiac Exam: - regular rate & rhythm, no murmurs gallops or rubs - normal S1, normal S2 Pulses: 2(+) throughout Abdomen: abdomen soft, non-tender, no abnormal masses and no hepatosplenomegaly Musculoskeletal: no gait disturbance, no joint inflammation, no deforming arthritis Extremities: no edema and no cyanosis Neuro: grossly normal exam Results & Data ([facility]) Vital Signs (Past 12 Hours) Vital Signs Temp Pulse Pulse Pulse Resp BP Pulse Ox 11/03/21 12:00 36.4 C L 64 20 118/71 97 11/03/21 10:31 58 L 11/03/21 06:44 36.5 C 59 L 18 143/72 H 97 11/03/21 03:56 36.4 C L 58 L 18 136/78 97 Laboratory Results Laboratory Results - last 24 hr 11/02/21 11/02/21 11/02/21 11:45 16:49 17:01 WBC RBC Hgb Hct MCV MCH MCHC RDW Std Deviation RDW Coeff of Js Plt Count MPV Immature Gran % (Auto) Neut % (Auto) Lymph % (Auto) [place] % (Auto) Eos % (Auto) Baso % (Auto) Neut # (Auto) Lymph # (Auto) [place] # (Auto) Eos # (Auto) Baso # (Auto) Immature Gran # (Auto) Sodium Potassium Chloride Carbon Dioxide Anion Gap BUN Creatinine Est Cr Clr Drug Dosing Est GFR ( Amer) Est GFR (Non-Af Amer) BUN/Creatinine Ratio Glucose POC Glucose 110 H 104 H Calcium Phosphorus Magnesium Vitamin B12 Folate Stool Occult Bld Scrn Positive A 11/02/21 11/02/21 11/03/21 19:54 20:02 06:09 WBC RBC Hgb 8.3 L Hct 27.6 L MCV MCH MCHC RDW Std Deviation RDW Coeff of Js Plt Count MPV Immature Gran % (Auto) Neut % (Auto) Lymph % (Auto) [place] % (Auto) Eos % (Auto) Baso % (Auto) Neut # (Auto) Lymph # (Auto) [place] # (Auto) Eos # (Auto) Baso # (Auto) Immature Gran # (Auto) Sodium 143 Potassium 3.1 L Chloride 113 H Carbon Dioxide 24 Anion Gap 6 BUN 11 Creatinine 0.48 L Est Cr Clr Drug Dosing 171.7 Est GFR ( Amer) 144.8 Est GFR (Non-Af Amer) 124.9 BUN/Creatinine Ratio 22.9 H Glucose 97 POC Glucose 117 H Calcium 8.6 Phosphorus 2.2 L Magnesium 1.6 L Vitamin B12 Folate Stool Occult Bld Scrn 11/03/21 11/03/21 11/03/21 06:09 06:09 07:31 WBC 12.19 H RBC 3.58 L Hgb 8.9 L Hct 30.2 L MCV 84.4 MCH 24.9 L MCHC 29.5 L RDW Std Deviation 52.9 H RDW Coeff of Js 17.2 H Plt Count 493 H MPV 8.4 Immature Gran % (Auto) 0.2 Neut % (Auto) 84.0 Lymph % (Auto) 7.5 [place] % (Auto) 5.8 Eos % (Auto) 2.2 Baso % (Auto) 0.3 Neut # (Auto) 10.23 H Lymph # (Auto) 0.92 L [place] # (Auto) 0.71 H Eos # (Auto) 0.27 Baso # (Auto) 0.04 Immature Gran # (Auto) 0.02 Sodium Potassium Chloride Carbon Dioxide Anion Gap BUN Creatinine Est Cr Clr Drug Dosing Est GFR ( Amer) Est GFR (Non-Af Amer) BUN/Creatinine Ratio Glucose POC Glucose 124 H Calcium Phosphorus Magnesium Vitamin B12 609 Folate > 22.30 Stool Occult Bld Scrn 11/03/21 11:57 WBC RBC Hgb Hct MCV MCH MCHC RDW Std Deviation RDW Coeff of Js Plt Count MPV Immature Gran % (Auto) Neut % (Auto) Lymph % (Auto) [place] % (Auto) Eos % (Auto) Baso % (Auto) Neut # (Auto) Lymph # (Auto) [place] # (Auto) Eos # (Auto) Baso # (Auto) Immature Gran # (Auto) Sodium Potassium Chloride Carbon Dioxide Anion Gap BUN Creatinine Est Cr Clr Drug Dosing Est GFR ( Amer) Est GFR (Non-Af Amer) BUN/Creatinine Ratio Glucose POC Glucose 97 Calcium Phosphorus Magnesium Vitamin B12 Folate Stool Occult Bld Scrn Medications Administered Current Inpatient Medications Acetaminophen (Acetaminophen 325 Mg Tab) 650 mg PO Q4H PRN PRN Reason: pain/fever Stop: 11/30/21 18:33 Ascorbic Acid (Ascorbic Acid 500 Mg Tab) 500 mg PO Q2D@0900 [facility] Stop: 12/01/21 08:59 Last Admin: 11/03/21 12:21 Dose: 500 mg Documented by: Aspirin (Aspirin 81 Mg Ectab) 81 mg PO DAILY [facility] Stop: 12/01/21 08:59 Last Admin: 11/02/21 08:13 Dose: 81 mg Documented by: Atorvastatin Calcium (Atorvastatin 40 Mg Tab) 40 mg PO DAILY [facility] Stop: 12/01/21 08:59 Baclofen (Baclofen 10 Mg Tab) 5 mg PO Q12H [facility] Stop: 11/30/21 18:59 Last Admin: 11/03/21 08:38 Dose: 5 mg Documented by: Dextrose (Dextrose 50% 50 Ml Syringe) 25 - 50 ml IV UD PRN; Protocol PRN Reason: Hypoglycemia Protocol Stop: 11/30/21 18:33 Doxazosin Mesylate (Doxazosin Mesylate 1 Mg Tab) 1 mg PO DAILY [facility] Stop: 12/01/21 08:59 Last Admin: 11/03/21 08:47 Dose: 1 mg Documented by: Enoxaparin Sodium (Enoxaparin Inj 40 Mg/0.4 Ml Syr) 40 mg SQ QAM [facility] Stop: 12/01/21 08:59 Last Admin: 11/02/21 08:13 Dose: 40 mg Documented by: Ferrous Sulfate (Ferrous Sulfate 325 Mg Tab) 325 mg PO DAILY [facility] Stop: 12/01/21 08:59 Last Admin: 11/03/21 12:20 Dose: 325 mg Documented by: Glucagon (Glucagon For Inj 1 Mg Vial) 1 mg SQ UD PRN; Protocol PRN Reason: Hypoglycemia Protocol Stop: 11/30/21 18:33 Glucose (Glucose 10 Tabs/Tube) 4 - 8 tabs PO UD PRN; Protocol PRN Reason: Hypoglycemia Protocol Stop: 11/30/21 18:33 Glucose (Glucose 40% Gel 15 Gm Tube) 15 - 30 gm PO UD PRN; Protocol PRN Reason: Hypoglycemia Protocol Stop: 11/30/21 18:33 Glycopyrrolate (Glycopyrrolate 1 Mg Tab) 1 mg PO BID [facility] Stop: 11/30/21 20:59 Last Admin: 11/03/21 08:49 Dose: 1 mg Documented by: Pantoprazole Sodium 40 mg/ (Syringe) 10 mls @ 5 mls/min IV BID [facility] Stop: 12/02/21 20:59 Last Admin: 11/03/21 09:24 Dose: 5 mls/min Documented by: Cefepime HCl 2,000 mg/ Syringe 20 mls @ 5 mls/min IV Q8H [facility]; Protocol Stop: 12/14/21 17:59 Last Admin: 11/03/21 11:30 Dose: 5 mls/min Documented by: Vancomycin HCl 1,000 mg/ (Sodium Chloride) 270 mls @ 200 mls/hr IV Q8H [facility] Stop: 12/15/21 01:59 Last Admin: 11/03/21 11:30 Dose: 200 mls/hr Documented by: Insulin Aspart (Insulin Aspart Per Unit) 0 units SC ACHS [facility] Stop: 11/30/21 18:59 Last Admin: 11/03/21 12:10 Dose: Not Given Documented by: Melatonin (Melatonin 3 Mg Tab) 6 mg PO HS PRN PRN Reason: Insomnia Stop: 11/30/21 18:33 Last Admin: 11/01/21 19:30 Dose: 6 mg Documented by: Metronidazole (Metronidazole 500 Mg Tab) 500 mg PO TID [facility] Stop: 12/14/21 20:59 Last Admin: 11/03/21 12:20 Dose: 500 mg Documented by: Miscellaneous (Carbohydrates For Hypoglycemia ) 15 - 30 gm PO UD PRN PRN Reason: Hypoglycemia Protocol Stop: 11/30/21 18:33 Miscellaneous Information (Vancomycin Consult Active) 1 ea N/A UD PRN PRN Reason: Consult Stop: 12/02/21 17:55 Ondansetron HCl (Ondansetron 4 Mg Od Tab) 4 mg PO Q6H PRN PRN Reason: Nausea Stop: 11/30/21 18:33 Pantoprazole Sodium (Pantoprazole 40 Mg Tab) 40 mg PO BID [facility] Stop: 11/30/21 20:59 Last Admin: 11/02/21 08:12 Dose: 40 mg Documented by: Polyethylene Glycol (Polyethylene (Miralax) 17 Gm Pack) 17 gm PO DAILY PRN PRN Reason: Constipation Stop: 11/30/21 18:33 Saccharomyces Boulardii (Saccharomyces Boulardii 250 Mg Cap) 250 mg PO BID [facility] Stop: 11/30/21 20:59 Last Admin: 11/03/21 12:20 Dose: 250 mg Documented by: Sennosides (Senna 8.6 Mg Tab) 8.6 mg PO DAILY PRN PRN Reason: Constipation Stop: 11/30/21 18:33 Vitamin D (Cholecalciferol 5,000 Units 125 Mcg Tab) 5,000 units PO DAILY [facility] Stop: 12/01/21 08:59 Last Admin: 11/03/21 12:20 Dose: 5,000 units Documented by: (1) Decubitus ulcer of sacral area Pressure injury stage: pressure injury of deep tissue Qualified Code(s): L89.156 - Pressure-induced deep tissue damage of sacral region
--- NOTE | 2021-11-03 12:56 | Gastrointestinal Consultation ---
Date of Consultation November 03, 2021 Supervising Physician Co-Signing Physician Notes No overt gi bleeding. Would recommend BID PPI. No plans for endoscopy as patient is not having an overt gi bleed. History of Present Illness Reason for Consultation: Drop in hgb Requesting Physician: Dr. Romero Attending Physician: Daja Romero MD History of Present Illness 56 yo male with prior endocarditis, stroke, admitted 3 days ago wtih back pain found to have a sacral ulcer and concerns for osteomyelitis. Dr. Romero has consulted for a drop in hgb. Today's hgb is higher than yesterday. There has been no overt gi bleeding. The patient has no complaints today in terms of belly pain, hematemesis, hematochezia. Pmhx: Endocarditis Stroke Medications as per [facility] All:bee venom Soc hx: No tobacco No ethanol Allergies Allergy/AdvReac Type Severity Reaction Status Date / Time bee venom protein (honey bee) Allergy Hives Verified 10/31/21 12:47 Home Medications Medication Instructions Recorded Confirmed Type Saccharomyces boulardii 250 mg 250 mg PO BID 10/31/21 10/31/21 History capsule (Florastor) acetaminophen 325 mg tablet 650 mg PO QID PRN 10/31/21 10/31/21 History albuterol sulfate 2.5 mg INHALATION Q4H PRN 10/31/21 10/31/21 History arginine 7 gram-glutamine 7 1 ea PO BID 10/31/21 10/31/21 History gram-calcium HMB 1.5 gram oral powder pack (Peter) ascorbic acid (vitamin C) 500 mg 500 mg PO Q2D 10/31/21 10/31/21 History tablet aspirin 81 mg tablet,delayed 81 mg PO DAILY 10/31/21 10/31/21 History release atorvastatin 40 mg tablet 40 mg PO DAILY 10/31/21 10/31/21 History baclofen 5 mg tablet 5 mg PO Q12H 10/31/21 10/31/21 History cholecalciferol (vitamin D3) 125 125 mcg PO DAILY 10/31/21 10/31/21 History mcg (5,000 unit) tablet (Vitamin D3) doxazosin 1 mg tablet 1 mg PO DAILY 10/31/21 10/31/21 History ferrous sulfate 325 mg (65 mg 325 mg PO DAILY 10/31/21 10/31/21 History iron) tablet glycopyrrolate 1 mg tablet 1 mg PO BID 10/31/21 10/31/21 History guaifenesin 100 mg/5 mL oral liquid 200 mg FEEDING TUBE Q6H PRN 10/31/21 10/31/21 History insulin glargine 100 unit/mL (3 8 unit SUBCUT HS 10/31/21 10/31/21 History mL) subcutaneous pen (Basaglar KwikPen U-100 Insulin) insulin lispro 100 unit/mL 1 sliding scale dose SUBCUT 10/31/21 10/31/21 History subcutaneous pen (Humalog KwikPen USEASDIRECTD (U-100) Insulin) melatonin 3 mg tablet 6 mg PO HS PRN 10/31/21 10/31/21 History omeprazole 40 mg capsule,delayed 40 mg PO BID 10/31/21 10/31/21 History release ondansetron 4 mg disintegrating 4 mg PO Q6H PRN 10/31/21 10/31/21 History tablet polyethylene glycol 3350 17 17 g PO DAILY PRN 10/31/21 10/31/21 History gram/dose oral powder vits no.28-ferrous 1 tab PO DAILY 10/31/21 10/31/21 History fumarate 27 mg iron-folic acid 1 mg tablet sennosides 8.6 mg tablet (Senna 8.6 mg PO DAILY PRN 10/31/21 10/31/21 History Lax) Patient History Medical History Anaplasmosis BPH (benign prostatic hyperplasia) Carotid artery stenosis CVA (cerebral vascular accident) Diabetes mellitus, type 2 Diabetic ketoacidosis Gastrostomy tube in place History of endocarditis History of pneumonia Hypertension Insomnia Kidney stones HX OF AND PASSED ON OWN Paroxysmal atrial fibrillation Peripheral vascular disease Rhabdomyolysis Severe sepsis Tracheocutaneous fistula following tracheostomy Transaminitis Surgical History History of aortic valve replacement History of open reduction and internal fixation (ORIF) procedure RIGHT ANKLE History of tracheostomy Family History Brother Stroke Social History Smoking Status: Never smoker Second Hand Exposure: No; Hx Alcohol Use: No Hx Substance Use: No Preferred Language: [place] Communication Ability: Effective 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 Feels Safe at Home: Yes Assistive Devices: None Review of Systems Review of Systems: All systems reviewed & are unremarkable except as noted in HPI & below Physical Exam Physical Exam: Lying in bed in nad Constitutional: WD/WN, vitals as above Gastrointestinal (Abdomen): normal bowel sounds, soft, nontender, no hepatosplenomegaly Results & Data ([facility]) Vital Signs (Past 12 Hours) Vital Signs Temp Pulse Pulse Pulse Resp BP Pulse Ox 11/03/21 12:00 36.4 C L 64 20 118/71 97 11/03/21 10:31 58 L 11/03/21 06:44 36.5 C 59 L 18 143/72 H 97 11/03/21 03:56 36.4 C L 58 L 18 136/78 97 Laboratory Results hgb is near 9 today.
[2021-11-03] MEDS ORDERED: PANTOprazole 40 MG TAB PO SCH (16:30)
--- NOTE | 2021-11-03 16:32 | Hospitalist Progress Note ---
Date of Service November 03, 2021 Assessment & Plan (1) Sacral osteomyelitis: Plan: 56 y/o male with a complicated PMH including DM2, anaplasmosis w/ severe septic shock, endocarditis with subsequent septic emboli and right MCA CVA, status post aortic valve replacement, tracheostomy tube [removed few months ago w/ persistent small tracheocutaneous fistula], Alyse esophagitis, PAF, HTN, and GJ tube placement. He presents from [facility] to our ED with complaint of worsening sacral pain related to known sacral ulcer. He is being managed for the following: #. Sacral osteomyelitis #. Sacral ulcer, stage IV Known history of sacral ulcer after protracted events leading up to MCA CVA [see above] Admitting CT pelvis: Large sacral decubitus ulcer with osteomyelitis involving the sacrum, sacrococcygeal junction and coccyx. Cellulitis with myositis of the soft tissue surrounding the sacral ulcer. On exam reveals no necrosis, stage IV for ulcer present POA. Wound care on board, discussed with wound care, wound VAC with irrigation to help clean the wound. Follow-up with admitting blood culture -[id number] Admitting wound culture: MRSA and group B beta strep Surgery consulted for assessment and deep wound/bone culture, appreciate recs. Continue with daptomycin 10/31 and Zosyn 10/31 --> 11/02 vanco, cefepime and metron per ID ID evaluated 11/01: recommends bone culture/deep tissue culture, Change dapto to vanco, change zosyn to cefepime and metron Likely will reach out to ID emily, now that cultures are out. #. Acute anemia Baseline Hb around 13 Admitting Hb 9.1, dropped to 8.3 today 11/02 FOBT positive, Vit B12 and Folate wnl c/w iron supplement Discussed with GI, resume diet, no plan for scope, PPI twice daily Change IV PPI to oral If hemoglobin continues to be stable, resume Lovenox tomorrow. Monitor Hb daily and as needed, transfuse for Hb <7 #. Bradycardia HR went to high 30s to low 40s on 11/01 and 11/02 H/o anaplasmosis (see above). 11/01 TSH WNL lyme screen negative Pt doesn't have any chest symptoms Cardiology evaluated, patient's heart rate improved, no further recommendation at this time. #. Severe protein calorie malnutrition: Significant weight loss since the last 8 months on the background of disabling medical conditions [see above] including chronic inflammation secondary to decubitus ulcer/osteomyelitis, and left-sided paralysis. Nutrition consult, appreciate recommendation. #. Other chronic medical conditions: HTN, DM type II, tracheocutaneous fistula following tracheostomy, GJ tube in place, peripheral vascular disease, BPH Continue with/resume home medication as and when appropriate. DVT Px: Enoxaparin held, likely resume emily (see above). Full code Med/surg, likely DC in 1-2 days, PT/OT, CM to assist with DC planning. Admission and Anticipated Discharge Date Admission Date: October 31, 2021 Subjective Patient seen and examined at bedside as a follow-up of sacral ulcer, stage IV present on admission and sacral osteomyelitis. Left side of the body is paralyzed. Patient lying in bed, on room air, NAD, no new acute events overnight. Patient denies any fever/headache/chills/chest pain/palpitations/belly pain/any pain anywhere in the body/other review of symptoms. Discussed with GI, no plan for scope, will resume his diet. Closely monitor H&H. Physical Exam Physical Exam: GENERAL: Alert and oriented x3. NAD, on RA. HEENT: No pallor, no icterus. Pupils equal, round and reactive to light. Oral mucosa moist. NECK: No JVD, no neck masses. HEART: S1 and S2 heard. Regular rate and rhythm. No murmur, no gallop. RESPIRATORY SYSTEM: Normal AP diameter. No accessory muscle use. No wheezing, no crackles. ABDOMEN: Soft, bowel sounds present, nontender, no distention. CENTRAL NERVOUS SYSTEM: No facial droop. Speech is clear. Obeys simple commands. Left-sided paralysis. EXTREMITIES: No edema, no erythema seen. Left-sided extremity paralysis noted. Lower back: Left buttock with 5 x 5 cm stage IV decubitus ulcer. Results & Data Results & Data ([facility]) Vital Signs (Past 12 Hours) Vital Signs Temp Pulse Pulse Pulse Resp BP Pulse Ox 11/03/21 15:14 71 11/03/21 15:08 36.7 C 72 20 134/78 97 11/03/21 12:00 36.4 C L 64 20 118/71 97 11/03/21 10:31 58 L 11/03/21 08:05 54 L 11/03/21 06:44 36.5 C 59 L 18 143/72 H 97
[2021-11-03] MEDS: POT PHOSPHATE MONOBASIC W/ SOD TAB PO SCH ×2 (16:57→20:40)
[2021-11-03] MEDS: MAGNESIUM OXIDE 400 MG TAB PO SCH ×2 (16:58→20:40)
[2021-11-03] MEDS ORDERED: VANCOMYCIN TROUGH ONE (17:30)
--- NOTE | 2021-11-03 19:50 | Pharmacy Report ---
Pharmacy Vanc AUC Short Note - Date of Service November 03, 2021 - Assessment & Plan Assessment 56 year old M receiving vancomycin, cefepime and metronidazole for treatment of sacral osteomyelitis. Pertinent microbiologic data includes: sacral decubitus deep wound culture growing MRSA and wilson-sensitive group B beta strep. * Vanco LY resulted as 2 mcg/mL. Contacted lab to have turbidity test run to confirm LY. Day # 4 of antimicrobial therapy (previously on dapto + zosyn). Plan Vancomycin * Current dose of 1000 mg IV q8 hours produced a slightly supratherapeutic trough level, 21.5 mcg/mL. Of note, due to vanco administration times being significantly off, there was only 6 hours between the time of last dose and time of level obtainment, therefore true trough level is < 20 mcg/mL. * AUC/LY is > 600, therefore I will reduce dose to 1250 mg IV every 12 hours * regimen predicted to achieve AUC/LY of 531 at steady state * goal AUC/LY 400 - 600 (if vanc LY is confirmed to be = 2 mcg/mL, aim for higher end of goal range) * Repeat trough level in the next 48 hours Pharmacy will continue to follow and will adjust dose/frequency as necessary. Thank you.
[2021-11-03] MEDS: PANTOprazole 40 MG TAB PO SCH (20:40)
[2021-11-04] MEDS: CEFEPIME 2,000 MG in SYRINGE 0 ML IV SCH (01:15)
[2021-11-04] MEDS ORDERED: VANCOMYCIN HCL 750 MG in SODIUM CHLORIDE 0.9% 250 ML IV SCH (04:00)
[2021-11-04] MEDS: VANCOMYCIN HCL 1,250 MG in SODIUM CHLORIDE 0.9% 250 ML IV SCH ×2 (04:11→17:37)
[2021-11-04 07:42] LABS: Hematocrit (blood only) 28.7 % (42-52); Hemoglobin 8.4 g/dL (14.0-18.0); Mean Corpuscular Hemoglobin 24.7 pg (25-34); Mean Corpuscular Hgb Conc 29.3 g/dL (32-36); Mean Corpuscular Volume 84.4 fL (80-100); Mean Platelet Volume 8.2 fL (7.4-10.4); Platelet Count 418 K/uL (130-400); RDW Coefficient of Variation 17.6 % (11.5-14.5); RDW Standard Deviation 53.7 fL (36.4-46.3); White Blood Count 8.84 K/uL (4.8-10.8)
[2021-11-04] MEDS: INSULIN ASPART PER UNIT SC SCH ×4 (08:04→21:23)
[2021-11-04 08:13] LABS: Calcium 7.6 mg/dl (8.5-10.1); Creatinine Clr Calc Pharmacy 158.5 ml/min; Est GFR (African American) 140.1 ml/min; Est GFR (Non-African American) 120.9 ml/min; Magnesium 1.6 mg/dl (1.7-2.4); Phosphorus 2.5 mg/dl (2.5-4.9); Potassium 2.8 mmol/L (3.5-5.1)
[2021-11-04] MEDS ORDERED: PROMETHAZINE HCL 6.25 MG in SODIUM CHLORIDE 0.9% 50 ML IV PRN (08:51)
[2021-11-04] MEDS ORDERED: POTASSIUM CHLORIDE CRTAB 20 MEQ TABCR PO ONE ×2 (09:30→13:00)
[2021-11-04] MEDS: MAGNESIUM SULFATE / D5W 1 GM/100 ML BAG IV SCH ×2 (10:43→13:12)
--- NOTE | 2021-11-04 11:26 | Surgery Progress Note ---
Date of Service November 04, 2021 Assessment & Plan (1) Osteomyelitis: Plan: Pt here with sacral wound, +osteo seen on CT scan ID requesting bone biopsy to help guide abx management Will tentatively place on the OR schedule for Plastic surgery also on consult for evaluation Pt seen/examined with Dr. Franklin (2) Decubitus ulcer of sacral area: Admission and Anticipated Discharge Date Admission Date: October 31, 2021 Subjective Pt resting in bed. Physical Exam Skin: + sacral wound; some ooziness Results & Data ([facility]) Vital Signs (Past 12 Hours) Vital Signs Temp Pulse Resp BP Pulse Ox 11/04/21 07:19 36.7 C 74 20 154/82 H 96 PG Care Time/CCT Total # of Minutes Spent Total Time Spent with Patient: Total time spent is greater than 50% in coordination of care (as documented) at patient's floor/unit and/or counseling patient: Coding Level of Care Code 06483 Subseq Hosp Care Lvl 1 Diagnoses Osteomyelitis M86.9 Osteomyelitis location: other site Osteomyelitis type: unspecified type Decubitus ulcer of sacral area L89.156 Pressure injury stage: pressure injury of deep tissue (1) Decubitus ulcer of sacral area Pressure injury stage: pressure injury of deep tissue Qualified Code(s): L89.156 - Pressure-induced deep tissue damage of sacral region (2) Osteomyelitis Osteomyelitis location: other site Osteomyelitis type: unspecified type Qualified Code(s): M86.9 - Osteomyelitis, unspecified
--- NOTE | 2021-11-04 11:28 | Cardiology Progress Note ---
Date of Service November 04, 2021 Assessment & Plan (1) Decubitus ulcer of sacral area: (2) Tracheocutaneous fistula following tracheostomy: (3) S/P AVR (aortic valve replacement): (4) Sinus bradycardia: (5) RBBB: Plan: The patient was moved to the telemetry floor and is still not on telemetry. I have asked the nurses to place him on telemetry. Admission and Anticipated Discharge Date Admission Date: October 31, 2021 Subjective The patient is nauseated today. No abdominal pain. Review of Systems Review of Systems: Review of Systems: See HPI for pertinent positives. All other 10 point review of systems are negative. Physical Exam Physical Exam: Current Inpatient Medications General: no acute distress and stated age Head: normocephalic, no masses, lesions, tenderness or abnormalities Eyes: conjunctiva are pink and non-injected, sclera clear Neck: Patient is status post tracheostomy Chest: normal shape and normal respiratory effort Lungs: clear to auscultation and percussion Cardiac Exam: - regular rate & rhythm, no murmurs gallops or rubs - normal S1, normal S2 Pulses: 2(+) throughout Abdomen: abdomen soft, non-tender, no abnormal masses and no hepatosplenomegaly Musculoskeletal: no gait disturbance, no joint inflammation, no deforming arthritis Extremities: no edema and no cyanosis Neuro: grossly normal exam Results & Data ([facility]) Vital Signs (Past 12 Hours) Vital Signs Temp Pulse Resp BP Pulse Ox 11/04/21 07:19 36.7 C 74 20 154/82 H 96 Laboratory Results Laboratory Results - last 24 hr 11/03/21 11/03/21 11/03/21 11:57 16:21 17:23 WBC RBC Hgb Hct MCV MCH MCHC RDW Std Deviation RDW Coeff of Js Plt Count MPV Sodium Potassium Chloride Carbon Dioxide Anion Gap BUN Creatinine Est Cr Clr Drug Dosing Est GFR ( Amer) Est GFR (Non-Af Amer) BUN/Creatinine Ratio Glucose POC Glucose 97 104 H Calcium Phosphorus Magnesium Vancomycin Trough 21.5 H 11/03/21 11/04/21 11/04/21 19:31 07:29 07:29 WBC 8.84 RBC 3.40 L Hgb 8.4 L Hct 28.7 L MCV 84.4 MCH 24.7 L MCHC 29.3 L RDW Std Deviation 53.7 H RDW Coeff of Js 17.6 H Plt Count 418 H MPV 8.2 Sodium 144 Potassium 2.8 L Chloride 114 H Carbon Dioxide 24 Anion Gap 6 BUN 13 Creatinine 0.52 L Est Cr Clr Drug Dosing 158.5 Est GFR ( Amer) 140.1 Est GFR (Non-Af Amer) 120.9 BUN/Creatinine Ratio 25.0 H Glucose 97 POC Glucose 124 H Calcium 7.6 L Phosphorus 2.5 Magnesium 1.6 L Vancomycin Trough 11/04/21 07:40 WBC RBC Hgb Hct MCV MCH MCHC RDW Std Deviation RDW Coeff of Js Plt Count MPV Sodium Potassium Chloride Carbon Dioxide Anion Gap BUN Creatinine Est Cr Clr Drug Dosing Est GFR ( Amer) Est GFR (Non-Af Amer) BUN/Creatinine Ratio Glucose POC Glucose 101 H Calcium Phosphorus Magnesium Vancomycin Trough Medications Administered Current Inpatient Medications Acetaminophen (Acetaminophen 325 Mg Tab) 650 mg PO Q4H PRN PRN Reason: pain/fever Stop: 11/30/21 18:33 Ascorbic Acid (Ascorbic Acid 500 Mg Tab) 500 mg PO Q2D@0900 [facility] Stop: 12/01/21 08:59 Last Admin: 11/03/21 12:21 Dose: 500 mg Documented by: Aspirin (Aspirin 81 Mg Ectab) 81 mg PO DAILY [facility] Stop: 12/01/21 08:59 Last Admin: 11/02/21 08:13 Dose: 81 mg Documented by: Atorvastatin Calcium (Atorvastatin 40 Mg Tab) 40 mg PO DAILY [facility] Stop: 12/01/21 08:59 Baclofen (Baclofen 10 Mg Tab) 5 mg PO Q12H [facility] Stop: 11/30/21 18:59 Last Admin: 11/03/21 19:36 Dose: 5 mg Documented by: Dextrose (Dextrose 50% 50 Ml Syringe) 25 - 50 ml IV UD PRN; Protocol PRN Reason: Hypoglycemia Protocol Stop: 11/30/21 18:33 Doxazosin Mesylate (Doxazosin Mesylate 1 Mg Tab) 1 mg PO DAILY [facility] Stop: 12/01/21 08:59 Last Admin: 11/03/21 08:47 Dose: 1 mg Documented by: Enoxaparin Sodium (Enoxaparin Inj 40 Mg/0.4 Ml Syr) 40 mg SQ QAM [facility] Stop: 12/01/21 08:59 Last Admin: 11/02/21 08:13 Dose: 40 mg Documented by: Ferrous Sulfate (Ferrous Sulfate 325 Mg Tab) 325 mg PO DAILY [facility] Stop: 12/01/21 08:59 Last Admin: 11/03/21 12:20 Dose: 325 mg Documented by: Glucagon (Glucagon For Inj 1 Mg Vial) 1 mg SQ UD PRN; Protocol PRN Reason: Hypoglycemia Protocol Stop: 11/30/21 18:33 Glucose (Glucose 10 Tabs/Tube) 4 - 8 tabs PO UD PRN; Protocol PRN Reason: Hypoglycemia Protocol Stop: 11/30/21 18:33 Glucose (Glucose 40% Gel 15 Gm Tube) 15 - 30 gm PO UD PRN; Protocol PRN Reason: Hypoglycemia Protocol Stop: 11/30/21 18:33 Glycopyrrolate (Glycopyrrolate 1 Mg Tab) 1 mg PO BID [facility]GET Stop: 11/30/21 20:59 Last Admin: 11/03/21 20:40 Dose: 1 mg Documented by: Vancomycin HCl 1,250 mg/ (Sodium Chloride) 275 mls @ 200 mls/hr IV Q12H [facility] Stop: 12/15/21 01:59 Last Infusion: 11/04/21 05:37 Dose: Infused Documented by: Promethazine HCl 6.25 mg/ (Sodium Chloride) 50.25 mls @ 201 mls/hr IV Q6H PRN PRN Reason: Nausea And Vomiting Stop: 12/04/21 08:50 Last Admin: 11/04/21 10:42 Dose: 201 mls/hr Documented by: Magnesium Sulfate/Dextrose (Magnesium Sulfate / D5w) 1 gm in 100 mls @ 50 mls/hr IV Q2H [facility] Stop: 11/04/21 13:29 Last Admin: 11/04/21 10:43 Dose: 50 mls/hr Documented by: Insulin Aspart (Insulin Aspart Per Unit) 0 units SC ACHS [facility] Stop: 11/30/21 18:59 Last Admin: 11/04/21 08:04 Dose: Not Given Documented by: Lactobacillus Acidophilus (Advanced Probiotic 1250 Mg Capsule) 2 cap PO DAILY [facility] Stop: 12/04/21 09:29 Magnesium Oxide (Magnesium Oxide 400 Mg Tab) 400 mg PO BID [facility] Stop: 12/03/21 16:29 Last Admin: 11/03/21 20:40 Dose: 400 mg Documented by: Melatonin (Melatonin 3 Mg Tab) 6 mg PO HS PRN PRN Reason: Insomnia Stop: 11/30/21 18:33 Last Admin: 11/01/21 19:30 Dose: 6 mg Documented by: Miscellaneous (Carbohydrates For Hypoglycemia ) 15 - 30 gm PO UD PRN PRN Reason: Hypoglycemia Protocol Stop: 11/30/21 18:33 Miscellaneous Information (Vancomycin Consult Active) 1 ea N/A UD PRN PRN Reason: Consult Stop: 12/02/21 17:55 Ondansetron HCl (Ondansetron 4 Mg Od Tab) 4 mg PO Q6H PRN PRN Reason: Nausea Stop: 11/30/21 18:33 Last Admin: 11/04/21 08:04 Dose: 4 mg Documented by: Pantoprazole Sodium (Pantoprazole 40 Mg Tab) 40 mg PO BID [facility] Stop: 11/30/21 20:59 Last Admin: 11/03/21 20:40 Dose: 40 mg Documented by: Polyethylene Glycol (Polyethylene (Miralax) 17 Gm Pack) 17 gm PO DAILY PRN PRN Reason: Constipation Stop: 11/30/21 18:33 Potassium Chloride (Potassium Chloride Crtab 20 Meq Tabcr) 40 meq PO QAM [facility] Stop: 12/05/21 08:59 Potassium Chloride (Potassium Chloride Crtab 20 Meq Tabcr) 40 meq PO ONE ONE Stop: 11/04/21 13:01 Potassium Phosphate (Pot Phosphate Monobasic W/ Sod Tab) 2 tab PO QID [facility] Stop: 11/04/21 21:01 Last Admin: 11/03/21 20:40 Dose: 2 tab Documented by: Saccharomyces Boulardii (Saccharomyces Boulardii 250 Mg Cap) 250 mg PO BID [facility] Stop: 11/30/21 20:59 Last Admin: 11/03/21 20:40 Dose: 250 mg Documented by: Sennosides (Senna 8.6 Mg Tab) 8.6 mg PO DAILY PRN PRN Reason: Constipation Stop: 11/30/21 18:33 Vitamin D (Cholecalciferol 5,000 Units 125 Mcg Tab) 5,000 units PO DAILY [facility] Stop: 12/01/21 08:59 Last Admin: 11/03/21 12:20 Dose: 5,000 units Documented by: (1) Decubitus ulcer of sacral area Pressure injury stage: pressure injury of deep tissue Qualified Code(s): L89.156 - Pressure-induced deep tissue damage of sacral region
[2021-11-04] MEDS: BACLOFEN 10 MG TAB PO SCH ×2 (12:50→21:15)
[2021-11-04] MEDS: POT PHOSPHATE MONOBASIC W/ SOD TAB PO SCH ×4 (12:51→21:17)
[2021-11-04] MEDS: SACCHAROMYCES BOULARDII 250 MG CAP PO SCH ×2 (12:52→21:17)
[2021-11-04] MEDS: ADVANCED PROBIOTIC 1250 MG CAPSULE PO SCH (12:52)
[2021-11-04] MEDS: CHOLECALCIFEROL 5,000 UNITS 125 MCG TAB PO SCH (12:56)
[2021-11-04] MEDS: DOXAZOSIN MESYLATE 1 MG TAB PO SCH (12:56)
[2021-11-04] MEDS: FERROUS SULFATE 325 MG TAB PO SCH (12:56)
[2021-11-04] MEDS: ASPIRIN 81 MG ECTAB PO SCH ×2 (12:56→17:36)
[2021-11-04] MEDS: GLYCOPYRROLATE 1 MG TAB PO SCH ×2 (12:57→21:16)
[2021-11-04] MEDS: PANTOprazole 40 MG TAB PO SCH ×2 (12:57→21:16)
[2021-11-04] MEDS: MAGNESIUM OXIDE 400 MG TAB PO SCH ×2 (12:57→21:16)
[2021-11-04] MEDS: metroNIDAZOLE 500 MG TAB PO SCH (12:58)
[2021-11-04] MEDS ORDERED: ONDANSETRON INJ 2 MG/ML 2 ML VIAL IV ONE ×2 (12:59→13:00)
[2021-11-04] MEDS: POTASSIUM CHLORIDE / WTR 10 MEQ/100 ML PLCT IV SCH ×4 (14:30→17:44)
--- NOTE | 2021-11-04 14:31 | Surgery Consultation ---
Date of Consultation Cholo weeks seen in consultation for treatment of sacral ulcer. The patient has a complicated PMH as noted below: In February of 2021, pt presented to [facility] with flu-like symptoms and subsequently went into severe septic shock with multisystem organ failure. He was transferred to [facility] and ultimately tested positive for anaplamosis. On TTE, he was noted to have severe AI with flail right coronary cusp. RUSSELL confirmed vegetation on the AV. MRI brain showed septic emboli that resulted in multifocal strokes and right-sided PICA mycotic aneurysm. CTA confirmed aneurysm and showed a new right-sided MCA infarct. Underwent AVR on 03/27 but chest closure had to be delayed until 03/28. Developed transient SA brent dysfunction post-operatively and required temporary pacing. Also developed worsening renal function with oliguria that required CRRT 03/29-04/03. HD was started on 04/06. He was able to be taken on HD by the end of March. 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 He underwent PEG placement on 04/08 but had recurrent issues with aspiration so PEG was converted to a GJ tube on 04/22. He subsequently developed Alyse esophagitis and was treated with micafungin. Hospitalization was also complicated by hypernatremia that responded to aggressive hydration with NSS, D5 water, and tube feeds. He was discharged to [facility] on 05/31/22. Subsequently admitted to [facility] on 07/05/21, where has been since. The tracheostomy was decannulated on 09/16/21 but pt has a small persistent tracheocutaneous fistula for which he continues to follow with ENT. If this persists, he may require a procedure to close the tr ach site. Sacral ulcer was present upon discharge from [facility]. It was being treated with dressings changes, being performed by [facility] where he resides. His complaint upon arrival to ED was due to progressively worsening pain of the sacral ulcer. CT performed 10/31/21 as noted: Large sacral decubitus ulcer is new from prior measuring approximately 4.6 x 7.3 cm. There is associated cellulitis with subcutaneous emphysema tracking along the right gluteal tissues and into the superior gluteal cleft. There is acute osteomyelitis involving the distal sacrum, sacrococcygeal junction and coccyx measuring up to approximately 5 cm in cranial caudal dimension. There are suggested myositis changes of the right piriform sinus and gluteal musculature and also possibly within the lower right paraspinal musculature. Wound cultures collected by ED revealed Staph A MRSA and Grp B Beta Strep. ID has been consulted and patient currently receiving vancomycin, cefepime and metronidazole. Wound currently being dressing with an irrigating wound vac. He is in an offloading bed. Assessment & Plan (1) Sacral ulcer: Wound was debrided today as noted above. Surgicel used for hemostasis, plan to replace irrigating wound vac tomorrow. Patient reports he will be returning to [facility]. Anticipate he will be discharged with a wound vac, and continue his care plan with [facility] upon discharge. He would be a good Puraply candidate under wound vac. We discussed proper offloading as well for wound healing. Will discuss with Dr. Fernandes. Supervising Physician Co-Signing Physician Notes Will plan to assess wound tomorrow. Need to identify who has been following this patient for wound since admission/discharge at [facility] and arrange post discharge followup. History of Present Illness Attending Physician: Daja Romero MD Allergies Allergy/AdvReac Type Severity Reaction Status Date / Time bee venom protein (honey bee) Allergy Hives Verified 10/31/21 12:47 Patient History Medical History Anaplasmosis BPH (benign prostatic hyperplasia) Carotid artery stenosis CVA (cerebral vascular accident) Diabetes mellitus, type 2 Diabetic ketoacidosis Gastrostomy tube in place History of endocarditis History of pneumonia Hypertension Insomnia Kidney stones HX OF AND PASSED ON OWN Paroxysmal atrial fibrillation Peripheral vascular disease Rhabdomyolysis Severe sepsis Tracheocutaneous fistula following tracheostomy Transaminitis Surgical History History of aortic valve replacement History of open reduction and internal fixation (ORIF) procedure RIGHT ANKLE History of tracheostomy Family History Brother Stroke Social History Smoking Status: Never smoker Second Hand Exposure: No; Hx Alcohol Use: No Hx Substance Use: No Preferred Language: Mohawk Communication Ability: Effective Singing Messenger Required: No Beliefs That Will Affect Care: None Current Living Situation: Alf Current Living Situation Comment: lives home with daughter. Feels Safe at Home: Yes Assistive Devices: None Physical Exam Physical Exam: large sacral ulcer with retained Allevyn dressing retained in wound bed, with granulation tissue incorporated into the dressing. topical lido jennyfer applied, and dressing was debrided using scissor, forceps, hemostat and curette. bleeding occurred, was controlled with silver nitrate and Surgicel. Optifoam dressing used for overnight dressing. products of debridement sent for wound culture. periwound without erythema. foul odor noted. Results & Data ([facility]) Vital Signs (Past 12 Hours) Vital Signs Temp Pulse Pulse Resp BP Pulse Ox 11/04/21 11:13 49 L 11/04/21 07:19 36.7 C 74 20 154/82 H 96 PG Care Time/CCT Total # of Minutes Spent Total Time Spent with Patient: Total time spent is greater than 50% in coordination of care (as documented) at patient's floor/unit and/or counseling patient: Coding Level of Care Code 70669 Office/OBS Consult Lvl 3 Diagnoses Sacral ulcer L98.429
[2021-11-04] MEDS ORDERED: HYDROmorphone INJ 0.5 MG/0.5 ML SYR IV STA (15:40)
--- NOTE | 2021-11-04 16:43 | Hospitalist Progress Note ---
Date of Service November 04, 2021 Assessment & Plan (1) Sacral osteomyelitis: Plan: 56 y/o male with a complicated PMH including DM2, anaplasmosis w/ severe septic shock, endocarditis with subsequent septic emboli and right MCA CVA, status post aortic valve replacement, tracheostomy tube [removed few months ago w/ persistent small tracheocutaneous fistula], Alyse esophagitis, PAF, HTN, and GJ tube placement. He presents from [facility] 10/31 to our ED with complaint of worsening sacral pain related to known sacral ulcer. He is being managed for the following: #. Sacral osteomyelitis #. Sacral ulcer, stage IV Known history of sacral ulcer after protracted events leading up to MCA CVA [see above] Admitting CT pelvis: Large sacral decubitus ulcer with osteomyelitis involving the sacrum, sacrococcygeal junction and coccyx. Cellulitis with myositis of the soft tissue surrounding the sacral ulcer. On exam reveals no necrosis, stage IV for ulcer present POA. Wound care on board, discussed with wound care, wound VAC with irrigation to help clean the wound. Follow-up with admitting blood culture -[id number] Admitting wound culture: MRSA and group B beta strep Surgery consulted for assessment and deep wound/bone culture, appreciate recs. Continue with daptomycin 10/31 and Zosyn 10/31 --> 11/02 vanco, cefepime and metron ----> 11/04 vancomycin based on C/S, continue to follow-up culture results. ID evaluated 11/01: recommends bone culture/deep tissue culture, plastic surgery evaluation. Reached out to plastic surgery, wound debrided 11/04, plan to replace irrigating wound VAC tomorrow, patient will likely need wound VAC upon discharge. Patient will need to follow-up with [facility] upon discharge #. Acute anemia Baseline Hb around 13 Admitting Hb 9.1, dropped to 8.3 today 11/02 FOBT positive, Vit B12 and Folate wnl c/w iron supplement Discussed with GI 11/03, resume diet, no plan for scope, PPI twice daily Monitor Hb daily and as needed, transfuse for Hb <7 #. Bradycardia HR went to high 30s to low 40s on 11/01 and 11/02 H/o anaplasmosis (see above). 11/01 TSH WNL lyme screen negative Pt doesn't have any chest symptoms Cardiology evaluated, on telemetry. Await further cardiology recommendations. #. Severe protein calorie malnutrition: Significant weight loss since the last 8 months on the background of disabling medical conditions [see above] including chronic inflammation secondary to decubitus ulcer/osteomyelitis, and left-sided paralysis. Nutrition consult, appreciate recommendation. #. Other chronic medical conditions: HTN, DM type II, tracheocutaneous fistula following tracheostomy, GJ tube in place, peripheral vascular disease, BPH Continue with/resume home medication as and when appropriate. MOnitor and replete electrolytes. DVT Px: Hep SC Full code Med/surg, DC uncertain pending plastic/id/cardio recs, PT/OT, CM to assist with DC planning. Admission and Anticipated Discharge Date Admission Date: October 31, 2021 Subjective Patient seen and examined at bedside as a follow-up of sacral ulcer, stage IV present on admission and sacral osteomyelitis. Left side of the body is paralyzed. Patient lying in bed, on room air, NAD, no new acute events overnight. Patient has been nauseous in the morning and had one episode of vomiting, likely secondary to metronidazole which has already been stopped based on culture and sensitivity. Nausea medications as needed on board. Patient denies any fever/headache/chills/chest pain/palpitations/belly pain/any pain anywhere in the body/other review of symptoms. Physical Exam Physical Exam: GENERAL: Alert and oriented x3. NAD, on RA. HEENT: No pallor, no icterus. Pupils equal, round and reactive to light. Oral mucosa moist. NECK: No JVD, no neck masses. HEART: S1 and S2 heard. Regular rate and rhythm. No murmur, no gallop. RESPIRATORY SYSTEM: Normal AP diameter. No accessory muscle use. No wheezing, no crackles. ABDOMEN: Soft, bowel sounds present, nontender, no distention. CENTRAL NERVOUS SYSTEM: No facial droop. Speech is clear. Obeys simple commands. Left-sided paralysis. EXTREMITIES: No edema, no erythema seen. Left-sided extremity paralysis noted. Lower back: Left buttock with approx 5 x 5 cm stage IV decubitus ulcer. Results & Data Results & Data ([facility]) Vital Signs (Past 12 Hours) Vital Signs Temp Pulse Pulse Resp BP Pulse Ox 11/04/21 16:07 36.5 C 49 L 20 146/70 H 96 11/04/21 11:13 49 L 11/04/21 07:19 36.7 C 74 20 154/82 H 96
[2021-11-04] MEDS: HEPARIN SOD 5,000 UNIT/0.5 ML VIAL SQ SCH (21:16)
[2021-11-05] MEDS: VANCOMYCIN HCL 1,250 MG in SODIUM CHLORIDE 0.9% 250 ML IV SCH ×2 (03:33→17:12)
[2021-11-05 03:56] LABS: Hematocrit (blood only) 28.3 % (42-52); Hemoglobin 8.4 g/dL (14.0-18.0)
[2021-11-05 04:22] LABS: BUN Creatinine Ratio 23.5 (10-20); Calcium 8.3 mg/dl (8.5-10.1); Creatinine Clr Calc Pharmacy 161.6 ml/min; Est GFR (African American) 141.2 ml/min; Est GFR (Non-African American) 121.9 ml/min; Phosphorus 2.4 mg/dl (2.5-4.9); Potassium 3.3 mmol/L (3.5-5.1)
[2021-11-05] MEDS: BACLOFEN 10 MG TAB PO SCH ×2 (06:15→19:29)
[2021-11-05] MEDS: CHOLECALCIFEROL 5,000 UNITS 125 MCG TAB PO SCH (07:38)
[2021-11-05] MEDS: FERROUS SULFATE 325 MG TAB PO SCH (07:39)
[2021-11-05] MEDS: HEPARIN SOD 5,000 UNIT/0.5 ML VIAL SQ SCH ×2 (07:39→21:06)
[2021-11-05] MEDS: ADVANCED PROBIOTIC 1250 MG CAPSULE PO SCH (07:39)
[2021-11-05] MEDS: DOXAZOSIN MESYLATE 1 MG TAB PO SCH (07:39)
[2021-11-05] MEDS: INSULIN ASPART PER UNIT SC SCH ×4 (07:40→21:24)
[2021-11-05] MEDS: ASCORBIC ACID 500 MG TAB PO SCH (07:51)
[2021-11-05] MEDS: GLYCOPYRROLATE 1 MG TAB PO SCH ×2 (07:52→20:45)
[2021-11-05] MEDS: PANTOprazole 40 MG TAB PO SCH ×2 (07:52→20:45)
[2021-11-05] MEDS: ASPIRIN 81 MG ECTAB PO SCH (07:53)
[2021-11-05] MEDS: MAGNESIUM OXIDE 400 MG TAB PO SCH ×2 (07:53→20:46)
[2021-11-05] MEDS: SACCHAROMYCES BOULARDII 250 MG CAP PO SCH ×2 (07:55→20:47)
[2021-11-05] MEDS ORDERED: POTASSIUM CHLORIDE CRTAB 20 MEQ TABCR PO STA (08:17)
[2021-11-05] MEDS ORDERED: POTASSIUM CHLORIDE CRTAB 20 MEQ TABCR PO SCH (09:00)
--- NOTE | 2021-11-05 09:01 | Pharmacy Report ---
Pharmacy Vanc AUC Short Note - Date of Service November 05, 2021 - Assessment & Plan Assessment 56 year old M receiving IV vancomycin for treatment of sacral osteomyelitis. Pertinent microbiologic data includes: sacrum culture growing MRSA and group B strep and urine culture growing E coli. Day # 5 of antimicrobial therapy. Plan Vancomycin * Current regimen is 1250 mg IV q12h * False trough of 29.9 is due to level was drawn while medication was infusing * Next trough is scheduled to be drawn prior to the 1600 dose at 1530 * Goal AUC/LY is 400 - 600 and this regimen is predicated to achieve target AUC/LY ratio of 531 at steady state Pharmacy will continue to follow and will adjust dose/frequency as necessary. Thank you.
[2021-11-05] MEDS: POT PHOSPHATE MONOBASIC W/ SOD TAB PO SCH ×4 (10:12→20:44)
--- NOTE | 2021-11-05 10:24 | Surgery Progress Note ---
Date of Service November 05, 2021 Assessment & Plan (1) Decubitus ulcer of sacral area: Plan: Plan to place irrigating vac back on wound today, with OR debridement and bone biopsy planned for by General Surgery. He would benefit from shaving of bone in OR to reduce pressure point. He is not an ideal flap candidate at this point due to aspiration risk while laying flat to heal. Would recommend continued conservative measures at this point. Case was discussed with Case Management- patient should be established with a wound Care center close to his future home in [facility] for vac therapy/wound care. Admission and Anticipated Discharge Date Admission Date: October 31, 2021 Supervising Physician Co-Signing Physician Notes I personally saw and examined this patient and agree with the assessment and plan. Patient is scheduled for debridement and bone biopsy with general surgery on November 07. He states he had been planning to be discharged soon from [facility] until his wound deteriorated and that the discharge plan was for him to move to [place] with a relative. He is currently not a very good candidate for flap closure due to aspiration risk and general medical condition. I would recommend continued management with a wound VAC until discharge; follow- up with wound care center/plastics in [place]. Subjective Patient seen today with Dr. Fernandes. He offers no concerns, reports pain is controlled. Wound culture from debridement came back as gram negative bacilli and gram positive cocci- consistent with previous cultures. He is on schedule with Dr. Franklin for OR debridement an bone biopsy . He reports m[facility] plan is it move to [facility] upon discharge from [facility]. Physical Exam Physical Exam: dressing removed. no residual retained dressing in wound. wound bed is granular, red, beefy. moderate serous drainage, minimal slough. wound measures 7.3 x 6 x 3 cm with 2.5 cm of tunneling at the 12 o'clock position. undermining at 1-5 o'clock position. sharp bone noted in mid wound. periwound is not inflamed. irrigating vac re-placed by wound nurse Results & Data ([facility]) Vital Signs (Past 12 Hours) Vital Signs Temp Pulse Pulse Resp BP Pulse Ox 11/05/21 08:00 36.4 C L 54 L 18 127/51 L 95 11/05/21 01:56 36.5 C 52 L 18 121/64 97 PG Care Time/CCT Total # of Minutes Spent Total Time Spent with Patient: Total time spent is greater than 50% in coordination of care (as documented) at patient's floor/unit and/or counseling patient: Coding Level of Care Code 99550 Subseq Hosp Care Lvl 2 Diagnoses Decubitus ulcer of sacral area L89.156 Pressure injury stage: pressure injury of deep tissue (1) Decubitus ulcer of sacral area Pressure injury stage: pressure injury of deep tissue Qualified Code(s): L89.156 - Pressure-induced deep tissue damage of sacral region
--- NOTE | 2021-11-05 14:27 | Hospitalist Progress Note ---
Date of Service November 05, 2021 Assessment & Plan (1) Sacral osteomyelitis: Plan: 56 y/o male with a complicated PMH including DM2, anaplasmosis w/ severe septic shock, endocarditis with subsequent septic emboli and right MCA CVA, status post aortic valve replacement, tracheostomy tube [removed few months ago w/ persistent small tracheocutaneous fistula], Alyse esophagitis, PAF, HTN, and GJ tube placement. He presents from [facility] 10/31 to our ED with complaint of worsening sacral pain related to known sacral ulcer. He is being managed for the following: #. Sacral osteomyelitis #. Sacral ulcer, stage IV Known history of sacral ulcer after protracted events leading up to MCA CVA [see above] Admitting CT pelvis: Large sacral decubitus ulcer with osteomyelitis involving the sacrum, sacrococcygeal junction and coccyx. Cellulitis with myositis of the soft tissue surrounding the sacral ulcer. On exam reveals no necrosis, stage IV for ulcer present POA. Wound care on board, discussed with wound care, wound VAC with irrigation to help clean the wound. Follow-up with admitting blood culture -NG 5 days Admitting wound culture: MRSA and group B beta strep 11/04 sacral culture: Gram-negative bacilli Surgery plan for OR debridement and bone biopsy Daptomycin 10/31 and Zosyn 10/31 --> 11/02 vanco, cefepime and metron ----> 11/04 vancomycin based on C/S --> 11/05 will add cefepime again to cover GNB on 11/04 sacral culture. ID evaluated 11/01: recommends bone culture/deep tissue culture, plastic surgery evaluation. Reached out to plastic surgery 11/04, wound debrided 11/04, patient will likely need wound VAC upon discharge. NOt a flap candidate, conservative measures. Patient [place] [facility] Patient will likely need PICC line at the time of discharge. #. Acute anemia Baseline Hb around 13 Admitting Hb 9.1, dropped to 8.3 today 11/02 FOBT positive, Vit B12 and Folate wnl c/w iron supplement Discussed with GI 11/03, resume diet, no plan for scope, PPI twice daily Monitor Hb daily and as needed, transfuse for Hb <7 #. Bradycardia HR went to high 30s to low 40s on 11/01 and 3/12 H/o anaplasmosis (see above). 11/01 TSH WNL lyme screen negative Pt doesn't have any chest symptoms Cardiology evaluated, on telemetry. Await further cardiology recommendations. #. Severe protein calorie malnutrition: Significant weight loss since the last 8 months on the background of disabling medical conditions [see above] including chronic inflammation secondary to decubitus ulcer/osteomyelitis, and left-sided paralysis. Nutrition consult, appreciate recommendation. #. Other chronic medical conditions: HTN, DM type II, tracheocutaneous fistula following tracheostomy, GJ tube in place, peripheral vascular disease, BPH Continue with/resume home medication as and when appropriate. MOnitor and replete electrolytes. DVT Px: Hep SC Full code Med/surg, DC uncertain pending plastic/id/cardio recs, PT/OT, CM to assist with DC planning. Admission and Anticipated Discharge Date Admission Date: October 31, 2021 Subjective Patient seen and examined at bedside as a follow-up of sacral ulcer, stage IV present on admission and sacral osteomyelitis. Left side of the body is paralyzed. Patient lying in bed, on room air, NAD, no new acute events overnight. Patient reports improvement in his nausea and vomiting. Patient reports eating okay. Patient denies any fever/headache/chills/chest pain/palpitations/belly pain/any pain anywhere in the body/other review of symptoms. Physical Exam Physical Exam: GENERAL: Alert and oriented x3. NAD, on RA. HEENT: No pallor, no icterus. Pupils equal, round and reactive to light. Oral mucosa moist. NECK: No JVD, no neck masses. HEART: S1 and S2 heard. Regular rate and rhythm. No murmur, no gallop. RESPIRATORY SYSTEM: Normal AP diameter. No accessory muscle use. No wheezing, no crackles. ABDOMEN: Soft, bowel sounds present, nontender, no distention. CENTRAL NERVOUS SYSTEM: No facial droop. Speech is clear. Obeys simple commands. Left-sided paralysis. EXTREMITIES: No edema, no erythema seen. Left-sided extremity paralysis noted. Lower back: Left buttock with approx 5 x 5 cm stage IV decubitus ulcer. Results & Data Results & Data ([facility]) Vital Signs (Past 12 Hours) Vital Signs Temp Pulse Pulse Resp BP Pulse Ox 11/05/21 11:53 36.5 C 51 L 18 145/61 H 97 11/05/21 08:00 36.4 C L 54 L 18 127/51 L 95 11/05/21 07:00 49 L
[2021-11-05] MEDS: CEFEPIME 2,000 MG in SYRINGE 0 ML IV SCH ×2 (15:19→22:58)
[2021-11-05] MEDS ORDERED: VANCOMYCIN TROUGH ONE (15:30)
[2021-11-05] MEDS: VANCOMYCIN HCL 1,000 MG in SODIUM CHLORIDE 0.9% 250 ML IV SCH (19:28)
[2021-11-06] MEDS: CEFEPIME 2,000 MG in SYRINGE 0 ML IV SCH ×3 (06:09→22:22)
[2021-11-06] MEDS: BACLOFEN 10 MG TAB PO SCH ×2 (06:19→17:24)
[2021-11-06] MEDS: ACETAMINOPHEN 325 MG TAB PO PRN (06:19)
[2021-11-06 07:55] LABS: Hematocrit (blood only) 28.1 % (42-52); Hemoglobin 8.5 g/dL (14.0-18.0)
[2021-11-06 08:12] LABS: Creatinine Clr Calc Pharmacy 149.8 ml/min; Est GFR (African American) 136.9 ml/min; Est GFR (Non-African American) 118.1 ml/min; Phosphorus 2.4 mg/dl (2.5-4.9); Potassium 3.4 mmol/L (3.5-5.1)
--- NOTE | 2021-11-06 08:24 | Pharmacy Report ---
Pharmacy Vanc AUC Short Note - Date of Service November 06, 2021 - Assessment & Plan Assessment 56 year old M receiving IV vancomycin for treatment of sacral osteomyelitis. Pertinent microbiologic data includes: sacrum culture growing MRSA, group B strep and E coli and urine culture growing E coli. Day # 5 of antimicrobial therapy. Plan Vancomycin * Repeated trough level on 11/05 was 21.9 * SCr is slowly trending up, which may indicate accumulation of the drug * To avoid potential nephrotoxicity, dose was adjusted to 1000 mg IV q12h * Goal AUC/LY is 400-600 and this new regimen is predicated to achieve target AUC/LY ratio of 486 and may be associated with a 10% risk of nephrotoxicity, with a predicated trough level of 15.1 mcg/mL * Trough level is ordered for 11/07/21 Pharmacy will continue to follow and will adjust dose/frequency as necessary. Thank you.
[2021-11-06] MEDS ORDERED: POTASSIUM CHLORIDE CRTAB 20 MEQ TABCR PO STA (08:40)
[2021-11-06] MEDS: FERROUS SULFATE 325 MG TAB PO SCH (09:25)
[2021-11-06] MEDS: POT PHOSPHATE MONOBASIC W/ SOD TAB PO SCH ×4 (09:25→21:51)
[2021-11-06] MEDS: CHOLECALCIFEROL 5,000 UNITS 125 MCG TAB PO SCH (09:25)
[2021-11-06] MEDS: ADVANCED PROBIOTIC 1250 MG CAPSULE PO SCH (09:25)
[2021-11-06] MEDS: DOXAZOSIN MESYLATE 1 MG TAB PO SCH (09:25)
[2021-11-06] MEDS: ASPIRIN 81 MG ECTAB PO SCH (09:26)
[2021-11-06] MEDS: SACCHAROMYCES BOULARDII 250 MG CAP PO SCH ×2 (09:26→21:50)
[2021-11-06] MEDS: HEPARIN SOD 5,000 UNIT/0.5 ML VIAL SQ SCH (09:26)
[2021-11-06] MEDS: PANTOprazole 40 MG TAB PO SCH ×2 (09:27→21:50)
[2021-11-06] MEDS: GLYCOPYRROLATE 1 MG TAB PO SCH ×2 (09:27→21:49)
[2021-11-06] MEDS: MAGNESIUM OXIDE 400 MG TAB PO SCH ×2 (09:28→21:50)
[2021-11-06] MEDS: INSULIN ASPART PER UNIT SC SCH ×4 (09:41→21:50)
[2021-11-06] MEDS: VANCOMYCIN HCL 1,000 MG in SODIUM CHLORIDE 0.9% 250 ML IV SCH ×2 (09:48→19:38)
--- NOTE | 2021-11-06 10:04 | Surgery Progress Note ---
Date of Service November 06, 2021 Assessment & Plan (1) Osteomyelitis: Plan: Pt here with sacral wound, +osteo seen on CT scan ID requesting bone biopsy to help guide abx management We will perform this tomorrow in OR, made NPO at midnight Admission and Anticipated Discharge Date Admission Date: October 31, 2021 Subjective Patient offers no complaints. Not much pain at sacrum. Physical Exam Gastrointestinal (Abdomen): + sacral ulcer with + wound vac in place Results & Data ([facility]) Vital Signs (Past 12 Hours) Vital Signs Temp Pulse Pulse Resp BP Pulse Ox 11/06/21 06:44 36.7 C 46 L 18 152/72 H 96 11/06/21 02:33 36.8 C 50 L 18 142/69 H 97 11/05/21 22:35 36.7 C 50 L 18 148/70 H 96 11/05/21 22:15 50 L PG Care Time/CCT Total # of Minutes Spent Total Time Spent with Patient: Total time spent is greater than 50% in coordination of care (as documented) at patient's floor/unit and/or counseling patient: Coding Level of Care Code 57787 Subseq Hosp Care Lvl 1 Diagnoses Osteomyelitis M86.9 Osteomyelitis location: other site Osteomyelitis type: unspecified type (1) Osteomyelitis Osteomyelitis location: other site Osteomyelitis type: unspecified type Qualified Code(s): M86.9 - Osteomyelitis, unspecified
--- NOTE | 2021-11-06 15:44 | Hospitalist Progress Note ---
Date of Service November 06, 2021 Assessment & Plan (1) Sacral osteomyelitis: Plan: 56 y/o male with a complicated PMH including DM2, anaplasmosis w/ severe septic shock, endocarditis with subsequent septic emboli and right MCA CVA, status post aortic valve replacement, tracheostomy tube [removed few months ago w/ persistent small tracheocutaneous fistula], Alyse esophagitis, PAF, HTN, and GJ tube placement. He presents from [facility] 10/[facility] to our ED with complaint of worsening sacral pain related to known sacral ulcer. He is being managed for the following: #. Sacral osteomyelitis #. Sacral ulcer, stage IV Known history of sacral ulcer after protracted events leading up to MCA CVA [see above] Admitting CT pelvis: Large sacral decubitus ulcer with osteomyelitis involving the sacrum, sacrococcygeal junction and coccyx. Cellulitis with myositis of the soft tissue surrounding the sacral ulcer. On exam reveals no necrosis, stage IV for ulcer present POA. Wound care on board, discussed with wound care, wound VAC with irrigation to help clean the wound. Follow-up with admitting blood culture -NG 5 days Admitting wound culture: MRSA and group B beta strep 11/04 sacral culture: Gram-negative bacilli Surgery plan for OR debridement and bone biopsy . N.p.o. midnight. Hold heparin. Daptomycin 10/31 and Zosyn 10/31 --> 11/02 vanco, cefepime and metron ----> 11/04 vancomycin based on C/S --> 11/05 will add cefepime again to cover GNB on 11/04 sacral culture. ID evaluated 11/01: recommends bone culture/deep tissue culture, plastic surgery evaluation. Reached out to plastic surgery 11/04, wound debrided 11/04, patient will likely need wound VAC upon discharge. NOt a flap candidate, conservative measures. Patient will need to follow-up with [facility] upon discharge Patient will likely need PICC line at the time of discharge. #. Acute anemia Baseline Hb around 13 Admitting Hb 9.1 11/02 FOBT positive, Vit B12 and Folate wnl c/w iron supplement Discussed with GI 11/03, resume diet, no plan for scope, PPI twice daily Monitor Hb daily and as needed, transfuse for Hb <7 Hemoglobin stable around 8-9. #. Bradycardia HR went to high 30s to low 40s on 11/01 and 11/02 H/o anaplasmosis (see above). 11/01 TSH WNL lyme screen negative Pt doesn't have any chest symptoms Cardiology evaluated, on telemetry. Await further cardiology recommendations. #. Severe protein calorie malnutrition: Significant weight loss since the last 8 months on the background of disabling medical conditions [see above] including chronic inflammation secondary to decubitus ulcer/osteomyelitis, and left-sided paralysis. Nutrition consult, appreciate recommendation. #. Other chronic medical conditions: HTN, DM type II, tracheocutaneous fistula following tracheostomy, GJ tube in place, peripheral vascular disease, BPH Continue with/resume home medication as and when appropriate. MOnitor and replete electrolytes. DVT Px: Hep SC Full code Med/surg, DC uncertain pending plastic/id/cardio recs, PT/OT, CM to assist with DC planning. PICC line prior to DC after Antibiotics finalized. Admission and Anticipated Discharge Date Admission Date: October 31, 2021 Subjective Patient seen and examined at bedside as a follow-up of sacral ulcer, stage IV present on admission and sacral osteomyelitis. Left side of the body is paralyzed. Patient lying in bed, on room air, NAD, no new acute events overnight. Patient reports no further nausea and vomiting. Patient reports eating okay. Patient denies any fever/headache/chills/chest pain/palpitations/belly pain/any pain anywhere in the body/other review of symptoms. Physical Exam Physical Exam: GENERAL: Alert and oriented x3. NAD, on RA. HEENT: No pallor, no icterus. Pupils equal, round and reactive to light. Oral mucosa moist. NECK: No JVD, no neck masses. HEART: S1 and S2 heard. Regular rate and rhythm. No murmur, no gallop. RESPIRATORY SYSTEM: Normal AP diameter. No accessory muscle use. No wheezing, no crackles. ABDOMEN: Soft, bowel sounds present, nontender, no distention. CENTRAL NERVOUS SYSTEM: No facial droop. Speech is clear. Obeys simple commands. Left-sided paralysis. EXTREMITIES: No edema, no erythema seen. Left-sided extremity paralysis noted. Lower back: Left buttock with approx 5 x 5 cm stage IV decubitus ulcer. Results & Data Results & Data ([facility]) Vital Signs (Past 12 Hours) Vital Signs Temp Pulse Pulse Pulse Resp BP Pulse Ox 11/06/21 15:00 36.8 C 55 L 18 144/70 H 97 11/06/21 10:46 36.8 C 57 L 18 142/74 H 96 11/06/21 07:00 47 L 11/06/21 06:44 36.7 C 46 L 18 152/72 H 96
--- NOTE | 2021-11-06 17:17 | Anesthesiology Consultation ---
Date of Service November 06, 2021 The patient has significant medical problems including stroke in February 2021 after severe sepsis. He had a recent tracheostomy that was removed on 09/16/21. Assessment & Plan (1) Encounter for pre-operative examination: Chart Review Chart Review: Acceptable Risk for Surgery (elevated risk but necessary surgery) and Patient NOT seen in Pre Admission Testing Consults Requested none medicine and cardiology are following the patient History Surgery Operation Date: 11/07/21 09:40 Proposed Procedures p Sacral Decubitus Debridement and Biopsy - Luis Felipe Franklin MD, FACS Height/Weight Height: 5 ft 11 in Weight: 69 kg Allergies Allergy/AdvReac Type Severity Reaction Status Date / Time bee venom protein (honey bee) Allergy Hives Verified 10/31/21 12:47 Medications Home Medications Medication Instructions Recorded Confirmed Last Taken Saccharomyces boulardii 250 mg 250 mg PO BID 10/31/21 10/31/21 Unknown capsule (Florastor) acetaminophen 325 mg tablet 650 mg PO QID PRN 10/31/21 10/31/21 Unknown albuterol sulfate 2.5 mg INHALATION Q4H PRN 10/31/21 10/31/21 Unknown arginine 7 gram-glutamine 7 1 ea PO BID 10/31/21 10/31/21 Unknown gram-calcium HMB 1.5 gram oral powder pack (Peter) ascorbic acid (vitamin C) 500 mg 500 mg PO Q2D 10/31/21 10/31/21 Unknown tablet aspirin 81 mg tablet,delayed 81 mg PO DAILY 10/31/21 10/31/21 Unknown release atorvastatin 40 mg tablet 40 mg PO DAILY 10/31/21 10/31/21 Unknown baclofen 5 mg tablet 5 mg PO Q12H 10/31/21 10/31/21 Unknown cholecalciferol (vitamin D3) 125 125 mcg PO DAILY 10/31/21 10/31/21 Unknown mcg (5,000 unit) tablet (Vitamin D3) doxazosin 1 mg tablet 1 mg PO DAILY 10/31/21 10/31/21 Unknown ferrous sulfate 325 mg (65 mg 325 mg PO DAILY 10/31/21 10/31/21 Unknown iron) tablet glycopyrrolate 1 mg tablet 1 mg PO BID 10/31/21 10/31/21 Unknown guaifenesin 100 mg/5 mL oral liquid 200 mg FEEDING TUBE Q6H PRN 10/31/21 10/31/21 Unknown insulin glargine 100 unit/mL (3 8 unit SUBCUT HS 10/31/21 10/31/21 Unknown mL) subcutaneous pen (Basaglar KwikPen U-100 Insulin) insulin lispro 100 unit/mL 1 sliding scale dose SUBCUT 10/31/21 10/31/21 Unknown subcutaneous pen (Humalog KwikPen USEASDIRECTD (U-100) Insulin) melatonin 3 mg tablet 6 mg PO HS PRN 10/31/21 10/31/21 Unknown omeprazole 40 mg capsule,delayed 40 mg PO BID 10/31/21 10/31/21 Unknown release ondansetron 4 mg disintegrating 4 mg PO Q6H PRN 10/31/21 10/31/21 Unknown tablet polyethylene glycol 3350 17 17 g PO DAILY PRN 10/31/21 10/31/21 Unknown gram/dose oral powder vits no.28-ferrous 1 tab PO DAILY 10/31/21 10/31/21 Unknown fumarate 27 mg iron-folic acid 1 mg tablet sennosides 8.6 mg tablet (Senna 8.6 mg PO DAILY PRN 10/31/21 10/31/21 Unknown Lax) Active Medications Generic Name Dose Route Start Last Admin Trade Name Freq PRN Reason Stop Dose Admin Acetaminophen 650 mg 10/31/21 18:34 11/06/21 06:19 Acetaminophen 325 Mg Tab PO 11/30/21 18:33 650 mg Q4H PRN Administration pain/fever Ascorbic Acid 500 mg 11/01/21 09:00 11/05/21 07:51 Ascorbic Acid 500 Mg Tab PO 12/01/21 08:59 500 mg Q2D@0900 BRIDGET Administration Aspirin 81 mg 11/01/21 09:00 11/06/21 09:26 Aspirin 81 Mg Ectab PO 12/01/21 08:59 81 mg DAILY BRIDGET Administration Baclofen 5 mg 10/31/21 19:00 11/06/21 06:19 Baclofen 10 Mg Tab PO 11/30/21 18:59 5 mg Q12H BRIDGET Administration Doxazosin Mesylate 1 mg 11/01/21 09:00 11/06/21 09:25 Doxazosin Mesylate 1 Mg Tab PO 12/01/21 08:59 1 mg DAILY BRIDGET Administration Ferrous Sulfate 325 mg 11/01/21 09:00 11/06/21 09:25 Ferrous Sulfate 325 Mg Tab PO 12/01/21 08:59 325 mg DAILY BRIDGET Administration Glycopyrrolate 1 mg 10/31/21 21:00 11/06/21 09:27 Glycopyrrolate 1 Mg Tab PO 11/30/21 20:59 1 mg BID BRIDGET Administration Heparin Sodium (Porcine) 5,000 units 11/04/21 21:00 11/06/21 09:26 Heparin Sod 5,000 Unit/0.5 Ml Vial SQ 12/04/21 20:59 5,000 units Q12 BRIDGET Administration Promethazine HCl 6.25 mg/ 50.25 mls @ 201 mls/hr 11/04/21 08:51 11/04/21 10: 55 Sodium Chloride IV 12/04/21 08:50 Infused Q6H PRN Infusion Nausea And Vomiting Cefepime HCl 2,000 mg/ Syringe 20 mls @ 5 mls/min 11/05/21 15:00 11/06/21 15:29 IV 12/17/21 14:59 5 mls/min Q8H BRIDGET Administration Protocol Vancomycin HCl 1,000 mg/ 270 mls @ 200 mls/hr 11/05/21 20:00 11/06/21 11:33 Sodium Chloride IV 12/17/21 19:59 Infused Q12H BRIDGET Infusion Insulin Aspart 0 units 10/31/21 19:00 11/06/21 12:15 Insulin Aspart Per Unit SC 11/30/21 18:59 10 units ACHS BRIDGET Administration Lactobacillus Acidophilus 2 cap 11/04/21 09:30 11/06/21 09:25 Advanced Probiotic 1250 Mg Capsule PO 12/04/21 09:29 2 cap DAILY BRIDGET Administration Magnesium Oxide 400 mg 11/03/21 16:30 11/06/21 09:28 Magnesium Oxide 400 Mg Tab PO 12/03/21 16:29 400 mg BID BRIDGET Administration Melatonin 6 mg 10/31/21 18:34 11/01/21 19:30 Melatonin 3 Mg Tab PO 11/30/21 18:33 6 mg HS PRN Administration Insomnia Ondansetron HCl 4 mg 10/31/21 18:34 11/04/21 08:04 Ondansetron 4 Mg Od Tab PO 11/30/21 18:33 4 mg Q6H PRN Administration Nausea Pantoprazole Sodium 40 mg 10/31/21 21:00 11/06/21 09:27 Pantoprazole 40 Mg Tab PO 11/30/21 20:59 40 mg BID BRIDGET Administration Potassium Phosphate 2 tab 11/06/21 09:00 11/06/21 12:17 Pot Phosphate Monobasic W/ Sod Tab PO 11/06/21 21:01 2 tab QID BRIDGET Administration Saccharomyces Boulardii 250 mg 10/31/21 21:00 11/06/21 09:26 Saccharomyces Boulardii 250 Mg Cap PO 11/30/21 20:59 250 mg BID BRIDGET Administration Vitamin D 5,000 units 11/01/21 09:00 11/06/21 09:25 Cholecalciferol 5,000 Units 125 Mcg Tab PO 12/01/21 08:59 5,000 units DAILY BRIDGET Administration Past Medical History Medical History Anaplasmosis Anemia BPH (benign prostatic hyperplasia) Carotid artery stenosis CVA (cerebral vascular accident) February 2021 Diabetes mellitus, type 2 Diabetic ketoacidosis Gastrostomy tube in place History of endocarditis History of pneumonia Hypertension Insomnia Kidney stones HX OF AND PASSED ON OWN Paroxysmal atrial fibrillation Peripheral vascular disease Rhabdomyolysis Severe sepsis February 2021 Tracheocutaneous fistula following tracheostomy decannulated on 09/16/21 Transaminitis Past Family History Family History Brother Stroke Past Surgical History Surgical History History of aortic valve replacement History of open reduction and internal fixation (ORIF) procedure RIGHT ANKLE History of tracheostomy Social History Smoking Status: Never smoker Hx Alcohol Use: No Hx Substance Use: No substance use type: does not use Physical Exam Vital Signs Last Vital Signs Temp 36.8 C 11/06/21 15:00 Pulse 55 L 11/06/21 15:00 Resp 18 11/06/21 15:00 BP 144/70 H 11/06/21 15:00 Pulse Ox 97 11/06/21 15:00 Testing Laboratory Results 11/06/21 07:34 11/06/21 07:34 Hemoglobin A1c 5.6 % (4.5-5.6) 11/01/21 05:19 11/04/21 15:30 Gram Stain - Final Sacrum Aerobic and Anaerobic Culture - Preliminary Escherichia coli 10/31/21 10:43 Aerobic Blood Culture - Final Blood No growth in Aerobic bottle after 5 days. Anaerobic Blood Culture - Final No growth in Anaerobic bottle after 5 days. 10/31/21 10:52 Aerobic Blood Culture - Final Blood No growth in Aerobic bottle after 5 days. Anaerobic Blood Culture - Final No growth in Anaerobic bottle after 5 days. 10/31/21 10:25 Gram Stain - Final Sacrum Decubitus Deep Wound Culture - Final Staph aureus MRSA Group B Beta Strep 10/31/21 11:34 Urine Culture - Final Urine,Indwelling Cath Escherichia coli 11/06/21 11/06/21 11/06/21 16:31 11:23 07:20 POC Glucose 83 214 H 109 H Electrocardiogram Date: 11/02/21 Test Reason : Blood Pressure : / mmHG Vent. Rate : 044 BPM Atrial Rate : 044 BPM P-R Int : 150 ms QRS Dur : 172 ms QT Int : 556 ms P-R-T Axes : 065 059 042 degrees QTc Int : 475 ms Marked sinus bradycardia Right bundle branch block Abnormal ECG When compared with ECG of 01-NOV-2021 23:20, HR has increased by 6 bpm Otherwise no significant change Confirmed by Ok Marsh ([id number]) on 11/02/2021 11:12:35 AM Referred By: REFERRED SELF Confirmed By:Ok Marsh Signed By:
[2021-11-07 05:36] LABS: Hematocrit (blood only) 28.5 % (42-52); Hemoglobin 8.7 g/dL (14.0-18.0)
[2021-11-07 06:07] LABS: Magnesium 1.6 mg/dl (1.7-2.4); Potassium 3.2 mmol/L (3.5-5.1)
[2021-11-07] MEDS: CEFEPIME 2,000 MG in SYRINGE 0 ML IV SCH ×3 (06:08→22:40)
[2021-11-07 07:01] LABS: Calcium 8.3 mg/dl (8.5-10.1); Creatinine Clr Calc Pharmacy 164.8 ml/min; Est GFR (African American) 142.4 ml/min; Est GFR (Non-African American) 122.9 ml/min; Potassium 3.2 mmol/L (3.5-5.1)
[2021-11-07 07:02] LABS: Basophils # (auto) 0.04 K/uL (0-0.2); Basophils % (auto) 0.6 %; Eosinophils # (auto) 0.43 K/uL (0-0.5); Eosinophils % (auto) 6.3 %; Immature Granulocytes # (auto) 0.01 K/uL (0.00-0.02); Immature Granulocytes % (auto) 0.1 %; Lymphocytes # (auto) 1.05 K/uL (1.2-3.4); Lymphocytes % (auto) 15.4 %; Mean Corpuscular Hemoglobin 24.9 pg (25-34); Mean Corpuscular Hgb Conc 30.5 g/dL (32-36); Mean Corpuscular Volume 82.6 fL (80-100); Mean Platelet Volume 8.9 fL (7.4-10.4); Monocytes # (auto) 0.66 K/uL (0.11-0.59); Monocytes % (auto) 9.7 %; Neutrophils # (auto) 4.62 K/uL (1.4-6.5); Neutrophils % (auto) 67.9 %; Platelet Count 437 K/uL (130-400); RDW Coefficient of Variation 17.8 % (11.5-14.5); RDW Standard Deviation 53.6 fL (36.4-46.3); Red Blood Count 3.46 M/uL (4.7-6.1); White Blood Count 6.81 K/uL (4.8-10.8)
[2021-11-07] MEDS ORDERED: VANCOMYCIN TROUGH ONE (07:30)
[2021-11-07] MEDS: VANCOMYCIN HCL 1,000 MG in SODIUM CHLORIDE 0.9% 250 ML IV SCH ×2 (08:01→20:10)
[2021-11-07] MEDS: BACLOFEN 10 MG TAB PO SCH ×2 (08:02→18:32)
[2021-11-07] MEDS ORDERED: fentaNYL citrate 100 MCG/2 ML VIAL ONE (08:34)
[2021-11-07] MEDS ORDERED: MIDAZOLAM HCL 1 MG/ML 2ML VIAL ONE (08:34)
--- NOTE | 2021-11-07 08:39 | Pharmacy Report ---
Pharmacy Vanc AUC Short Note - Date of Service November 07, 2021 - Assessment & Plan Assessment 56 year old M receiving vancomycin/cefepime for treatment of sacral osteomyelitis. Pertinent microbiologic data includes: sacrum culture growing MRSA. Day # 8 of antimicrobial therapy. Plan Vancomycin * AUC/LY is the preferred PK/PD target for vancomycin * AUC guided dosing is effective and associated with decreased risk of nephrotoxicity compared to traditional trough targets * Trough level of 19.4 mcg/mL is predicted to achieve target AUC/LY of 400-600 mg/L.hr and may be associated with a 12 % risk of nephrotoxicity * Continue dose of 1000 mg IV every 12 hours * Trough to be ordered based upon clinical picture Pharmacy will continue to follow and will adjust dose/frequency as necessary. Thank you.
[2021-11-07] MEDS ORDERED: SUGAMMADEX SODIUM 200 MG/2 ML VIAL IV ONE (08:49)
[2021-11-07] MEDS ORDERED: ePHEDrine sulfate 50 MG/ML AMP IV PRN (08:55)
[2021-11-07] MEDS ORDERED: fentaNYL citrate 100 MCG/2 ML VIAL IV PRN (08:55)
[2021-11-07] MEDS ORDERED: ONDANSETRON INJ 2 MG/ML 2 ML VIAL IV PRN (08:55)
[2021-11-07] MEDS ORDERED: ATROPINE SULFATE 0.1 MG/ML 10ML SYR IV PRN (08:55)
[2021-11-07] MEDS ORDERED: HYDROmorphone INJ 2 MG/ML SYR/VIAL IV PRN (08:55)
--- NOTE | 2021-11-07 08:57 | History & Physical Bridge Note ---
Date of Service November 07, 2021 History & Physical Bridge Note I have examined the patient, reviewed the History & Physical and in the interval since the performance of the History & Physical I have noted the following changes of clinical significance: no changes noted will proceed with sacral biopsy abd debriedenment permit signed
[2021-11-07] MEDS: INSULIN ASPART PER UNIT SC SCH ×4 (09:08→21:02)
[2021-11-07] MEDS ORDERED: DEXAMETHASONE SOD INJ 4 MG/ML VIAL ONE (09:26)
[2021-11-07] MEDS ORDERED: ROCURONIUM BROMIDE 10 MG/ML 5 ML VIAL IV ONE (09:26)
[2021-11-07] MEDS ORDERED: PROPOFOL IV EMULSION 10 MG/ML 20 ML VIAL IV ONE ×2 (09:26→09:32)
[2021-11-07] MEDS ORDERED: ONDANSETRON INJ 2 MG/ML 2 ML VIAL ONE (09:26)
--- NOTE | 2021-11-07 09:40 | Post Operative Brief Note ---
PG Immediate Post Op with CF Date of Surgery November 07, 2021 Pre & Post Diagnosis Operation Date: 11/07/21 09:40 <No data on this case meets the specified criteria> I identified the patient and participated in the time-out.: Yes Procedure Operation Date: 11/07/21 09:40 <No data on this case meets the specified criteria> Surgeon Luis Felipe Franklin MD, FACS Brush Washer maria t chen Estimated Blood Loss 10 Findings Consistent with Post-Op Diagnosis
--- NOTE | 2021-11-07 09:47 | Operative Report ---
Post Operative Report Pre & Post Diagnosis Operation Date: 11/07/21 09:40 <No data on this case meets the specified criteria> I identified the patient and participated in the time-out.: Yes Procedure Operation Date: 11/07/21 09:40 <No data on this case meets the specified criteria> Surgeon Luis Felipe Franklin MD, FACS Junior Project Manager maria t chen Estimated Blood Loss 10 Findings Consistent with Post-Op Diagnosis Specimens Sacral biopsy for cultures Description of Procedure merda I attest to the content of the Intraoperative Record and any orders documented therein. Any exceptions are noted below. Supervising Physician Co-Signing Physician Notes I personally saw and examined this patient and agree with the assessment and plan. Patient is scheduled for debridement and bone biopsy with general surgery on November 07. He states he had been planning to be discharged soon from [facility] until his wound deteriorated and that the discharge plan was for him to move to [place] with a relative. He is currently not a very good candidate for flap closure due to aspiration risk and general medical condition. I would recommend continued management with a wound VAC until discharge; follow- up with wound care center/plastics in [place].
--- NOTE | 2021-11-07 09:55 | Operative Report ---
Post Operative Report Pre & Post Diagnosis Operation Date: 11/07/21 09:40 <ndata on this case meets the specified criteria> Sacral ulcer grade 4 I identified the patient and participated in the time-out.: Yes Procedure Operation Date: 11/07/21 09:40 <No data on this case meets the specified criteria> Debridement and sacral biopsy cultures and pathology The patient was brought into the operating theater general endotracheal anesthesia in the prone position the right arm properly padded to the left arm flaccid similarly padded the lower back and sacral area was prepped once the VAC system was removed patient identified a timeout was had Looking at the sacral ulceration we measured at 6 cm in diameter it circumferentially overall had good granular base few areas at the fascia exposed but very minimally on the right side of the ulceration in the buttock that was tunneling that we measured approximately 6 cm in the tunnel itself it was beginning to granulate there was no evidence of any significant purulent material and overall the the bed of the ulceration looks relatively healthy there was no skin maceration or erythema at this point we debrided some of the fascia and a few areas of fatty tissue very limited and done expose the upper aspect underneath one of the fascia into the sacral area and we took 2 biopsies of the sacrum 1 for cultures 1 pathology we had some bleeding at the biopsy site and we placed some Surgicel in the area and electrocautery and appeared to be satisfactorily controlled I elected not to place the VAC system back at this time due to the bleeding that we may had therefore we packed the area with 4 inch Kerlix and a dressing was applied procedure was tolerated well by the patient estimate blood loss 10 cc Addendum Maria T chen was present the whole time and help with retraction exposure and wound closure Addendum talked to his mother at [phone] Surgeon Luis Felipe Franklin MD, FACS Pt Escort maria t chen Estimated Blood Loss 10 Findings Consistent with Post-Op Diagnosis Overall relatively clean bed with granulation tissue some presacral fascia exposed that we debrided Specimens Bone biopsy (sacrum) Drains Wound was packed open with 2 inch Kerlix Indications Sacral decubiti Description of Procedure merda I attest to the content of the Intraoperative Record and any orders documented therein. Any exceptions are noted below.
[2021-11-07] MEDS ORDERED: MoRPHine SULFATE 2 MG/ML CARP IV PRN (10:59)
[2021-11-07] MEDS ORDERED: oxyCODONE HCL IR 5 MG TAB (IMMEDIATE RELEASE) PO PRN (10:59)
[2021-11-07] MEDS: MAGNESIUM SULFATE / D5W 1 GM/100 ML BAG IV SCH ×2 (11:26→13:38)
[2021-11-07] MEDS: POTASSIUM CHLORIDE CRTAB 20 MEQ TABCR PO SCH ×2 (11:27→11:28)
[2021-11-07] MEDS: ADVANCED PROBIOTIC 1250 MG CAPSULE PO SCH (11:34)
[2021-11-07] MEDS: ASCORBIC ACID 500 MG TAB PO SCH (11:34)
[2021-11-07] MEDS: DOXAZOSIN MESYLATE 1 MG TAB PO SCH (11:35)
[2021-11-07] MEDS: FERROUS SULFATE 325 MG TAB PO SCH (11:35)
[2021-11-07] MEDS: MAGNESIUM OXIDE 400 MG TAB PO SCH ×2 (11:35→20:22)
[2021-11-07] MEDS: ASPIRIN 81 MG ECTAB PO SCH (11:35)
[2021-11-07] MEDS: PANTOprazole 40 MG TAB PO SCH ×2 (11:36→20:22)
[2021-11-07] MEDS: GLYCOPYRROLATE 1 MG TAB PO SCH ×2 (11:36→20:22)
[2021-11-07] MEDS: SACCHAROMYCES BOULARDII 250 MG CAP PO SCH ×2 (11:37→20:22)
[2021-11-07] MEDS: CHOLECALCIFEROL 5,000 UNITS 125 MCG TAB PO SCH (11:37)
--- NOTE | 2021-11-07 12:30 | Anesthesiology Progress Note ---
Date of Service November 07, 2021 Anesthesia Post Procedure Vital Signs Vital Signs: Temp Pulse Pulse Pulse Resp BP Pulse Ox 11/07/21 10:35 36.1 C L 57 L 14 109/55 L 99 11/07/21 10:25 58 L 16 114/68 100 11/07/21 10:14 55 L 14 122/68 100 11/07/21 10:05 56 L 12 109/66 99 11/07/21 09:57 36.0 C L 58 L 14 112/63 100 11/07/21 08:37 37.1 C 54 L 20 149/69 H 96 11/07/21 07:00 36.9 C 51 L 20 159/72 H 96 11/07/21 06:27 54 L 11/07/21 04:01 36.5 C 49 L 18 163/73 H 97 11/06/21 22:20 53 L 11/06/21 22:00 36.9 C 52 L 18 144/69 H 97 11/06/21 18:48 36.8 C 53 L 18 127/69 97 11/06/21 15:00 36.8 C 61 55 L 18 144/70 H 97 Pain Intensity Posterior Sacrum: Pain Intensity: 0 Transfer of Care Handoff Completed per policy Notes Mental Status: alert / awake / arousable and participated in evaluation Patient Amnestic to Procedure: Yes Nausea / Vomiting: adequately controlled Pain: adequately controlled Airway Patency, RR, SpO2: stable & adequate BP & HR: stable & adequate Hydration State: stable & adequate Anesthetic Complications: no major complications apparent and Pt Satisfied with anesthetic care
--- NOTE | 2021-11-07 16:36 | Hospitalist Progress Note ---
Date of Service November 07, 2021 Assessment & Plan (1) Sacral osteomyelitis: Plan: 56 y/o male with a complicated PMH including DM2, anaplasmosis w/ severe septic shock, endocarditis with subsequent septic emboli and right MCA CVA, status post aortic valve replacement, tracheostomy tube [removed few months ago w/ persistent small tracheocutaneous fistula], Alyse esophagitis, PAF, HTN, and GJ tube placement. He presents from [facility] 10/31 to our ED with complaint of worsening sacral pain related to known sacral ulcer. He is being managed for the following: #. Sacral osteomyelitis #. Sacral ulcer, stage IV Known history of sacral ulcer after protracted events leading up to MCA CVA [see above] Admitting CT pelvis: Large sacral decubitus ulcer with osteomyelitis involving the sacrum, sacrococcygeal junction and coccyx. Cellulitis with myositis of the soft tissue surrounding the sacral ulcer. On exam reveals no necrosis, stage IV for ulcer present POA. Wound care on board, discussed with wound care, wound VAC with irrigation to help clean the wound. Follow-up with admitting blood culture -NG 5 days Admitting wound culture: MRSA and group B beta strep 11/04 sacral culture: Gram-negative bacilli 11/07 sacral biopsy for culture: await results. Daptomycin 10/31 and Zosyn 10/31 --> 11/02 vanco, cefepime and metron ----> 11/04 vancomycin based on C/S --> 11/05 will add cefepime again to cover GNB on 11/04 sacral culture. ID evaluated 11/01: recommends bone culture/deep tissue culture, plastic surgery evaluation. Reached out to plastic surgery 11/04, wound debrided 11/04, patient will likely need wound VAC upon discharge. NOt a flap candidate, conservative measures. Patient will need to follow-up with [facility] upon discharge Patient will likely need PICC line at the time of discharge. #. Acute anemia Baseline Hb around 13 Admitting Hb 9.1 11/02 FOBT positive, Vit B12 and Folate wnl c/w iron supplement Discussed with GI 11/03, resume diet, no plan for scope, PPI twice daily Monitor Hb daily and as needed, transfuse for Hb <7 Hemoglobin stable around 8-9. #. Bradycardia HR went to high 30s to low 40s on 11/01 and 11/02 H/o anaplasmosis (see above). 11/01 TSH WNL lyme screen negative Pt doesn't have any chest symptoms Cardiology evaluated, on telemetry. Await further cardiology recommendations. #. Severe protein calorie malnutrition: Significant weight loss since the last 8 months on the background of disabling medical conditions [see above] including chronic inflammation secondary to decubitus ulcer/osteomyelitis, and left-sided paralysis. Nutrition consult, appreciate recommendation. #. Other chronic medical conditions: HTN, DM type II, tracheocutaneous fistula following tracheostomy, GJ tube in place, peripheral vascular disease, BPH Continue with/resume home medication as and when appropriate. MOnitor and replete electrolytes. DVT Px: Hep SC Full code Med/surg, when sacral cultures out and w/ plastic/id/cardio recs, PT/OT, CM to assist with DC planning. PICC line prior to DC after Antibiotics finalized. Admission and Anticipated Discharge Date Admission Date: October 31, 2021 Subjective Patient seen and examined at bedside as a follow-up of sacral ulcer, stage IV present on admission and sacral osteomyelitis. Left side of the body is paralyzed. Patient lying in bed, on room air, NAD, no new acute events overnight. Pt is s/p sacral biopsy today. Patient reports eating okay. Patient denies any fever/headache/chills/chest pain/palpitations/belly pain/any pain anywhere in the body/other review of symptoms. Physical Exam Physical Exam: GENERAL: Alert and oriented x3. NAD, on RA. HEENT: No pallor, no icterus. Pupils equal, round and reactive to light. Oral mucosa moist. NECK: No JVD, no neck masses. HEART: S1 and S2 heard. Regular rate and rhythm. No murmur, no gallop. RESPIRATORY SYSTEM: Normal AP diameter. No accessory muscle use. No wheezing, no crackles. ABDOMEN: Soft, bowel sounds present, nontender, no distention. CENTRAL NERVOUS SYSTEM: No facial droop. Speech is clear. Obeys simple commands. Left-sided paralysis. EXTREMITIES: No edema, no erythema seen. Left-sided extremity paralysis noted. Lower back: Left buttock with approx 5 x 5 cm stage IV decubitus ulcer. UC w/ light yellow urine collection noted. Results & Data Results & Data ([facility]) Vital Signs (Past 12 Hours) Vital Signs Temp Pulse Pulse Pulse Resp BP Pulse Ox 11/07/21 15:16 36.6 C 54 L 18 120/62 98 11/07/21 14:17 65 11/07/21 12:30 36.6 C 56 L 16 117/56 L 96 11/07/21 11:33 50 L 11/07/21 11:30 36.7 C 49 L 18 109/62 95 11/07/21 11:00 36.7 C 49 L 20 115/53 L 97 11/07/21 10:35 36.1 C L 57 L 14 109/55 L 99 11/07/21 10:25 58 L 16 114/68 100 11/07/21 10:14 55 L 14 122/68 100 11/07/21 10:05 56 L 12 109/66 99 11/07/21 09:57 36.0 C L 58 L 14 112/63 100 11/07/21 08:37 37.1 C 54 L 20 149/69 H 96 11/07/21 07:00 36.9 C 51 L 20 159/72 H 96 11/07/21 06:27 54 L
[2021-11-07] MEDS ORDERED: METOCLOPRAMIDE HCL INJ 5 MG/ML 2 ML VIAL IV STA (19:29)
[2021-11-07] MEDS: HEPARIN SOD 5,000 UNIT/0.5 ML VIAL SQ SCH (20:22)
[2021-11-07] MEDS: ACETAMINOPHEN 325 MG TAB PO PRN (20:57)
[2021-11-08] MEDS: CEFEPIME 2,000 MG in SYRINGE 0 ML IV SCH ×3 (06:09→22:06)
[2021-11-08] MEDS: BACLOFEN 10 MG TAB PO SCH ×2 (06:18→18:20)
[2021-11-08 06:21] LABS: Hematocrit (blood only) 31.6 % (42-52); Hemoglobin 9.5 g/dL (14.0-18.0)
[2021-11-08 06:46] LABS: Potassium 3.7 mmol/L (3.5-5.1)
[2021-11-08] MEDS: VANCOMYCIN HCL 1,000 MG in SODIUM CHLORIDE 0.9% 250 ML IV SCH ×2 (08:02→20:35)
[2021-11-08] MEDS: ASPIRIN 81 MG ECTAB PO SCH (08:08)
[2021-11-08] MEDS: CHOLECALCIFEROL 5,000 UNITS 125 MCG TAB PO SCH (08:08)
[2021-11-08] MEDS: HEPARIN SOD 5,000 UNIT/0.5 ML VIAL SQ SCH ×2 (08:08→20:36)
[2021-11-08] MEDS: MAGNESIUM OXIDE 400 MG TAB PO SCH ×2 (08:08→20:36)
[2021-11-08] MEDS: GLYCOPYRROLATE 1 MG TAB PO SCH ×2 (08:08→20:35)
[2021-11-08] MEDS: DOXAZOSIN MESYLATE 1 MG TAB PO SCH (08:08)
[2021-11-08] MEDS: PANTOprazole 40 MG TAB PO SCH ×2 (08:08→20:36)
[2021-11-08] MEDS: ATORVASTATIN 40 MG TAB PO SCH (08:09)
[2021-11-08] MEDS: ADVANCED PROBIOTIC 1250 MG CAPSULE PO SCH (08:09)
[2021-11-08] MEDS: FERROUS SULFATE 325 MG TAB PO SCH (08:09)
[2021-11-08] MEDS: SACCHAROMYCES BOULARDII 250 MG CAP PO SCH ×2 (08:09→20:36)
--- NOTE | 2021-11-08 08:17 | Surgery Progress Note ---
Date of Service November 08, 2021 Assessment & Plan (1) Osteomyelitis: Plan: POD#1 status post debridement and sacral biopsy The operative findings were discussed with the patient At this time I did not change the dressing will have the wound nurse see the patient and can reestablish the VAC system All question answered Pt here with sacral wound, +osteo seen on CT scan ID requesting bone biopsy to help guide abx management We will perform this tomorrow in OR, made NPO at midnight Admission and Anticipated Discharge Date Admission Date: October 31, 2021 Subjective Alert coherent voicing no concerns at this time Results & Data ([facility]) Vital Signs (Past 12 Hours) Vital Signs Temp Pulse Pulse Resp BP Pulse Ox 11/08/21 07:51 36.5 C 49 L 20 145/70 H 97 11/08/21 06:17 52 L 11/08/21 05:00 50 L 11/08/21 03:35 36.3 C L 47 L 20 118/66 95 11/07/21 22:36 36.5 C 48 L 18 128/65 98 PG Care Time/CCT Total # of Minutes Spent Total Time Spent with Patient: Total time spent is greater than 50% in coordination of care (as documented) at patient's floor/unit and/or counseling patient: Coding Level of Care Code None Diagnoses Osteomyelitis M86.9 Osteomyelitis location: other site Osteomyelitis type: unspecified type (1) Osteomyelitis Osteomyelitis location: other site Osteomyelitis type: unspecified type Qualified Code(s): M86.9 - Osteomyelitis, unspecified
[2021-11-08] MEDS: INSULIN ASPART PER UNIT SC SCH ×4 (08:59→21:59)
--- NOTE | 2021-11-08 18:10 | Hospitalist Progress Note ---
Date of Service November 08, 2021 Assessment & Plan (1) Sacral osteomyelitis: Plan: 56 y/o male with a complicated PMH including DM2, anaplasmosis w/ severe septic shock, endocarditis with subsequent septic emboli and right MCA CVA, status post aortic valve replacement, tracheostomy tube [removed few months ago w/ persistent small tracheocutaneous fistula], Alyse esophagitis, PAF, HTN, and GJ tube placement. He presents from [facility] 10/31 to our ED with complaint of worsening sacral pain related to known sacral ulcer. He is being managed for the following: #. Sacral osteomyelitis #. Sacral ulcer, stage IV Known history of sacral ulcer after protracted events leading up to MCA CVA [see above] Admitting CT pelvis: Large sacral decubitus ulcer with osteomyelitis involving the sacrum, sacrococcygeal junction and coccyx. Cellulitis with myositis of the soft tissue surrounding the sacral ulcer. On exam reveals no necrosis, stage IV for ulcer present POA. Wound care on board, discussed with wound care, wound VAC with irrigation to help clean the wound. Follow-up with admitting blood culture -NG 5 days Admitting wound culture: MRSA and group B beta strep 11/04 sacral culture: Gram-negative bacilli 11/07 sacral biopsy for culture: await results. Daptomycin 10/31 and Zosyn 10/31 --> 11/02 vanco, cefepime and metron ----> 11/04 vancomycin based on C/S --> 11/05 will add cefepime again to cover GNB on 11/04 sacral culture. ID evaluated 11/01: recommends bone culture/deep tissue culture, plastic surgery evaluation. Reached out to plastic surgery 11/04, wound debrided 11/04, patient will likely need wound VAC upon discharge. NOt a flap candidate, conservative measures. Patient will need to follow-up with [facility] upon discharge Patient will likely need PICC line at the time of discharge. #. Acute anemia Baseline Hb around 13 Admitting Hb 9.1 11/02 FOBT positive, Vit B12 and Folate wnl c/w iron supplement Discussed with GI 11/03, resume diet, no plan for scope, PPI twice daily Monitor Hb daily and as needed, transfuse for Hb <7 Hemoglobin stable around 8-9. #. Bradycardia HR went to high 30s to low 40s on 11/01 and 3/12 H/o anaplasmosis (see above). 11/01 TSH WNL lyme screen negative Pt doesn't have any chest symptoms Cardiology evaluated, on telemetry. Await further cardiology recommendations. #. Severe protein calorie malnutrition: Significant weight loss since the last 8 months on the background of disabling medical conditions [see above] including chronic inflammation secondary to decubitus ulcer/osteomyelitis, and left-sided paralysis. Nutrition consult, appreciate recommendation. #. Other chronic medical conditions: HTN, DM type II, tracheocutaneous fistula following tracheostomy, GJ tube in place, peripheral vascular disease, BPH Continue with/resume home medication as and when appropriate. MOnitor and replete electrolytes. DVT Px: Hep SC Full code Disposition: Med/surg, when sacral cultures out and w/ plastic/id/cardio recs, PT/OT, CM to assist with DC planning. PICC line prior to DC after Antibiotics finalized. Admission and Anticipated Discharge Date Admission Date: October 31, 2021 Subjective Patient seen and examined at bedside as a follow-up of sacral ulcer, stage IV present on admission and sacral osteomyelitis. Left side of the body is paralyzed. Patient lying in bed, on room air, NAD, no new acute events overnight. Pt is s/p sacral biopsy 11/07 for Culture. Patient reports eating okay. Pt had an episode of vomiting yesterday night, but reports no nausea preceding it, continue to watch. Pt tolerating diet otherwise. Patient denies any fever/headache/chills/chest pain/palpitations/belly pain/any pain anywhere in the body/other review of symptoms. Physical Exam Physical Exam: GENERAL: Alert and oriented x3. NAD, on RA. HEENT: No pallor, no icterus. Pupils equal, round and reactive to light. Oral mucosa moist. NECK: No JVD, no neck masses. HEART: S1 and S2 heard. Regular rate and rhythm. No murmur, no gallop. RESPIRATORY SYSTEM: Normal AP diameter. No accessory muscle use. No wheezing, no crackles. ABDOMEN: Soft, bowel sounds present, nontender, no distention. CENTRAL NERVOUS SYSTEM: No facial droop. Speech is clear. Obeys simple commands. Left-sided paralysis. EXTREMITIES: No edema, no erythema seen. Left-sided extremity paralysis noted. Lower back: Left buttock with approx 5 x 5 cm stage IV decubitus ulcer. UC w/ light yellow urine collection noted. Results & Data Results & Data ([facility]) Vital Signs (Past 12 Hours) Vital Signs Temp Pulse Pulse Resp BP Pulse Ox 11/08/21 14:14 62 11/08/21 11:06 36.7 C 61 21 128/67 97 11/08/21 07:51 36.5 C 49 L 20 145/70 H 97 11/08/21 06:17 52 L
[2021-11-09] MEDS: CEFEPIME 2,000 MG in SYRINGE 0 ML IV SCH ×3 (06:07→23:27)
[2021-11-09] MEDS: BACLOFEN 10 MG TAB PO SCH ×2 (06:08→18:22)
[2021-11-09 06:36] LABS: Hemoglobin 8.8 g/dL (14.0-18.0)
[2021-11-09 06:56] LABS: Creatinine Clr Calc Pharmacy 131.2 ml/min; Est GFR (African American) 130.3 ml/min; Est GFR (Non-African American) 112.5 ml/min; Magnesium 1.9 mg/dl (1.7-2.4); Potassium 3.4 mmol/L (3.5-5.1)
[2021-11-09] MEDS: VANCOMYCIN HCL 1,000 MG in SODIUM CHLORIDE 0.9% 250 ML IV SCH ×2 (07:40→20:12)
[2021-11-09] MEDS: MAGNESIUM OXIDE 400 MG TAB PO SCH ×2 (08:44→20:13)
[2021-11-09] MEDS: CHOLECALCIFEROL 5,000 UNITS 125 MCG TAB PO SCH (08:44)
[2021-11-09] MEDS: INSULIN ASPART PER UNIT SC SCH ×4 (08:44→21:38)
[2021-11-09] MEDS: SACCHAROMYCES BOULARDII 250 MG CAP PO SCH ×2 (08:44→20:13)
[2021-11-09] MEDS: ASPIRIN 81 MG ECTAB PO SCH (08:44)
[2021-11-09] MEDS: ADVANCED PROBIOTIC 1250 MG CAPSULE PO SCH (08:44)
[2021-11-09] MEDS: DOXAZOSIN MESYLATE 1 MG TAB PO SCH (08:44)
[2021-11-09] MEDS: GLYCOPYRROLATE 1 MG TAB PO SCH ×2 (08:44→20:12)
[2021-11-09] MEDS: PANTOprazole 40 MG TAB PO SCH ×2 (08:44→20:13)
[2021-11-09] MEDS: ATORVASTATIN 40 MG TAB PO SCH (08:44)
[2021-11-09] MEDS: ASCORBIC ACID 500 MG TAB PO SCH (08:44)
[2021-11-09] MEDS: FERROUS SULFATE 325 MG TAB PO SCH (08:45)
[2021-11-09] MEDS: HEPARIN SOD 5,000 UNIT/0.5 ML VIAL SQ SCH ×2 (08:45→20:13)
[2021-11-09] MEDS ORDERED: POTASSIUM CHLORIDE CRTAB 20 MEQ TABCR PO STA (16:08)
--- NOTE | 2021-11-09 16:08 | Hospitalist Progress Note ---
Date of Service November 09, 2021 Assessment & Plan (1) Sacral osteomyelitis: Plan: 56 y/o male with a complicated PMH including DM2, anaplasmosis w/ severe septic shock, endocarditis with subsequent septic emboli and right MCA CVA, status post aortic valve replacement, tracheostomy tube [removed few months ago w/ persistent small tracheocutaneous fistula], Alyse esophagitis, PAF, HTN, and GJ tube placement. He presents from [facility] [place] 10/31 to our ED with complaint of worsening sacral pain related to known sacral ulcer. He is being managed for the following: Sacral osteomyelitis Sacral ulcer, stage IV Known history of sacral ulcer after protracted events leading up to MCA CVA [see above] Admitting CT pelvis: Large sacral decubitus ulcer with osteomyelitis involving the sacrum, sacrococcygeal junction and coccyx. Cellulitis with myositis of the soft tissue surrounding the sacral ulcer. On exam reveals no necrosis, stage IV for ulcer present POA. Wound care on board, discussed with wound care, wound VAC with irrigation to help clean the wound. Follow-up with admitting blood culture - 5 days Admitting wound culture: MRSA and group B beta strep 11/04 sacral culture: E. coli, staph aureus MRSA and Enterococcus for CM VRE-11/04 vancomycin based on C/S --> 11/05 will add cefepime again to cover GNB on 11/04 sacral culture 11/07 sacral biopsy for culture: await results. Daptomycin 10/31 and Zosyn 10/31 --> 11/02 vanco, cefepime and metron ----> 11/04 vancomycin based on C/S --> 11/05 will add cefepime again to cover GNB on 11/04 s acral culture. ID evaluated 11/01: recommends bone culture/deep tissue culture, plastic surgery evaluation. Reached out to plastic surgery 11/04, wound debrided 11/04, patient will likely need wound VAC upon discharge. NOt a flap candidate, conservative measures. Patient will need to follow-up with [facility] upon discharge Patient will likely need PICC line at the time of discharge. Acute anemia Baseline Hb around 13 Admitting Hb 9.1 11/02 FOBT positive, Vit B12 and Folate wnl c/w iron supplement Discussed with GI 11/03, resume diet, no plan for scope, PPI twice daily Monitor Hb daily and as needed, transfuse for Hb <7 Hemoglobin stable around 8-9. Bradycardia HR went to high 30s to low 40s on 11/01 and 11/02 H/o anaplasmosis (see above). 11/01 TSH WNL lyme screen negative Pt doesn't have any chest symptoms Cardiology evaluated, on telemetry. Await further cardiology recommendations. Severe protein calorie malnutrition: Significant weight loss since the last 8 months on the background of disabling medical conditions [see above] including chronic inflammation secondary to decubitus ulcer/osteomyelitis, and left-sided paralysis. Nutrition consult, appreciate recommendation. Other chronic medical conditions: HTN, DM type II, tracheocutaneous fistula following tracheostomy, GJ tube in place, peripheral vascular disease, BPH Continue with/resume home medication as and when appropriate. MOnitor and replete electrolytes. DVT Px: Hep SC Full code Disposition: Med/surg, when sacral cultures out and w/ plastic/id/cardio recs, PT/OT, CM to assist with DC planning. PICC line prior to DC after Antibiotics finalized. Admission and Anticipated Discharge Date Admission Date: October 31, 2021 Subjective 11/10/2011 The patient was seen and examined in medical telemetry unit He remains stable and denies any significant symptoms Remains bedbound Review of Systems Review of Systems: All systems reviewed and are unremarkable except as noted below Physical Exam Physical Exam: Lying in bed comfortably Constitutional: + ill appearing and average body habitus Eyes: PERRL, conjunctivae normal, anicteric sclerae ENMT: external ear and nose normal, oropharynx normal Neck: trachea midline, no thyromegaly Respiratory: no respiratory distress Auscultation: + diminished lung sounds; no crackles Cardiovascular: Rate/Rhythm: regular rate and regular rhythm; not tachycardic Heart Sounds: normal S1 and normal S2; no murmur Extremities: + edema (Trace edema bilaterally) Gastrointestinal (Abdomen): Inspection/Auscultation: normal bowel sounds; abdomen not distended Percussion/Palpation: abdomen soft; abdomen nontender Musculoskeletal: No acute arthritis in any joint Neurologic: Alert, awake. Has left-sided hemiparesis Results & Data Results & Data ([facility]) Vital Signs (Past 12 Hours) Vital Signs Temp Pulse Pulse Resp BP Pulse Ox 11/09/21 15:05 37 C 65 19 133/76 98 11/09/21 11:38 36.7 C 55 L 20 135/70 97 11/09/21 07:45 36.6 C 51 L 20 164/73 H 97 11/09/21 06:15 55 L Laboratory Results Short CBC 11/09/21 Range/Units 05:46 Hgb 8.8 L (14.0-18.0) g/dL Hct 29.0 L (42-52) % BMP 11/09/21 05:46 Potassium 3.4 L Creatinine 0.62 Medications Administered Current Inpatient Medications Acetaminophen (Acetaminophen 325 Mg Tab) 650 mg PO Q4H PRN PRN Reason: pain/fever Stop: 11/30/21 18:33 Last Admin: 11/07/21 20:57 Dose: 650 mg Documented by: Ascorbic Acid (Ascorbic Acid 500 Mg Tab) 500 mg PO Q2D@0900 [facility] Stop: 12/01/21 08:59 Last Admin: 11/09/21 08:44 Dose: 500 mg Documented by: Aspirin (Aspirin 81 Mg Ectab) 81 mg PO DAILY [facility]GET Stop: 12/01/21 08:59 Last Admin: 11/09/21 08:44 Dose: 81 mg Documented by: Atorvastatin Calcium (Atorvastatin 40 Mg Tab) 40 mg PO DAILY [facility]GET Stop: 12/01/21 08:59 Last Admin: 11/09/21 08:44 Dose: 40 mg Documented by: Baclofen (Baclofen 10 Mg Tab) 5 mg PO Q12H [facility] Stop: 11/30/21 18:59 Last Admin: 11/09/21 06:08 Dose: 5 mg Documented by: Dextrose (Dextrose 50% 50 Ml Syringe) 25 - 50 ml IV UD PRN; Protocol PRN Reason: Hypoglycemia Protocol Stop: 11/30/21 18:33 Doxazosin Mesylate (Doxazosin Mesylate 1 Mg Tab) 1 mg PO DAILY [facility]GET Stop: 12/01/21 08:59 Last Admin: 11/09/21 08:44 Dose: 1 mg Documented by: Ferrous Sulfate (Ferrous Sulfate 325 Mg Tab) 325 mg PO DAILY [facility]GET Stop: 12/01/21 08:59 Last Admin: 11/09/21 08:45 Dose: 325 mg Documented by: Glucagon (Glucagon For Inj 1 Mg Vial) 1 mg SQ UD PRN; Protocol PRN Reason: Hypoglycemia Protocol Stop: 11/30/21 18:33 Glucose (Glucose 10 Tabs/Tube) 4 - 8 tabs PO UD PRN; Protocol PRN Reason: Hypoglycemia Protocol Stop: 11/30/21 18:33 Glucose (Glucose 40% Gel 15 Gm Tube) 15 - 30 gm PO UD PRN; Protocol PRN Reason: Hypoglycemia Protocol Stop: 11/30/21 18:33 Glycopyrrolate (Glycopyrrolate 1 Mg Tab) 1 mg PO BID [facility]GET Stop: 11/30/21 20:59 Last Admin: 11/09/21 08:44 Dose: 1 mg Documented by: Heparin Sodium (Porcine) (Heparin Sod 5,000 Unit/0.5 Ml Vial) 5,000 units SQ Q12 [facility] Stop: 12/04/21 20:59 Last Admin: 11/09/21 08:45 Dose: 5,000 units Documented by: Promethazine HCl 6.25 mg/ (Sodium Chloride) 50.25 mls @ 201 mls/hr IV Q6H PRN PRN Reason: Nausea And Vomiting Stop: 12/04/21 08:50 Last Infusion: 11/04/21 10:55 Dose: Infused Documented by: Cefepime HCl 2,000 mg/ Syringe 20 mls @ 5 mls/min IV Q8H [facility]; Protocol Stop: 12/17/21 14:59 Last Admin: 11/09/21 14:58 Dose: 5 mls/min Documented by: Vancomycin HCl 1,000 mg/ (Sodium Chloride) 270 mls @ 200 mls/hr IV Q12H [facility] Stop: 12/17/21 19:59 Last Infusion: 11/09/21 09:07 Dose: Infused Documented by: Insulin Aspart (Insulin Aspart Per Unit) 0 units SC ACHS [facility] Stop: 11/30/21 18:59 Last Admin: 11/09/21 12:19 Dose: 6 units Documented by: Lactobacillus Acidophilus (Advanced Probiotic 1250 Mg Capsule) 2 cap PO DAILY [facility]GET Stop: 12/04/21 09:29 Last Admin: 11/09/21 08:44 Dose: 2 cap Documented by: Magnesium Oxide (Magnesium Oxide 400 Mg Tab) 400 mg PO BID [facility] Stop: 12/03/21 16:29 Last Admin: 11/09/21 08:44 Dose: 400 mg Documented by: Melatonin (Melatonin 3 Mg Tab) 6 mg PO HS PRN PRN Reason: Insomnia Stop: 11/30/21 18:33 Last Admin: 11/01/21 19:30 Dose: 6 mg Documented by: Miscellaneous (Carbohydrates For Hypoglycemia ) 15 - 30 gm PO UD PRN PRN Reason: Hypoglycemia Protocol Stop: 11/30/21 18:33 Miscellaneous Information (Vancomycin Consult Active) 1 ea N/A UD PRN PRN Reason: Consult Stop: 12/02/21 17:55 Morphine Sulfate (Morphine Sulfate 2 Mg/Ml Carp) 2 mg IV Q1H PRN PRN Reason: Pain Stop: 11/21/21 10:58 Ondansetron HCl (Ondansetron 4 Mg Od Tab) 4 mg PO Q6H PRN PRN Reason: Nausea Stop: 11/30/21 18:33 Last Admin: 11/04/21 08:04 Dose: 4 mg Documented by: Oxycodone HCl (Oxycodone Hcl Ir 5 Mg Tab (Immediate Release)) 5 mg PO Q4H PRN PRN Reason: Pain Stop: 11/21/21 10:58 Pantoprazole Sodium (Pantoprazole 40 Mg Tab) 40 mg PO BID [facility]GET Stop: 11/30/21 20:59 Last Admin: 11/09/21 08:44 Dose: 40 mg Documented by: Polyethylene Glycol (Polyethylene (Miralax) 17 Gm Pack) 17 gm PO DAILY PRN PRN Reason: Constipation Stop: 11/30/21 18:33 Last Admin: 11/07/21 20:57 Dose: 17 gm Documented by: Saccharomyces Boulardii (Saccharomyces Boulardii 250 Mg Cap) 250 mg PO BID [facility]GET Stop: 11/30/21 20:59 Last Admin: 11/09/21 08:44 Dose: 250 mg Documented by: Sennosides (Senna 8.6 Mg Tab) 8.6 mg PO DAILY PRN PRN Reason: Constipation Stop: 11/30/21 18:33 Last Admin: 11/08/21 08:04 Dose: 8.6 mg Documented by: Vitamin D (Cholecalciferol 5,000 Units 125 Mcg Tab) 5,000 units PO DAILY [facility]GET Stop: 12/01/21 08:59 Last Admin: 11/09/21 08:44 Dose: 5,000 units Documented by:
[2021-11-10] MEDS: CEFEPIME 2,000 MG in SYRINGE 0 ML IV SCH ×3 (06:14→22:08)
[2021-11-10] MEDS: BACLOFEN 10 MG TAB PO SCH ×2 (06:14→22:10)
[2021-11-10] MEDS ORDERED: VANCOMYCIN TROUGH ONE ×2 (07:30→19:30)
[2021-11-10] MEDS: ASPIRIN 81 MG ECTAB PO SCH (08:33)
[2021-11-10] MEDS: ATORVASTATIN 40 MG TAB PO SCH (08:33)
[2021-11-10] MEDS: FERROUS SULFATE 325 MG TAB PO SCH (08:33)
[2021-11-10] MEDS: GLYCOPYRROLATE 1 MG TAB PO SCH ×2 (08:33→22:10)
[2021-11-10] MEDS: CHOLECALCIFEROL 5,000 UNITS 125 MCG TAB PO SCH (08:33)
[2021-11-10] MEDS: DOXAZOSIN MESYLATE 1 MG TAB PO SCH (08:33)
[2021-11-10] MEDS: MAGNESIUM OXIDE 400 MG TAB PO SCH ×2 (08:34→22:10)
[2021-11-10] MEDS: PANTOprazole 40 MG TAB PO SCH ×2 (08:34→22:09)
[2021-11-10] MEDS: SACCHAROMYCES BOULARDII 250 MG CAP PO SCH ×2 (08:34→22:09)
[2021-11-10] MEDS: HEPARIN SOD 5,000 UNIT/0.5 ML VIAL SQ SCH ×2 (08:34→22:09)
[2021-11-10] MEDS: ADVANCED PROBIOTIC 1250 MG CAPSULE PO SCH (08:34)
[2021-11-10] MEDS: INSULIN ASPART PER UNIT SC SCH ×4 (08:36→22:11)
[2021-11-10] MEDS: VANCOMYCIN HCL 1,000 MG in SODIUM CHLORIDE 0.9% 250 ML IV SCH ×2 (08:46→22:09)
--- NOTE | 2021-11-10 14:40 | Pharmacy Report ---
Pharmacy Vanc AUC Short Note - Date of Service November 10, 2021 - Assessment & Plan Assessment 56 year old M receiving vancomycin/cefepime for treatment of sacral osteomyelitis. Pertinent microbiologic data includes: sacrum culture growing MRSA. Day # 11 of antimicrobial therapy. Plan Laboratory Tests 11/10/21 07:33 Vancomycin Trough 18.2 Vancomycin * AUC/LY is the preferred PK/PD target for vancomycin * AUC guided dosing is effective and associated with decreased risk of nephrotoxicity compared to traditional trough targets * Trough level of 18.2 mcg/mL is predicted to achieve target AUC/LY of 400-600 mg/L.hr and may be associated with a 14 % risk of nephrotoxicity * Continue dose of 1000 mg IV every 12 hours * Trough to be ordered based upon clinical picture Pharmacy will continue to follow and will adjust dose/frequency as necessary. Thank you.
[2021-11-11] MEDS: CEFEPIME 2,000 MG in SYRINGE 0 ML IV SCH ×3 (06:43→22:08)
[2021-11-11] MEDS: BACLOFEN 10 MG TAB PO SCH ×2 (06:44→18:36)
[2021-11-11] MEDS: CHOLECALCIFEROL 5,000 UNITS 125 MCG TAB PO SCH (08:14)
[2021-11-11] MEDS: ASCORBIC ACID 500 MG TAB PO SCH (08:14)
[2021-11-11] MEDS: VANCOMYCIN HCL 1,000 MG in SODIUM CHLORIDE 0.9% 250 ML IV SCH ×2 (08:14→22:08)
[2021-11-11] MEDS: ASPIRIN 81 MG ECTAB PO SCH (08:14)
[2021-11-11] MEDS: ATORVASTATIN 40 MG TAB PO SCH (08:14)
[2021-11-11] MEDS: MAGNESIUM OXIDE 400 MG TAB PO SCH ×2 (08:15→22:09)
[2021-11-11] MEDS: HEPARIN SOD 5,000 UNIT/0.5 ML VIAL SQ SCH ×2 (08:15→22:09)
[2021-11-11] MEDS: PANTOprazole 40 MG TAB PO SCH ×2 (08:15→22:10)
[2021-11-11] MEDS: SACCHAROMYCES BOULARDII 250 MG CAP PO SCH ×2 (08:15→22:11)
[2021-11-11] MEDS: GLYCOPYRROLATE 1 MG TAB PO SCH ×2 (08:15→22:09)
[2021-11-11] MEDS: FERROUS SULFATE 325 MG TAB PO SCH (08:15)
[2021-11-11] MEDS: DOXAZOSIN MESYLATE 1 MG TAB PO SCH (08:15)
[2021-11-11] MEDS: ADVANCED PROBIOTIC 1250 MG CAPSULE PO SCH (08:16)
[2021-11-11] MEDS: INSULIN ASPART PER UNIT SC SCH ×4 (08:37→22:08)
--- NOTE | 2021-11-11 14:19 | Hospitalist Progress Note ---
Date of Service November 10, 2021 DC antibiotic for pain transiently Assessment & Plan (1) Sacral osteomyelitis: Plan: 56 y/o male with a complicated PMH including DM2, anaplasmosis w/ severe septic shock, endocarditis with subsequent septic emboli and right MCA CVA, status post aortic valve replacement, tracheostomy tube [removed few months ago w/ persistent small tracheocutaneous fistula], Alyse esophagitis, PAF, HTN, and GJ tube placement. He presents from [facility] 10/31 to our ED with complaint of worsening sacral pain related to known sacral ulcer. He is being managed for the following: Sacral osteomyelitis Sacral ulcer, stage IV Known history of sacral ulcer after protracted events leading up to MCA CVA [see above] Admitting CT pelvis: Large sacral decubitus ulcer with osteomyelitis involving the sacrum, sacrococcygeal junction and coccyx. Cellulitis with myositis of the soft tissue surrounding the sacral ulcer. On exam reveals no necrosis, stage IV for ulcer present POA. Wound care on board, discussed with wound care, wound VAC with irrigation to help clean the wound. Follow-up with admitting blood culture -NG 5 days Admitting wound culture: MRSA and group B beta strep 11/04 sacral culture: E. coli, staph aureus MRSA and Enterococcus for CM VRE-11/04 vancomycin based on C/S --> 11/05 will add cefepime again to cover GNB on 11/04 sacral culture 11/07 sacral biopsy for culture: await results. Daptomycin 10/31 and Zosyn 10/31 --> 11/02 vanco, cefepime and metron ----> 11/04 vancomycin based on C/S --> 11/05 will add cefepime again to cover GNB on 11/04 sacral culture. ID evaluated 11/01: recommends bone culture/deep tissue culture, plastic surgery evaluation. Reached out to plastic surgery 11/04, wound debrided 11/04, patient will likely need wound VAC upon discharge. NOt a flap candidate, conservative measures. Patient will need to follow-up with [facility] upon discharge Patient will likely need PICC line at the time of discharge. Awaiting pathology report Acute anemia Baseline Hb around 13 Admitting Hb 9.1 11/02 FOBT positive, Vit B12 and Folate wnl c/w iron supplement Discussed with GI 11/03, resume diet, no plan for scope, PPI twice daily Monitor Hb daily and as needed, transfuse for Hb <7 Hemoglobin stable around 8-9. Bradycardia HR went to high 30s to low 40s on 11/01 and 11/02 H/o anaplasmosis (see above). 11/01 TSH WNL lyme screen negative Pt doesn't have any chest symptoms Cardiology evaluated, on telemetry. Await further cardiology recommendations No more bradycardia noted. Severe protein calorie malnutrition: Significant weight loss since the last 8 months on the background of disabling medical conditions [see above] including chronic inflammation secondary to decubitus ulcer/osteomyelitis, and left-sided paralysis. Nutrition consult, appreciate recommendation. Other chronic medical conditions: HTN, DM type II, tracheocutaneous fistula following tracheostomy, GJ tube in place, peripheral vascular disease, BPH Continue with/resume home medication as and when appropriate. MOnitor and replete electrolytes. DVT Px: Hep SC Full code Disposition: Med/surg, when sacral cultures out and w/ plastic/id/cardio recs, PT/OT, CM to assist with DC planning. PICC line prior to DC after Antibiotics finalized. Admission and Anticipated Discharge Date Admission Date: October 31, 2021 Subjective 11/09/2021 The patient was seen and examined in medical telemetry unit He remains stable and denies any significant symptoms Remains bedbound 11/10/2021 Patient was seen and examined Medically stable and denies any symptoms Review of Systems Review of Systems: All systems reviewed and are unremarkable except as noted below Physical Exam Physical Exam: Lying in bed comfortably Constitutional: + ill appearing and average body habitus Eyes: PERRL, conjunctivae normal, anicteric sclerae ENMT: external ear and nose normal, oropharynx normal Neck: trachea midline, no thyromegaly Respiratory: no respiratory distress Auscultation: + diminished lung sounds; no crackles Cardiovascular: Rate/Rhythm: regular rate and regular rhythm; not tachycardic Heart Sounds: normal S1 and normal S2; no murmur Extremities: + edema (Trace edema bilaterally) Gastrointestinal (Abdomen): Inspection/Auscultation: normal bowel sounds; abdomen not distended Percussion/Palpation: abdomen soft; abdomen nontender Results & Data Results & Data ([facility]) Vital Signs (Past 12 Hours) Vital Signs Temp Pulse Pulse Pulse Resp BP Pulse Ox 11/11/21 10:58 36.8 C 66 14 136/74 97 11/11/21 07:59 36.4 C L 54 L 14 151/78 H 97 11/11/21 06:16 53 L 11/11/21 04:00 36.4 C L 51 L 18 154/51 H 98
--- NOTE | 2021-11-11 14:22 | Hospitalist Progress Note ---
Date of Service November 11, 2021 Assessment & Plan (1) Sacral osteomyelitis: Plan: Awaiting pathology report Plan: 56 y/o male with a complicated PMH including DM2, anaplasmosis w/ severe septic shock, endocarditis with subsequent septic emboli and right MCA CVA, status post aortic valve replacement, tracheostomy tube [removed few months ago w/ persistent small tracheocutaneous fistula], Alyse esophagitis, PAF, HTN, and GJ tube placement. He presents from [facility] 10/31 to our ED with complaint of worsening sacral pain related to known sacral ulcer. He is being managed for the following: Sacral osteomyelitis Sacral ulcer, stage IV Known history of sacral ulcer after protracted events leading up to MCA CVA [see above] Admitting CT pelvis: Large sacral decubitus ulcer with osteomyelitis involving the sacrum, sacrococcygeal junction and coccyx. Cellulitis with myositis of the soft tissue surrounding the sacral ulcer. On exam reveals no necrosis, stage IV for ulcer present POA. Wound care on board, discussed with wound care, wound VAC with irrigation to help clean the wound. Follow-up with admitting blood culture -NG 5 days Admitting wound culture: MRSA and group B beta strep 11/04 sacral culture: E. coli, staph aureus MRSA and Enterococcus for CM VRE-11/04 vancomycin based on C/S --> 11/05 will add cefepime again to cover GNB on 11/04 sacral culture 11/07 sacral biopsy for culture: await results. Daptomycin 10/31 and Zosyn 10/31 --> 11/02 vanco, cefepime and metron ----> 11/04 vancomycin based on C/S --> 11/05 will add cefepime again to cover GNB on 11/04 sacral culture. ID evaluated 11/01: recommends bone culture/deep tissue culture, plastic surgery evaluation. Reached out to plastic surgery 11/04, wound debrided 11/04, patient will likely need wound VAC upon discharge. NOt a flap candidate, conservative measures. Patient will need to follow-up with C upon discharge Patient will likely need PICC line at the time of discharge. Awaiting pathology report Remains stable without any fever or chills Mental status He has been cognitively normal since admission He will need assistance to use a Phone and a keyboard Acute anemia Baseline Hb around 13 Admitting Hb 9.1 11/02 FOBT positive, Vit B12 and Folate wnl c/w iron supplement Discussed with GI 11/03, resume diet, no plan for scope, PPI twice daily Monitor Hb daily and as needed, transfuse for Hb <7 Hemoglobin stable around 8-9. Bradycardia HR went to high 30s to low 40s on 11/01 and 11/02 H/o anaplasmosis (see above). 11/01 TSH WNL lyme screen negative Pt doesn't have any chest symptoms Cardiology evaluated, on telemetry. Await further cardiology recommendations No more bradycardia noted. Severe protein calorie malnutrition: Significant weight loss since the last 8 months on the background of disabling medical conditions [see above] including chronic inflammation secondary to decubitus ulcer/osteomyelitis, and left-sided paralysis. Nutrition consult, appreciate recommendation. Other chronic medical conditions: HTN, DM type II, tracheocutaneous fistula following tracheostomy, GJ tube in place, peripheral vascular disease, BPH Continue with/resume home medication as and when appropriate. MOnitor and replete electrolytes. DVT Px: Hep SC Full code Disposition: Med/surg, when sacral cultures out and w/ plastic/id/cardio recs, PT/OT, CM to assist with DC planning. PICC line prior to DC after Antibiotics finalized. Admission and Anticipated Discharge Date Admission Date: October 31, 2021 Subjective 11/09/2021 The patient was seen and examined in medical telemetry unit He remains stable and denies any significant symptoms Remains bedbound 11/10/2021 Patient was seen and examined Medically stable and denies any symptoms 11/12/2011 Seen and examined in the emergency room medical telemetry unit He has been stable and denies any symptoms Remains bedbound without any fever and no chills, no nausea and or vomiting Review of Systems Review of Systems: All systems reviewed and are unremarkable except as noted below Physical Exam Physical Exam: Lying in bed comfortably Constitutional: + ill appearing and average body habitus Eyes: PERRL, conjunctivae normal, anicteric sclerae ENMT: external ear and nose normal, oropharynx normal Neck: trachea midline, no thyromegaly Respiratory: no respiratory distress Auscultation: + diminished lung sounds; no crackles Cardiovascular: Rate/Rhythm: regular rate and regular rhythm; not tachycardic Heart Sounds: normal S1 and normal S2; no murmur Extremities: + edema (Trace edema bilaterally) Gastrointestinal (Abdomen): Inspection/Auscultation: normal bowel sounds; abdomen not distended Percussion/Palpation: abdomen soft; abdomen nontender Musculoskeletal: Has left hemiplegia and without any evidence of acute arthritis involving any joint Results & Data Results & Data ([facility]) Vital Signs (Past 12 Hours) Vital Signs Temp Pulse Pulse Pulse Resp BP Pulse Ox 11/11/21 10:58 36.8 C 66 14 136/74 97 11/11/21 07:59 36.4 C L 54 L 14 151/78 H 97 11/11/21 06:16 53 L 11/11/21 04:00 36.4 C L 51 L 18 154/51 H 98 Medications Administered Current Inpatient Medications Acetaminophen (Acetaminophen 325 Mg Tab) 650 mg PO Q4H PRN PRN Reason: pain/fever Stop: 11/30/21 18:33 Last Admin: 11/07/21 20:57 Dose: 650 mg Documented by: Ascorbic Acid (Ascorbic Acid 500 Mg Tab) 500 mg PO Q2D@0900 [facility] Stop: 12/01/21 08:59 Last Admin: 11/11/21 08:14 Dose: 500 mg Documented by: Aspirin (Aspirin 81 Mg Ectab) 81 mg PO DAILY [facility] Stop: 12/01/21 08:59 Last Admin: 11/11/21 08:14 Dose: 81 mg Documented by: Atorvastatin Calcium (Atorvastatin 40 Mg Tab) 40 mg PO DAILY [facility] Stop: 12/01/21 08:59 Last Admin: 11/11/21 08:14 Dose: 40 mg Documented by: Baclofen (Baclofen 10 Mg Tab) 5 mg PO Q12H [facility] Stop: 11/30/21 18:59 Last Admin: 11/11/21 06:44 Dose: 5 mg Documented by: Dextrose (Dextrose 50% 50 Ml Syringe) 25 - 50 ml IV UD PRN; Protocol PRN Reason: Hypoglycemia Protocol Stop: 11/30/21 18:33 Doxazosin Mesylate (Doxazosin Mesylate 1 Mg Tab) 1 mg PO DAILY [facility] Stop: 12/01/21 08:59 Last Admin: 11/11/21 08:15 Dose: 1 mg Documented by: Ferrous Sulfate (Ferrous Sulfate 325 Mg Tab) 325 mg PO DAILY [facility] Stop: 12/01/21 08:59 Last Admin: 11/11/21 08:15 Dose: 325 mg Documented by: Glucagon (Glucagon For Inj 1 Mg Vial) 1 mg SQ UD PRN; Protocol PRN Reason: Hypoglycemia Protocol Stop: 11/30/21 18:33 Glucose (Glucose 10 Tabs/Tube) 4 - 8 tabs PO UD PRN; Protocol PRN Reason: Hypoglycemia Protocol Stop: 11/30/21 18:33 Glucose (Glucose 40% Gel 15 Gm Tube) 15 - 30 gm PO UD PRN; Protocol PRN Reason: Hypoglycemia Protocol Stop: 11/30/21 18:33 Glycopyrrolate (Glycopyrrolate 1 Mg Tab) 1 mg PO BID [facility] Stop: 11/30/21 20:59 Last Admin: 11/11/21 08:15 Dose: 1 mg Documented by: Heparin Sodium (Porcine) (Heparin Sod 5,000 Unit/0.5 Ml Vial) 5,000 units SQ Q12 [facility] Stop: 12/04/21 20:59 Last Admin: 11/11/21 08:15 Dose: 5,000 units Documented by: Promethazine HCl 6.25 mg/ (Sodium Chloride) 50.25 mls @ 201 mls/hr IV Q6H PRN PRN Reason: Nausea And Vomiting Stop: 12/04/21 08:50 Last Infusion: 11/04/21 10:55 Dose: Infused Documented by: Cefepime HCl 2,000 mg/ Syringe 20 mls @ 5 mls/min IV Q8H [facility]; Protocol Stop: 12/17/21 14:59 Last Admin: 11/11/21 06:43 Dose: 5 mls/min Documented by: Vancomycin HCl 1,000 mg/ (Sodium Chloride) 270 mls @ 200 mls/hr IV Q12H [facility] Stop: 12/17/21 19:59 Last Infusion: 11/11/21 09:35 Dose: Infused Documented by: Insulin Aspart (Insulin Aspart Per Unit) 0 units SC ACHS [facility] Stop: 11/30/21 18:59 Last Admin: 11/11/21 13:54 Dose: Not Given Documented by: Lactobacillus Acidophilus (Advanced Probiotic 1250 Mg Capsule) 2 cap PO DAILY [facility] Stop: 12/04/21 09:29 Last Admin: 11/11/21 08:16 Dose: 2 cap Documented by: Magnesium Oxide (Magnesium Oxide 400 Mg Tab) 400 mg PO BID [facility] Stop: 12/03/21 16:29 Last Admin: 11/11/21 08:15 Dose: 400 mg Documented by: Melatonin (Melatonin 3 Mg Tab) 6 mg PO HS PRN PRN Reason: Insomnia Stop: 11/30/21 18:33 Last Admin: 11/01/21 19:30 Dose: 6 mg Documented by: Miscellaneous (Carbohydrates For Hypoglycemia ) 15 - 30 gm PO UD PRN PRN Reason: Hypoglycemia Protocol Stop: 11/30/21 18:33 Miscellaneous Information (Vancomycin Consult Active) 1 ea N/A UD PRN PRN Reason: Consult Stop: 12/02/21 17:55 Morphine Sulfate (Morphine Sulfate 2 Mg/Ml Carp) 2 mg IV Q1H PRN PRN Reason: Pain Stop: 11/21/21 10:58 Ondansetron HCl (Ondansetron 4 Mg Od Tab) 4 mg PO Q6H PRN PRN Reason: Nausea Stop: 11/30/21 18:33 Last Admin: 11/04/21 08:04 Dose: 4 mg Documented by: Oxycodone HCl (Oxycodone Hcl Ir 5 Mg Tab (Immediate Release)) 5 mg PO Q4H PRN PRN Reason: Pain Stop: 11/21/21 10:58 Pantoprazole Sodium (Pantoprazole 40 Mg Tab) 40 mg PO BID [facility] Stop: 11/30/21 20:59 Last Admin: 11/11/21 08:15 Dose: 40 mg Documented by: Polyethylene Glycol (Polyethylene (Miralax) 17 Gm Pack) 17 gm PO DAILY PRN PRN Reason: Constipation Stop: 11/30/21 18:33 Last Admin: 11/07/21 20:57 Dose: 17 gm Documented by: Saccharomyces Boulardii (Saccharomyces Boulardii 250 Mg Cap) 250 mg PO BID [facility] Stop: 11/30/21 20:59 Last Admin: 11/11/21 08:15 Dose: 250 mg Documented by: Sennosides (Senna 8.6 Mg Tab) 8.6 mg PO DAILY PRN PRN Reason: Constipation Stop: 11/30/21 18:33 Last Admin: 11/08/21 08:04 Dose: 8.6 mg Documented by: Vitamin D (Cholecalciferol 5,000 Units 125 Mcg Tab) 5,000 units PO DAILY [facility] Stop: 12/01/21 08:59 Last Admin: 11/11/21 08:14 Dose: 5,000 units Documented by:
[2021-11-12] MEDS: CEFEPIME 2,000 MG in SYRINGE 0 ML IV SCH ×2 (06:00→14:49)
[2021-11-12] MEDS: BACLOFEN 10 MG TAB PO SCH ×2 (06:01→17:46)
[2021-11-12 07:24] LABS: Albumin Globulin Ratio 0.9 (0.9-2); Albumin Level 3.1 gm/dl (3.4-5.0); BUN Creatinine Ratio 37.7 (10-20); Bilirubin,Total 0.3 mg/dl (0.2-1.0); Calcium 8.9 mg/dl (8.5-10.1); Globulin 3.3 gm/dl (2.5-4.0); Potassium 3.3 mmol/L (3.5-5.1); Total Protein 6.4 gm/dl (6.0-8.3)
[2021-11-12 07:27] LABS: Basophils # (auto) 0.04 K/uL (0-0.2); Basophils % (auto) 0.5 %; Eosinophils # (auto) 0.36 K/uL (0-0.5); Eosinophils % (auto) 4.6 %; Hematocrit (blood only) 33.1 % (42-52); Hemoglobin 9.8 g/dL (14.0-18.0); Immature Granulocytes # (auto) 0.03 K/uL (0.00-0.02); Immature Granulocytes % (auto) 0.4 %; Lymphocytes # (auto) 0.91 K/uL (1.2-3.4); Lymphocytes % (auto) 11.7 %; Mean Corpuscular Hemoglobin 25.5 pg (25-34); Mean Corpuscular Hgb Conc 29.6 g/dL (32-36); Mean Corpuscular Volume 86.2 fL (80-100); Mean Platelet Volume 8.9 fL (7.4-10.4); Monocytes # (auto) 0.88 K/uL (0.11-0.59); Monocytes % (auto) 11.3 %; Neutrophils # (auto) 5.56 K/uL (1.4-6.5); Neutrophils % (auto) 71.5 %; Platelet Count 394 K/uL (130-400); RDW Coefficient of Variation 19.4 % (11.5-14.5); RDW Standard Deviation 60.9 fL (36.4-46.3); Red Blood Count 3.84 M/uL (4.7-6.1); White Blood Count 7.78 K/uL (4.8-10.8)
[2021-11-12] MEDS: VANCOMYCIN HCL 1,000 MG in SODIUM CHLORIDE 0.9% 250 ML IV SCH (08:05)
[2021-11-12] MEDS: DOXAZOSIN MESYLATE 1 MG TAB PO SCH (08:06)
[2021-11-12] MEDS: CHOLECALCIFEROL 5,000 UNITS 125 MCG TAB PO SCH (08:06)
[2021-11-12] MEDS: FERROUS SULFATE 325 MG TAB PO SCH (08:06)
[2021-11-12] MEDS: ATORVASTATIN 40 MG TAB PO SCH (08:06)
[2021-11-12] MEDS: GLYCOPYRROLATE 1 MG TAB PO SCH ×2 (08:06→21:35)
[2021-11-12] MEDS: ASPIRIN 81 MG ECTAB PO SCH (08:06)
[2021-11-12] MEDS: ADVANCED PROBIOTIC 1250 MG CAPSULE PO SCH (08:07)
[2021-11-12] MEDS: MAGNESIUM OXIDE 400 MG TAB PO SCH ×2 (08:07→21:34)
[2021-11-12] MEDS: SACCHAROMYCES BOULARDII 250 MG CAP PO SCH ×2 (08:07→21:35)
[2021-11-12] MEDS: PANTOprazole 40 MG TAB PO SCH ×2 (08:07→21:34)
[2021-11-12] MEDS: HEPARIN SOD 5,000 UNIT/0.5 ML VIAL SQ SCH ×2 (08:07→21:35)
[2021-11-12] MEDS: INSULIN ASPART PER UNIT SC SCH ×4 (08:25→21:00)
[2021-11-12] MEDS ORDERED: POTASSIUM CHLORIDE CRTAB 20 MEQ TABCR PO STA (08:32)
[2021-11-12] MEDS ORDERED: NSS + 20MEQ KCL 20 MEQ/1,000 ML BAG IV SCH (17:00)
[2021-11-12] MEDS: DAPTOmycin 400 MG in SYRINGE 0 ML IV SCH (17:45)
[2021-11-12] MEDS: cefTRIAXone SODIUM 2,000 MG in DEXTROSE 5% 50 ML IV SCH (17:46)
--- NOTE | 2021-11-12 18:05 | Hospitalist Progress Note ---
Date of Service November 12, 2021 Assessment & Plan (1) Sacral osteomyelitis: Plan: Awaiting pathology report Plan: 56 y/o male with a complicated PMH including DM2, anaplasmosis w/ severe septic shock, endocarditis with subsequent septic emboli and right MCA CVA, status post aortic valve replacement, tracheostomy tube [removed few months ago w/ persistent small tracheocutaneous fistula], Alyse esophagitis, PAF, HTN, and GJ tube placement. He presents from [facility] 10/31 to our ED with complaint of worsening sacral pain related to known sacral ulcer. He is being managed for the following: Sacral osteomyelitis Sacral ulcer, stage IV Known history of sacral ulcer after protracted events leading up to MCA CVA [see above] Admitting CT pelvis: Large sacral decubitus ulcer with osteomyelitis involving the sacrum, sacrococcygeal junction and coccyx. Cellulitis with myositis of the soft tissue surrounding the sacral ulcer. On exam reveals no necrosis, stage IV for ulcer present POA. Wound care on board, discussed with wound care, wound VAC with irrigation to help clean the wound. Follow-up with admitting blood culture -NG 5 days Admitting wound culture: MRSA and group B beta strep 11/04 sacral culture: E. coli, staph aureus MRSA and Enterococcus for CM VRE-11/04 vancomycin based on C/S --> 11/05 will add cefepime again to cover GNB on 11/04 sacral culture 11/07 sacral biopsy for culture: await results. Daptomycin 10/31 and Zosyn 10/31 --> 11/02 vanco, cefepime and metron ----> 11/04 vancomycin based on C/S --> 11/05 will add cefepime again to cover GNB on 11/04 sacral culture. ID evaluated 11/01: recommends bone culture/deep tissue culture, plastic surgery evaluation. Reached out to plastic surgery 11/04, wound debrided 11/04, patient will likely need wound VAC upon discharge. NOt a flap candidate, conservative measures. Patient will need to follow-up with C upon discharge PICC line placement order given-failed today but we will try again tomorrow Discussed with the ID specialist and updated antibiotics as follows: IV daptomycin and IV ceftriaxone follow-up in 6 weeks Weekly lab & CPK Continue wound VAC Can be discharged tomorrow to facility Mental status He has been cognitively normal since admission He will need assistance to use a Phone and a keyboard I received a call from Cholo Martin brother Rishabh and he is asking for documentation in the progress note that patient is cognitively normal and that he needs assistance to use a phone and keyboard. His family is trying to get him approved for handicapped equipment. Acute anemia Baseline Hb around 13 Admitting Hb 9.1 11/02 FOBT positive, Vit B12 and Folate wnl c/w iron supplement Discussed with GI 11/03, resume diet, no plan for scope, PPI twice daily Monitor Hb daily and as needed, transfuse for Hb <7 Hemoglobin stable around 8-9. Hemoglobin is 9.8 as of 11/12/2021 Bradycardia HR went to high 30s to low 40s on 11/01 and 11/02 H/o anaplasmosis (see above). 11/01 TSH WNL lyme screen negative Pt doesn't have any chest symptoms Cardiology evaluated, on telemetry. Await further cardiology recommendations No more bradycardia noted. Severe protein calorie malnutrition: Significant weight loss since the last 8 months on the background of disabling medical conditions [see above] including chronic inflammation secondary to decubitus ulcer/osteomyelitis, and left-sided paralysis. Nutrition consult, appreciate recommendation. Other chronic medical conditions: HTN, DM type II, tracheocutaneous fistula following tracheostomy, GJ tube in place, peripheral vascular disease, BPH Continue with/resume home medication as and when appropriate. MOnitor and replete electrolytes. DVT Px: Hep SC Full code Disposition: Med/surg, when sacral cultures out and w/ plastic/id/cardio recs, PT/OT, CM to assist with DC planning. Admission and Anticipated Discharge Date Admission Date: October 31, 2021 Subjective 11/09/2021 The patient was seen and examined in medical telemetry unit He remains stable and denies any significant symptoms Remains bedbound 11/10/2021 Patient was seen and examined Medically stable and denies any symptoms 11/11/2021 Seen and examined in the emergency room medical telemetry unit He has been stable and denies any symptoms Remains bedbound without any fever and no chills, no nausea and or vomiting 11/12/2021 The patient was seen and examined in medical telemetry unit in presence of the mother He has been stable denies any significant symptoms He will have PICC line placement today Review of Systems Review of Systems: All systems reviewed and are unremarkable except as noted below Physical Exam Physical Exam: Lying in bed comfortably Constitutional: + ill appearing and average body habitus Eyes: PERRL, conjunctivae normal, anicteric sclerae ENMT: external ear and nose normal, oropharynx normal Neck: trachea midline, no thyromegaly Respiratory: no respiratory distress Auscultation: + diminished lung sounds; no crackles Cardiovascular: Rate/Rhythm: regular rate and regular rhythm; not tachycardic Heart Sounds: normal S1 and normal S2; no murmur Extremities: + edema (Trace edema bilaterally) Gastrointestinal (Abdomen): Inspection/Auscultation: normal bowel sounds; abdomen not distended Percussion/Palpation: abdomen soft; abdomen nontender Musculoskeletal: No acute arthritis in any joint Neurologic: Alert, awake and oriented times x3. Left hemiplegia from prior stroke. Results & Data Results & Data ([facility]) Vital Signs (Past 12 Hours) Vital Signs Temp Pulse Pulse Resp BP Pulse Ox 11/12/21 15:06 36.8 C 68 18 151/74 H 97 11/12/21 14:20 76 11/12/21 11:53 36.6 C 62 16 145/72 H 98 11/12/21 06:42 36.6 C 65 18 132/79 97 11/12/21 06:15 65 Laboratory Results Short CBC 11/12/21 Range/Units 06:33 WBC 7.78 (4.8-10.8) K/uL Hgb 9.8 L (14.0-18.0) g/dL Hct 33.1 L (42-52) % Plt Count 394 (130-400) K/uL BMP 11/12/21 06:33 Sodium 139 Potassium 3.3 L Chloride 105 Carbon Dioxide 28 BUN 20 Creatinine 0.53 L Glucose 147 H Calcium 8.9 Liver Function 11/12/21 Range/Units 06:33 Total Bilirubin 0.3 (0.2-1.0) mg/dl AST 10 L (13-39) U/L ALT 10 (7-52) U/L Alkaline Phosphatase 80 (34-104) U/L Albumin 3.1 L (3.4-5.0) gm/dl Medications Administered Current Inpatient Medications Acetaminophen (Acetaminophen 325 Mg Tab) 650 mg PO Q4H PRN PRN Reason: pain/fever Stop: 11/30/21 18:33 Last Admin: 11/07/21 20:57 Dose: 650 mg Documented by: Ascorbic Acid (Ascorbic Acid 500 Mg Tab) 500 mg PO Q2D@0900 [facility] Stop: 12/01/21 08:59 Last Admin: 11/11/21 08:14 Dose: 500 mg Documented by: Aspirin (Aspirin 81 Mg Ectab) 81 mg PO DAILY [facility] Stop: 12/01/21 08:59 Last Admin: 11/12/21 08:06 Dose: 81 mg Documented by: Atorvastatin Calcium (Atorvastatin 40 Mg Tab) 40 mg PO DAILY [facility] Stop: 12/01/21 08:59 Last Admin: 11/12/21 08:06 Dose: 40 mg Documented by: Baclofen (Baclofen 10 Mg Tab) 5 mg PO Q12H [facility] Stop: 11/30/21 18:59 Last Admin: 11/12/21 17:46 Dose: 10 mg Documented by: Dextrose (Dextrose 50% 50 Ml Syringe) 25 - 50 ml IV UD PRN; Protocol PRN Reason: Hypoglycemia Protocol Stop: 11/30/21 18:33 Doxazosin Mesylate (Doxazosin Mesylate 1 Mg Tab) 1 mg PO DAILY [facility] Stop: 12/01/21 08:59 Last Admin: 11/12/21 08:06 Dose: 1 mg Documented by: Ferrous Sulfate (Ferrous Sulfate 325 Mg Tab) 325 mg PO DAILY [facility] Stop: 12/01/21 08:59 Last Admin: 11/12/21 08:06 Dose: 325 mg Documented by: Glucagon (Glucagon For Inj 1 Mg Vial) 1 mg SQ UD PRN; Protocol PRN Reason: Hypoglycemia Protocol Stop: 11/30/21 18:33 Glucose (Glucose 10 Tabs/Tube) 4 - 8 tabs PO UD PRN; Protocol PRN Reason: Hypoglycemia Protocol Stop: 11/30/21 18:33 Glucose (Glucose 40% Gel 15 Gm Tube) 15 - 30 gm PO UD PRN; Protocol PRN Reason: Hypoglycemia Protocol Stop: 11/30/21 18:33 Glycopyrrolate (Glycopyrrolate 1 Mg Tab) 1 mg PO BID [facility] Stop: 11/30/21 20:59 Last Admin: 11/12/21 08:06 Dose: 1 mg Documented by: Heparin Sodium (Porcine) (Heparin Sod 5,000 Unit/0.5 Ml Vial) 5,000 units SQ Q12 [facility] Stop: 12/04/21 20:59 Last Admin: 11/12/21 08:07 Dose: 5,000 units Documented by: Promethazine HCl 6.25 mg/ (Sodium Chloride) 50.25 mls @ 201 mls/hr IV Q6H PRN PRN Reason: Nausea And Vomiting Stop: 12/04/21 08:50 Last Infusion: 11/04/21 10:55 Dose: Infused Documented by: Ceftriaxone Sodium 2,000 mg/ (Dextrose) 70 mls @ 140 mls/hr IV Q24H [facility] Stop: 12/24/21 17:59 Last Admin: 11/12/21 17:46 Dose: 140 mls/hr Documented by: Daptomycin 400 mg/ Syringe 8 mls @ 4 mls/min IV Q24H [facility]; Protocol Stop: 12/24/21 16:59 Last Admin: 11/12/21 17:45 Dose: 4 mls/min Documented by: Potassium Chloride/Sodium Chloride (Normal Saline W/20 Meq Kcl) 20 meq in 1,000 mls @ 80 mls/hr IV .[id number] [facility]; Protocol Stop: 11/13/21 05:29 Last Admin: 11/12/21 17:45 Dose: 80 mls/hr Documented by: Insulin Aspart (Insulin Aspart Per Unit) 0 units SC ACHS [facility] Stop: 11/30/21 18:59 Last Admin: 11/12/21 18:03 Dose: 6 units Documented by: Lactobacillus Acidophilus (Advanced Probiotic 1250 Mg Capsule) 2 cap PO DAILY [facility] Stop: 12/04/21 09:29 Last Admin: 11/12/21 08:07 Dose: 2 cap Documented by: Magnesium Oxide (Magnesium Oxide 400 Mg Tab) 400 mg PO BID [facility] Stop: 12/03/21 16:29 Last Admin: 11/12/21 08:07 Dose: 400 mg Documented by: Melatonin (Melatonin 3 Mg Tab) 6 mg PO HS PRN PRN Reason: Insomnia Stop: 11/30/21 18:33 Last Admin: 11/01/21 19:30 Dose: 6 mg Documented by: Miscellaneous (Carbohydrates For Hypoglycemia ) 15 - 30 gm PO UD PRN PRN Reason: Hypoglycemia Protocol Stop: 11/30/21 18:33 Miscellaneous Information (Daptomycin Consult Active) 1 ea N/A UD PRN PRN Reason: Consult Stop: 12/12/21 16:49 Morphine Sulfate (Morphine Sulfate 2 Mg/Ml Carp) 2 mg IV Q1H PRN PRN Reason: Pain Stop: 11/21/21 10:58 Ondansetron HCl (Ondansetron 4 Mg Od Tab) 4 mg PO Q6H PRN PRN Reason: Nausea Stop: 11/30/21 18:33 Last Admin: 11/04/21 08:04 Dose: 4 mg Documented by: Oxycodone HCl (Oxycodone Hcl Ir 5 Mg Tab (Immediate Release)) 5 mg PO Q4H PRN PRN Reason: Pain Stop: 11/21/21 10:58 Pantoprazole Sodium (Pantoprazole 40 Mg Tab) 40 mg PO BID [facility] Stop: 11/30/21 20:59 Last Admin: 11/12/21 08:07 Dose: 40 mg Documented by: Polyethylene Glycol (Polyethylene (Miralax) 17 Gm Pack) 17 gm PO DAILY PRN PRN Reason: Constipation Stop: 11/30/21 18:33 Last Admin: 11/07/21 20:57 Dose: 17 gm Documented by: Saccharomyces Boulardii (Saccharomyces Boulardii 250 Mg Cap) 250 mg PO BID [facility] Stop: 11/30/21 20:59 Last Admin: 11/12/21 08:07 Dose: 250 mg Documented by: Sennosides (Senna 8.6 Mg Tab) 8.6 mg PO DAILY PRN PRN Reason: Constipation Stop: 11/30/21 18:33 Last Admin: 11/08/21 08:04 Dose: 8.6 mg Documented by: Vitamin D (Cholecalciferol 5,000 Units 125 Mcg Tab) 5,000 units PO DAILY [facility] Stop: 12/01/21 08:59 Last Admin: 11/12/21 08:06 Dose: 5,000 units Documented by:
[2021-11-13] MEDS: BACLOFEN 10 MG TAB PO SCH ×2 (06:32→18:39)
[2021-11-13] MEDS ORDERED: VANCOMYCIN TROUGH ONE (07:30)
[2021-11-13] MEDS: ASPIRIN 81 MG ECTAB PO SCH (08:08)
[2021-11-13] MEDS: FERROUS SULFATE 325 MG TAB PO SCH (08:08)
[2021-11-13] MEDS: ADVANCED PROBIOTIC 1250 MG CAPSULE PO SCH (08:08)
[2021-11-13] MEDS: HEPARIN SOD 5,000 UNIT/0.5 ML VIAL SQ SCH ×2 (08:08→21:04)
[2021-11-13] MEDS: CHOLECALCIFEROL 5,000 UNITS 125 MCG TAB PO SCH (08:08)
[2021-11-13] MEDS: DOXAZOSIN MESYLATE 1 MG TAB PO SCH (08:08)
[2021-11-13] MEDS: GLYCOPYRROLATE 1 MG TAB PO SCH ×2 (08:09→20:54)
[2021-11-13] MEDS: INSULIN ASPART PER UNIT SC SCH ×4 (08:22→20:36)
[2021-11-13] MEDS: SACCHAROMYCES BOULARDII 250 MG CAP PO SCH ×2 (08:23→20:36)
[2021-11-13] MEDS: PANTOprazole 40 MG TAB PO SCH ×2 (08:23→20:53)
[2021-11-13] MEDS: MAGNESIUM OXIDE 400 MG TAB PO SCH ×2 (08:23→20:54)
[2021-11-13 08:36] LABS: Albumin Globulin Ratio 0.9 (0.9-2); Albumin Level 2.9 gm/dl (3.4-5.0); Bilirubin,Total 0.3 mg/dl (0.2-1.0); Calcium 8.8 mg/dl (8.5-10.1); Creatinine Clr Calc Pharmacy 168.3 ml/min; Est GFR (African American) 147.4 ml/min; Est GFR (Non-African American) 127.1 ml/min; Globulin 3.2 gm/dl (2.5-4.0); Potassium 3.6 mmol/L (3.5-5.1); Total Protein 6.1 gm/dl (6.0-8.3)
[2021-11-13] MEDS: ASCORBIC ACID 500 MG TAB PO SCH (09:13)
--- NOTE | 2021-11-13 10:20 | Hospitalist Progress Note ---
Date of Service November 13, 2021 Assessment & Plan (1) Sacral osteomyelitis: Plan: Awaiting pathology report Plan: 56 y/o male with a complicated PMH including DM2, anaplasmosis w/ severe septic shock, endocarditis with subsequent septic emboli and right MCA CVA, status post aortic valve replacement, tracheostomy tube [removed few months ago w/ persistent small tracheocutaneous fistula], Alyse esophagitis, PAF, HTN, and GJ tube placement. He presents from [facility] [place] 10/31 to our ED with complaint of worsening sacral pain related to known sacral ulcer. He is being managed for the following: Sacral osteomyelitis Sacral ulcer, stage IV Known history of sacral ulcer after protracted events leading up to MCA CVA [see above] Admitting CT pelvis: Large sacral decubitus ulcer with osteomyelitis involving the sacrum, sacrococcygeal junction and coccyx. Cellulitis with myositis of the soft tissue surrounding the sacral ulcer. On exam reveals no necrosis, stage IV for ulcer present POA. Wound care on board, discussed with wound care, wound VAC with irrigation to help clean the wound. Follow-up with admitting blood culture -NG 5 days Admitting wound culture: MRSA and group B beta strep 11/04 sacral culture: E. coli, staph aureus MRSA and Enterococcus for CM VRE-11/04 vancomycin based on C/S --> 11/05 will add cefepime again to cover GNB on 11/04 sacral culture 11/07 sacral biopsy for culture: await results. Daptomycin 10/31 and Zosyn 10/31 --> 11/02 vanco, cefepime and metron ----> 11/04 vancomycin based on C/S --> 11/05 will add cefepime again to cover GNB on 11/04 sacral culture. ID evaluated 11/01: recommends bone culture/deep tissue culture, plastic surgery evaluation. Reached out to plastic surgery 11/04, wound debrided 11/04, patient will likely need wound VAC upon discharge. NOt a flap candidate, conservative measures. Patient will need to follow-up with C upon discharge PICC line placement order given-failed today but we will try again tomorrow Discussed with the ID specialist and updated antibiotics as follows: IV daptomycin and IV ceftriaxone follow-up in 6 weeks Weekly lab & CPK Continue wound VAC and wound care as per wound care nurse Can be discharged today to facility Mental status He has been cognitively normal since admission He will need assistance to use a Phone and a keyboard I received a call from Cholo Martin brother Rishabh and he is asking for documentation in the progress note that patient is cognitively normal and that he needs assistance to use a phone and keyboard. His family is trying to get him approved for handicapped equipment. Acute anemia Baseline Hb around 13 Admitting Hb 9.1 11/02 FOBT positive, Vit B12 and Folate wnl c/w iron supplement Discussed with GI 11/03, resume diet, no plan for scope, PPI twice daily Monitor Hb daily and as needed, transfuse for Hb <7 Hemoglobin stable around 8-9. Hemoglobin is 9.8 as of 11/12/2021 Bradycardia HR went to high 30s to low 40s on 11/01 and 11/02 H/o anaplasmosis (see above). 11/01 TSH WNL lyme screen negative Pt doesn't have any chest symptoms Cardiology evaluated, on telemetry. Await further cardiology recommendations No more bradycardia noted. No cardiac symptoms Severe protein calorie malnutrition: Significant weight loss since the last 8 months on the background of disabling medical conditions [see above] including chronic inflammation secondary to decubitus ulcer/osteomyelitis, and left-sided paralysis. Nutrition consult, appreciate recommendation. Other chronic medical conditions: HTN, DM type II, tracheocutaneous fistula following tracheostomy, GJ tube in place, peripheral vascular disease, BPH Continue with/resume home medication as and when appropriate. MOnitor and replete electrolytes. DVT Px: Hep SC Full code Disposition: Med/surg, when sacral cultures out and w/ plastic/id/cardio recs, PT/OT, CM to assist with DC planning. Will have PT and OT evaluation Likely discharge this afternoon Admission and Anticipated Discharge Date Admission Date: October 31, 2021 Subjective 11/09/2021 The patient was seen and examined in medical telemetry unit He remains stable and denies any significant symptoms Remains bedbound 11/10/2021 Patient was seen and examined Medically stable and denies any symptoms 11/11/2021 Seen and examined in the emergency room medical telemetry unit He has been stable and denies any symptoms Remains bedbound without any fever and no chills, no nausea and or vomiting 11/12/2021 The patient was seen and examined in medical telemetry unit in presence of the mother He has been stable denies any significant symptoms He will have PICC line placement today 11/13/2021 The patient was seen and examined in medical telemetry unit He has been stable and denies any symptoms No fever and or chills, no abdominal pain nausea or vomiting, no back pain and/or sacral pain Review of Systems Review of Systems: All systems reviewed and are unremarkable except as noted below Physical Exam Physical Exam: Lying in bed comfortably Constitutional: + ill appearing and average body habitus Eyes: PERRL, conjunctivae normal, anicteric sclerae ENMT: external ear and nose normal, oropharynx normal Neck: trachea midline, no thyromegaly Respiratory: no respiratory distress Auscultation: + diminished lung sounds; no crackles Cardiovascular: Rate/Rhythm: regular rate and regular rhythm; not tachycardic Heart Sounds: normal S1 and normal S2; no murmur Extremities: + edema (Trace edema bilaterally) Gastrointestinal (Abdomen): Inspection/Auscultation: normal bowel sounds; abdomen not distended Percussion/Palpation: abdomen soft; abdomen nontender Musculoskeletal: No acute arthritis in any joint Has a stage IV sacral wound with a wound VAC in place Neurologic: Alert, awake and oriented x3. Left hemiplegia secondary to prior stroke. Bedbound status with wound VAC in place Results & Data Results & Data ([facility]) Vital Signs (Past 12 Hours) Vital Signs Temp Pulse Pulse Resp BP Pulse Ox 11/13/21 06:43 36.8 C 61 17 157/83 H 98 11/13/21 03:06 36.6 C 64 18 148/71 H 98 11/12/21 23:49 36.3 C L 68 18 147/74 H 97 11/12/21 23:38 70 Laboratory Results [facility] 11/13/21 07:24 Sodium 141 Potassium 3.6 Chloride 108 H Carbon Dioxide 27 BUN 17 Creatinine 0.46 L Glucose 147 H Calcium 8.8 Cardiac Enzymes 11/13/21 Range/Units 07:24 Total Creatine Kinase 22 L (30-223) U/L Liver Function 11/13/21 Range/Units 07:24 Total Bilirubin 0.3 (0.2-1.0) mg/dl AST 11 L (13-39) U/L ALT 10 (7-52) U/L Alkaline Phosphatase 82 (34-104) U/L Albumin 2.9 L (3.4-5.0) gm/dl Medications Administered Current Inpatient Medications Acetaminophen (Acetaminophen 325 Mg Tab) 650 mg PO Q4H PRN PRN Reason: pain/fever Stop: 11/30/21 18:33 Last Admin: 11/07/21 20:57 Dose: 650 mg Documented by: Ascorbic Acid (Ascorbic Acid 500 Mg Tab) 500 mg PO Q2D@0900 [facility] Stop: 12/01/21 08:59 Last Admin: 11/13/21 09:13 Dose: 500 mg Documented by: Aspirin (Aspirin 81 Mg Ectab) 81 mg PO DAILY [facility] Stop: 12/01/21 08:59 Last Admin: 11/13/21 08:08 Dose: 81 mg Documented by: Atorvastatin Calcium (Atorvastatin 40 Mg Tab) 40 mg PO DAILY [facility] Stop: 12/01/21 08:59 Last Admin: 11/12/21 08:06 Dose: 40 mg Documented by: Baclofen (Baclofen 10 Mg Tab) 5 mg PO Q12H [facility] Stop: 11/30/21 18:59 Last Admin: 11/13/21 06:32 Dose: 5 mg Documented by: Dextrose (Dextrose 50% 50 Ml Syringe) 25 - 50 ml IV UD PRN; Protocol PRN Reason: Hypoglycemia Protocol Stop: 11/30/21 18:33 Doxazosin Mesylate (Doxazosin Mesylate 1 Mg Tab) 1 mg PO DAILY [facility] Stop: 12/01/21 08:59 Last Admin: 11/13/21 08:08 Dose: 1 mg Documented by: Ferrous Sulfate (Ferrous Sulfate 325 Mg Tab) 325 mg PO DAILY [facility] Stop: 12/01/21 08:59 Last Admin: 11/13/21 08:08 Dose: 325 mg Documented by: Glucagon (Glucagon For Inj 1 Mg Vial) 1 mg SQ UD PRN; Protocol PRN Reason: Hypoglycemia Protocol Stop: 11/30/21 18:33 Glucose (Glucose 10 Tabs/Tube) 4 - 8 tabs PO UD PRN; Protocol PRN Reason: Hypoglycemia Protocol Stop: 11/30/21 18:33 Glucose (Glucose 40% Gel 15 Gm Tube) 15 - 30 gm PO UD PRN; Protocol PRN Reason: Hypoglycemia Protocol Stop: 11/30/21 18:33 Glycopyrrolate (Glycopyrrolate 1 Mg Tab) 1 mg PO BID [facility] Stop: 11/30/21 20:59 Last Admin: 11/13/21 08:09 Dose: 1 mg Documented by: Heparin Sodium (Porcine) (Heparin Sod 5,000 Unit/0.5 Ml Vial) 5,000 units SQ Q12 [facility] Stop: 12/04/21 20:59 Last Admin: 11/13/21 08:08 Dose: 5,000 units Documented by: Promethazine HCl 6.25 mg/ (Sodium Chloride) 50.25 mls @ 201 mls/hr IV Q6H PRN PRN Reason: Nausea And Vomiting Stop: 12/04/21 08:50 Last Infusion: 11/04/21 10:55 Dose: Infused Documented by: Ceftriaxone Sodium 2,000 mg/ (Dextrose) 70 mls @ 140 mls/hr IV Q24H [facility] Stop: 12/24/21 17:59 Last Infusion: 11/12/21 18:16 Dose: Infused Documented by: Daptomycin 400 mg/ Syringe 8 mls @ 4 mls/min IV Q24H [facility]; Protocol Stop: 12/24/21 16:59 Last Admin: 11/12/21 17:45 Dose: 4 mls/min Documented by: Insulin Aspart (Insulin Aspart Per Unit) 0 units SC ACHS [facility] Stop: 11/30/21 18:59 Last Admin: 11/13/21 08:22 Dose: 7 units Documented by: Lactobacillus Acidophilus (Advanced Probiotic 1250 Mg Capsule) 2 cap PO DAILY [facility] Stop: 12/04/21 09:29 Last Admin: 11/13/21 08:08 Dose: 2 cap Documented by: Magnesium Oxide (Magnesium Oxide 400 Mg Tab) 400 mg PO BID [facility] Stop: 12/03/21 16:29 Last Admin: 11/13/21 08:23 Dose: 400 mg Documented by: Melatonin (Melatonin 3 Mg Tab) 6 mg PO HS PRN PRN Reason: Insomnia Stop: 11/30/21 18:33 Last Admin: 11/01/21 19:30 Dose: 6 mg Documented by: Miscellaneous (Carbohydrates For Hypoglycemia ) 15 - 30 gm PO UD PRN PRN Reason: Hypoglycemia Protocol Stop: 11/30/21 18:33 Miscellaneous Information (Daptomycin Consult Active) 1 ea N/A UD PRN PRN Reason: Consult Stop: 12/12/21 16:49 Morphine Sulfate (Morphine Sulfate 2 Mg/Ml Carp) 2 mg IV Q1H PRN PRN Reason: Pain Stop: 11/21/21 10:58 Ondansetron HCl (Ondansetron 4 Mg Od Tab) 4 mg PO Q6H PRN PRN Reason: Nausea Stop: 11/30/21 18:33 Last Admin: 11/04/21 08:04 Dose: 4 mg Documented by: Oxycodone HCl (Oxycodone Hcl Ir 5 Mg Tab (Immediate Release)) 5 mg PO Q4H PRN PRN Reason: Pain Stop: 11/21/21 10:58 Pantoprazole Sodium (Pantoprazole 40 Mg Tab) 40 mg PO BID [facility] Stop: 11/30/21 20:59 Last Admin: 11/13/21 08:23 Dose: 40 mg Documented by: Polyethylene Glycol (Polyethylene (Miralax) 17 Gm Pack) 17 gm PO DAILY PRN PRN Reason: Constipation Stop: 11/30/21 18:33 Last Admin: 11/07/21 20:57 Dose: 17 gm Documented by: Saccharomyces Boulardii (Saccharomyces Boulardii 250 Mg Cap) 250 mg PO BID [facility] Stop: 11/30/21 20:59 Last Admin: 11/13/21 08:23 Dose: 250 mg Documented by: Sennosides (Senna 8.6 Mg Tab) 8.6 mg PO DAILY PRN PRN Reason: Constipation Stop: 11/30/21 18:33 Last Admin: 11/08/21 08:04 Dose: 8.6 mg Documented by: Vitamin D (Cholecalciferol 5,000 Units 125 Mcg Tab) 5,000 units PO DAILY [facility] Stop: 12/01/21 08:59 Last Admin: 11/13/21 08:08 Dose: 5,000 units Documented by:
[2021-11-13] MEDS: cefTRIAXone SODIUM 2,000 MG in DEXTROSE 5% 50 ML IV SCH (17:55)
[2021-11-13] MEDS: DAPTOmycin 400 MG in SYRINGE 0 ML IV SCH (17:56)
[2021-11-14] MEDS: BACLOFEN 10 MG TAB PO SCH ×2 (06:19→18:18)
[2021-11-14 06:32] LABS: Hematocrit (blood only) 28.7 % (42-52); Hemoglobin 8.6 g/dL (14.0-18.0); Mean Corpuscular Volume 86.7 fL (80-100); Mean Platelet Volume 8.5 fL (7.4-10.4); Platelet Count 364 K/uL (130-400); RDW Standard Deviation 62.7 fL (36.4-46.3); Red Blood Count 3.31 M/uL (4.7-6.1); White Blood Count 7.72 K/uL (4.8-10.8)
[2021-11-14 07:00] LABS: BUN Creatinine Ratio 41.3 (10-20); Calcium 8.9 mg/dl (8.5-10.1); Creatinine Clr Calc Pharmacy 168.3 ml/min; Est GFR (African American) 147.4 ml/min; Est GFR (Non-African American) 127.1 ml/min; Potassium 3.3 mmol/L (3.5-5.1)
[2021-11-14] MEDS ORDERED: POTASSIUM CHLORIDE CRTAB 20 MEQ TABCR PO ONE (08:27)
[2021-11-14] MEDS: INSULIN ASPART PER UNIT SC SCH ×4 (08:47→20:23)
--- NOTE | 2021-11-14 09:24 | Hospitalist Progress Note ---
Date of Service November 14, 2021 Assessment & Plan (1) Sacral osteomyelitis: Plan: Awaiting pathology report Plan: 56 y/o male with a complicated PMH including DM2, anaplasmosis w/ severe septic shock, endocarditis with subsequent septic emboli and right MCA CVA, status post aortic valve replacement, tracheostomy tube [removed few months ago w/ persistent small tracheocutaneous fistula], Alyse esophagitis, PAF, HTN, and GJ tube placement. He presents from [facility] 10/31 to our ED with complaint of worsening sacral pain related to known sacral ulcer. He is being managed for the following: Sacral osteomyelitis Sacral ulcer, stage IV Known history of sacral ulcer after protracted events leading up to MCA CVA [see above] Admitting CT pelvis: Large sacral decubitus ulcer with osteomyelitis involving the sacrum, sacrococcygeal junction and coccyx. Cellulitis with myositis of the soft tissue surrounding the sacral ulcer. On exam reveals no necrosis, stage IV for ulcer present POA. Wound care on board, discussed with wound care, wound VAC with irrigation to help clean the wound. Follow-up with admitting blood culture -NG 5 days Admitting wound culture: MRSA and group B beta strep 11/04 sacral culture: E. coli, staph aureus MRSA and Enterococcus for CM VRE-11/04 vancomycin based on C/S --> 11/05 will add cefepime again to cover GNB on 11/04 sacral culture 11/07 sacral biopsy for culture: await results. Daptomycin 10/31 and Zosyn 10/31 --> 11/02 vanco, cefepime and metron ----> 11/04 vancomycin based on C/S --> 11/05 will add cefepime again to cover GNB on 11/04 sacral culture. ID evaluated 11/01: recommends bone culture/deep tissue culture, plastic surgery evaluation. Reached out to plastic surgery 11/04, wound debrided 11/04, patient will likely need wound VAC upon discharge. NOt a flap candidate, conservative measures. Patient will need to follow-up with C upon discharge PICC line placement order given-failed today but we will try again tomorrow Discussed with the ID specialist and updated antibiotics as follows: IV daptomycin and IV ceftriaxone follow-up in 6 weeks Weekly lab & CPK Continue wound VAC and wound care as per wound care nurse Picture of the wound noted and showing fine granulation tissue without any evidence of pus and/or infection We will need to keep it clean and dry to prevent further worsening of infection Will need regular change of posture to avoid any pressure over that area Mental status He has been cognitively normal since admission He will need assistance to use a Phone and a keyboard I received a call from Cholo Martin brothelvis [place] and he is asking for documentation in the progress note that patient is cognitively normal and that he needs assistance to use a phone and keyboard. His family is trying to get him approved for handicapped equipment. Acute anemia Baseline Hb around 13 Admitting Hb 9.1 11/02 FOBT positive, Vit B12 and Folate wnl c/w iron supplement Discussed with GI 11/03, resume diet, no plan for scope, PPI twice daily Monitor Hb daily and as needed, transfuse for Hb <7 Hemoglobin stable around 8-9. Hemoglobin is 9.8 as of 11/12/2021-8.6 as of 11/14/2021 Bradycardia HR went to high 30s to low 40s on 11/01 and 11/02 H/o anaplasmosis (see above). 11/01 TSH WNL lyme screen negative Pt doesn't have any chest symptoms Cardiology evaluated, on telemetry. Await further cardiology recommendations No more bradycardia noted. No cardiac symptoms Severe protein calorie malnutrition: Significant weight loss since the last 8 months on the background of disabling medical conditions [see above] including chronic inflammation secondary to decubitus ulcer/osteomyelitis, and left-sided paralysis. Nutrition consult, appreciate recommendation. Other chronic medical conditions: HTN, DM type II, tracheocutaneous fistula following tracheostomy, GJ tube in place, peripheral vascular disease, BPH Continue with/resume home medication as and when appropriate. MOnitor and replete electrolytes. DVT Px: Hep SC Full code Disposition: Med/surg, when sacral cultures out and w/ plastic/id/cardio recs, PT/OT, CM to assist with DC planning. Will have PT and OT evaluation Still awaiting insurance authorization Admission and Anticipated Discharge Date Admission Date: October 31, 2021 Subjective 11/09/2021 The patient was seen and examined in medical telemetry unit He remains stable and denies any significant symptoms Remains bedbound 11/10/2021 Patient was seen and examined Medically stable and denies any symptoms 11/11/2021 Seen and examined in the emergency room medical telemetry unit He has been stable and denies any symptoms Remains bedbound without any fever and no chills, no nausea and or vomiting 11/12/2021 The patient was seen and examined in medical telemetry unit in presence of the mother He has been stable denies any significant symptoms He will have PICC line placement today 11/13/2021 The patient was seen and examined in medical telemetry unit He has been stable and denies any symptoms No fever and or chills, no abdominal pain nausea or vomiting, no back pain and/or sacral pain 11/14/2021 The patient was seen and examined in medical telemetry unit He remained stable without any significant symptoms Denies any fever and or chills, no pain at the back, no nausea no vomiting Review of Systems Review of Systems: All systems reviewed and are unremarkable except as noted below Physical Exam Physical Exam: Lying in bed comfortably Constitutional: + ill appearing and average body habitus Eyes: PERRL, conjunctivae normal, anicteric sclerae ENMT: external ear and nose normal, oropharynx normal Neck: trachea midline, no thyromegaly Respiratory: no respiratory distress Auscultation: + diminished lung sounds; no crackles Cardiovascular: Rate/Rhythm: regular rate and regular rhythm; not tachycardic Heart Sounds: normal S1 and normal S2; no murmur Extremities: + edema (Trace edema bilaterally) Gastrointestinal (Abdomen): Inspection/Auscultation: normal bowel sounds; abdomen not distended Percussion/Palpation: abdomen soft; abdomen nontender Musculoskeletal: No acute arthritis in any joint Neurologic: Alert, awake and oriented x3. Left hemiplegia from prior stroke Results & Data Results & Data ([facility]) Vital Signs (Past 12 Hours) Vital Signs Temp Pulse Pulse Resp BP Pulse Ox 11/14/21 07:16 61 11/14/21 03:02 36.6 C 58 L 20 147/65 H 98 11/14/21 00:15 70 11/13/21 22:37 36.7 C 73 18 150/72 H 97 Laboratory Results Short CBC 11/14/21 Range/Units 06:17 WBC 7.72 (4.8-10.8) K/uL Hgb 8.6 L (14.0-18.0) g/dL Hct 28.7 L (42-52) % Plt Count 364 (130-400) K/uL BMP 11/14/21 06:17 Sodium 141 Potassium 3.3 L Chloride 106 Carbon Dioxide 30 BUN 19 Creatinine 0.46 L Glucose 138 H Calcium 8.9 Medications Administered Current Inpatient Medications Acetaminophen (Acetaminophen 325 Mg Tab) 650 mg PO Q4H PRN PRN Reason: pain/fever Stop: 11/30/21 18:33 Last Admin: 11/07/21 20:57 Dose: 650 mg Documented by: Ascorbic Acid (Ascorbic Acid 500 Mg Tab) 500 mg PO Q2D@0900 [facility] Stop: 12/01/21 08:59 Last Admin: 11/13/21 09:13 Dose: 500 mg Documented by: Aspirin (Aspirin 81 Mg Ectab) 81 mg PO DAILY [facility] Stop: 12/01/21 08:59 Last Admin: 11/13/21 08:08 Dose: 81 mg Documented by: Atorvastatin Calcium (Atorvastatin 40 Mg Tab) 40 mg PO DAILY [facility] Stop: 12/01/21 08:59 Last Admin: 11/12/21 08:06 Dose: 40 mg Documented by: Baclofen (Baclofen 10 Mg Tab) 5 mg PO Q12H [facility] Stop: 11/30/21 18:59 Last Admin: 11/14/21 06:19 Dose: 5 mg Documented by: Dextrose (Dextrose 50% 50 Ml Syringe) 25 - 50 ml IV UD PRN; Protocol PRN Reason: Hypoglycemia Protocol Stop: 11/30/21 18:33 Doxazosin Mesylate (Doxazosin Mesylate 1 Mg Tab) 1 mg PO DAILY [facility] Stop: 12/01/21 08:59 Last Admin: 11/13/21 08:08 Dose: 1 mg Documented by: Ferrous Sulfate (Ferrous Sulfate 325 Mg Tab) 325 mg PO DAILY [facility] Stop: 12/01/21 08:59 Last Admin: 11/13/21 08:08 Dose: 325 mg Documented by: Glucagon (Glucagon For Inj 1 Mg Vial) 1 mg SQ UD PRN; Protocol PRN Reason: Hypoglycemia Protocol Stop: 11/30/21 18:33 Glucose (Glucose 10 Tabs/Tube) 4 - 8 tabs PO UD PRN; Protocol PRN Reason: Hypoglycemia Protocol Stop: 11/30/21 18:33 Glucose (Glucose 40% Gel 15 Gm Tube) 15 - 30 gm PO UD PRN; Protocol PRN Reason: Hypoglycemia Protocol Stop: 11/30/21 18:33 Glycopyrrolate (Glycopyrrolate 1 Mg Tab) 1 mg PO BID [facility] Stop: 11/30/21 20:59 Last Admin: 11/13/21 20:54 Dose: 1 mg Documented by: Heparin Sodium (Beef Lung) (Heparin 10 Unit/Ml 5 Ml Flush) 5 ml FLUSH PRN PRN PRN Reason: Flush Stop: 12/14/21 03:21 Heparin Sodium (Porcine) (Heparin Sod 5,000 Unit/0.5 Ml Vial) 5,000 units SQ Q12 [facility] Stop: 12/04/21 20:59 Last Admin: 11/13/21 21:04 Dose: 5,000 units Documented by: Promethazine HCl 6.25 mg/ (Sodium Chloride) 50.25 mls @ 201 mls/hr IV Q6H PRN PRN Reason: Nausea And Vomiting Stop: 12/04/21 08:50 Last Infusion: 11/04/21 10:55 Dose: Infused Documented by: Ceftriaxone Sodium 2,000 mg/ (Dextrose) 70 mls @ 140 mls/hr IV Q24H [facility] Stop: 12/24/21 17:59 Last Infusion: 11/13/21 18:33 Dose: Infused Documented by: Daptomycin 400 mg/ Syringe 8 mls @ 4 mls/min IV Q24H [facility]; Protocol Stop: 12/24/21 16:59 Last Admin: 11/13/21 17:56 Dose: 4 mls/min Documented by: Insulin Aspart (Insulin Aspart Per Unit) 0 units SC ACHS [facility] Stop: 11/30/21 18:59 Last Admin: 11/14/21 08:47 Dose: 8 units Documented by: Lactobacillus Acidophilus (Advanced Probiotic 1250 Mg Capsule) 2 cap PO DAILY [facility] Stop: 12/04/21 09:29 Last Admin: 11/13/21 08:08 Dose: 2 cap Documented by: Magnesium Oxide (Magnesium Oxide 400 Mg Tab) 400 mg PO BID [facility] Stop: 12/03/21 16:29 Last Admin: 11/13/21 20:54 Dose: 400 mg Documented by: Melatonin (Melatonin 3 Mg Tab) 6 mg PO HS PRN PRN Reason: Insomnia Stop: 11/30/21 18:33 Last Admin: 11/01/21 19:30 Dose: 6 mg Documented by: Miscellaneous (Carbohydrates For Hypoglycemia ) 15 - 30 gm PO UD PRN PRN Reason: Hypoglycemia Protocol Stop: 11/30/21 18:33 Miscellaneous Information (Daptomycin Consult Active) 1 ea N/A UD PRN PRN Reason: Consult Stop: 12/12/21 16:49 Morphine Sulfate (Morphine Sulfate 2 Mg/Ml Carp) 2 mg IV Q1H PRN PRN Reason: Pain Stop: 11/21/21 10:58 Ondansetron HCl (Ondansetron 4 Mg Od Tab) 4 mg PO Q6H PRN PRN Reason: Nausea Stop: 11/30/21 18:33 Last Admin: 11/04/21 08:04 Dose: 4 mg Documented by: Oxycodone HCl (Oxycodone Hcl Ir 5 Mg Tab (Immediate Release)) 5 mg PO Q4H PRN PRN Reason: Pain Stop: 11/21/21 10:58 Pantoprazole Sodium (Pantoprazole 40 Mg Tab) 40 mg PO BID [facility] Stop: 11/30/21 20:59 Last Admin: 11/13/21 20:53 Dose: 40 mg Documented by: Polyethylene Glycol (Polyethylene (Miralax) 17 Gm Pack) 17 gm PO DAILY PRN PRN Reason: Constipation Stop: 11/30/21 18:33 Last Admin: 11/07/21 20:57 Dose: 17 gm Documented by: Saccharomyces Boulardii (Saccharomyces Boulardii 250 Mg Cap) 250 mg PO BID [facility] Stop: 11/30/21 20:59 Last Admin: 11/13/21 20:36 Dose: 250 mg Documented by: Sennosides (Senna 8.6 Mg Tab) 8.6 mg PO DAILY PRN PRN Reason: Constipation Stop: 11/30/21 18:33 Last Admin: 11/08/21 08:04 Dose: 8.6 mg Documented by: Vitamin D (Cholecalciferol 5,000 Units 125 Mcg Tab) 5,000 units PO DAILY [facility] Stop: 12/01/21 08:59 Last Admin: 11/13/21 08:08 Dose: 5,000 units Documented by:
[2021-11-14] MEDS: CHOLECALCIFEROL 5,000 UNITS 125 MCG TAB PO SCH (10:16)
[2021-11-14] MEDS: ADVANCED PROBIOTIC 1250 MG CAPSULE PO SCH (10:16)
[2021-11-14] MEDS: SACCHAROMYCES BOULARDII 250 MG CAP PO SCH ×2 (10:17→20:23)
[2021-11-14] MEDS: FERROUS SULFATE 325 MG TAB PO SCH (10:18)
[2021-11-14] MEDS: GLYCOPYRROLATE 1 MG TAB PO SCH ×2 (10:18→20:23)
[2021-11-14] MEDS: DOXAZOSIN MESYLATE 1 MG TAB PO SCH (10:18)
[2021-11-14] MEDS: PANTOprazole 40 MG TAB PO SCH ×2 (10:21→20:23)
[2021-11-14] MEDS: ASPIRIN 81 MG ECTAB PO SCH (10:21)
[2021-11-14] MEDS: MAGNESIUM OXIDE 400 MG TAB PO SCH ×2 (10:22→20:24)
[2021-11-14] MEDS: HEPARIN SOD 5,000 UNIT/0.5 ML VIAL SQ SCH ×2 (11:25→20:24)
[2021-11-14] MEDS: DAPTOmycin 400 MG in SYRINGE 0 ML IV SCH (17:33)
[2021-11-14] MEDS: cefTRIAXone SODIUM 2,000 MG in DEXTROSE 5% 50 ML IV SCH (17:33)
[2021-11-15 08:37] LABS: Anion Gap 7 (3-11); BUN Creatinine Ratio 41.5 (10-20); Blood Urea Nitrogen 17 mg/dl (6-23); Calcium 8.9 mg/dl (8.5-10.1); Carbon Dioxide 29 mmol/L (21-32); Chloride 105 mmol/L (98-107); Creatinine Clr Calc Pharmacy 189.7 ml/min; Est GFR (African American) > 150.0 ml/min; Est GFR (Non-African American) 133.3 ml/min; Glucose 143 mg/dl (70-99(Fasting)); Magnesium 1.6 mg/dl (1.7-2.4); Potassium 3.7 mmol/L (3.5-5.1); Sodium 141 mmol/L (136-145)
[2021-11-15] MEDS: BACLOFEN 10 MG TAB PO SCH (08:42)
[2021-11-15] MEDS: MAGNESIUM OXIDE 400 MG TAB PO SCH (08:44)
[2021-11-15] MEDS: GLYCOPYRROLATE 1 MG TAB PO SCH (08:44)
[2021-11-15] MEDS: CHOLECALCIFEROL 5,000 UNITS 125 MCG TAB PO SCH (08:44)
[2021-11-15] MEDS: ASPIRIN 81 MG ECTAB PO SCH (08:44)
[2021-11-15] MEDS: PANTOprazole 40 MG TAB PO SCH (08:44)
[2021-11-15] MEDS: ADVANCED PROBIOTIC 1250 MG CAPSULE PO SCH (08:44)
[2021-11-15] MEDS: ASCORBIC ACID 500 MG TAB PO SCH (08:44)
[2021-11-15] MEDS: DOXAZOSIN MESYLATE 1 MG TAB PO SCH (08:44)
[2021-11-15] MEDS: FERROUS SULFATE 325 MG TAB PO SCH (08:44)
[2021-11-15] MEDS: SACCHAROMYCES BOULARDII 250 MG CAP PO SCH (08:45)
[2021-11-15] MEDS: INSULIN ASPART PER UNIT SC SCH ×2 (08:45→12:28)
[2021-11-15] MEDS: HEPARIN SOD 5,000 UNIT/0.5 ML VIAL SQ SCH (08:45)
--- NOTE | 2021-11-15 08:57 | Hospitalist Progress Note ---
Date of Service November 15, 2021 Assessment & Plan (1) Sacral osteomyelitis: Plan: Awaiting pathology report Plan: 56 y/o male with a complicated PMH including DM2, anaplasmosis w/ severe septic shock, endocarditis with subsequent septic emboli and right MCA CVA, status post aortic valve replacement, tracheostomy tube [removed few months ago w/ persistent small tracheocutaneous fistula], Alyse esophagitis, PAF, HTN, and GJ tube placement. He presents from [facility] 10/31 to our ED with complaint of worsening sacral pain related to known sacral ulcer. He is being managed for the following: Sacral osteomyelitis Sacral ulcer, stage IV Known history of sacral ulcer after protracted events leading up to MCA CVA [see above] Admitting CT pelvis: Large sacral decubitus ulcer with osteomyelitis involving the sacrum, sacrococcygeal junction and coccyx. Cellulitis with myositis of the soft tissue surrounding the sacral ulcer. On exam reveals no necrosis, stage IV for ulcer present POA. Wound care on board, discussed with wound care, wound VAC with irrigation to help clean the wound. Follow-up with admitting blood culture -NG 5 days Admitting wound culture: MRSA and group B beta strep 11/04 sacral culture: E. coli, staph aureus MRSA and Enterococcus for CM VRE-11/04 vancomycin based on C/S --> 11/05 will add cefepime again to cover GNB on 11/04 sacral culture 11/07 sacral biopsy for culture: await results. Daptomycin 10/31 and Zosyn 10/31 --> 11/02 vanco, cefepime and metron ----> 11/04 vancomycin based on C/S --> 11/05 will add cefepime again to cover GNB on 11/04 sacral culture. ID evaluated 11/01: recommends bone culture/deep tissue culture, plastic surgery evaluation. Reached out to plastic surgery 11/04, wound debrided 11/04, patient will likely need wound VAC upon discharge. NOt a flap candidate, conservative measures. Patient will need to follow-up with C upon discharge PICC line placement order given-failed today but we will try again tomorrow Discussed with the ID specialist and updated antibiotics as follows: IV daptomycin and IV ceftriaxone follow-up in 6 weeks Weekly lab & CPK Continue wound VAC and wound care as per wound care nurse Picture of the wound noted and showing fine granulation tissue without any evidence of pus and/or infection We will need to keep it clean and dry to prevent further worsening of infection Will need regular change of posture to avoid any pressure over that area Medically stable to be transferred today-we will need to continue wound VAC and antibiotic as advised Mental status He has been cognitively normal since admission He will need assistance to use a Phone and a keyboard I received a call from Cholo Martin brother Rishabh and he is asking for documentation in the progress note that patient is cognitively normal and that he needs assistance to use a phone and keyboard. His family is trying to get him approved for handicapped equipment. Remains mentally clear Acute anemia Baseline Hb around 13 Admitting Hb 9.1 11/02 FOBT positive, Vit B12 and Folate wnl c/w iron supplement Discussed with GI 11/03, resume diet, no plan for scope, PPI twice daily Monitor Hb daily and as needed, transfuse for Hb <7 Hemoglobin stable around 8-9. Hemoglobin is 9.8 as of 11/12/2021-8.6 as of 11/14/2021 Hemoglobin stable at 8.6 Bradycardia HR went to high 30s to low 40s on 11/01 and 11/02 H/o anaplasmosis (see above). 11/01 TSH WNL lyme screen negative Pt doesn't have any chest symptoms Cardiology evaluated, on telemetry. Await further cardiology recommendations No more bradycardia noted. No cardiac symptoms Severe protein calorie malnutrition: Significant weight loss since the last 8 months on the background of disabling medical conditions [see above] including chronic inflammation secondary to decubitus ulcer/osteomyelitis, and left-sided paralysis. Nutrition consult, appreciate recommendation. Other chronic medical conditions: HTN, DM type II, tracheocutaneous fistula following tracheostomy, GJ tube in place, peripheral vascular disease, BPH Continue with/resume home medication as and when appropriate. MOnitor and replete electrolytes. DVT Px: Hep SC Full code Disposition: Med/surg, when sacral cultures out and w/ plastic/id/cardio recs, PT/OT, CM to assist with DC planning. Will have PT and OT evaluation-completed Has been accepted and will be going to [place] today Admission and Anticipated Discharge Date Admission Date: October 31, 2021 Subjective 11/09/2021 The patient was seen and examined in medical telemetry unit He remains stable and denies any significant symptoms Remains bedbound 11/10/2021 Patient was seen and examined Medically stable and denies any symptoms 11/11/2021 Seen and examined in the emergency room medical telemetry unit He has been stable and denies any symptoms Remains bedbound without any fever and no chills, no nausea and or vomiting 11/12/2021 The patient was seen and examined in medical telemetry unit in presence of the mother He has been stable denies any significant symptoms He will have PICC line placement today 11/13/2021 The patient was seen and examined in medical telemetry unit He has been stable and denies any symptoms No fever and or chills, no abdominal pain nausea or vomiting, no back pain and/or sacral pain 11/14/2021 The patient was seen and examined in medical telemetry unit He remained stable without any significant symptoms Denies any fever and or chills, no pain at the back, no nausea no vomiting 11/15/2021 The patient was seen and examined in medical telemetry unit He has been stable and ready to be discharged from the hospital Still has the wound VAC on and that will be continued Denies any significant symptoms and there is no fever and no chills, no back pain, no abdominal pain nausea or vomiting and no shortness of breath Review of Systems Review of Systems: All systems reviewed and are unremarkable except as noted below Physical Exam Physical Exam: Lying in bed comfortably Constitutional: + ill appearing and average body habitus Eyes: PERRL, conjunctivae normal, anicteric sclerae ENMT: external ear and nose normal, oropharynx normal Neck: trachea midline, no thyromegaly Respiratory: no respiratory distress Auscultation: + diminished lung sounds; no crackles Cardiovascular: Rate/Rhythm: regular rate and regular rhythm; not tachycardic Heart Sounds: normal S1 and normal S2; no murmur Extremities: + edema (Trace edema bilaterally) Gastrointestinal (Abdomen): Inspection/Auscultation: normal bowel sounds; abdomen not distended Percussion/Palpation: abdomen soft; abdomen nontender Musculoskeletal: No acute arthritis in any joint. She has moving almost normally the right side of the body Neurologic: Alert, awake and oriented x3. She has hemiplegia the left side due to prior stroke and remains bedbound Results & Data Results & Data ([facility]) Vital Signs (Past 12 Hours) Vital Signs Temp Pulse Pulse Pulse Resp BP Pulse Ox 11/15/21 08:05 36.6 C 76 14 146/75 H 94 11/15/21 04:06 36.8 C 71 18 146/68 H 97 11/14/21 23:30 36.8 C 74 18 144/65 H 98 11/14/21 23:02 73 Laboratory Results BMP 11/15/21 07:40 Sodium 141 Potassium 3.7 Chloride 105 Carbon Dioxide 29 BUN 17 Creatinine 0.41 L Glucose 143 H Calcium 8.9 Medications Administered Current Inpatient Medications Acetaminophen (Acetaminophen 325 Mg Tab) 650 mg PO Q4H PRN PRN Reason: pain/fever Stop: 11/30/21 18:33 Last Admin: 11/07/21 20:57 Dose: 650 mg Documented by: Ascorbic Acid (Ascorbic Acid 500 Mg Tab) 500 mg PO Q2D@0900 [facility] Stop: 12/01/21 08:59 Last Admin: 11/15/21 08:44 Dose: 500 mg Documented by: Aspirin (Aspirin 81 Mg Ectab) 81 mg PO DAILY [facility] Stop: 12/01/21 08:59 Last Admin: 11/15/21 08:44 Dose: 81 mg Documented by: Atorvastatin Calcium (Atorvastatin 40 Mg Tab) 40 mg PO DAILY [facility] Stop: 12/01/21 08:59 Last Admin: 11/12/21 08:06 Dose: 40 mg Documented by: Baclofen (Baclofen 10 Mg Tab) 5 mg PO Q12H [facility] Stop: 11/30/21 18:59 Last Admin: 11/15/21 08:42 Dose: 5 mg Documented by: Dextrose (Dextrose 50% 50 Ml Syringe) 25 - 50 ml IV UD PRN; Protocol PRN Reason: Hypoglycemia Protocol Stop: 11/30/21 18:33 Doxazosin Mesylate (Doxazosin Mesylate 1 Mg Tab) 1 mg PO DAILY [facility] Stop: 12/01/21 08:59 Last Admin: 11/15/21 08:44 Dose: 1 mg Documented by: Ferrous Sulfate (Ferrous Sulfate 325 Mg Tab) 325 mg PO DAILY [facility] Stop: 12/01/21 08:59 Last Admin: 11/15/21 08:44 Dose: 325 mg Documented by: Glucagon (Glucagon For Inj 1 Mg Vial) 1 mg SQ UD PRN; Protocol PRN Reason: Hypoglycemia Protocol Stop: 11/30/21 18:33 Glucose (Glucose 10 Tabs/Tube) 4 - 8 tabs PO UD PRN; Protocol PRN Reason: Hypoglycemia Protocol Stop: 11/30/21 18:33 Glucose (Glucose 40% Gel 15 Gm Tube) 15 - 30 gm PO UD PRN; Protocol PRN Reason: Hypoglycemia Protocol Stop: 11/30/21 18:33 Glycopyrrolate (Glycopyrrolate 1 Mg Tab) 1 mg PO BID [facility] Stop: 11/30/21 20:59 Last Admin: 11/15/21 08:44 Dose: 1 mg Documented by: Heparin Sodium (Beef Lung) (Heparin 10 Unit/Ml 5 Ml Flush) 5 ml FLUSH PRN PRN PRN Reason: Flush Stop: 12/14/21 03:21 Last Admin: 11/14/21 12:12 Dose: 5 ml Documented by: Heparin Sodium (Porcine) (Heparin Sod 5,000 Unit/0.5 Ml Vial) 5,000 units SQ Q12 [facility] Stop: 12/04/21 20:59 Last Admin: 11/15/21 08:45 Dose: 5,000 units Documented by: Promethazine HCl 6.25 mg/ (Sodium Chloride) 50.25 mls @ 201 mls/hr IV Q6H PRN PRN Reason: Nausea And Vomiting Stop: 12/04/21 08:50 Last Infusion: 11/04/21 10:55 Dose: Infused Documented by: Ceftriaxone Sodium 2,000 mg/ (Dextrose) 70 mls @ 140 mls/hr IV Q24H [facility] Stop: 12/24/21 17:59 Last Infusion: 11/14/21 18:15 Dose: Infused Documented by: Daptomycin 400 mg/ Syringe 8 mls @ 4 mls/min IV Q24H [facility]; Protocol Stop: 12/24/21 16:59 Last Admin: 11/14/21 17:33 Dose: 4 mls/min Documented by: Insulin Aspart (Insulin Aspart Per Unit) 0 units SC ACHS [facility] Stop: 11/30/21 18:59 Last Admin: 11/14/21 20:23 Dose: 1 units Documented by: Lactobacillus Acidophilus (Advanced Probiotic 1250 Mg Capsule) 2 cap PO DAILY [facility] Stop: 12/04/21 09:29 Last Admin: 11/15/21 08:44 Dose: 2 cap Documented by: Magnesium Oxide (Magnesium Oxide 400 Mg Tab) 400 mg PO BID [facility] Stop: 12/03/21 16:29 Last Admin: 11/15/21 08:44 Dose: 400 mg Documented by: Melatonin (Melatonin 3 Mg Tab) 6 mg PO HS PRN PRN Reason: Insomnia Stop: 11/30/21 18:33 Last Admin: 11/01/21 19:30 Dose: 6 mg Documented by: Miscellaneous (Carbohydrates For Hypoglycemia ) 15 - 30 gm PO UD PRN PRN Reason: Hypoglycemia Protocol Stop: 11/30/21 18:33 Miscellaneous Information (Daptomycin Consult Active) 1 ea N/A UD PRN PRN Reason: Consult Stop: 12/12/21 16:49 Morphine Sulfate (Morphine Sulfate 2 Mg/Ml Carp) 2 mg IV Q1H PRN PRN Reason: Pain Stop: 11/21/21 10:58 Ondansetron HCl (Ondansetron 4 Mg Od Tab) 4 mg PO Q6H PRN PRN Reason: Nausea Stop: 11/30/21 18:33 Last Admin: 11/04/21 08:04 Dose: 4 mg Documented by: Oxycodone HCl (Oxycodone Hcl Ir 5 Mg Tab (Immediate Release)) 5 mg PO Q4H PRN PRN Reason: Pain Stop: 11/21/21 10:58 Pantoprazole Sodium (Pantoprazole 40 Mg Tab) 40 mg PO BID [facility] Stop: 11/30/21 20:59 Last Admin: 11/15/21 08:44 Dose: 40 mg Documented by: Polyethylene Glycol (Polyethylene (Miralax) 17 Gm Pack) 17 gm PO DAILY PRN PRN Reason: Constipation Stop: 11/30/21 18:33 Last Admin: 11/07/21 20:57 Dose: 17 gm Documented by: Saccharomyces Boulardii (Saccharomyces Boulardii 250 Mg Cap) 250 mg PO BID [facility] Stop: 11/30/21 20:59 Last Admin: 11/15/21 08:45 Dose: 250 mg Documented by: Sennosides (Senna 8.6 Mg Tab) 8.6 mg PO DAILY PRN PRN Reason: Constipation Stop: 11/30/21 18:33 Last Admin: 11/08/21 08:04 Dose: 8.6 mg Documented by: Vitamin D (Cholecalciferol 5,000 Units 125 Mcg Tab) 5,000 units PO DAILY [facility] Stop: 12/01/21 08:59 Last Admin: 11/15/21 08:44 Dose: 5,000 units Documented by:
--- NOTE | 2021-11-15 15:07 | Discharge Summary ---
Date of Service November 15, 2021 Admission HPI Per Admitting Provider Chief Complaint: Sacral pain and wound Primary Care Provider: Pop Solares MD This is a 56 y/o male with a complicated PMH including DM2, anaplasmosis w/ severe septic shock, endocarditis with subsequent septic emboli and right MCA CVA, tracheostomy tube, PAF, HTN, and GJ tube placement. In February of 2021, pt presented to [facility] with flu-like symptoms and subsequently went into severe septic shock with multisystem organ failure. He was transferred to [place] and ultimately tested positive for anaplamosis. On TTE, he was noted to have severe AI with flail right coronary cusp. RUSSELL confirmed vegetation on the AV. MRI brain showed septic emboli that resulted in multifocal strokes and right-sided PICA mycotic aneurysm. CTA confirmed aneurysm and showed a new right-sided MCA infarct. Underwent AVR on 03/27 but chest closure had to be delayed until 03/28. Developed transient SA brent dysfunction post-operatively and required temporary pacing. Also developed worsening renal function with oliguria that required CRRT 03/29-04/03. HD was started on 04/06. He was able to be taken on HD by the end of March. 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 He underwent PEG placement on 04/08 but had recurrent issues with aspiration so PEG was converted to a GJ tube on 04/22. He subsequently developed Alyse esophagitis and was treated with micafungin. Hospitalization was also complicated by hypernatremia that responded to aggressive hydration with NSS, D5 water, and tube feeds. He was discharged to [facility] on 05/31/22. Subsequently admitted to [facility] on 07/05/21, where has been since. The tracheostomy was decannulated on 09/16/21 but pt has a small persistent tracheocutaneous fistula for which he continues to follow with ENT. If this persists, he may require a procedure to close the trach site. Today, he was sent to the ED from [facility] due to worsening sacral pain related to a known sacral ulcer. Pt reports this has been present since his discharge from [facility] and has been slowly worsening. He denies having seen wound care for this to his knowledge. The facility has been applying a dressing, but the dressing changes have become progressively more painful. Yesterday, he had an X-ray of his sacrum/coccyx that showed early osteomyelitis with hyperlucency of the ischial tuberosity on left side and cortical erosion along the posterior margin of the sacrococcygeal segments on the lateral view. He was referred to for additional evaluation. His main complaint is pain at the area. He denies fevers, chills, loss of appetite. He does not use the GJ tube but takes food and medications by mouth as his swallowing has gradually improved. Admission Exam Per Admitting Provider Constitutional: + thin and + frail appearing; no acute d istress Eyes: + anicteric sclerae Neck: Band-aid over tracheocutaneous fistula Respiratory: no respiratory distress and no labored breathing Auscultation: lungs clear to auscultation bilaterally; no rales, no rhonchi and no wheezes Cardiovascular: Rate/Rhythm: regular rate and regular rhythm Vessels: radial pulses present Extremities: no pedal edema Gastrointestinal (Abdomen): Inspection/Auscultation: normal bowel sounds; abdomen not distended Percussion/Palpation: abdomen soft; abdomen nontender GJ tube in place in upper abdomen - area clean, dry, intact with no surrounding erythema Musculoskeletal: significant muscular atrophy, cushioned boots bilateral LE Skin: large sacral ulcer with scant drainage but overall dry appearing Neurologic: moves all extremities Principal Diagnosis Sacral osteomyelitis, sacral wound infection with E. coli, staph aureus MRSA and Enterococcus VRE, history of stroke with left hemiplegia, type 2 diabetes, hypertension, chronic anemia Discharge Exam Lying in bed comfortably Constitutional + ill appearing and average body habitus Eyes PERRL, conjunctivae normal, anicteric sclerae ENMT external ear and nose normal, oropharynx normal Neck trachea midline, no thyromegaly Respiratory no respiratory distress Auscultation: + diminished lung sounds; no crackles Cardiovascular Rate/Rhythm: regular rate and regular rhythm; not tachycardic Heart Sounds: normal S1 and normal S2; no murmur Extremities: + edema (Trace edema bilaterally) Gastrointestinal (Abdomen) Inspection/Auscultation: normal bowel sounds; abdomen not distended Percussion/Palpation: abdomen soft; abdomen nontender Discharge Data Allergies Allergy/AdvReac Type Severity Reaction Status Date / Time bee venom protein (honey bee) Allergy Hives Verified 10/31/21 12:47 Consultations 10/31/21 13:48 ED Decision to Admit Stat 10/31/21 18:34 Consult Infectious Diseases Routine 11/01/21 15:41 Consult General Surgery Routine 11/02/21 09:36 Consult Cardiology Routine 11/02/21 17:14 Consult Gastroenterology Routine 11/04/21 13:20 Consult Plastic Surgery Routine Procedures Performed Operation Date: 11/07/21 09:40 Actual Procedures p Sacral Decubitus Debridement and Biopsy(Not Applicable) - Luis Felipe Franklin MD, FACS Ordered Studies 10/31/21 10:33 CT pelvis w/IV con only Stat Hospital Course (1) Sacral osteomyelitis: Awaiting pathology report 56 y/o male with a complicated PMH including DM2, anaplasmosis w/ severe septic shock, endocarditis with subsequent septic emboli and right MCA CVA, stat us post aortic valve replacement, tracheostomy tube [removed few months ago w/ persistent small tracheocutaneous fistula], Alyse esophagitis, PAF, HTN, and GJ tube placement. He presents from [facility] 10/31 to our ED with complaint of worsening sacral pain related to known sacral ulcer. He is being managed for the following: Sacral osteomyelitis Sacral ulcer, stage IV Known history of sacral ulcer after protracted events leading up to MCA CVA [see above] Admitting CT pelvis: Large sacral decubitus ulcer with osteomyelitis involving the sacrum, sacrococcygeal junction and coccyx. Cellulitis with myositis of the soft tissue surrounding the sacral ulcer. On exam reveals no necrosis, stage IV for ulcer present POA. Wound care on board, discussed with wound care, wound VAC with irrigation to help clean the wound. Follow-up with admitting blood culture -NG 5 days Admitting wound culture: MRSA and group B beta strep 11/04 sacral culture: E. coli, staph aureus MRSA and Enterococcus for CM VRE-11/04 vancomycin based on C/S --> 11/05 will add cefepime again to cover GNB on 11/04 sacral culture 11/07 sacral biopsy for culture: await results. Daptomycin 10/31 and Zosyn 10/31 --> 11/02 vanco, cefepime and metron ----> 11/04 vancomycin based on C/S --> 11/05 will add cefepime again to cover GNB on 11/04 sacral culture. ID evaluated 11/01: recommends bone culture/deep tissue culture, plastic surgery evaluation. Reached out to plastic surgery 11/04, wound debrided 11/04, patient will likely need wound VAC upon discharge. NOt a flap candidate, conservative measures. Patient will need to follow-up with [facility] upon discharge PICC line placement order given-failed today but we will try again tomorrow Discussed with the ID specialist and updated antibiotics as follows: IV daptomycin and IV ceftriaxone follow-up in 6 weeks Weekly lab & CPK Continue wound VAC and wound care as per wound care nurse Picture of the wound noted and showing fine granulation tissue without any evidence of pus and/or infection We will need to keep it clean and dry to prevent further worsening of infection Will need regular change of posture to avoid any pressure over that area Medically stable to be transferred today-we will need to continue wound VAC and antibiotic as advised Mental status He has been cognitively normal since admission He will need assistance to use a Phone and a keyboard I received a call from Cholo Keating and he is asking for documentation in the progress note that patient is cognitively normal and that he needs assistance to use a phone and keyboard. His family is trying to get him approved for handicapped equipment. Remains mentally clear Acute anemia Baseline Hb around 13 Admitting Hb 9.1 11/02 FOBT positive, Vit B12 and Folate wnl c/w iron supplement Discussed with GI 11/03, resume diet, no plan for scope, PPI twice daily Monitor Hb daily and as needed, transfuse for Hb <7 Hemoglobin stable around 8-9. Hemoglobin is 9.8 as of 11/12/2021-8.6 as of 11/14/2021 Hemoglobin stable at 8.6 Bradycardia HR went to high 30s to low 40s on 11/01 and 11/02 H/o anaplasmosis (see above). 11/01 TSH WNL lyme screen negative Pt doesn't have any chest symptoms Cardiology evaluated, on telemetry. Await further cardiology recommendations No more bradycardia noted. No cardiac symptoms Severe protein calorie malnutrition: Significant weight loss since the last 8 months on the background of disabling medical conditions [see above] including chronic inflammation secondary to decubitus ulcer/osteomyelitis, and left-sided paralysis. Nutrition consult, appreciate recommendation. Other chronic medical conditions: HTN, DM type II, tracheocutaneous fistula following tracheostomy, GJ tube in place, peripheral vascular disease, BPH Continue with/resume home medication as and when appropriate. MOnitor and replete electrolytes. DVT Px: Hep SC Full code Disposition: Med/surg, when sacral cultures out and w/ plastic/id/cardio recs, PT/OT, CM to assist with DC planning. Will have PT and OT evaluation-completed Has been accepted and will be going to [place] today Total Time Total Time Spent Total Time Spent (In Minutes): 40 minutes Discharge Plan Discharge Items Patient Disposition: Transfer Half-Way Fac Reason For Visit: OSTEOMYELITIS, SACRAL ULCER Discharge Diagnosis: Sacral osteomyelitis, sacral wound infection with E. coli, staph aureus MRSA and Enterococcus VRE, history of stroke with left hemiplegia, type 2 diabetes, hypertension, chronic anemia Condition on Discharge: Fair Activity: As commented below Activity Comment: Bedbound status. Needs helps with ADL S and change in posture in bed Non-emergency contact: Primary Care Provider Call non-emergency contact if: you have any medication questions and your symptoms worsen Follow-up/Referrals: Wound Care Center [Other] (Please schedule patient for wound care follow up in [place], [place] after discharge from [facility]. [facility] [address], [place], [place] [id number] OR the wound care center of the patient's choice.) Pop Solares MD [Primary Care Provider] - (Please make an appointment with your primary care provider within 7 days following discharge from the facility) Diet: Carb Consistent or DM2 Addtl Attending Provider Instructions: Please take precautions to avoid fall. Continue wound care management as advised including using the wound VAC Please finish the course of antibiotic as advised with regular checking of labs as advised Continue PT OT and frequent change of posture to prevent worsening bedsores and promote healing Strongly advised to continue some form of pharmacologic anticoagulation to prevent venous thromboembolism disease (he has been on aspirin and heparin SQ in the hospital) Pending Studies at Discharge: No Stand-Alone Forms: [facility] Skilled Items Patient informed of condition?: Yes DNR: No Discharge Level of Care: Skilled Communicable Disease: No Discharge Prognosis: Stable Lines: PICC Urinary Catheter: Yes Medications and DC Order Prescriptions: New magnesium oxide 400 mg (241.3 mg magnesium) Tablet 400 mg PO BID Qty: 60 RF: 0 Advanced Probiotic 625 mg (10 billion cell) Capsule 2 cap PO DAILY 30 Days Qty: 60 RF: 0 pantoprazole 40 mg Tablet,Delayed Release (Dr/Ec) 40 mg PO BID 30 Days Qty: 60 RF: 0 ceftriaxone 2 gram recon soln 2 g IV DAILY Qty: 1 RF: 0 daptomycin [Cubicin] 500 mg recon soln 400 mg IV DAILY Qty: 1 RF: 0 heparin (porcine) 5,000 unit/mL (1 mL) cartridge 5,000 unit subcut Q12H Qty: 1 RF: 0 Continued glycopyrrolate 1 mg Tablet 1 mg PO BID RF: 0 atorvastatin 40 mg Tablet 40 mg PO DAILY RF: 0 sennosides [Senna Lax] 8.6 mg Tablet 8.6 mg PO DAILY PRN (Reason: Constipation) RF: 0 albuterol sulfate 2.5 mg /3 mL (0.083 %) Solution For Nebulization 2.5 mg INHALATION Q4H PRN (Reason: Wheezing) RF: 0 doxazosin 1 mg Tablet 1 mg PO DAILY RF: 0 melatonin 3 mg Tablet 6 mg PO HS PRN (Reason: Insomnia) RF: 0 aspirin 81 mg Tablet,Delayed Release (Dr/Ec) 81 mg PO DAILY RF: 0 guaifenesin 100 mg/5 mL Liquid 200 mg feeding tube Q6H PRN (Reason: Cough) RF: 0 ascorbic acid (vitamin C) 500 mg Tablet 500 mg PO Q2D RF: 0 ferrous sulfate 325 mg (65 mg iron) Tablet 325 mg PO DAILY RF: 0 polyethylene glycol 3350 17 gram/dose Powder 17 g PO DAILY PRN (Reason: Constipation) RF: 0 ondansetron 4 mg Tablet,Disintegrating 4 mg PO Q6H PRN (Reason: Nausea) RF: 0 insulin lispro [Humalog KwikPen Insulin] 100 unit/mL Insulin Pen 1 sliding scale dose SUBCUT USEASDIRECTD RF: 0 Saccharomyces boulardii [Florastor] 250 mg Capsule 250 mg PO BID RF: 0 Basaglar KwikPen U-100 Insulin 100 unit/mL (3 mL) Insulin Pen 8 unit SUBCUT HS RF: 0 cholecalciferol (vitamin D3) [Vitamin D3] 125 mcg (5,000 unit) Tablet 125 mcg PO DAILY RF: 0 Peter 7-7-1.5 gram Powder In Packet 1 ea PO BID RF: 0 vit 28-iron fum-folic 27 mg iron- 1 mg Tablet 1 tab PO DAILY RF: 0 baclofen 5 mg Tablet 5 mg PO Q12H RF: 0 acetaminophen 325 mg Tablet 650 mg PO QID PRN (Reason: Fever Or Pain) RF: 0 Discontinued omeprazole 40 mg Capsule,Delayed Release(Dr/Ec) 40 mg PO BID RF: 0 Discharge Orders: Discharge Order (Routine); Ordered 11/15/21 Ordered By: Aimee Morgan Admission Data Admit Date/Time: 10/31/21 14:19 Attending Provider: Yaniv Mendez Admit Provider: Aimee Morgan Primary Care Provider: Pop Solares Other Providers: Melissa Vegas ; Aimee Morgan ; Eddie Flowers ; Melani Maya ; Sebastián Rosales I. ; aJck Luu II ; Sindhu Stevenson ; Cholo Howard ; Brandon Fuentes ; Luis Felipe Franklin ; Demetris Gaitan ; Sabrina Ramirez ; Kristen Fernandes ; Daja Romero Other Interventions: Discharge Summary Assessment (RN) Last Done: 11/15/21 10:00
--- NOTE | 2021-11-27 09:14 | Coding Query ---
DEBRIDEMENT DOCUMENTATION To promote full compliance with coding requirements relating to patient care, physician participation is requested in all cases of supervisory clerk uncertainty. Please assist us with the question(s) below: Please place an X in the parenthesis (x). If other, please document the finding: SACRAL DEBRIDEMENT PERFORMED ON 11/07/21 Type of Debridement: ( ) Excisional Debridement- Cutting away necrotic, devitalized tissue or slough to the level of viable tissue using a sharp instrument (i.e. scalpel, scissors, etc.) ( x) Non Excisional Debridement- The removal of necrotic, devitalized tissue or slough by means of scraping, mechanical brushing, flushing, or washing (i.e. irrigation,whirlpool); minor removal of loose fragments. ( ) Other (please specify): Thank you Liliana COOK
== END 2021-11-15 14:53 | DRG 477 ==
LOC: ED 09:44 → SUATTDRO 14:19 → 3E 14:19 → 2N 11-02 10:16
DX: Z16.21 Resistance to vancomycin; Z93.0 Tracheostomy status; E43 Unspecified severe protein-calorie malnutrition; Z79.899 Other long term (current) drug therapy; Z68.21 Body mass index [BMI] 21.0-21.9, adult; N40.0 Benign prostatic hyperplasia without lower urinary tract symptoms; B95.2 Enterococcus as the cause of diseases classified elsewhere; Z95.2 Presence of prosthetic heart valve; Z79.82 Long term (current) use of aspirin; L03.312 Cellulitis of back [any part except buttock and flank]; R00.1 Bradycardia, unspecified; B96.20 Unspecified Escherichia coli [E. coli] as the cause of diseases classified elsewhere; R11.2 Nausea with vomiting, unspecified; D64.9 Anemia, unspecified; I10 Essential (primary) hypertension; Z93.1 Gastrostomy status; I69.354 Hemiplegia and hemiparesis following cerebral infarction affecting left non-dominant side; M46.28 Osteomyelitis of vertebra, sacral and sacrococcygeal region; T37.8X5A Adverse effect of other specified systemic anti-infectives and antiparasitics, initial encounter; Z79.4 Long term (current) use of insulin; Z91.030 Bee allergy status; L92.3 Foreign body granuloma of the skin and subcutaneous tissue; E11.51 Type 2 diabetes mellitus with diabetic peripheral angiopathy without gangrene; Z86.19 Personal history of other infectious and parasitic diseases; L89.154 Pressure ulcer of sacral region, stage 4; I45.10 Unspecified right bundle-branch block; B95.1 Streptococcus, group B, as the cause of diseases classified elsewhere; B95.62 Methicillin resistant Staphylococcus aureus infection as the cause of diseases classified elsewhere; M60.9 Myositis, unspecified; Z18.89 Other specified retained foreign body fragments; R19.5 Other fecal abnormalities